=== PATIENT | female | born 1955 | race African-American/Black ===

== ENCOUNTER 2016-08-13 14:16 | Inpatient (IN) | payer BC ==
[2016-08-13] MEDS ORDERED: NORMAL SALINE 1000 ML 1,000 ML IV ONE ×2 (14:29→15:50)
--- NOTE | 2016-08-13 14:32 | ER Document Report ---
ED Medical Screen (RME) - General Chief Complaint: Abdominal Pain Stated Complaint: ABDOMINAL PAIN TRAVEL OUTSIDE OF THE [place] IN LAST 30 DAYS: No - HPI Notes: 08/13/16 14:31 Abdominal pain history of SBO states feels like a SBO the past. No nausea no vomiting no flatus last bowel movement day prior to arrival I have greeted and performed a rapid initial assessment of this patient. A comprehensive ED assessment and evaluation of the patient, analysis of test results and completion of the medical decision making process will be conducted by additional ED providers. - Related Data Allergies/Adverse Reactions: No Known Allergies Allergy (Unverified 08/13/16 14:24) Past Medical History - Past Medical History Cardiac Medical History: Reports: Hx Hypertension Renal/ Medical History: Denies: Hx Peritoneal Dialysis Past Surgical History: Reports: Hx Abdominal Surgery - Immunizations Hx Diphtheria, Pertussis, Tetanus Vaccination: Yes Review of Systems - Review of Systems Gastrointestinal: Abdominal pain Physical Exam - Vital signs Vitals: Temp Pulse Resp BP Pulse Ox 97.6 F 89 18 170/104 H 99 08/13/16 14:22 08/13/16 14:22 08/13/16 14:22 08/13/16 14:22 08/13/16 14:22 - Respiratory Respiratory status: No respiratory distress Chest status: Nontender Breath sounds: Normal Chest palpation: Normal Course - Vital Signs Vital signs: Temp Pulse Resp BP Pulse Ox 97.6 F 89 18 170/104 H 99 08/13/16 14:22 08/13/16 14:22 08/13/16 14:22 08/13/16 14:22 08/13/16 14:22
[2016-08-13 15:04] LABS: ABSOLUTE EOSINOPHILS # (AUTO) 0.1 10^3/uL (0.0-0.6); ABSOLUTE LYMPHOCYTES (AUTO) 1.1 10^3/uL (0.5-4.7); ABSOLUTE MONOCYTES (AUTO) 0.3 10^3/uL (0.1-1.4); ABSOLUTE NEUT (AUTO) 5.9 10^3/uL (1.7-8.2); BASOPHILS % (AUTO) 0.2 % (0-2); EOSINOPHILS % (AUTO) 1.2 % (0-6); HEMATOCRIT 44.2 % (36.0-47.0); HEMOGLOBIN 14.6 g/dL (12.0-15.5); HGB HCT DIFFERENCE -0.4; LYMPHOCYTES % (AUTO) 14.9 % (13-45); MEAN CORPUSCULAR HEMOGLOBIN 28.7 pg (27.0-33.4); MEAN CORPUSCULAR HGB CONC 33.1 g/dL (32.0-36.0); MEAN CORPUSCULAR VOLUME 87 fl (80-97); MONOCYTES % (AUTO) 4.5 % (3-13); RED CELL DISTRIBUTION WIDTH 14.5 % (11.5-14.0); SEGMENTED NEUTROPHILS % (AUTO) 79.2 % (42-78); WHITE BLOOD COUNT 7.4 10^3/uL (4.0-10.5)
[2016-08-13] MEDS ORDERED: MORPHINE SULFATE 10 MG/ML INJ IV ONE (15:21)
[2016-08-13] MEDS ORDERED: ONDANSETRON HCL INJ/PF 4 MG/2 ML SDV IV ONE (15:21)
[2016-08-13 15:25] LABS: ALANINE AMINOTRANSFERASE 30 U/L (9-52); ALBUMIN 4.6 g/dL (3.5-5.0); ALKALINE PHOSPHATASE 123 U/L (38-126); ANION GAP 15 (5-19); ASPARTATE AMINO TRANSFERASE 25 U/L (14-36); BILIRUBIN,DIRECT 0.3 mg/dL (0.0-0.4); BILIRUBIN,TOTAL 0.5 mg/dL (0.2-1.3); BLOOD UREA NITROGEN 17 mg/dL (7-20); CALCIUM 10.4 mg/dL (8.4-10.2); CARBON DIOXIDE 22 mmol/L (22-30); CHLORIDE 108 mmol/L (98-107); CREATININE RESULT 0.72 mg/dL (0.52-1.25); GLUCOSE 126 mg/dL (75-110); LIPASE 71.6 U/L (23-300); POTASSIUM 4.1 mmol/L (3.6-5.0); SODIUM 145.3 mmol/L (137-145); TOTAL PROTEIN 9.2 g/dL (6.3-8.2)
--- NOTE | 2016-08-13 15:49 | ER Document Report ---
ED GI/ - General Chief Complaint: Abdominal Pain Stated Complaint: ABDOMINAL PAIN Mode of Arrival: Ambulatory Information source: Patient Notes: 61 y/o F presents to ED abd pain and n/v. Pt reports onset of mid and upper abd pain with associated nausea and one episode of vomiting since this morning. Pt reports hx of previous bowel obstruction and states feels similar. Reports last BM was yesterday. Denies fever, blood in emesis or stool. TRAVEL OUTSIDE OF THE [place] IN LAST 30 DAYS: No - HPI Patient complains to provider of: Abdominal pain Onset: This morning Timing/Duration: Gradual Quality of pain: Fullness, Sharp Severity at maximum: Severe Severity in ED: Severe Pain Level: 4 Associated symptoms: Nausea, Vomiting Similar symptoms previously: Yes Recently seen / treated by doctor: No - Related Data Allergies/Adverse Reactions: No Known Allergies Allergy (Unverified 08/13/16 14:24) Home Medications: Current Home Medications Dicyclomine HCl [Bentyl 10 mg Capsule] 10 mg PO DAILY 08/13/16 [History] Famotidine [Pepcid 20 mg Tablet] 20 mg PO DAILY 08/13/16 [History] Hydrochlorothiazide [Hydrodiuril 25 mg Tablet] 25 mg PO DAILY 08/13/16 [History] Verapamil HCl [Calan 120 mg Tablet] 120 mg PO DAILY 08/13/16 [History] Past Medical History - General Information source: Patient - Social History Smoking Status: Former Smoker Frequency of alcohol use: None Drug Abuse: None Lives with: Family Family History: DM, Malignancy Patient has suicidal ideation: No Patient has homicidal ideation: No - Past Medical History Cardiac Medical History: Reports: Hx Hypertension Renal/ Medical History: Denies: Hx Peritoneal Dialysis Past Surgical History: Reports: Hx Abdominal Surgery - Immunizations Hx Diphtheria, Pertussis, Tetanus Vaccination: Yes Review of Systems - Review of Systems Constitutional: No symptoms reported EENT: No symptoms reported Cardiovascular: No symptoms reported Respiratory: No symptoms reported Gastrointestinal: See HPI Genitourinary: No symptoms reported Female Genitourinary: No symptoms reported Musculoskeletal: No symptoms reported Skin: No symptoms reported Hematologic/Lymphatic: No symptoms reported Neurological/Psychological: No symptoms reported -: Yes All other systems reviewed and negative Physical Exam - Vital signs Vitals: Temp Pulse Resp BP Pulse Ox 97.6 F 89 18 170/104 H 99 08/13/16 14:22 08/13/16 14:22 08/13/16 14:22 08/13/16 14:22 08/13/16 14:22 - General General appearance: Alert In distress: Mild - HEENT Head: Normocephalic, Atraumatic Eyes: Normal Pupils: PERRL - Respiratory Respiratory status: No respiratory distress Chest status: Nontender Breath sounds: Normal - CTAB Chest palpation: Normal - Cardiovascular Rhythm: Regular Heart sounds: Normal auscultation Murmur: No Pulses: Normal: Radial Normal capillary refill: Yes - Abdominal Inspection: Normal, Healed incision Distension: Distended - up Bowel sounds: Hypoactive Tenderness: Tender - tenderness with palpation to periumbillical and mid upper abd Organomegaly: No organomegaly - Back Back: Normal, Nontender - Extremities General upper extremity: Normal inspection, Nontender, Normal color, Normal ROM , Normal temperature General lower extremity: Normal inspection, Nontender, Normal color, Normal ROM , Normal temperature - Neurological Neuro grossly intact: Yes Cognition: Normal Orientation: AAOx4 Serena Coma Scale Eye Opening: Spontaneous Belding Coma Scale Verbal: Oriented Belding Coma Scale Motor: Obeys Commands Serena Coma Scale Total: 15 Speech: Normal Motor strength normal: LUE, RUE, LLE, RLE Sensory: Normal - Skin Skin Temperature: Warm Skin Moisture: Dry Skin Color: Normal Course - Re-evaluation Re-evalutation: 08/13/16 15:45 Pt hemodynamically stable, afebrile. Ileus vs partial small bowel obstruction on Xray. Pain and nausea significantly improved after IV Morphine and Zofran. Discussed patient presentation and findings with surgicalist Dr. Hernandez who agrees to assume care and admit to surgical unit. Recommends NGT to suction. Findings and plan discussed with patient who is agreeable. 08/13/16 16:33 - Vital Signs Vital signs: Temp Pulse Resp BP Pulse Ox 97.6 F 89 18 170/104 H 99 08/13/16 14:22 08/13/16 14:22 08/13/16 14:22 08/13/16 14:22 08/13/16 14:22 - Laboratory Result Diagrams: 08/13/16 14:30 08/13/16 14:30 Laboratory results interpreted by me: 08/13/16 08/13/16 14:30 14:30 RDW 14.5 H Seg Neutrophils % 79.2 H Sodium 145.3 H Chloride 108 H Glucose 126 H Calcium 10.4 H Total Protein 9.2 H - Diagnostic Test Radiology reviewed: Image reviewed, Reports reviewed Discharge - Discharge Clinical Impression: Partial small bowel obstruction Condition: Stable Disposition: ADMITTED INPATIENT Admitting Provider: Surgicalist - David Unit Admitted: Surgical Floor
[2016-08-13 17:02] LABS: APPEARANCE,URINE CLOUDY; BILIRUBIN,URINE NEGATIVE (NEGATIVE); GLUCOSE, URINE NEGATIVE (NEGATIVE); KETONES,URINE NEGATIVE (NEGATIVE); LEUKOCYTE ESTERASE,URINE MODERATE (NEGATIVE); NITRITE,URINE NEGATIVE (NEGATIVE); PROTEIN,URINE NEGATIVE (NEGATIVE); URINE SPECIFIC GRAVITY 1.006; UROBILINOGEN,URINE NEGATIVE mg/dL (<2.0)
[2016-08-13] MEDS: HYDROMORPHONE HCL INJ/PF 2 MG/ML AMPULE IV PRN ×2 (18:26→21:12)
[2016-08-13] MEDS: POTASSI CL 20 MEQ/D5-1/2NS 1L 1000 ML IV PRN (19:13)
[2016-08-13] MEDS: HYDRALAZINE HCL INJ/PF 20 MG/1 ML SDV IV PRN (20:29)
[2016-08-13] MEDS: ONDANSETRON HCL INJ/PF 4 MG/2 ML SDV IV PRN (21:12)
[2016-08-13] MEDS ORDERED: ENOXAPARIN SODIUM INJ 40 MG/0.4 ML DISP.SYRIN SUBCUT SCH (22:00)
[2016-08-14] MEDS: HYDROMORPHONE HCL INJ/PF 2 MG/ML AMPULE IV PRN ×5 (00:16→23:28)
[2016-08-14] MEDS: POTASSI CL 20 MEQ/D5-1/2NS 1L 1000 ML IV PRN ×3 (03:26→18:10)
[2016-08-14] MEDS: HYDRALAZINE HCL INJ/PF 20 MG/1 ML SDV IV PRN ×2 (07:34→18:35)
[2016-08-14 08:09] LABS: ABSOLUTE LYMPHOCYTES (AUTO) 1.5 10^3/uL (0.5-4.7); ABSOLUTE MONOCYTES (AUTO) 0.7 10^3/uL (0.1-1.4); ABSOLUTE NEUT (AUTO) 5.2 10^3/uL (1.7-8.2); BASOPHILS % (AUTO) 0.1 % (0-2); EOSINOPHILS % (AUTO) 0.4 % (0-6); HEMATOCRIT 39.2 % (36.0-47.0); HEMOGLOBIN 13.1 g/dL (12.0-15.5); HGB HCT DIFFERENCE 0.1; LYMPHOCYTES % (AUTO) 20.5 % (13-45); MEAN CORPUSCULAR HEMOGLOBIN 29.1 pg (27.0-33.4); MEAN CORPUSCULAR HGB CONC 33.4 g/dL (32.0-36.0); MEAN CORPUSCULAR VOLUME 87 fl (80-97); MONOCYTES % (AUTO) 9.8 % (3-13); RED BLOOD COUNT 4.49 10^6/uL (3.72-5.28); RED CELL DISTRIBUTION WIDTH 14.7 % (11.5-14.0); SEGMENTED NEUTROPHILS % (AUTO) 69.2 % (42-78); WHITE BLOOD COUNT 7.5 10^3/uL (4.0-10.5)
[2016-08-14] MEDS: ONDANSETRON HCL INJ/PF 4 MG/2 ML SDV IV PRN ×2 (08:13→18:10)
[2016-08-14 08:40] LABS: ANION GAP 11 (5-19); BLOOD UREA NITROGEN 10 mg/dL (7-20); CARBON DIOXIDE 24 mmol/L (22-30); CHLORIDE 109 mmol/L (98-107); CREATININE RESULT 0.64 mg/dL (0.52-1.25); GLUCOSE 121 mg/dL (75-110); POTASSIUM 3.7 mmol/L (3.6-5.0); SODIUM 143.9 mmol/L (137-145)
[2016-08-14] MEDS ORDERED: DEXAMETHASONE SOD PHOSPHATE INJ 4 MG/1 ML VIAL ONE (12:37)
[2016-08-14] MEDS ORDERED: LIDOCAINE 2% INJ-PF (20 MG/ML) 10 ML AMPUL ONE (12:37)
[2016-08-14] MEDS ORDERED: ONDANSETRON HCL INJ/PF 4 MG/2 ML SDV ONE (12:37)
[2016-08-14] MEDS ORDERED: GLYCOPYRROLATE INJ 0.4 MG/2 ML VIAL ONE (12:37)
[2016-08-14] MEDS ORDERED: NEOSTIGMINE METHYLSULFATE 10 MG/10 ML VIAL ONE (12:37)
[2016-08-14] MEDS ORDERED: VECURONIUM BROMIDE INJ 10 MG VIAL IV ONE (12:37)
[2016-08-14] MEDS ORDERED: SUCCINYLCHOLINE CHLORIDE INJ 200 MG/10 ML VIAL ONE (12:37)
[2016-08-14] MEDS ORDERED: LIDOCAINE 1% INJ-PF (10 MG/ML) 30 ML SDV ONE (14:13)
--- NOTE | 2016-08-14 14:16 | PDOC PROGRESS REPORT ---
Subjective Progress Note for:: 08/14/16 Subjective:: still c/o abd pain, no bm Physical Exam Vital Signs: Temp Pulse Resp BP Pulse Ox 99.2 F 90 16 163/86 H 100 08/14/16 11:36 08/14/16 11:36 08/14/16 11:36 08/14/16 11:36 08/14/16 11:36 Intake & Output 08/13/16 08/14/16 08/15/16 06:59 06:59 06:59 Intake Total 1500 Output Total 900 Balance 600 Weight 71.6 kg GI/Abdominal exam: PRESENT: other - Distended abdomen , diffuse tenderness Results Laboratory Results: 08/14/16 07:20 08/14/16 07:20 08/13/16 08/14/16 08/14/16 21:00 07:20 07:20 WBC 7.5 RBC 4.49 Hgb 13.1 Hct 39.2 MCV 87 MCH 29.1 MCHC 33.4 RDW 14.7 H Plt Count 284 Seg Neutrophils % 69.2 Lymphocytes % 20.5 Monocytes % 9.8 Eosinophils % 0.4 Basophils % 0.1 Absolute Neutrophils 5.2 Absolute Lymphocytes 1.5 Absolute Monocytes 0.7 Absolute Eosinophils 0.0 Absolute Basophils 0.0 Sodium 143.9 Potassium 3.7 Chloride 109 H Carbon Dioxide 24 Anion Gap 11 BUN 10 Creatinine 0.64 Est GFR ( Amer) > 60 Est GFR (Non-Af Amer) > 60 Glucose 121 H Lactic Acid 1.2 Calcium 9.0 Impressions: Acute Abdomen Series 08/13/16 14:27 IMPRESSION: Ileus or partial small bowel obstruction. Abdomen X-Ray 08/14/16 09:00 IMPRESSION: 1. Similar distension to prior imaging from yesterday. Nasogastric tube down. Assessment & Plan - Plan Summary Plan Summary: Intestiinal obstruction not resolving Plan laparoscopy / lysis of adhesions and required procedures.
[2016-08-14] MEDS ORDERED: FENTANYL CITRATE INJ/PF 250 MCG/5 ML AMPULE ONE (14:27)
[2016-08-14] MEDS ORDERED: MIDAZOLAM 2 MG/2 ML INJ ONE (14:27)
[2016-08-14] MEDS ORDERED: PROPOFOL INJ 200 MG/20 ML VIAL IV ONE (14:27)
[2016-08-14] MEDS ORDERED: CEFAZOLIN INJ 1 GM VIAL ONE (14:45)
[2016-08-14] MEDS ORDERED: PROMETHAZINE HCL INJ 25 MG/1 ML VIAL IV PRN ×2 (14:55)
[2016-08-14] MEDS ORDERED: MORPHINE SULFATE 10 MG/ML INJ IV PRN (14:55)
[2016-08-14] MEDS ORDERED: DIPHENHYDRAMINE HCL 50 MG/ML VIAL IV PRN (14:55)
[2016-08-14] MEDS ORDERED: FENTANYL CITRATE INJ/PF 100 MCG/2 ML AMPUL IV PRN ×3 (14:55)
[2016-08-14] MEDS ORDERED: MEPERIDINE HCL/PF INJ 25 MG/1 ML DISP.SYRIN IV PRN (14:55)
[2016-08-14] MEDS ORDERED: BUPIVACAINE HCL 0.5%-EPI 1:200000 INJ/PF 30 ML VIAL ONE (14:57)
[2016-08-14] MEDS ORDERED: CEFOXITIN 1 GM/D5W RTU 2 GM/100 ML RTUPB IV ONE (15:30)
--- NOTE | 2016-08-14 15:38 | HISTORY AND PHYSICAL E ---
History and Physical NAME: BELINDA MCCULLOUGH : 1955 AGE: 61Y ADMITTED: 08/13/2016 ROOM: 210 Consultation from emergency room for evaluation and management of possible intestinal obstruction. Patient presenting with a 1-day history of abdominal pain which started this morning, started with acute abdominal pain in most of the lower abdomen at the start and became generalized afterwards. Started feeling nausea and after coming to the emergency room she vomited once. She had a bowel movement yesterday. PAST MEDICAL HISTORY: History of hypertension. PAST SURGICAL HISTORY: History of in the past, and several years ago she had surgery for exploratory laparotomy and surgery for intestinal obstruction several years ago. episode of abdominal pain and vomiting. She has never had a colonoscopy so far. FAMILY HISTORY: Nothing relevant. PERSONAL HISTORY: Nonsmoker, no alcohol abuse. Lives with family. REVIEW OF SYSTEMS: CARDIAC: No history of chest pains. RESPIRATORY: No history of asthma or shortness of breath, cough. GASTROINTESTINAL SYSTEM: History of intestinal obstruction in the past. NEUROLOGICAL: No history of seizure disorder, no history of neurological deficits. ENDOCRINOLOGY: No history of diabetes. EXAMINATION: GENERAL: A very pleasant 61-year-old female patient not in any distress. VITAL SIGNS: Afebrile. HEAD AND NECK: Normocephalic. no lymphadenopathy, no masses. RESPIRATORY: Both lungs are clear to auscultation. CARDIOVASCULAR: Heart sounds are regular, no murmurs or gallops. ABDOMINAL: She had mild to moderate distention. Soft, nontender. . No rebound. Bowel sounds are present. Mildly hyperactive. No palpable hernia. EXTREMITIES: Normally perfused. NEUROLOGIC: No signs of any focal neurologic deficit. LABORATORY DATA: I reviewed her imaging studies. Evidence of distended small bowel loops. No clear-cut of transitional point, but distal small bowel loops. OVERALL IMPRESSION: Small bowel obstruction most likely due to adhesions. PLAN: Admit for intravenous hydration, NG tube for decompression, bowel rest, initial trial of conservative management. If she does not respond to conservative management, or if she gets any sicker, then we will plan for surgical intervention. DICTATING PHYSICIAN: JULIETA GERONIMO M.D. [id number] PHY#: [id number] ID: [id number] JOB#: [id number] ACCT: [id number] cc:JULIETA GERONIMO M.D. > NAM
[2016-08-14] MEDS ORDERED: HYDROMORPHONE HCL INJ/PF 2 MG/ML AMPULE ONE (16:44)
--- NOTE | 2016-08-14 18:18 | OPERATIVE REPORT E ---
Operative Report NAME: BELINDA MCCULLOUGH : 1955 AGE: 61Y DATE OF SURGERY: 08/14/2016 ROOM: [facility] PREOPERATIVE DIAGNOSIS: A 61-year-old female patient in need of central venous access both for hydration and possible TPN in the future. POSTOPERATIVE DIAGNOSIS: A 61-year-old female patient in need of central venous access both for hydration and possible TPN in the future, status post exploratory laparotomy, small bowel obstruction, needing central venous access. OPERATION: Insertion of central venous catheter through the subclavian vein under ultrasound guidance. SURGEON: JULIETA GERONIMO M.D. DESCRIPTION OF PROCEDURE: The patient was placed in the Trendelenburg position, the anterior chest wall and neck cleaned as a sterile field, and then the right internal jugular vein was accessed by using the Seldinger technique under ultrasound guidance. Over the guidewire, a dilator was passed. After that, a triple-lumen catheter was inserted in the superior vena cava over the guidewire, and then it was then placed in the superior vena cava, secured in place, and then all 3 lumens of the triple-lumen catheter were flushed with heparinized saline with excellent venous flow. After that, catheter was secured in place and dressing were applied. The patient was stable. DICTATING PHYSICIAN: JULIETA GERONIMO M.D. [id number] Y#: [id number] ID: [id number] JOB#: [id number] ACCT: [id number] cc:JULIETA GERONIMO M.D. >
--- NOTE | 2016-08-14 18:48 | OPERATIVE REPORT E ---
Operative Report NAME: BELINDA MCCULLOUGH : 1955 AGE: 61Y DATE OF SURGERY: 08/13/2016 ROOM: [facility] PREOPERATIVE DIAGNOSIS: The patient is a 61-year-old female patient with preoperative diagnosis of intestinal obstruction due to most likely adhesions. POSTOPERATIVE DIAGNOSIS: 1. Intestinal obstruction multilevel. 2. Severe, dense multiple adhesions with possible necrotic small bowel. OPERATION: 1. Laparoscopic converted to open exploratory laparotomy. 2. Resection of segment of small bowel with re-anastomosis. 3. Extensive lysis of adhesions. SURGEON: JULIETA GERONIMO M.D. ANESTHESIA: General. BLOOD LOSS: Less than 100 mL. SPECIMENS: Segment of small bowel. HISTORY AND INDICATIONS: As described. PROCEDURE: The patient was placed in supine position. Initially , I performed laparoscopically but noted that she had multiple dense adhesions. With this, open exploratory laparotomy because the patient had dense adhesions. She has findings of multiple loops of small bowel that were adherent to the abdominal wall, and there were a tremendous amount of adhesions within the pelvis deeply inside the abdominal wall. These adhesions were extensive and dense, and it took about almost an hour and a half of lysis of dense adhesions almost from the proximal jejunum to the terminal ileum. Intestinal wall was cleared up, lysing all the adhesions layer by layer very carefully with sharp, careful dissection. Then there were 2 segments of small bowel which were basically partially necrotic with a very thin wall in multiple areas. Will need to be resected. Both segments were resected, and then anastomosis performed of the proximal and distal healthy loops of small bowel by using the 60 stapler, a 3.60 stapler followed by stapler. Staple lines all around were reinforced by using 2-0 and 3-0 silk sutures by seromuscular inverting sutures. After that, there were 3 other small serosal defects present in the proximal jejunum and also in ileum. Those serosal defects were carefully repaired by using 3-0 silk interrupted seromuscular sutures. After examining the entire small bowel, making sure every part of the small bowel was intact and the abdominal cavity, I copiously irrigated with warm normal saline until the effluent was clear. A J-P drain was placed in the pelvic cavity. After that, several layers of Seprafilm were placed in the abdominal cavity and in the deep pelvis to prevent further adhesions. After instrument and lap count was checked which was correct, after obtaining complete hemostasis, now closed with 0 Vicryl, #1 PDS for the fascia. Skin was glued and reapproximated by using the meghann. The patient was taken to ICU in stable condition. DICTATING PHYSICIAN: JULIETA GERONIMO M.D. [id number] PHY#: [id number] ID: [id number] JOB#: [id number] ACCT: [id number] cc:JULIETA GERONIMO M.D. > MTDD
[2016-08-14] MEDS ORDERED: PIPERACILLIN/TAZOBACTAM 3.375 GM VIAL IV PRN (19:07)
[2016-08-14] MEDS: KETOROLAC TROMETHAMINE INJ/PF 30 MG/1 ML SDV IV PRN (20:24)
[2016-08-15] MEDS: HYDRALAZINE HCL INJ/PF 20 MG/1 ML SDV IV PRN (00:11)
[2016-08-15] MEDS: PIPERACILLIN SODIUM/TAZOBACTAM 3.375 GM in NORMAL SALINE 100 ML IV SCH ×3 (02:57→18:33)
[2016-08-15] MEDS: HYDROMORPHONE HCL INJ/PF 2 MG/ML AMPULE IV PRN ×6 (05:05→22:41)
[2016-08-15 05:26] LABS: HEMATOCRIT 43.1 % (36.0-47.0); HEMOGLOBIN 13.9 g/dL (12.0-15.5); HGB HCT DIFFERENCE -1.4; MEAN CORPUSCULAR HEMOGLOBIN 28.4 pg (27.0-33.4); MEAN CORPUSCULAR HGB CONC 32.2 g/dL (32.0-36.0); MEAN CORPUSCULAR VOLUME 88 fl (80-97); RED BLOOD COUNT 4.89 10^6/uL (3.72-5.28); RED CELL DISTRIBUTION WIDTH 14.5 % (11.5-14.0); WHITE BLOOD COUNT 3.7 10^3/uL (4.0-10.5)
[2016-08-15 05:55] LABS: ANION GAP 10 (5-19); BLOOD UREA NITROGEN 9 mg/dL (7-20); CARBON DIOXIDE 20 mmol/L (22-30); CHLORIDE 112 mmol/L (98-107); CREATININE RESULT 0.63 mg/dL (0.52-1.25); GLUCOSE 122 mg/dL (75-110); POTASSIUM 3.4 mmol/L (3.6-5.0); SODIUM 142.3 mmol/L (137-145)
[2016-08-15] MEDS: POTASSI CL 20 MEQ/D5-1/2NS 1L 1000 ML IV PRN ×3 (06:42→23:47)
--- NOTE | 2016-08-15 06:58 | PDOC PROGRESS REPORT ---
Subjective Progress Note for:: 08/15/16 Subjective:: pain under control Physical Exam Vital Signs: Temp Pulse Resp BP Pulse Ox 98.6 F 125 H 12 120/92 H 100 08/15/16 03:48 08/14/16 22:03 08/15/16 06:22 08/15/16 06:22 08/15/16 06:22 Intake & Output 08/13/16 08/14/16 08/15/16 06:59 06:59 06:59 Intake Total 1500 47531 Output Total 900 940 Balance 600 57216 Weight 71.6 kg GI/Abdominal exam: PRESENT: other - Soft abdomen stacy drain serous Results Laboratory Results: 08/15/16 05:18 08/15/16 05:18 08/14/16 08/14/16 08/15/16 07:20 07:20 05:18 WBC 7.5 3.7 L RBC 4.49 4.89 Hgb 13.1 13.9 Hct 39.2 43.1 MCV 87 88 MCH 29.1 28.4 MCHC 33.4 32.2 RDW 14.7 H 14.5 H Plt Count 284 278 Seg Neutrophils % 69.2 Lymphocytes % 20.5 Monocytes % 9.8 Eosinophils % 0.4 Basophils % 0.1 Absolute Neutrophils 5.2 Absolute Lymphocytes 1.5 Absolute Monocytes 0.7 Absolute Eosinophils 0.0 Absolute Basophils 0.0 Sodium 143.9 Potassium 3.7 Chloride 109 H Carbon Dioxide 24 Anion Gap 11 BUN 10 Creatinine 0.64 Est GFR ( Amer) > 60 Est GFR (Non-Af Amer) > 60 Glucose 121 H Calcium 9.0 08/15/16 05:18 WBC RBC Hgb Hct MCV MCH MCHC RDW Plt Count Seg Neutrophils % Lymphocytes % Monocytes % Eosinophils % Basophils % Absolute Neutrophils Absolute Lymphocytes Absolute Monocytes Absolute Eosinophils Absolute Basophils Sodium 142.3 Potassium 3.4 L Chloride 112 H Carbon Dioxide 20 L Anion Gap 10 BUN 9 Creatinine 0.63 Est GFR ( Amer) > 60 Est GFR (Non-Af Amer) > 60 Glucose 122 H Calcium 8.0 L Impressions: Acute Abdomen Series 08/13/16 14:27 IMPRESSION: Ileus or partial small bowel obstruction. Chest X-Ray 08/14/16 00:00 IMPRESSION: Appropriate position of support apparatus. No pneumothorax. Abdomen X-Ray 08/14/16 09:00 IMPRESSION: 1. Similar distension to prior imaging from yesterday. Nasogastric tube down. Assessment & Plan - Plan Summary Plan Summary: Explor lap for SB obstruction small bowel resection, extensive adhesions, expected to have prolonged Ileus and long recovery Pain management Incentive spirometry
[2016-08-15 07:55] LABS: ABSOLUTE LYMPHOCYTES (AUTO) 0.2 10^3/uL (0.5-4.7); ABSOLUTE MONOCYTES (AUTO) 0.3 10^3/uL (0.1-1.4); ABSOLUTE NEUT (AUTO) 3.8 10^3/uL (1.7-8.2); BASOPHILS % (AUTO) 0.3 % (0-2); EOSINOPHILS % (AUTO) 0.4 % (0-6); HEMATOCRIT 42.8 % (36.0-47.0); HEMOGLOBIN 14.1 g/dL (12.0-15.5); HGB HCT DIFFERENCE -0.5; LYMPHOCYTES % (AUTO) 5.3 % (13-45); MEAN CORPUSCULAR HGB CONC 32.9 g/dL (32.0-36.0); MEAN CORPUSCULAR VOLUME 88 fl (80-97); RED BLOOD COUNT 4.85 10^6/uL (3.72-5.28); RED CELL DISTRIBUTION WIDTH 14.8 % (11.5-14.0); WHITE BLOOD COUNT 4.4 10^3/uL (4.0-10.5)
[2016-08-15] MEDS: ENOXAPARIN SODIUM INJ 40 MG/0.4 ML DISP.SYRIN SUBCUT SCH (08:15)
--- NOTE | 2016-08-15 09:35 | PDOC CONSULTATION ---
Consultation Consult Date: 08/15/16 Attending physician:: VARSHA BROOKS Consult reason:: Hypertension History of Present Illness Admission Date/PCP: 08/13/16 17:00 Dr. Erick Nichole Patient complains of: Elevated blood pressure History of Present Illness: BELINDA MCCULLOUGH is a 61 year old female that is status post exploratory laparotomy for small bowel obstruction by Dr. Hernandez of surgery. Patient has chronic hypertension and is unable to take chronic medications secondary to nothing by mouth status following surgery. Surgery has requested Hospital medicine consult to manage hypertension. Past Medical History Cardiac Medical History: Reports: Hypertension Psychiatric Medical History: Denies: Depression Past Surgical History Past Surgical History: Reports: Other - Exploratory laparotomy secondary to small bowel obstruction Social History Information Source: Patient, [facility] Records Lives with: Family Smoking Status: Unknown if Ever Smoked Frequency of Alcohol Use: None Hx Recreational Drug Use: No Drugs: None Hx Prescription Drug Abuse: No - Advance Directive Resuscitation Status: Full Code Family History Family History: DM, Malignancy Parental Family History Reviewed: Yes Children Family History Reviewed: Yes Sibling(s) Family History Reviewed.: Yes Medication/Allergy Home Medications: Dicyclomine HCl [Bentyl 10 mg Capsule] 10 mg PO DAILY 08/13/16 Famotidine [Pepcid 20 mg Tablet] 20 mg PO DAILY 08/13/16 Hydrochlorothiazide [Hydrodiuril 25 mg Tablet] 25 mg PO DAILY 08/13/16 Verapamil HCl [Calan 120 mg Tablet] 120 mg PO DAILY 08/13/16 Allergies/Adverse Reactions: No Known Allergies Allergy (Unverified 08/13/16 14:24) Review of Systems Constitutional: ABSENT: chills, fever(s), headache(s), weight gain, weight loss Eyes: ABSENT: visual disturbances Ears: ABSENT: hearing changes Cardiovascular: ABSENT: chest pain, dyspnea on exertion, edema, orthropnea, palpitations Respiratory: ABSENT: cough, hemoptysis Gastrointestinal: PRESENT: abdominal pain. ABSENT: constipation, diarrhea, hematemesis, hematochezia, nausea, vomiting Genitourinary: ABSENT: dysuria, hematuria Musculoskeletal: ABSENT: joint swelling Integumentary: ABSENT: rash, wounds Neurological: ABSENT: abnormal gait, abnormal speech, confusion, dizziness, focal weakness, syncope Psychiatric: ABSENT: anxiety, depression, homidical ideation, suicidal ideation Endocrine: ABSENT: cold intolerance, heat intolerance, polydipsia, polyuria Hematologic/Lymphatic: ABSENT: easy bleeding, easy bruising Physical Exam Vital Signs: Temp Pulse Resp BP Pulse Ox 98.6 F 125 H 12 120/92 H 100 08/15/16 03:48 08/14/16 22:03 08/15/16 06:22 08/15/16 06:22 08/15/16 06:22 Intake & Output 08/14/16 08/15/16 08/16/16 06:59 06:59 06:59 Intake Total 1500 04798 Output Total 900 940 Balance 600 24342 Weight 71.6 kg PHYSICAL EXAM: GENERAL: Appears well, no acute distress, sedate and mildly confused asking the same questions repeatedly HEENT: Normocephalic, no scleral icterus, conjunctiva clear, EOEM intact, PERRLA , moist mucous membranes NECK: trachea midline, no thyromegally RESPIRATORY: Clear to auscultation, no wheezes/rhonchi CARDIAC: Regular rate and rhythm, no murmur/emi/rub ABDOMEN: Soft, mildly distended and tender, midline incision intact, abdominal binder in place, no guarding, absent bowel sounds, negative Caruso sign RECTAL: deferred : deferred EXTREMITIES: No edema, cyanosis, clubbing MUSCULOSKELETAL: No joint swelling or deformity VASCULAR: normal peripheral pulses NEUROLOGIC: Alert, oriented to person/place/time, normal speech, cranial nerves grossly intact, 5/5 strength in all extremities, tactile sensation intact in all extremities SKIN: No rash, no wounds, no worrisome skin lesions PSYCHIATRIC: Normal mood, normal affect Results Laboratory Results: 08/15/16 07:47 08/15/16 05:18 08/15/16 08/15/16 08/15/16 05:18 05:18 07:47 WBC 3.7 L 4.4 RBC 4.89 4.85 Hgb 13.9 14.1 Hct 43.1 42.8 MCV 88 88 MCH 28.4 29.0 MCHC 32.2 32.9 RDW 14.5 H 14.8 H Plt Count 278 273 Seg Neutrophils % 86.0 H Lymphocytes % 5.3 L Monocytes % 8.0 Eosinophils % 0.4 Basophils % 0.3 Absolute Neutrophils 3.8 Absolute Lymphocytes 0.2 L Absolute Monocytes 0.3 Absolute Eosinophils 0.0 Absolute Basophils 0.0 Sodium 142.3 Potassium 3.4 L Chloride 112 H Carbon Dioxide 20 L Anion Gap 10 BUN 9 Creatinine 0.63 Est GFR ( Amer) > 60 Est GFR (Non-Af Amer) > 60 Glucose 122 H Calcium 8.0 L Impressions: Acute Abdomen Series 08/13/16 14:27 IMPRESSION: Ileus or partial small bowel obstruction. Chest X-Ray 08/14/16 00:00 IMPRESSION: Appropriate position of support apparatus. No pneumothorax. Abdomen X-Ray 08/14/16 09:00 IMPRESSION: 1. Similar distension to prior imaging from yesterday. Nasogastric tube down. Assessment & Plan - Diagnosis (1) Partial small bowel obstruction Is this a current diagnosis for this admission?: YesPlan: Surgery to manage. NPO for now on IVF's. OOB with assist, PT eval. (2) HTN (hypertension) Is this a current diagnosis for this admission?: Yes - Time Time Spent: 50 to 70 Minutes
[2016-08-15] MEDS ORDERED: DICYCLOMINE HCL 10 MG CAPSULE PO SCH (10:00)
[2016-08-15] MEDS ORDERED: VERAPAMIL HCL 120 MG TABLET.SA PO SCH (10:00)
[2016-08-15] MEDS ORDERED: HYDROCHLOROTHIAZIDE 25 MG TABLET PO SCH (10:00)
[2016-08-15] MEDS ORDERED: FAMOTIDINE 20 MG TABLET PO SCH (10:00)
[2016-08-15] MEDS ORDERED: NORMAL SALINE 500 ML IV ONE (16:30)
[2016-08-15] MEDS: KETOROLAC TROMETHAMINE INJ/PF 30 MG/1 ML SDV IV PRN (21:00)
[2016-08-16] MEDS: PIPERACILLIN SODIUM/TAZOBACTAM 3.375 GM in NORMAL SALINE 100 ML IV SCH ×3 (01:39→17:41)
[2016-08-16] MEDS: HYDROMORPHONE HCL INJ/PF 2 MG/ML AMPULE IV PRN ×3 (01:44→12:58)
[2016-08-16 04:46] LABS: HGB HCT DIFFERENCE -0.3; MEAN CORPUSCULAR HEMOGLOBIN 28.5 pg (27.0-33.4); MEAN CORPUSCULAR VOLUME 87 fl (80-97); RED BLOOD COUNT 3.81 10^6/uL (3.72-5.28); RED CELL DISTRIBUTION WIDTH 15.1 % (11.5-14.0); WHITE BLOOD COUNT 7.6 10^3/uL (4.0-10.5)
[2016-08-16 04:47] LABS: HEMOGLOBIN 10.9 g/dL (12.0-15.5)
[2016-08-16 04:51] LABS: ANION GAP 6 (5-19); BLOOD UREA NITROGEN 15 mg/dL (7-20); CALCIUM 8.2 mg/dL (8.4-10.2); CARBON DIOXIDE 25 mmol/L (22-30); CHLORIDE 110 mmol/L (98-107); CREATININE RESULT 0.81 mg/dL (0.52-1.25); GLUCOSE 122 mg/dL (75-110); POTASSIUM 4.3 mmol/L (3.6-5.0); SODIUM 141.3 mmol/L (137-145)
[2016-08-16] MEDS: ENOXAPARIN SODIUM INJ 40 MG/0.4 ML DISP.SYRIN SUBCUT SCH (08:14)
[2016-08-16] MEDS: KETOROLAC TROMETHAMINE INJ/PF 30 MG/1 ML SDV IV PRN ×3 (08:15→21:42)
[2016-08-16] MEDS: POTASSI CL 20 MEQ/D5-1/2NS 1L 1000 ML IV PRN ×2 (08:32→17:58)
--- NOTE | 2016-08-16 13:44 | PROGRESS NOTE E ---
Progress Note NAME: BELINDA MCCULLOUGH : 1955 AGE: 61Y DATE: 08/16/2016 ROOM: 334 SUBJECTIVE: She is post exploratory laparotomy, lysis of adhesions, small bowel resection 2 days postop. She was just transferred from the ICU. Her NG tube since 1:00 a.m. was about 400 mL. She is complaining of upper abdominal pains. OBJECTIVE: Dressing is dry. VANNESA drainage is blood-tinged, about 40 mL. Her white count is down to 7.6. PLAN: Will continue to leave the NG tube, continue IV hydration, try to get her out of bed and ambulate. Repeat all the blood work in a.m. DICTATING PHYSICIAN: ANISH HINKLE M.D. [id number] PHY#: [id number] ID: [id number] JOB#: [id number] ACCT: [id number] cc: >
--- NOTE | 2016-08-16 16:45 | PDOC PROGRESS REPORT ---
Subjective Progress Note for:: 08/16/16 Subjective:: Pain controlled. No flatus, no bowel movement. No nausea or vomiting. Physical Exam Vital Signs: Temp Pulse Resp BP Pulse Ox 99.1 F 115 H 18 151/87 H 100 08/16/16 12:12 08/16/16 14:00 08/16/16 12:12 08/16/16 12:12 08/16/16 12:12 Intake & Output 08/15/16 08/16/16 08/17/16 06:59 06:59 06:59 Intake Total 71226 3139 Output Total 940 555 480 Balance 1497438 0294 -676 Weight 78 kg GENERAL: No acute distress HEENT: Conjunctiva clear, nonicteric, moist mucous membranes, no JVD, midline trachea RESPIRATORY: Clear to auscultation bilaterally, no wheezes, no rhonchi CARDIAC: Regular rate and rhythm, no murmurs/gallops/rubs ABDOMEN: Soft, slightly distended, mild nonspecific tenderness, positive bowel sounds EXTREMETIES: No edema, cyanosis, clubbing NEUROLOGIC: Alert, oriented to person/place/time, CN's grossly intact, no focal deficits SKIN: No rash, wounds PSYCH: Normal mood, normal affect Results Laboratory Results: 08/16/16 04:12 08/16/16 04:12 08/16/16 08/16/16 04:12 04:12 WBC 7.6 RBC 3.81 Hgb 10.9 L D Hct 33.0 L MCV 87 MCH 28.5 MCHC 33.0 RDW 15.1 H Plt Count 194 Sodium 141.3 Potassium 4.3 Chloride 110 H Carbon Dioxide 25 Anion Gap 6 BUN 15 Creatinine 0.81 Est GFR ( Amer) > 60 Est GFR (Non-Af Amer) > 60 Glucose 122 H Calcium 8.2 L Impressions: Acute Abdomen Series 08/13/16 14:27 IMPRESSION: Ileus or partial small bowel obstruction. Chest X-Ray 08/14/16 00:00 IMPRESSION: Appropriate position of support apparatus. No pneumothorax. Abdomen X-Ray 08/14/16 09:00 IMPRESSION: 1. Similar distension to prior imaging from yesterday. Nasogastric tube down. Assessment & Plan - Diagnosis (1) Partial small bowel obstruction Is this a current diagnosis for this admission?: YesPlan: Surgery to manage. NPO for now on IVF's. OOB with assist, PT eval. (2) HTN (hypertension) Is this a current diagnosis for this admission?: YesPlan: Continue when necessary IV hydralazine. Hold home medications while nothing by mouth. - Time Time Spent with patient: 15-24 minutes
[2016-08-16] MEDS: HYDRALAZINE HCL INJ/PF 20 MG/1 ML SDV IV PRN (20:21)
[2016-08-16] MEDS: MORPHINE SULFATE 10 MG/ML INJ IV PRN (20:59)
[2016-08-16] MEDS ORDERED: ACETAMINOPHEN 650 MG SUPP.RECT PR ONE (21:45)
[2016-08-17] MEDS: PIPERACILLIN SODIUM/TAZOBACTAM 3.375 GM in NORMAL SALINE 100 ML IV SCH ×3 (02:06→17:34)
[2016-08-17] MEDS: MORPHINE SULFATE 10 MG/ML INJ IV PRN ×3 (03:03→17:51)
[2016-08-17] MEDS: KETOROLAC TROMETHAMINE INJ/PF 30 MG/1 ML SDV IV PRN ×3 (04:44→21:50)
[2016-08-17 05:11] LABS: HEMATOCRIT 27.3 % (36.0-47.0); HEMOGLOBIN 9.3 g/dL (12.0-15.5); HGB HCT DIFFERENCE 0.6; MEAN CORPUSCULAR HEMOGLOBIN 29.2 pg (27.0-33.4); MEAN CORPUSCULAR HGB CONC 34.1 g/dL (32.0-36.0); MEAN CORPUSCULAR VOLUME 86 fl (80-97); RED BLOOD COUNT 3.18 10^6/uL (3.72-5.28); RED CELL DISTRIBUTION WIDTH 14.7 % (11.5-14.0); WHITE BLOOD COUNT 6.7 10^3/uL (4.0-10.5)
[2016-08-17 05:25] LABS: ANION GAP 7 (5-19); BLOOD UREA NITROGEN 12 mg/dL (7-20); CALCIUM 8.2 mg/dL (8.4-10.2); CARBON DIOXIDE 28 mmol/L (22-30); CHLORIDE 109 mmol/L (98-107); CREATININE RESULT 0.84 mg/dL (0.52-1.25); GLUCOSE 100 mg/dL (75-110); POTASSIUM 3.2 mmol/L (3.6-5.0); SODIUM 144.2 mmol/L (137-145)
[2016-08-17] MEDS: POTASSI CL 20 MEQ/D5-1/2NS 1L 1000 ML IV PRN ×2 (06:07→17:35)
[2016-08-17] MEDS: ENOXAPARIN SODIUM INJ 40 MG/0.4 ML DISP.SYRIN SUBCUT SCH (09:20)
[2016-08-17] MEDS ORDERED: PANTOPRAZOLE SODIUM 40 MG VIAL IV ONE (11:00)
--- NOTE | 2016-08-17 11:14 | PROGRESS NOTE E ---
Progress Note NAME: BELINDA MCCULLOUGH : 1955 AGE: 61Y DATE: 08/17/2016 ROOM: 334 SUBJECTIVE: She is now postop day #3. She had a fever of 99.7 last night. Her white count, however, remained normal at 6.7 but her hemoglobin dropped to 9.3 from 10.9 last night. This morning she looks better. She claims less pains in her abdomen. Her abdomen is also soft and there is less distention. The incisions look good and the VANNESA drain is about 75 mL of primarily serous light sanguinous. Her NG drainage, however, was about 1700 mL overnight. She denies any flatus yet. I spoke to Dr. De La Paz, the hospitalist, who claims that she might be developing pneumonia per the blood cultures and chest x-ray. PLAN: The plan is to continue with the NG tube and IV antibiotics. She can be out of bed, which was discussed with the nurse yesterday where they can just discontinue the NG tube temporarily and hook it back as soon as she gets back in bed. DICTATING PHYSICIAN: ANISH HINKLE M.D. [id number] PHY#: [id number] ID: [id number] JOB#: [id number] ACCT: [id number] cc: >
[2016-08-17] MEDS: METOPROLOL TARTRATE PF/INJ 5 MG/5 ML SDV IV SCH ×2 (11:20→17:30)
[2016-08-17 11:50] LABS: APPEARANCE,URINE CLEAR; BILIRUBIN,URINE NEGATIVE (NEGATIVE); GLUCOSE, URINE NEGATIVE (NEGATIVE); KETONES,URINE NEGATIVE (NEGATIVE); LEUKOCYTE ESTERASE,URINE NEGATIVE (NEGATIVE); NITRITE,URINE NEGATIVE (NEGATIVE); PROTEIN,URINE 100 mg/dL (NEGATIVE); URINE SPECIFIC GRAVITY 1.017; UROBILINOGEN,URINE NEGATIVE mg/dL (<2.0)
--- NOTE | 2016-08-17 16:26 | PDOC PROGRESS REPORT ---
Subjective Progress Note for:: 08/17/16 Subjective:: Nursing reports the patient has had 1400 mL NG tube output up with past 24 hours. 75 mL VANNESA drain output. Patient has had some low-grade fevers. Abdominal pain is controlled. She is having mild cough. She denies flatus or bowel movement still. Physical Exam Vital Signs: Temp Pulse Resp BP Pulse Ox 97.3 F 88 18 178/86 H 100 08/17/16 12:16 08/17/16 12:16 08/17/16 12:16 08/17/16 12:16 08/17/16 12:16 Intake & Output 08/16/16 08/17/16 08/18/16 06:59 06:59 06:59 Intake Total 3139 2488 Output Total 555 8845 400 Balance 2584 -217 -400 Weight 78 kg 79.3 kg GENERAL: No acute distress HEENT: Conjunctiva clear, nonicteric, moist mucous membranes, no JVD, midline trachea RESPIRATORY: Clear to auscultation bilaterally, no wheezes, no rhonchi CARDIAC: Regular rate and rhythm, no murmurs/gallops/rubs ABDOMEN: Soft, slightly distended, mild nonspecific tenderness, absent bowel sounds EXTREMETIES: No edema, cyanosis, clubbing NEUROLOGIC: Alert, oriented to person/place/time, CN's grossly intact, no focal deficits SKIN: Mid abdominal incision healing well with no signs of infection. Drain and left lower quadrant with 75 mL output over past 24 hours PSYCH: Normal mood, normal affect Results Laboratory Results: 08/17/16 04:42 08/17/16 04:42 08/17/16 08/17/16 08/17/16 04:42 04:42 11:10 WBC 6.7 RBC 3.18 L Hgb 9.3 L Hct 27.3 L MCV 86 MCH 29.2 MCHC 34.1 RDW 14.7 H Plt Count 158 Sodium 144.2 Potassium 3.2 L Chloride 109 H Carbon Dioxide 28 Anion Gap 7 BUN 12 Creatinine 0.84 Est GFR ( Amer) > 60 Est GFR (Non-Af Amer) > 60 Glucose 100 Calcium 8.2 L Urine Color YELLOW Urine Appearance CLEAR Urine pH 8.0 Ur Specific [place] 1.017 Urine Protein 100 H Urine Glucose (UA) NEGATIVE Urine Ketones NEGATIVE Urine Blood NEGATIVE Urine Nitrite NEGATIVE Ur Leukocyte Esterase NEGATIVE Urine WBC (Auto) 0 Urine RBC (Auto) 1 Impressions: Acute Abdomen Series 08/13/16 14:27 IMPRESSION: Ileus or partial small bowel obstruction. Abdomen X-Ray 08/14/16 09:00 IMPRESSION: 1. Similar distension to prior imaging from yesterday. Nasogastric tube down. Chest X-Ray 08/17/16 10:24 IMPRESSION: 1. Appropriate lines and tubes. 2. Basilar volume loss, slightly worse compared to prior. (Per my interpretation appears to have right basilar atelectasis) Assessment & Plan - Diagnosis (1) Partial small bowel obstruction Is this a current diagnosis for this admission?: YesPlan: Postoperative day #3. Surgery to manage. NPO for now on IVF's. OOB with assist , PT eval. (2) HTN (hypertension) Is this a current diagnosis for this admission?: YesPlan: Continue when necessary IV hydralazine. Blood pressures have been elevated so I would like to start scheduled IV Lopressor 2.5 mg every 6 hours. Hold home medications while nothing by mouth. (3) Fever Is this a current diagnosis for this admission?: YesPlan: Possibly associated with right basilar atelectasis and postoperative patient. Have encouraged patient to use incentive spirometer that is currently sitting in an emesis basin on the opposite side of the room. Have also advised the nurse to encourage ration to to the same. Patient is on empiric antibiotic coverage with Zosyn for intra-abdominal surgery. Urinalysis is negative. - Time Time Spent with patient: 35 or more minutes
[2016-08-17] MEDS ORDERED: DEXTROSE 50%-WATER 25 GM/50 ML DISP.SYRIN IV PRN (17:14)
[2016-08-17] MEDS ORDERED: GLUCAGON,HUMAN RECOMB 1 MG INJ IM PRN (17:14)
[2016-08-17] MEDS ORDERED: DEXTROSE 40% GEL 15 GM TUBE PO PRN ×2 (17:14)
[2016-08-17] MEDS ORDERED: DEXTROSE 50%-WATER 25 GM/50 ML DISP.SYRIN IV ONE (17:18)
[2016-08-17] MEDS: DEXTROSE 50%-WATER 25 GM/50 ML DISP.SYRIN IV PRN (17:21)
[2016-08-17] MEDS: HYDRALAZINE HCL INJ/PF 20 MG/1 ML SDV IV PRN (20:03)
[2016-08-17] MEDS: PANTOPRAZOLE SODIUM 40 MG VIAL IV SCH (21:49)
[2016-08-18] MEDS: MORPHINE SULFATE 10 MG/ML INJ IV PRN ×4 (00:13→22:03)
[2016-08-18] MEDS: METOPROLOL TARTRATE PF/INJ 5 MG/5 ML SDV IV SCH ×2 (00:58→05:11)
[2016-08-18] MEDS: PIPERACILLIN SODIUM/TAZOBACTAM 3.375 GM in NORMAL SALINE 100 ML IV SCH ×3 (01:30→19:04)
[2016-08-18] MEDS: HYDRALAZINE HCL INJ/PF 20 MG/1 ML SDV IV PRN (04:09)
[2016-08-18] MEDS: POTASSI CL 20 MEQ/D5-1/2NS 1L 1000 ML IV PRN (04:10)
[2016-08-18 05:47] LABS: HEMATOCRIT 26.4 % (36.0-47.0); HEMOGLOBIN 9.1 g/dL (12.0-15.5); HGB HCT DIFFERENCE 0.9; MEAN CORPUSCULAR HEMOGLOBIN 29.7 pg (27.0-33.4); MEAN CORPUSCULAR HGB CONC 34.5 g/dL (32.0-36.0); MEAN CORPUSCULAR VOLUME 86 fl (80-97); RED BLOOD COUNT 3.06 10^6/uL (3.72-5.28); RED CELL DISTRIBUTION WIDTH 14.6 % (11.5-14.0); WHITE BLOOD COUNT 6.7 10^3/uL (4.0-10.5)
[2016-08-18 06:12] LABS: ALANINE AMINOTRANSFERASE 26 U/L (9-52); ALBUMIN 2.3 g/dL (3.5-5.0); ALKALINE PHOSPHATASE 68 U/L (38-126); ANION GAP 8 (5-19); ASPARTATE AMINO TRANSFERASE 22 U/L (14-36); BILIRUBIN,DIRECT 0.3 mg/dL (0.0-0.4); BILIRUBIN,TOTAL 0.9 mg/dL (0.2-1.3); BLOOD UREA NITROGEN 10 mg/dL (7-20); CALCIUM 8.2 mg/dL (8.4-10.2); CARBON DIOXIDE 27 mmol/L (22-30); CHLORIDE 108 mmol/L (98-107); CREATININE RESULT 0.73 mg/dL (0.52-1.25); GLUCOSE 88 mg/dL (75-110); MAGNESIUM 1.7 mg/dL (1.6-2.3); POTASSIUM 3.1 mmol/L (3.6-5.0); SODIUM 142.6 mmol/L (137-145)
[2016-08-18] MEDS: POTASSI CL 20 MEQ/50 ML RIDER 20 MEQ/50 ML RTUPB IV SCH ×2 (08:24→09:49)
[2016-08-18] MEDS: ENOXAPARIN SODIUM INJ 40 MG/0.4 ML DISP.SYRIN SUBCUT SCH (08:26)
[2016-08-18] MEDS: PANTOPRAZOLE SODIUM 40 MG VIAL IV SCH (09:46)
[2016-08-18] MEDS: KETOROLAC TROMETHAMINE INJ/PF 30 MG/1 ML SDV IV PRN (09:46)
--- NOTE | 2016-08-18 11:53 | PROGRESS NOTE E ---
Progress Note NAME: BELINDA MCCULLOUGH : 1955 AGE: 61Y DATE: 08/18/2016 ROOM: 334 SUBJECTIVE: She feels a lot better this morning. No fever. NG drainage decreased to 350 mL this morning, and a white count remained normal. PHYSICAL EXAMINATION: ABDOMEN: Is soft, nontender. She claims she just passed flatus, and she is very hungry. PLAN: 1. Discontinue NG tube. 2. To start clear liquids. 3. Start ambulating. 4. We will decrease the IV fluids when taking enough liquids. DICTATING PHYSICIAN: ANISH HINKLE M.D. [id number] PHY#: [id number] ID: [id number] JOB#: [id number] ACCT: [id number] cc: >
[2016-08-18] MEDS ORDERED: METOPROLOL TARTRATE PF/INJ 5 MG/5 ML SDV IV SCH (12:00)
[2016-08-18] MEDS ORDERED: ACETAMINOPHEN 325 MG TABLET PO PRN (13:24)
--- NOTE | 2016-08-18 13:30 | PDOC PROGRESS REPORT ---
Subjective Progress Note for:: 08/18/16 Subjective:: Patient's abdominal pain is improved. Fevers have resolved. She is having positive flatus. No bowel movement. No nausea or vomiting. Physical Exam Vital Signs: Temp Pulse Resp BP Pulse Ox 98.4 F 86 19 166/82 H 100 08/18/16 11:43 08/18/16 11:43 08/18/16 11:43 08/18/16 11:43 08/18/16 11:43 Intake & Output 08/17/16 08/18/16 08/19/16 06:59 06:59 06:59 Intake Total 2488 2897 Output Total 2705 2075 Balance -217 822 Weight 79.3 kg 80.9 kg 80.9 kg GENERAL: No acute distress HEENT: Conjunctiva clear, nonicteric, moist mucous membranes, no JVD, midline trachea RESPIRATORY: Clear to auscultation bilaterally, no wheezes, no rhonchi CARDIAC: Regular rate and rhythm, no murmurs/gallops/rubs ABDOMEN: Soft, slightly distended, mild nonspecific tenderness, positive bowel sounds EXTREMETIES: No edema, cyanosis, clubbing NEUROLOGIC: Alert, oriented to person/place/time, CN's grossly intact, no focal deficits SKIN: Mid abdominal incision healing well with no signs of infection. PSYCH: Normal mood, normal affect Results Laboratory Results: 08/18/16 04:32 08/18/16 04:32 08/18/16 08/18/16 04:32 04:32 WBC 6.7 RBC 3.06 L Hgb 9.1 L Hct 26.4 L MCV 86 MCH 29.7 MCHC 34.5 RDW 14.6 H Plt Count 174 Sodium 142.6 Potassium 3.1 L Chloride 108 H Carbon Dioxide 27 Anion Gap 8 BUN 10 Creatinine 0.73 Est GFR ( Amer) > 60 Est GFR (Non-Af Amer) > 60 Glucose 88 Calcium 8.2 L Magnesium 1.7 Total Bilirubin 0.9 AST 22 ALT 26 Alkaline Phosphatase 68 Total Protein 5.0 L Albumin 2.3 L Impressions: Acute Abdomen Series 08/13/16 14:27 IMPRESSION: Ileus or partial small bowel obstruction. Abdomen X-Ray 08/14/16 09:00 IMPRESSION: 1. Similar distension to prior imaging from yesterday. Nasogastric tube down. Chest X-Ray 08/17/16 10:24 IMPRESSION: 1. Appropriate lines and tubes. 2. Basilar volume loss, slightly worse compared to prior. Assessment & Plan - Diagnosis (1) Partial small bowel obstruction Is this a current diagnosis for this admission?: YesPlan: Postoperative day #4. Surgery to manage. Started on oral intake today. Discontinue IV fluids. (2) HTN (hypertension) Is this a current diagnosis for this admission?: YesPlan: Continue when necessary IV hydralazine. Resume home medications now the patient able take by mouth. Verapamil SR 120 mg daily, HCTZ 25 mg daily. (3) Fever Is this a current diagnosis for this admission?: YesPlan: Possibly associated with right basilar atelectasis and postoperative patient. Have encouraged patient to use incentive spirometer that is currently sitting in an emesis basin on the opposite side of the room. Have also advised the nurse to encourage ration to to the same. Patient is on empiric antibiotic coverage with Zosyn for intra-abdominal surgery. Urinalysis is negative. - Time Time Spent with patient: 25-34 minutes
[2016-08-18] MEDS ORDERED: VERAPAMIL HCL 120 MG TABLET.SA PO ONE (14:00)
[2016-08-18] MEDS: FAMOTIDINE 20 MG TABLET PO SCH (22:02)
[2016-08-18] MEDS: ONDANSETRON HCL INJ/PF 4 MG/2 ML SDV IV PRN (22:07)
[2016-08-19] MEDS: PIPERACILLIN SODIUM/TAZOBACTAM 3.375 GM in NORMAL SALINE 100 ML IV SCH (02:44)
[2016-08-19] MEDS: MORPHINE SULFATE 10 MG/ML INJ IV PRN ×3 (03:48→18:25)
[2016-08-19 04:24] LABS: HEMATOCRIT 26.3 % (36.0-47.0); HGB HCT DIFFERENCE 0.7; MEAN CORPUSCULAR HGB CONC 34.2 g/dL (32.0-36.0); MEAN CORPUSCULAR VOLUME 85 fl (80-97); RED CELL DISTRIBUTION WIDTH 14.8 % (11.5-14.0); WHITE BLOOD COUNT 7.7 10^3/uL (4.0-10.5)
[2016-08-19 04:40] LABS: ANION GAP 12 (5-19); BLOOD UREA NITROGEN 11 mg/dL (7-20); CALCIUM 8.6 mg/dL (8.4-10.2); CARBON DIOXIDE 23 mmol/L (22-30); CHLORIDE 106 mmol/L (98-107); CREATININE RESULT 0.72 mg/dL (0.52-1.25); GLUCOSE 65 mg/dL (75-110); POTASSIUM 3.4 mmol/L (3.6-5.0); SODIUM 140.8 mmol/L (137-145)
[2016-08-19] MEDS: KETOROLAC TROMETHAMINE INJ/PF 30 MG/1 ML SDV IV PRN (08:11)
[2016-08-19] MEDS ORDERED: OXYCODONE-ACETAMINOPHEN 5-325 MG TABLET PO PRN ×2 (09:48→10:54)
--- NOTE | 2016-08-19 09:51 | PDOC PROGRESS REPORT ---
Subjective Progress Note for:: 08/19/16 Subjective:: Patient is having some pain; no nausea or vomiting; tolerated clear liquids; has had some flatus. Physical Exam Vital Signs: Temp Pulse Resp BP Pulse Ox 98.7 F 88 18 179/88 H 100 08/19/16 07:58 08/19/16 07:58 08/19/16 07:58 08/19/16 07:58 08/19/16 07:58 Intake & Output 08/18/16 08/19/16 08/20/16 06:59 06:59 06:59 Intake Total 2897 2887 Output Total 2075 1360 Balance 822 1527 Weight 80.9 kg 80.9 kg General appearance: PRESENT: no acute distress GI/Abdominal exam: PRESENT: other - All dressings removed; left lower quadrant drain removed. Abdomen appropriately tender. Results Laboratory Results: 08/19/16 03:50 08/19/16 03:50 08/19/16 08/19/16 03:50 03:50 WBC 7.7 RBC 3.10 L Hgb 9.0 L Hct 26.3 L MCV 85 MCH 29.0 MCHC 34.2 RDW 14.8 H Plt Count 184 Sodium 140.8 Potassium 3.4 L Chloride 106 Carbon Dioxide 23 Anion Gap 12 BUN 11 Creatinine 0.72 Est GFR ( Amer) > 60 Est GFR (Non-Af Amer) > 60 Glucose 65 L Calcium 8.6 Impressions: Acute Abdomen Series 08/13/16 14:27 IMPRESSION: Ileus or partial small bowel obstruction. Abdomen X-Ray 08/14/16 09:00 IMPRESSION: 1. Similar distension to prior imaging from yesterday. Nasogastric tube down. Chest X-Ray 08/17/16 10:24 IMPRESSION: 1. Appropriate lines and tubes. 2. Basilar volume loss, slightly worse compared to prior. Assessment & Plan - Diagnosis (1) Partial small bowel obstruction Is this a current diagnosis for this admission?: YesPlan: 1. Patient is postoperative day 5 status post open exploratory laparotomy, lysis of adhesions doing well now with return of bowel function 2. Will increased ambulation, likely discontinue Saravia catheter later today, discontinue intravenous antibiotics, and start by mouth pain medication. 3. Hopefully advance diet, and have patient home in the next 48 hours.
[2016-08-19] MEDS ORDERED: VERAPAMIL HCL 120 MG TABLET.SA PO SCH (10:00)
[2016-08-19] MEDS: ENOXAPARIN SODIUM INJ 40 MG/0.4 ML DISP.SYRIN SUBCUT SCH (10:39)
[2016-08-19] MEDS: FAMOTIDINE 20 MG TABLET PO SCH ×2 (10:40→22:48)
[2016-08-19] MEDS: HYDROCHLOROTHIAZIDE 25 MG TABLET PO SCH (10:40)
[2016-08-19] MEDS: HYDRALAZINE HCL INJ/PF 20 MG/1 ML SDV IV PRN (12:10)
[2016-08-19] MEDS: OXYCODONE-ACETAMINOPHEN 5-325 MG TABLET PO PRN ×2 (12:10→17:50)
--- NOTE | 2016-08-19 13:25 | PDOC PROGRESS REPORT ---
Subjective Progress Note for:: 08/19/16 Subjective:: Patient reports she is having flatus Physical Exam Vital Signs: Temp Pulse Resp BP Pulse Ox 98.3 F 77 20 182/89 H 100 08/19/16 11:55 08/19/16 11:55 08/19/16 11:55 08/19/16 11:55 08/19/16 11:55 Intake & Output 08/18/16 08/19/16 08/20/16 06:59 06:59 06:59 Intake Total 2897 2887 118 Output Total 2075 1360 300 Balance 822 1527 -182 Weight 80.9 kg 80.9 kg General appearance: PRESENT: no acute distress Eye exam: PRESENT: conjunctiva pink. ABSENT: scleral icterus Mouth exam: PRESENT: moist, tongue midline Neck exam: ABSENT: carotid bruit, JVD, lymphadenopathy, thyromegaly Respiratory exam: PRESENT: clear to auscultation pauline. ABSENT: rales, rhonchi, wheezes Cardiovascular exam: PRESENT: RRR. ABSENT: diastolic murmur, rubs, systolic murmur GI/Abdominal exam: PRESENT: normal bowel sounds, soft, other - Binder in place.. ABSENT: distended, guarding, mass, organolmegaly, rebound, tenderness Extremities exam: ABSENT: calf tenderness, clubbing, pedal edema Neurological exam: PRESENT: alert, awake, oriented to person, oriented to place , oriented to time, oriented to situation, CN II-XII grossly intact. ABSENT: motor sensory deficit Psychiatric exam: PRESENT: appropriate affect Results Laboratory Results: 08/19/16 03:50 08/19/16 03:50 08/19/16 08/19/16 03:50 03:50 WBC 7.7 RBC 3.10 L Hgb 9.0 L Hct 26.3 L MCV 85 MCH 29.0 MCHC 34.2 RDW 14.8 H Plt Count 184 Sodium 140.8 Potassium 3.4 L Chloride 106 Carbon Dioxide 23 Anion Gap 12 BUN 11 Creatinine 0.72 Est GFR ( Amer) > 60 Est GFR (Non-Af Amer) > 60 Glucose 65 L Calcium 8.6 08/17/16 11:10 Catheterized Urine Urine Culture - Final NO GROWTH 2 DAYS Impressions: Acute Abdomen Series 08/13/16 14:27 IMPRESSION: Ileus or partial small bowel obstruction. Abdomen X-Ray 08/14/16 09:00 IMPRESSION: 1. Similar distension to prior imaging from yesterday. Nasogastric tube down. Chest X-Ray 08/17/16 10:24 IMPRESSION: 1. Appropriate lines and tubes. 2. Basilar volume loss, slightly worse compared to prior. Assessment & Plan - Diagnosis (1) Partial small bowel obstruction Is this a current diagnosis for this admission?: YesPlan: Postoperative day #5. Managed by surgery. (2) Fever Is this a current diagnosis for this admission?: YesPlan: Resolved. (3) HTN (hypertension) Is this a current diagnosis for this admission?: YesPlan: A she was restarted on her oral medications yesterday. We'll increase the verapamil for blood pressure remains elevated. - Time Time Spent with patient: 25-34 minutes - Inpatient Certification Medical Necessity: Need Close Monitoring Due to Risk of Patient Decompensation
[2016-08-19] MEDS: ONDANSETRON HCL INJ/PF 4 MG/2 ML SDV IV PRN (22:48)
[2016-08-20 05:36] LABS: HEMATOCRIT 27.9 % (36.0-47.0); HEMOGLOBIN 9.6 g/dL (12.0-15.5); HGB HCT DIFFERENCE 0.9; MEAN CORPUSCULAR HEMOGLOBIN 28.9 pg (27.0-33.4); MEAN CORPUSCULAR HGB CONC 34.4 g/dL (32.0-36.0); MEAN CORPUSCULAR VOLUME 84 fl (80-97); RED BLOOD COUNT 3.32 10^6/uL (3.72-5.28); WHITE BLOOD COUNT 10.4 10^3/uL (4.0-10.5)
[2016-08-20 05:37] LABS: ANION GAP 18 (5-19); BLOOD UREA NITROGEN 11 mg/dL (7-20); CALCIUM 8.6 mg/dL (8.4-10.2); CARBON DIOXIDE 22 mmol/L (22-30); CHLORIDE 101 mmol/L (98-107); CREATININE RESULT 0.62 mg/dL (0.52-1.25); GLUCOSE 48 mg/dL (75-110); POTASSIUM 3.1 mmol/L (3.6-5.0); SODIUM 140.7 mmol/L (137-145)
[2016-08-20] MEDS: MORPHINE SULFATE 10 MG/ML INJ IV PRN (06:50)
[2016-08-20] MEDS: ONDANSETRON HCL INJ/PF 4 MG/2 ML SDV IV PRN ×2 (06:55→12:33)
[2016-08-20] MEDS: ENOXAPARIN SODIUM INJ 40 MG/0.4 ML DISP.SYRIN SUBCUT SCH (08:16)
[2016-08-20] MEDS: OXYCODONE-ACETAMINOPHEN 5-325 MG TABLET PO PRN ×3 (08:16→23:57)
--- NOTE | 2016-08-20 10:59 | PDOC PROGRESS REPORT ---
Subjective Progress Note for:: 08/20/16 Subjective:: Complains of mild pain in the abdomen. Physical Exam Vital Signs: Temp Pulse Resp BP Pulse Ox 99.1 F 87 18 154/82 H 100 08/20/16 07:44 08/20/16 07:44 08/20/16 07:44 08/20/16 07:44 08/20/16 07:44 Intake & Output 08/19/16 08/20/16 08/21/16 06:59 06:59 06:59 Intake Total 2887 533 Output Total 1360 1800 Balance 1527 -1267 Weight 80.9 kg 80.5 kg General appearance: PRESENT: no acute distress Eye exam: PRESENT: conjunctiva pink. ABSENT: scleral icterus Mouth exam: PRESENT: moist, tongue midline Neck exam: ABSENT: JVD Respiratory exam: PRESENT: clear to auscultation pauline. ABSENT: rales, rhonchi, wheezes Cardiovascular exam: PRESENT: RRR. ABSENT: diastolic murmur, rubs, systolic murmur GI/Abdominal exam: PRESENT: other - [place] in place on the surgical abdominal wound Extremities exam: ABSENT: calf tenderness, clubbing, pedal edema Neurological exam: PRESENT: alert, awake, oriented to person, oriented to place , oriented to time, oriented to situation, CN II-XII grossly intact. ABSENT: motor sensory deficit Psychiatric exam: PRESENT: appropriate affect Results Laboratory Results: 08/20/16 05:05 08/20/16 05:05 08/20/16 08/20/16 05:05 05:05 WBC 10.4 RBC 3.32 L Hgb 9.6 L Hct 27.9 L MCV 84 MCH 28.9 MCHC 34.4 RDW 15.0 H Plt Count 265 Sodium 140.7 Potassium 3.1 L Chloride 101 Carbon Dioxide 22 Anion Gap 18 BUN 11 Creatinine 0.62 Est GFR ( Amer) > 60 Est GFR (Non-Af Amer) > 60 Glucose 48 L Calcium 8.6 08/17/16 11:10 Catheterized Urine Urine Culture - Final NO GROWTH 2 DAYS Impressions: Acute Abdomen Series 08/13/16 14:27 IMPRESSION: Ileus or partial small bowel obstruction. Abdomen X-Ray 08/14/16 09:00 IMPRESSION: 1. Similar distension to prior imaging from yesterday. Nasogastric tube down. Chest X-Ray 08/17/16 10:24 IMPRESSION: 1. Appropriate lines and tubes. 2. Basilar volume loss, slightly worse compared to prior. Assessment & Plan - Diagnosis (1) Partial small bowel obstruction Is this a current diagnosis for this admission?: YesPlan: Postoperative day #6. Managed by surgery. (2) Fever Is this a current diagnosis for this admission?: YesPlan: Resolved. (3) HTN (hypertension) Is this a current diagnosis for this admission?: YesPlan: she was restarted on her oral medications. We'll increase the verapamil for blood pressure. - Time Time Spent with patient: 25-34 minutes - Inpatient Certification Medical Necessity: Need Close Monitoring Due to Risk of Patient Decompensation
[2016-08-20] MEDS: HYDROCHLOROTHIAZIDE 25 MG TABLET PO SCH (11:29)
[2016-08-20] MEDS: FAMOTIDINE 20 MG TABLET PO SCH ×2 (11:30→21:59)
[2016-08-20] MEDS: POTASSIUM CHLORIDE 10 MEQ TABLET.SA PO SCH ×2 (11:30→21:58)
--- NOTE | 2016-08-20 11:33 | PDOC PROGRESS REPORT ---
Subjective Progress Note for:: 08/20/16 Subjective:: Patient feeling puny; did walk yesterday a limited amount. Tolerated clear liquids. Having some pain. Passing gas. Physical Exam Vital Signs: Temp Pulse Resp BP Pulse Ox 99.1 F 87 18 154/82 H 100 08/20/16 07:44 08/20/16 07:44 08/20/16 07:44 08/20/16 07:44 08/20/16 07:44 Intake & Output 08/19/16 08/20/16 08/21/16 06:59 06:59 06:59 Intake Total 2887 533 Output Total 1360 1800 Balance 1527 -1267 Weight 80.9 kg 80.5 kg General appearance: PRESENT: no acute distress GI/Abdominal exam: PRESENT: other - Incisions healing satisfactorily; abdomen a little bit distended. Results Laboratory Results: 08/20/16 05:05 08/20/16 05:05 08/20/16 08/20/16 05:05 05:05 WBC 10.4 RBC 3.32 L Hgb 9.6 L Hct 27.9 L MCV 84 MCH 28.9 MCHC 34.4 RDW 15.0 H Plt Count 265 Sodium 140.7 Potassium 3.1 L Chloride 101 Carbon Dioxide 22 Anion Gap 18 BUN 11 Creatinine 0.62 Est GFR ( Amer) > 60 Est GFR (Non-Af Amer) > 60 Glucose 48 L Calcium 8.6 08/17/16 11:10 Catheterized Urine Urine Culture - Final NO GROWTH 2 DAYS Impressions: Acute Abdomen Series 08/13/16 14:27 IMPRESSION: Ileus or partial small bowel obstruction. Abdomen X-Ray 08/14/16 09:00 IMPRESSION: 1. Similar distension to prior imaging from yesterday. Nasogastric tube down. Chest X-Ray 08/17/16 10:24 IMPRESSION: 1. Appropriate lines and tubes. 2. Basilar volume loss, slightly worse compared to prior. Assessment & Plan - Diagnosis (1) Partial small bowel obstruction Is this a current diagnosis for this admission?: YesPlan: 1. Patient making slow progress. Still has incomplete resolution of postoperative ileus; will keep on clear liquids 2. Will treat hypokalemia with potassium replacement infusions. 3. Will discontinue Saravia catheter, ambulate patient and get her showering. 4. Would like to get central line out of her neck at the 7-8 postoperative day
[2016-08-20] MEDS ORDERED: VERAPAMIL HCL 120 MG TABLET.SA PO ONE (12:00)
[2016-08-20] MEDS: POTASSI CL 20 MEQ/50 ML RIDER 50 ML IV SCH ×3 (13:27→17:14)
[2016-08-20] MEDS: VERAPAMIL HCL 120 MG TABLET.SA PO SCH (21:58)
[2016-08-21 05:41] LABS: HEMATOCRIT 25.4 % (36.0-47.0); HEMOGLOBIN 8.7 g/dL (12.0-15.5); HGB HCT DIFFERENCE 0.7; MEAN CORPUSCULAR HGB CONC 34.2 g/dL (32.0-36.0); MEAN CORPUSCULAR VOLUME 85 fl (80-97); RED BLOOD COUNT 2.99 10^6/uL (3.72-5.28); WHITE BLOOD COUNT 9.9 10^3/uL (4.0-10.5)
[2016-08-21 05:54] LABS: ANION GAP 12 (5-19); BLOOD UREA NITROGEN 12 mg/dL (7-20); CALCIUM 8.8 mg/dL (8.4-10.2); CARBON DIOXIDE 25 mmol/L (22-30); CHLORIDE 105 mmol/L (98-107); CREATININE RESULT 0.65 mg/dL (0.52-1.25); GLUCOSE 52 mg/dL (75-110); SODIUM 142.3 mmol/L (137-145)
[2016-08-21 06:08] LABS: BASOPHILS % (MANUAL) 0 % (0-2); EOSINOPHILS % (MANUAL) 0 % (0-6); LYMPHOCYTES % (MANUAL) 9 % (13-45); TOTAL CELLS COUNTED 100
[2016-08-21 06:13] LABS: ANISOCYTOSIS SLIGHT; POLYCHROMASIA SLIGHT; TOXIC GRANULATION 1+
[2016-08-21 06:28] LABS: POTASSIUM 4.1 mmol/L (3.6-5.0)
[2016-08-21] MEDS: ENOXAPARIN SODIUM INJ 40 MG/0.4 ML DISP.SYRIN SUBCUT SCH (08:26)
[2016-08-21] MEDS: OXYCODONE-ACETAMINOPHEN 5-325 MG TABLET PO PRN ×2 (08:26→14:37)
--- NOTE | 2016-08-21 10:22 | PDOC PROGRESS REPORT ---
Subjective Progress Note for:: 08/21/16 Subjective:: Patient's slow to go; tolerating full liquids on voiding after Saravia catheter removed. Ambulating with minimal assistance. Physical Exam Vital Signs: Temp Pulse Resp BP Pulse Ox 98.7 F 79 18 160/91 H 100 08/21/16 08:01 08/21/16 08:01 08/21/16 08:01 08/21/16 08:01 08/21/16 08:01 Intake & Output 08/20/16 08/21/16 08/22/16 06:59 06:59 06:59 Intake Total 533 763 Output Total 1800 350 Balance -1267 413 Weight 80.5 kg General appearance: PRESENT: no acute distress GI/Abdominal exam: PRESENT: other - Abdomen slightly distended incisions look fine; no erythema. Results Laboratory Results: 08/21/16 04:50 08/21/16 04:50 08/21/16 08/21/16 04:50 04:50 WBC 9.9 RBC 2.99 L Hgb 8.7 L Hct 25.4 L MCV 85 MCH 29.0 MCHC 34.2 RDW 15.0 H Plt Count 318 Seg Neutrophils % Not Reportable Lymphocytes % Not Reportable Monocytes % Not Reportable Eosinophils % Not Reportable Basophils % Not Reportable Absolute Neutrophils Not Reportable Absolute Lymphocytes Not Reportable Absolute Monocytes Not Reportable Absolute Eosinophils Not Reportable Absolute Basophils Not Reportable Sodium 142.3 Potassium 4.1 D Chloride 105 Carbon Dioxide 25 Anion Gap 12 BUN 12 Creatinine 0.65 Est GFR ( Amer) > 60 Est GFR (Non-Af Amer) > 60 Glucose 52 L Calcium 8.8 Impressions: Acute Abdomen Series 08/13/16 14:27 IMPRESSION: Ileus or partial small bowel obstruction. Abdomen X-Ray 08/14/16 09:00 IMPRESSION: 1. Similar distension to prior imaging from yesterday. Nasogastric tube down. Chest X-Ray 08/17/16 10:24 IMPRESSION: 1. Appropriate lines and tubes. 2. Basilar volume loss, slightly worse compared to prior. Assessment & Plan - Diagnosis (1) Partial small bowel obstruction Is this a current diagnosis for this admission?: YesPlan: Postoperative day 7 status post exploratory laparotomy extensive lysis of adhesions, slow return of bowel function, tolerating by mouth, voiding without catheter and ambulating. We have discontinued fluids intravenous antibiotics. Potassium has been replaced. Of note patient hemoglobin dropped to 8.7. This bears watching. We'll meet with family later today, firm up disposition plans.
[2016-08-21] MEDS: POTASSIUM CHLORIDE 10 MEQ TABLET.SA PO SCH ×2 (10:43→21:00)
[2016-08-21] MEDS: VERAPAMIL HCL 120 MG TABLET.SA PO SCH (10:43)
[2016-08-21] MEDS: HYDROCHLOROTHIAZIDE 25 MG TABLET PO SCH (10:43)
[2016-08-21] MEDS: FAMOTIDINE 20 MG TABLET PO SCH ×2 (10:43→21:00)
--- NOTE | 2016-08-21 10:47 | PDOC PROGRESS REPORT ---
Subjective Progress Note for:: 08/21/16 Subjective:: Denies any complaints Physical Exam Vital Signs: Temp Pulse Resp BP Pulse Ox 98.7 F 79 18 160/91 H 100 08/21/16 08:01 08/21/16 08:01 08/21/16 08:01 08/21/16 08:01 08/21/16 08:01 Intake & Output 08/20/16 08/21/16 08/22/16 06:59 06:59 06:59 Intake Total 533 763 Output Total 1800 350 Balance -1267 413 Weight 80.5 kg General appearance: PRESENT: no acute distress Eye exam: PRESENT: conjunctiva pink. ABSENT: scleral icterus Mouth exam: PRESENT: moist, tongue midline Neck exam: ABSENT: JVD Respiratory exam: PRESENT: clear to auscultation pauline. ABSENT: rales, rhonchi, wheezes Cardiovascular exam: PRESENT: RRR. ABSENT: diastolic murmur, rubs, systolic murmur GI/Abdominal exam: PRESENT: normal bowel sounds, soft, tenderness. ABSENT: distended, guarding, mass, organolmegaly, rebound Extremities exam: ABSENT: calf tenderness, clubbing, pedal edema Neurological exam: PRESENT: alert, awake, oriented to person, oriented to place , oriented to time, oriented to situation, CN II-XII grossly intact. ABSENT: motor sensory deficit Psychiatric exam: PRESENT: appropriate affect Results Laboratory Results: 08/21/16 04:50 08/21/16 04:50 08/21/16 08/21/16 04:50 04:50 WBC 9.9 RBC 2.99 L Hgb 8.7 L Hct 25.4 L MCV 85 MCH 29.0 MCHC 34.2 RDW 15.0 H Plt Count 318 Seg Neutrophils % Not Reportable Lymphocytes % Not Reportable Monocytes % Not Reportable Eosinophils % Not Reportable Basophils % Not Reportable Absolute Neutrophils Not Reportable Absolute Lymphocytes Not Reportable Absolute Monocytes Not Reportable Absolute Eosinophils Not Reportable Absolute Basophils Not Reportable Sodium 142.3 Potassium 4.1 D Chloride 105 Carbon Dioxide 25 Anion Gap 12 BUN 12 Creatinine 0.65 Est GFR ( Amer) > 60 Est GFR (Non-Af Amer) > 60 Glucose 52 L Calcium 8.8 Impressions: Acute Abdomen Series 08/13/16 14:27 IMPRESSION: Ileus or partial small bowel obstruction. Abdomen X-Ray 08/14/16 09:00 IMPRESSION: 1. Similar distension to prior imaging from yesterday. Nasogastric tube down. Chest X-Ray 08/17/16 10:24 IMPRESSION: 1. Appropriate lines and tubes. 2. Basilar volume loss, slightly worse compared to prior. Assessment & Plan - Diagnosis (1) Partial small bowel obstruction Is this a current diagnosis for this admission?: YesPlan: Postoperative day #7. Managed by surgery. (2) Fever Is this a current diagnosis for this admission?: YesPlan: Resolved. (3) HTN (hypertension) Is this a current diagnosis for this admission?: YesPlan: Will increase the verapamil for blood pressure. - Time Time Spent with patient: 25-34 minutes
[2016-08-21] MEDS ORDERED: VERAPAMIL HCL 120 MG TABLET.SA PO ONE (11:30)
[2016-08-21] MEDS: ONDANSETRON HCL INJ/PF 4 MG/2 ML SDV IV PRN (14:39)
[2016-08-22] MEDS: OXYCODONE-ACETAMINOPHEN 5-325 MG TABLET PO PRN ×3 (05:39→22:54)
[2016-08-22 06:01] LABS: HEMATOCRIT 25.2 % (36.0-47.0); HEMOGLOBIN 8.5 g/dL (12.0-15.5); HGB HCT DIFFERENCE 0.3; MEAN CORPUSCULAR HEMOGLOBIN 28.4 pg (27.0-33.4); MEAN CORPUSCULAR HGB CONC 33.6 g/dL (32.0-36.0); MEAN CORPUSCULAR VOLUME 85 fl (80-97); RED BLOOD COUNT 2.98 10^6/uL (3.72-5.28); RED CELL DISTRIBUTION WIDTH 15.5 % (11.5-14.0); WHITE BLOOD COUNT 13.7 10^3/uL (4.0-10.5)
[2016-08-22 06:19] LABS: ANION GAP 12 (5-19); BLOOD UREA NITROGEN 9 mg/dL (7-20); CARBON DIOXIDE 27 mmol/L (22-30); CHLORIDE 100 mmol/L (98-107); CREATININE RESULT 0.61 mg/dL (0.52-1.25); GLUCOSE 74 mg/dL (75-110); POTASSIUM 4.1 mmol/L (3.6-5.0)
--- NOTE | 2016-08-22 08:43 | EKG REPORT ---
SEVERITY:- ABNORMAL ECG - SINUS RHYTHM LEFT VENTRICULAR HYPERTROPHY : Confirmed by: Jerod Cardenas 22-Aug-2016 08:41:30
[2016-08-22] MEDS: ENOXAPARIN SODIUM INJ 40 MG/0.4 ML DISP.SYRIN SUBCUT SCH (09:04)
[2016-08-22] MEDS: POTASSIUM CHLORIDE 10 MEQ TABLET.SA PO SCH ×2 (09:11→21:18)
--- NOTE | 2016-08-22 09:14 | PROGRESS NOTE E ---
Progress Note NAME: BELINDA MCCULLOUGH : 1955 AGE: 61Y DATE: 08/22/2016 ROOM: 334 SUBJECTIVE: She is tolerating her diet quite well. She has just had some mild discomfort at the incision site. She is passing flatus. PLAN: I will come back and discontinue the central line, and if she continues to do well, we could send her home after 24 hours. DICTATING PHYSICIAN: ANISH HINKLE M.D. [id number] PHY#: [id number] ID: [id number] JOB#: [id number] ACCT: [id number] cc: >
[2016-08-22] MEDS ORDERED: VERAPAMIL HCL 120 MG TABLET.SA PO SCH (10:00)
[2016-08-22] MEDS: FAMOTIDINE 20 MG TABLET PO SCH ×2 (10:41→21:18)
[2016-08-22] MEDS: HYDROCHLOROTHIAZIDE 25 MG TABLET PO SCH (10:41)
--- NOTE | 2016-08-22 15:01 | PDOC PROGRESS REPORT ---
Subjective Progress Note for:: 08/22/16 Subjective:: Complains of some mild nausea Physical Exam Vital Signs: Temp Pulse Resp BP Pulse Ox 99.0 F 84 17 141/83 H 100 08/22/16 12:21 08/22/16 12:21 08/22/16 12:21 08/22/16 12:21 08/22/16 12:21 Intake & Output 08/21/16 08/22/16 08/23/16 06:59 06:59 06:59 Intake Total 763 880 Output Total 350 400 Balance 413 480 General appearance: PRESENT: no acute distress Eye exam: PRESENT: conjunctiva pink. ABSENT: scleral icterus Mouth exam: PRESENT: moist, tongue midline Neck exam: ABSENT: JVD Respiratory exam: PRESENT: clear to auscultation pauline. ABSENT: rales, rhonchi, wheezes Cardiovascular exam: PRESENT: RRR. ABSENT: diastolic murmur, rubs, systolic murmur GI/Abdominal exam: PRESENT: normal bowel sounds, soft, tenderness - Minimal tenderness.. ABSENT: distended, guarding, mass, organolmegaly, rebound Extremities exam: PRESENT: full ROM. ABSENT: calf tenderness, clubbing, pedal edema Neurological exam: PRESENT: alert, awake, oriented to person, oriented to place , oriented to time, oriented to situation, CN II-XII grossly intact. ABSENT: motor sensory deficit Psychiatric exam: PRESENT: appropriate affect Skin exam: PRESENT: dry, intact, warm. ABSENT: cyanosis, rash Results Laboratory Results: 08/22/16 05:34 08/22/16 05:34 08/22/16 08/22/16 05:34 05:34 WBC 13.7 H RBC 2.98 L Hgb 8.5 L Hct 25.2 L MCV 85 MCH 28.4 MCHC 33.6 RDW 15.5 H Plt Count 405 Sodium 139.0 Potassium 4.1 Chloride 100 Carbon Dioxide 27 Anion Gap 12 BUN 9 Creatinine 0.61 Est GFR ( Amer) > 60 Est GFR (Non-Af Amer) > 60 Glucose 74 L Calcium 9.0 08/17/16 11:44 Blood Blood Culture - Final NO GROWTH IN 5 DAYS 08/17/16 11:20 Blood Blood Culture - Final NO GROWTH IN 5 DAYS Impressions: Acute Abdomen Series 08/13/16 14:27 IMPRESSION: Ileus or partial small bowel obstruction. Abdomen X-Ray 08/14/16 09:00 IMPRESSION: 1. Similar distension to prior imaging from yesterday. Nasogastric tube down. Chest X-Ray 08/17/16 10:24 IMPRESSION: 1. Appropriate lines and tubes. 2. Basilar volume loss, slightly worse compared to prior. Assessment & Plan - Diagnosis (1) Partial small bowel obstruction Is this a current diagnosis for this admission?: YesPlan: Postoperative day #8. Managed by surgery. (2) Fever Is this a current diagnosis for this admission?: YesPlan: Resolved. (3) HTN (hypertension) Is this a current diagnosis for this admission?: YesPlan: Controlled with the higher dose of verapamil. - Time Time Spent with patient: 15-24 minutes - Plan Summary Plan Summary: Recommend the patient go home with the higher dose of verapamil at 360 mg daily.
[2016-08-23 04:31] LABS: HEMATOCRIT 24.7 % (36.0-47.0); HEMOGLOBIN 8.3 g/dL (12.0-15.5); HGB HCT DIFFERENCE 0.2; MEAN CORPUSCULAR HEMOGLOBIN 28.2 pg (27.0-33.4); MEAN CORPUSCULAR HGB CONC 33.5 g/dL (32.0-36.0); MEAN CORPUSCULAR VOLUME 84 fl (80-97); RED BLOOD COUNT 2.94 10^6/uL (3.72-5.28); RED CELL DISTRIBUTION WIDTH 14.9 % (11.5-14.0); WHITE BLOOD COUNT 10.2 10^3/uL (4.0-10.5)
[2016-08-23 04:42] LABS: ANION GAP 10 (5-19); BLOOD UREA NITROGEN 14 mg/dL (7-20); CALCIUM 9.3 mg/dL (8.4-10.2); CARBON DIOXIDE 27 mmol/L (22-30); CHLORIDE 101 mmol/L (98-107); GLUCOSE 74 mg/dL (75-110); SODIUM 138.3 mmol/L (137-145)
[2016-08-23 04:51] LABS: POTASSIUM 5.1 mmol/L (3.6-5.0)
[2016-08-23] MEDS: HYDROCHLOROTHIAZIDE 25 MG TABLET PO SCH (09:12)
[2016-08-23] MEDS: FAMOTIDINE 20 MG TABLET PO SCH ×2 (09:13→22:06)
[2016-08-23] MEDS: ENOXAPARIN SODIUM INJ 40 MG/0.4 ML DISP.SYRIN SUBCUT SCH (09:22)
[2016-08-23] MEDS: POTASSIUM CHLORIDE 10 MEQ TABLET.SA PO SCH ×2 (09:30→22:06)
[2016-08-23] MEDS: VERAPAMIL HCL 180 MG TABLET.SA PO SCH (09:30)
[2016-08-23] MEDS ORDERED: VERAPAMIL HCL 120 MG TABLET.SA PO SCH (10:00)
[2016-08-23] MEDS: OXYCODONE-ACETAMINOPHEN 5-325 MG TABLET PO PRN ×2 (12:52→19:45)
--- NOTE | 2016-08-23 20:08 | PROGRESS NOTE E ---
Progress Note NAME: BELINDA MCCULLOUGH : 1955 AGE: 61Y DATE: 08/23/2016 ROOM: 334 She feels bloated today though has been passing flatus. She seems to tolerate a small amount of a soft diet. We will keep her another day, and hopefully her bloating will subside overnight. Also, we will check her electrolytes in a.m. Possible discharge tomorrow. DICTATING PHYSICIAN: ANISH HINKLE M.D. [id number] PHY#: [id number] ID: [id number] JOB#: [id number] ACCT: [id number] cc: >
[2016-08-23] MEDS: ONDANSETRON 4 MG TAB.RAPDIS PO PRN (20:29)
[2016-08-24 05:38] LABS: HEMATOCRIT 26.7 % (36.0-47.0); HEMOGLOBIN 8.9 g/dL (12.0-15.5); MEAN CORPUSCULAR HEMOGLOBIN 28.3 pg (27.0-33.4); MEAN CORPUSCULAR HGB CONC 33.3 g/dL (32.0-36.0); MEAN CORPUSCULAR VOLUME 85 fl (80-97); RED BLOOD COUNT 3.14 10^6/uL (3.72-5.28); RED CELL DISTRIBUTION WIDTH 15.3 % (11.5-14.0); WHITE BLOOD COUNT 12.8 10^3/uL (4.0-10.5)
[2016-08-24 05:45] LABS: ANION GAP 15 (5-19); BLOOD UREA NITROGEN 15 mg/dL (7-20); CALCIUM 9.4 mg/dL (8.4-10.2); CARBON DIOXIDE 28 mmol/L (22-30); CHLORIDE 96 mmol/L (98-107); CREATININE RESULT 0.69 mg/dL (0.52-1.25); GLUCOSE 75 mg/dL (75-110); POTASSIUM 4.5 mmol/L (3.6-5.0); SODIUM 139.4 mmol/L (137-145)
[2016-08-24] MEDS: ENOXAPARIN SODIUM INJ 40 MG/0.4 ML DISP.SYRIN SUBCUT SCH (08:56)
[2016-08-24] MEDS: VERAPAMIL HCL 180 MG TABLET.SA PO SCH (09:35)
[2016-08-24] MEDS: POTASSIUM CHLORIDE 10 MEQ TABLET.SA PO SCH ×2 (09:35→22:58)
[2016-08-24] MEDS: FAMOTIDINE 20 MG TABLET PO SCH ×2 (09:36→22:42)
[2016-08-24] MEDS: HYDROCHLOROTHIAZIDE 25 MG TABLET PO SCH (09:36)
[2016-08-24] MEDS: OXYCODONE-ACETAMINOPHEN 5-325 MG TABLET PO PRN ×2 (10:20→22:18)
--- NOTE | 2016-08-24 21:33 | PROGRESS NOTE E ---
Progress Note NAME: BELINDA MCCULLOUGH : 1955 AGE: 61Y DATE: 08/24/2016 ROOM: 334 The patient complained of abdominal pains today. However, she continues to have flatus. She is unable to tolerate her diet. All the meghann from the incision sites were then removed, since it is about day 11 from surgery. In the evening she felt a lot better and triple lumen catheter was subsequently removed. This is in preparation for possible discharge tomorrow, 08/25/16. DICTATING PHYSICIAN: ANISH HINKLE M.D. [id number] PHY#: [id number] ID: [id number] JOB#: [id number] ACCT: [id number] cc: >
[2016-08-24] MEDS: ONDANSETRON 4 MG TAB.RAPDIS PO PRN (23:03)
[2016-08-25] MEDS: OXYCODONE-ACETAMINOPHEN 5-325 MG TABLET PO PRN ×3 (04:37→13:36)
[2016-08-25 06:27] LABS: ALANINE AMINOTRANSFERASE 47 U/L (9-52); ALBUMIN 3.1 g/dL (3.5-5.0); ALKALINE PHOSPHATASE 121 U/L (38-126); ANION GAP 17 (5-19); ASPARTATE AMINO TRANSFERASE 45 U/L (14-36); BILIRUBIN,DIRECT 0.3 mg/dL (0.0-0.4); BILIRUBIN,TOTAL 0.7 mg/dL (0.2-1.3); BLOOD UREA NITROGEN 16 mg/dL (7-20); CALCIUM 9.5 mg/dL (8.4-10.2); CARBON DIOXIDE 22 mmol/L (22-30); CHLORIDE 101 mmol/L (98-107); CREATININE RESULT 0.65 mg/dL (0.52-1.25); GLUCOSE 73 mg/dL (75-110); SODIUM 139.5 mmol/L (137-145); TOTAL PROTEIN 6.8 g/dL (6.3-8.2)
[2016-08-25 06:29] LABS: HEMATOCRIT 26.5 % (36.0-47.0); HEMOGLOBIN 8.9 g/dL (12.0-15.5); HGB HCT DIFFERENCE 0.2; MEAN CORPUSCULAR HEMOGLOBIN 28.5 pg (27.0-33.4); MEAN CORPUSCULAR HGB CONC 33.7 g/dL (32.0-36.0); MEAN CORPUSCULAR VOLUME 85 fl (80-97); RED BLOOD COUNT 3.13 10^6/uL (3.72-5.28); RED CELL DISTRIBUTION WIDTH 15.3 % (11.5-14.0); WHITE BLOOD COUNT 12.6 10^3/uL (4.0-10.5)
[2016-08-25] MEDS: NORMAL SALINE 1000 ML 1,000 ML IV PRN ×2 (06:44→20:43)
[2016-08-25 06:59] LABS: BASOPHILS % (MANUAL) 0 % (0-2); EOSINOPHILS % (MANUAL) 0 % (0-6); LYMPHOCYTES % (MANUAL) 7 % (13-45); TOTAL CELLS COUNTED 100
[2016-08-25 07:01] LABS: ANISOCYTOSIS 1+; BAND NEUTROPHILS % (MANUAL) 22 % (3-5); POLYCHROMASIA SLIGHT; ROULEAUX SLIGHT; TOXIC GRANULATION SLIGHT
[2016-08-25] MEDS: ENOXAPARIN SODIUM INJ 40 MG/0.4 ML DISP.SYRIN SUBCUT SCH (08:59)
--- NOTE | 2016-08-25 09:44 | PDOC PROGRESS REPORT ---
Subjective Progress Note for:: 08/25/16 Subjective:: Some abdominal discomfort. No nausea or vomiting. Physical Exam Vital Signs: Temp Pulse Resp BP Pulse Ox 99.6 F 93 19 130/73 H 98 08/25/16 07:35 08/25/16 07:35 08/25/16 07:35 08/25/16 07:35 08/25/16 07:35 Intake & Output 08/24/16 08/25/16 08/26/16 06:59 06:59 06:59 Intake Total 300 1400 Output Total 200 Balance 100 1400 Weight 74.2 kg General appearance: PRESENT: no acute distress, cooperative Respiratory exam: PRESENT: clear to auscultation pauline Cardiovascular exam: PRESENT: RRR GI/Abdominal exam: PRESENT: other - Soft, nondistended, very mild diffuse abdominal tenderness with no peritoneal signs. Lower mid abdomen with the small open wound draining out sulcus. Ostomy bag has been applied to this region. Results Laboratory Results: 08/25/16 05:56 08/25/16 05:56 08/25/16 08/25/16 05:56 05:56 WBC 12.6 H RBC 3.13 L Hgb 8.9 L Hct 26.5 L MCV 85 MCH 28.5 MCHC 33.7 RDW 15.3 H Plt Count 579 H Seg Neutrophils % Not Reportable Lymphocytes % Not Reportable Monocytes % Not Reportable Eosinophils % Not Reportable Basophils % Not Reportable Absolute Neutrophils Not Reportable Absolute Lymphocytes Not Reportable Absolute Monocytes Not Reportable Absolute Eosinophils Not Reportable Absolute Basophils Not Reportable Sodium 139.5 Potassium 5.0 Chloride 101 Carbon Dioxide 22 Anion Gap 17 BUN 16 Creatinine 0.65 Est GFR ( Amer) > 60 Est GFR (Non-Af Amer) > 60 Glucose 73 L Calcium 9.5 Total Bilirubin 0.7 AST 45 H ALT 47 Alkaline Phosphatase 121 Total Protein 6.8 Albumin 3.1 L Impressions: Acute Abdomen Series 08/13/16 14:27 IMPRESSION: Ileus or partial small bowel obstruction. Abdomen X-Ray 08/14/16 09:00 IMPRESSION: 1. Similar distension to prior imaging from yesterday. Nasogastric tube down. Chest X-Ray 08/17/16 10:24 IMPRESSION: 1. Appropriate lines and tubes. 2. Basilar volume loss, slightly worse compared to prior. Abdomen/Pelvis CT 08/25/16 00:00 IMPRESSION: Post small bowel enterotomy. There are some dilated mid epigastric small bowel loops without evidence small bowel obstruction. Postoperative trace free intraperitoneal air and left subphrenic fluid. Bibasilar atelectasis. Assessment & Plan - Diagnosis (1) Enterocutaneous fistula Is this a current diagnosis for this admission?: YesPlan: Status post lysis of adhesions and small bowel resection. It does appear to be a controlled fistula. CT scan does not demonstrate the evidence of the the has since. I do not see the evidence of abdominal sepsis. Will place on antibiotics for now keep her nothing by mouth and observe. Reoperating at this time risk abdominal sepsis. Will place a PICC line for TPN. I have at a long discussion with the patient and the patient's family concerning this the current problem and our management plan. CT scan does not demonstrate evidence of a obstruction and hopefully the fistula will close over time.
[2016-08-25] MEDS ORDERED: NORMAL SALINE 10 ML SDV (AFTER EACH USE) IV PRN (12:14)
--- NOTE | 2016-08-25 13:24 | Progress Note ---
Provider Note Provider Note: Hospital medicine service signed off consult on 08/23/2016.
[2016-08-25] MEDS: METRONIDAZOLE 500 MG TABLET PO SCH ×2 (13:35→17:07)
[2016-08-25] MEDS: VERAPAMIL HCL 180 MG TABLET.SA PO SCH (13:36)
[2016-08-25] MEDS: LEVOFLOXACIN 500 MG/D5W RTU 100 ML IV SCH (13:38)
[2016-08-25] MEDS: HYDROCHLOROTHIAZIDE 25 MG TABLET PO SCH (13:38)
[2016-08-25] MEDS ORDERED: DEXTROSE 50%-WATER SYRINGE 25 GM/50 ML DOSE IV PRN (21:30)
[2016-08-25] MEDS ORDERED: GLUCAGON,HUMAN RECOMB 1 MG INJ IM PRN (21:30)
[2016-08-25] MEDS ORDERED: DEXTROSE 40% GEL 15 GM TUBE PO PRN (21:30)
[2016-08-25] MEDS ORDERED: DEXTROSE 40% GEL 15 GM TUBE X 2 PO PRN (21:30)
[2016-08-25] MEDS ORDERED: DEXTROSE 50%-WATER SYRINGE 12.5 GM/25 ML DOSE IV PRN (21:30)
[2016-08-25 21:39] LABS: PATH REVIEW PATHOLOGIST REVIEWED
[2016-08-25] MEDS ORDERED: DEXTROSE 10%-WATER 1,000 ML IV PRN (21:43)
[2016-08-25] MEDS ORDERED: FAMOTIDINE 20 MG TABLET PO SCH (22:00)
[2016-08-25] MEDS: MORPHINE SULFATE 10 MG/ML INJ IV PRN (22:20)
[2016-08-25] MEDS: NORMAL SALINE 10 ML SDV (SCHEDULED) IV SCH (22:21)
[2016-08-25] MEDS: ONDANSETRON HCL INJ/PF 4 MG/2 ML SDV IV PRN (22:28)
[2016-08-25] MEDS: POTASSIUM CHLORIDE 20 MEQ/15 ML UDCUP PO SCH (23:06)
[2016-08-25] MEDS: METRONIDAZOLE 500 MG/NS RTU 100 ML IV SCH (23:52)
[2016-08-26] MEDS ORDERED: INSULIN REG, HUMAN 100 UNIT/ML 3 ML VIAL (PYX) SUBCUT SCH
[2016-08-26] MEDS: DEXTROSE 50%-WATER 25 GM/50 ML DISP.SYRIN IV PRN (01:07)
[2016-08-26] MEDS: ONDANSETRON HCL INJ/PF 4 MG/2 ML SDV IV PRN ×5 (03:58→23:59)
[2016-08-26] MEDS: MORPHINE SULFATE 10 MG/ML INJ IV PRN ×3 (05:24→20:20)
[2016-08-26] MEDS: METRONIDAZOLE 500 MG/NS RTU 100 ML IV SCH ×3 (06:22→17:42)
[2016-08-26] MEDS: DEXTROSE 5%-1/2 NORMAL SALINE 1,000 ML IV PRN ×2 (06:56→21:58)
[2016-08-26 06:57] LABS: HEMATOCRIT 23.3 % (36.0-47.0); HGB HCT DIFFERENCE 0.7; MEAN CORPUSCULAR HGB CONC 34.1 g/dL (32.0-36.0); MEAN CORPUSCULAR VOLUME 85 fl (80-97); RED BLOOD COUNT 2.74 10^6/uL (3.72-5.28); RED CELL DISTRIBUTION WIDTH 15.5 % (11.5-14.0); WHITE BLOOD COUNT 10.5 10^3/uL (4.0-10.5)
[2016-08-26 07:15] LABS: PROTHROMBIN TIME 14.9 SEC (11.4-15.4)
[2016-08-26 07:16] LABS: ALANINE AMINOTRANSFERASE 39 U/L (9-52); ALBUMIN 2.6 g/dL (3.5-5.0); ALKALINE PHOSPHATASE 100 U/L (38-126); ANION GAP 14 (5-19); ASPARTATE AMINO TRANSFERASE 27 U/L (14-36); BILIRUBIN,DIRECT 0.2 mg/dL (0.0-0.4); BILIRUBIN,TOTAL 0.5 mg/dL (0.2-1.3); BLOOD UREA NITROGEN 10 mg/dL (7-20); CALCIUM 8.9 mg/dL (8.4-10.2); CARBON DIOXIDE 25 mmol/L (22-30); CHLORIDE 99 mmol/L (98-107); CREATININE RESULT 0.63 mg/dL (0.52-1.25); GLUCOSE 83 mg/dL (75-110); MAGNESIUM 1.7 mg/dL (1.6-2.3); PHOSPHORUS 2.9 mg/dL (2.5-4.5); POTASSIUM 3.5 mmol/L (3.6-5.0); SODIUM 137.7 mmol/L (137-145); TOTAL PROTEIN 6.1 g/dL (6.3-8.2); TRIGLYCERIDES 123 mg/dL (<150)
[2016-08-26 07:23] LABS: PREALBUMIN 6.6 mg/dL (17.6-36.0)
[2016-08-26] MEDS: LEVOFLOXACIN 500 MG/D5W RTU 100 ML IV SCH (09:59)
[2016-08-26] MEDS: NORMAL SALINE 10 ML SDV (SCHEDULED) IV SCH ×2 (10:00→23:10)
[2016-08-26] MEDS: ENOXAPARIN SODIUM INJ 40 MG/0.4 ML DISP.SYRIN SUBCUT SCH (10:22)
[2016-08-26] MEDS: HYDROCHLOROTHIAZIDE 25 MG TABLET PO SCH (10:23)
[2016-08-26] MEDS: POTASSIUM CHLORIDE 20 MEQ/15 ML UDCUP PO SCH ×2 (10:23→22:00)
--- NOTE | 2016-08-26 11:16 | PDOC PROGRESS REPORT ---
Subjective Progress Note for:: 08/26/16 Subjective:: Patient is postoperative day 11 status post exploratory laparotomy, small bowel resection. She now has clinical evidence of an enterocutaneous fistula. CT scan yesterday showed no significant intra-abdominal fluid collections, abscess , or any other pathology wiring intervention. The patient has been made nothing by mouth, had a PICC line inserted, and is to be started on TPN. She states she is passing some flatus. Physical Exam Vital Signs: Temp Pulse Resp BP Pulse Ox 99.0 F 88 16 122/72 98 08/26/16 07:30 08/26/16 07:30 08/26/16 07:30 08/26/16 07:30 08/26/16 07:30 Intake & Output 08/25/16 08/26/16 08/27/16 06:59 06:59 06:59 Intake Total 1400 2505 Output Total 1575 Balance 1400 930 Weight 74.2 kg 78 kg General appearance: PRESENT: mild distress GI/Abdominal exam: PRESENT: other - The abdomen is slightly distended; there are no peritoneal signs; there is an ostomy appliance over the enterocutaneous fistula which is approximately two thirds down her midline incision. The remainder of the incision appears to be intact. Results Laboratory Results: 08/26/16 06:15 08/26/16 06:15 08/25/16 08/26/16 08/26/16 05:56 06:15 06:15 WBC 12.6 H 10.5 RBC 3.13 L 2.74 L Hgb 8.9 L 8.0 L Hct 26.5 L 23.3 L MCV 85 85 MCH 28.5 29.0 MCHC 33.7 34.1 RDW 15.3 H 15.5 H Plt Count 579 H 583 H Sodium Cancelled Potassium Cancelled Chloride Cancelled Carbon Dioxide Cancelled Anion Gap Cancelled BUN Cancelled Creatinine Cancelled Est GFR ( Amer) Cancelled Est GFR (Non-Af Amer) Cancelled Glucose Cancelled Calcium Cancelled Phosphorus Magnesium Total Bilirubin AST ALT Alkaline Phosphatase Total Protein Albumin Prealbumin Triglycerides 08/26/16 06:15 WBC RBC Hgb Hct MCV MCH MCHC RDW Plt Count Sodium 137.7 Potassium 3.5 L Chloride 99 Carbon Dioxide 25 Anion Gap 14 BUN 10 Creatinine 0.63 Est GFR ( Amer) > 60 Est GFR (Non-Af Amer) > 60 Glucose 83 Calcium 8.9 Phosphorus 2.9 Magnesium 1.7 Total Bilirubin 0.5 AST 27 ALT 39 Alkaline Phosphatase 100 Total Protein 6.1 L Albumin 2.6 L Prealbumin 6.6 L Triglycerides 123 Impressions: Acute Abdomen Series 08/13/16 14:27 IMPRESSION: Ileus or partial small bowel obstruction. Abdomen X-Ray 08/14/16 09:00 IMPRESSION: 1. Similar distension to prior imaging from yesterday. Nasogastric tube down. Chest X-Ray 08/17/16 10:24 IMPRESSION: 1. Appropriate lines and tubes. 2. Basilar volume loss, slightly worse compared to prior. Abdomen/Pelvis CT 08/25/16 00:00 IMPRESSION: Post small bowel enterotomy. There are some dilated mid epigastric small bowel loops without evidence small bowel obstruction. Postoperative trace free intraperitoneal air and left subphrenic fluid. Bibasilar atelectasis. Guidance Fluoroscopy 08/25/16 00:00 IMPRESSION: SUCCESSFUL PLACEMENT OF A 5 FR DUAL LUMEN 38 CM PICC IN THE left basilic VEIN. Interventional Vascular Procedure 08/25/16 00:00 IMPRESSION: SUCCESSFUL PLACEMENT OF A 5 FR DUAL LUMEN 38 CM PICC IN THE left basilic VEIN. PICC Line Insertion 08/25/16 00:00 IMPRESSION: SUCCESSFUL PLACEMENT OF A 5 FR DUAL LUMEN 38 CM PICC IN THE left basilic VEIN. Assessment & Plan - Diagnosis (1) Partial small bowel obstruction Is this a current diagnosis for this admission?: YesPlan: Patient is today status post her laparotomy, small bowel resection now with a cutaneous fistula. The fistula appears to be controlled, with no evidence of intra-abdominal sepsis at this time. We will initiate total nutrition, and replace potassium. Keep her strictly nothing by mouth. I explained the above to the patient and patient's sister. This may be a prolonged course possibly requiring a sternal intervention, but now the patient appears to be managing satisfactorily. He may require long-term outpatient management which will need to be set up with home health.
[2016-08-26] MEDS: POTASSI CL 20 MEQ/50 ML RIDER 50 ML IV SCH ×3 (12:42→17:41)
[2016-08-26] MEDS ORDERED: AMINO ACIDS 5%/D25W 1,000 ML IV PRN (18:00)
[2016-08-26] MEDS: AMINO ACIDS 5%/D25W 1,000 ML IV PRN (19:50)
[2016-08-27] MEDS: INSULIN REG, HUMAN 100 UNIT/ML 3 ML VIAL (PYX) SUBCUT PRN ×3 (00:52→15:42)
[2016-08-27] MEDS ORDERED: INSULIN REG, HUMAN 100 UNIT/ML 3 ML VIAL (PYX) SUBCUT SCH (01:00)
[2016-08-27] MEDS: MORPHINE SULFATE 10 MG/ML INJ IV PRN ×5 (04:33→19:39)
[2016-08-27] MEDS: ONDANSETRON HCL INJ/PF 4 MG/2 ML SDV IV PRN ×4 (04:33→19:39)
[2016-08-27 05:38] LABS: PROTHROMBIN TIME 14.8 SEC (11.4-15.4)
[2016-08-27 05:50] LABS: HEMATOCRIT 22.7 % (36.0-47.0); HGB HCT DIFFERENCE 0.7; MEAN CORPUSCULAR HEMOGLOBIN 29.1 pg (27.0-33.4); MEAN CORPUSCULAR HGB CONC 34.3 g/dL (32.0-36.0); MEAN CORPUSCULAR VOLUME 85 fl (80-97); RED BLOOD COUNT 2.67 10^6/uL (3.72-5.28); RED CELL DISTRIBUTION WIDTH 15.6 % (11.5-14.0); WHITE BLOOD COUNT 7.4 10^3/uL (4.0-10.5)
[2016-08-27 05:56] LABS: ALANINE AMINOTRANSFERASE 28 U/L (9-52); ALBUMIN 2.4 g/dL (3.5-5.0); ALKALINE PHOSPHATASE 84 U/L (38-126); ANION GAP 11 (5-19); ASPARTATE AMINO TRANSFERASE 17 U/L (14-36); BILIRUBIN,DIRECT 0.2 mg/dL (0.0-0.4); BILIRUBIN,TOTAL 0.3 mg/dL (0.2-1.3); BLOOD UREA NITROGEN 9 mg/dL (7-20); CALCIUM 8.9 mg/dL (8.4-10.2); CARBON DIOXIDE 25 mmol/L (22-30); CHLORIDE 101 mmol/L (98-107); CREATININE RESULT 0.59 mg/dL (0.52-1.25); GLUCOSE 141 mg/dL (75-110); MAGNESIUM 1.8 mg/dL (1.6-2.3); PHOSPHORUS 1.3 mg/dL (2.5-4.5); POTASSIUM 3.9 mmol/L (3.6-5.0); SODIUM 137.4 mmol/L (137-145); TOTAL PROTEIN 5.8 g/dL (6.3-8.2); TRIGLYCERIDES 107 mg/dL (<150)
[2016-08-27 06:03] LABS: HEMOGLOBIN 7.8 g/dL (12.0-15.5)
[2016-08-27 06:04] LABS: PREALBUMIN 6.9 mg/dL (17.6-36.0)
[2016-08-27] MEDS ORDERED: NORMAL SALINE 1000 ML 1,000 ML IV ONE (06:45)
[2016-08-27] MEDS: METRONIDAZOLE 500 MG/NS RTU 100 ML IV SCH ×4 (06:46→18:07)
[2016-08-27] MEDS: DEXTROSE 5%-1/2 NORMAL SALINE 1,000 ML IV PRN ×2 (06:46→20:18)
[2016-08-27] MEDS: ENOXAPARIN SODIUM INJ 40 MG/0.4 ML DISP.SYRIN SUBCUT SCH (08:36)
--- NOTE | 2016-08-27 09:13 | PDOC PROGRESS REPORT ---
Subjective Progress Note for:: 08/27/16 Subjective:: had multiple bowel movements pain better Physical Exam Vital Signs: Temp Pulse Resp BP Pulse Ox 98.4 F 71 20 133/73 H 100 08/27/16 07:25 08/27/16 07:25 08/27/16 07:25 08/27/16 07:25 08/27/16 07:25 Intake & Output 08/26/16 08/27/16 08/28/16 06:59 06:59 06:59 Intake Total 2505 3596 Output Total 1950 1350 Balance 555 2246 Weight 78 kg GI/Abdominal exam: PRESENT: other - soft abdomen nontender enterocutaneous fistula - controlled with colostomy bag - out put 100ml 6 hours Results Laboratory Results: 08/27/16 04:50 08/27/16 04:50 08/27/16 08/27/16 04:50 04:50 WBC 7.4 RBC 2.67 L Hgb 7.8 L Hct 22.7 L MCV 85 MCH 29.1 MCHC 34.3 RDW 15.6 H Plt Count 566 H Sodium 137.4 Potassium 3.9 Chloride 101 Carbon Dioxide 25 Anion Gap 11 BUN 9 Creatinine 0.59 Est GFR ( Amer) > 60 Est GFR (Non-Af Amer) > 60 Glucose 141 H Calcium 8.9 Phosphorus 1.3 L Magnesium 1.8 Total Bilirubin 0.3 AST 17 ALT 28 Alkaline Phosphatase 84 Total Protein 5.8 L Albumin 2.4 L Prealbumin 6.9 L Triglycerides 107 08/25/16 05:00 Abdomen - Incision Site Gram Stain - Final Impressions: Acute Abdomen Series 08/13/16 14:27 IMPRESSION: Ileus or partial small bowel obstruction. Abdomen X-Ray 08/14/16 09:00 IMPRESSION: 1. Similar distension to prior imaging from yesterday. Nasogastric tube down. Chest X-Ray 08/17/16 10:24 IMPRESSION: 1. Appropriate lines and tubes. 2. Basilar volume loss, slightly worse compared to prior. Abdomen/Pelvis CT 08/25/16 00:00 IMPRESSION: Post small bowel enterotomy. There are some dilated mid epigastric small bowel loops without evidence small bowel obstruction. Postoperative trace free intraperitoneal air and left subphrenic fluid. Bibasilar atelectasis. Guidance Fluoroscopy 08/25/16 00:00 IMPRESSION: SUCCESSFUL PLACEMENT OF A 5 FR DUAL LUMEN 38 CM PICC IN THE left basilic VEIN. Interventional Vascular Procedure 08/25/16 00:00 IMPRESSION: SUCCESSFUL PLACEMENT OF A 5 FR DUAL LUMEN 38 CM PICC IN THE left basilic VEIN. PICC Line Insertion 08/25/16 00:00 IMPRESSION: SUCCESSFUL PLACEMENT OF A 5 FR DUAL LUMEN 38 CM PICC IN THE left basilic VEIN. Assessment & Plan - Plan Summary Plan Summary: Enterocutaneous fistula - controlled, no intraabdominal abscess, no obstruction , may heal with Bowel rest, TPN Add Octreotide
[2016-08-27] MEDS: POTASSIUM CHLORIDE 20 MEQ/15 ML UDCUP PO SCH (10:30)
[2016-08-27] MEDS: HYDROCHLOROTHIAZIDE 25 MG TABLET PO SCH (10:30)
[2016-08-27] MEDS: NORMAL SALINE 10 ML SDV (SCHEDULED) IV SCH ×2 (10:30→22:36)
[2016-08-27] MEDS: LEVOFLOXACIN 500 MG/D5W RTU 100 ML IV SCH (10:31)
[2016-08-27] MEDS: OCTREOTIDE ACETATE INJ/PF 100 MCG/1 ML SDV SUBCUT SCH ×2 (13:44→22:40)
[2016-08-27] MEDS: AMINO ACIDS 5%/D25W 1,000 ML IV PRN (18:36)
[2016-08-28] MEDS: MORPHINE SULFATE 10 MG/ML INJ IV PRN ×6 (00:13→21:52)
[2016-08-28] MEDS: ONDANSETRON HCL INJ/PF 4 MG/2 ML SDV IV PRN ×6 (00:13→21:52)
[2016-08-28] MEDS: METRONIDAZOLE 500 MG/NS RTU 100 ML IV SCH ×5 (00:24→23:37)
[2016-08-28] MEDS: INSULIN REG, HUMAN 100 UNIT/ML 3 ML VIAL (PYX) SUBCUT PRN ×3 (00:49→17:23)
[2016-08-28] MEDS: OCTREOTIDE ACETATE INJ/PF 100 MCG/1 ML SDV SUBCUT SCH ×3 (05:45→23:33)
[2016-08-28 06:06] LABS: HEMATOCRIT 24.4 % (36.0-47.0); HEMOGLOBIN 8.3 g/dL (12.0-15.5); HGB HCT DIFFERENCE 0.5; MEAN CORPUSCULAR HEMOGLOBIN 28.8 pg (27.0-33.4); MEAN CORPUSCULAR HGB CONC 33.9 g/dL (32.0-36.0); MEAN CORPUSCULAR VOLUME 85 fl (80-97); RED BLOOD COUNT 2.87 10^6/uL (3.72-5.28); RED CELL DISTRIBUTION WIDTH 15.1 % (11.5-14.0); WHITE BLOOD COUNT 6.7 10^3/uL (4.0-10.5)
[2016-08-28 06:23] LABS: ALANINE AMINOTRANSFERASE 22 U/L (9-52); ALBUMIN 2.4 g/dL (3.5-5.0); ALKALINE PHOSPHATASE 75 U/L (38-126); ANION GAP 10 (5-19); ASPARTATE AMINO TRANSFERASE 14 U/L (14-36); BILIRUBIN,DIRECT 0.2 mg/dL (0.0-0.4); BILIRUBIN,TOTAL 0.3 mg/dL (0.2-1.3); BLOOD UREA NITROGEN 6 mg/dL (7-20); CALCIUM 8.7 mg/dL (8.4-10.2); CARBON DIOXIDE 24 mmol/L (22-30); CHLORIDE 103 mmol/L (98-107); GLUCOSE 151 mg/dL (75-110); PHOSPHORUS 2.2 mg/dL (2.5-4.5); POTASSIUM 3.7 mmol/L (3.6-5.0); SODIUM 137.3 mmol/L (137-145); TOTAL PROTEIN 5.8 g/dL (6.3-8.2)
[2016-08-28 06:30] LABS: PREALBUMIN 9.4 mg/dL (17.6-36.0)
[2016-08-28] MEDS: POTASSIUM CHLORIDE 20 MEQ/15 ML UDCUP PO SCH (06:48)
[2016-08-28] MEDS: LEVOFLOXACIN 500 MG/D5W RTU 100 ML IV SCH (09:04)
[2016-08-28] MEDS: ENOXAPARIN SODIUM INJ 40 MG/0.4 ML DISP.SYRIN SUBCUT SCH (09:04)
[2016-08-28] MEDS: DEXTROSE 5%-1/2 NORMAL SALINE 1,000 ML IV PRN ×2 (09:16→22:01)
[2016-08-28] MEDS: NORMAL SALINE 10 ML SDV (SCHEDULED) IV SCH ×2 (09:17→23:39)
--- NOTE | 2016-08-28 13:46 | PDOC PROGRESS REPORT ---
Subjective Progress Note for:: 08/28/16 Subjective:: Had BM Feeling better Physical Exam Vital Signs: Temp Pulse Resp BP Pulse Ox 98.9 F 75 18 147/86 H 98 08/28/16 11:59 08/28/16 11:59 08/28/16 11:59 08/28/16 11:59 08/28/16 11:59 Intake & Output 08/27/16 08/28/16 08/29/16 06:59 06:59 06:59 Intake Total 3596 4409 Output Total 1350 2000 Balance 2246 2409 GI/Abdominal exam: PRESENT: other - Mild distention EC Fistula out put less Results Laboratory Results: 08/28/16 05:35 08/28/16 05:35 08/28/16 08/28/16 05:35 05:35 WBC 6.7 RBC 2.87 L Hgb 8.3 L Hct 24.4 L MCV 85 MCH 28.8 MCHC 33.9 RDW 15.1 H Plt Count 577 H Sodium 137.3 Potassium 3.7 Chloride 103 Carbon Dioxide 24 Anion Gap 10 BUN 6 L Creatinine 0.60 Est GFR ( Amer) > 60 Est GFR (Non-Af Amer) > 60 Glucose 151 H Calcium 8.7 Phosphorus 2.2 L Total Bilirubin 0.3 AST 14 ALT 22 Alkaline Phosphatase 75 Total Protein 5.8 L Albumin 2.4 L Prealbumin 9.4 L 08/25/16 05:00 Abdomen - Incision Site Gram Stain - Final Impressions: Acute Abdomen Series 08/13/16 14:27 IMPRESSION: Ileus or partial small bowel obstruction. Abdomen X-Ray 08/14/16 09:00 IMPRESSION: 1. Similar distension to prior imaging from yesterday. Nasogastric tube down. Chest X-Ray 08/17/16 10:24 IMPRESSION: 1. Appropriate lines and tubes. 2. Basilar volume loss, slightly worse compared to prior. Abdomen/Pelvis CT 08/25/16 00:00 IMPRESSION: Post small bowel enterotomy. There are some dilated mid epigastric small bowel loops without evidence small bowel obstruction. Postoperative trace free intraperitoneal air and left subphrenic fluid. Bibasilar atelectasis. Guidance Fluoroscopy 08/25/16 00:00 IMPRESSION: SUCCESSFUL PLACEMENT OF A 5 FR DUAL LUMEN 38 CM PICC IN THE left basilic VEIN. Interventional Vascular Procedure 08/25/16 00:00 IMPRESSION: SUCCESSFUL PLACEMENT OF A 5 FR DUAL LUMEN 38 CM PICC IN THE left basilic VEIN. PICC Line Insertion 08/25/16 00:00 IMPRESSION: SUCCESSFUL PLACEMENT OF A 5 FR DUAL LUMEN 38 CM PICC IN THE left basilic VEIN. Assessment & Plan - Plan Summary Plan Summary: Enterocutaneous fistula, out put much less- less than 200ml for 24 hours, contnue to have BM, No obstruction, No intraabdominal abscess, Fistula wiill most likely heal with conservative management with TPN, bowel rest , Octreotide started yesterday.
[2016-08-28] MEDS: AMINO ACIDS 5%/D25W 1,000 ML IV PRN (19:16)
[2016-08-28] MEDS ORDERED: NORMAL SALINE 1000 ML 1,000 ML IV ONE (22:00)
[2016-08-28 22:35] LABS: ALANINE AMINOTRANSFERASE 25 U/L (9-52); ALBUMIN 2.5 g/dL (3.5-5.0); ALKALINE PHOSPHATASE 75 U/L (38-126); ASPARTATE AMINO TRANSFERASE 20 U/L (14-36); BILIRUBIN,DIRECT 0.1 mg/dL (0.0-0.4); BILIRUBIN,TOTAL 0.2 mg/dL (0.2-1.3); LIPASE 628.5 U/L (23-300); TOTAL PROTEIN 5.3 g/dL (6.3-8.2)
[2016-08-28 23:49] LABS: ANION GAP 10 (5-19); BLOOD UREA NITROGEN 7 mg/dL (7-20); CALCIUM 8.8 mg/dL (8.4-10.2); CARBON DIOXIDE 25 mmol/L (22-30); CHLORIDE 102 mmol/L (98-107); CREATININE RESULT 0.54 mg/dL (0.52-1.25); GLUCOSE 114 mg/dL (75-110); POTASSIUM 3.6 mmol/L (3.6-5.0); SODIUM 137.4 mmol/L (137-145)
[2016-08-29 00:22] LABS: HEMOGLOBIN 8.1 g/dL (12.0-15.5); HGB HCT DIFFERENCE 0.3; MEAN CORPUSCULAR HEMOGLOBIN 28.4 pg (27.0-33.4); MEAN CORPUSCULAR HGB CONC 33.6 g/dL (32.0-36.0); MEAN CORPUSCULAR VOLUME 85 fl (80-97); RED BLOOD COUNT 2.84 10^6/uL (3.72-5.28); RED CELL DISTRIBUTION WIDTH 15.2 % (11.5-14.0); WHITE BLOOD COUNT 8.2 10^3/uL (4.0-10.5)
[2016-08-29] MEDS: MORPHINE SULFATE 10 MG/ML INJ IV PRN ×5 (01:20→20:27)
[2016-08-29] MEDS: ONDANSETRON HCL INJ/PF 4 MG/2 ML SDV IV PRN ×5 (01:21→20:27)
[2016-08-29] MEDS: INSULIN REG, HUMAN 100 UNIT/ML 3 ML VIAL (PYX) SUBCUT PRN ×5 (01:42→23:56)
[2016-08-29] MEDS: METRONIDAZOLE 500 MG/NS RTU 100 ML IV SCH ×4 (05:37→23:56)
[2016-08-29] MEDS: OCTREOTIDE ACETATE INJ/PF 100 MCG/1 ML SDV SUBCUT SCH ×3 (05:38→22:23)
[2016-08-29] MEDS ORDERED: ACETAMINOPHEN 325 MG TABLET NG PRN (06:38)
--- NOTE | 2016-08-29 06:40 | PDOC PROGRESS REPORT ---
Subjective Progress Note for:: 08/29/16 Subjective:: C/O BACK PAIN NO NAUSEA Physical Exam Vital Signs: Temp Pulse Resp BP Pulse Ox 98.4 F 83 18 152/88 H 99 08/29/16 04:07 08/29/16 04:07 08/29/16 04:07 08/29/16 04:07 08/29/16 04:07 Intake & Output 08/27/16 08/28/16 08/29/16 06:59 06:59 06:59 Intake Total 3596 4409 1300 Output Total 1350 2000 3125 Balance 2246 2409 -1825 GI/Abdominal exam: PRESENT: other - SOFT ABDOMEN MILD DISTENTION Fistula output less Results Laboratory Results: 08/29/16 00:10 08/28/16 08/28/16 08/28/16 21:46 22:44 22:44 WBC Cancelled RBC Cancelled Hgb Cancelled Hct Cancelled MCV Cancelled MCH Cancelled MCHC Cancelled RDW Cancelled Plt Count Cancelled Sodium 137.4 Potassium 3.6 Chloride 102 Carbon Dioxide 25 Anion Gap 10 BUN 7 Creatinine 0.54 Est GFR ( Amer) > 60 Est GFR (Non-Af Amer) > 60 Glucose 114 H Calcium 8.8 Total Bilirubin 0.2 AST 20 ALT 25 Alkaline Phosphatase 75 Total Protein 5.3 L Albumin 2.5 L Lipase 628.5 H 08/29/16 00:10 WBC 8.2 RBC 2.84 L Hgb 8.1 L Hct 24.0 L MCV 85 MCH 28.4 MCHC 33.6 RDW 15.2 H Plt Count 511 H Sodium Potassium Chloride Carbon Dioxide Anion Gap BUN Creatinine Est GFR ( Amer) Est GFR (Non-Af Amer) Glucose Calcium Total Bilirubin AST ALT Alkaline Phosphatase Total Protein Albumin Lipase 08/25/16 05:00 Abdomen - Incision Site Gram Stain - Final Impressions: Acute Abdomen Series 08/13/16 14:27 IMPRESSION: Ileus or partial small bowel obstruction. Chest X-Ray 08/17/16 10:24 IMPRESSION: 1. Appropriate lines and tubes. 2. Basilar volume loss, slightly worse compared to prior. Abdomen/Pelvis CT 08/25/16 00:00 IMPRESSION: Post small bowel enterotomy. There are some dilated mid epigastric small bowel loops without evidence small bowel obstruction. Postoperative trace free intraperitoneal air and left subphrenic fluid. Bibasilar atelectasis. Guidance Fluoroscopy 08/25/16 00:00 IMPRESSION: SUCCESSFUL PLACEMENT OF A 5 FR DUAL LUMEN 38 CM PICC IN THE left basilic VEIN. Interventional Vascular Procedure 08/25/16 00:00 IMPRESSION: SUCCESSFUL PLACEMENT OF A 5 FR DUAL LUMEN 38 CM PICC IN THE left basilic VEIN. PICC Line Insertion 08/25/16 00:00 IMPRESSION: SUCCESSFUL PLACEMENT OF A 5 FR DUAL LUMEN 38 CM PICC IN THE left basilic VEIN. Abdomen X-Ray 08/28/16 22:36 IMPRESSION: DILATED SMALL BOWEL WITH AIR-FLUID LEVELS, CONCERNING FOR OBSTRUCTION. Assessment & Plan - Plan Summary Plan Summary: Pain back AXR Distended SB POSSIBLE RECURRENT PARTIAL OBSTRUCTION NG Tube NPO TPN
[2016-08-29] MEDS ORDERED: PHARMACY COMMUNICATION ORDER MC NR (06:45)
[2016-08-29 06:53] LABS: PROTHROMBIN TIME 14.7 SEC (11.4-15.4)
[2016-08-29 07:00] LABS: ALANINE AMINOTRANSFERASE 23 U/L (9-52); ALBUMIN 2.3 g/dL (3.5-5.0); ALKALINE PHOSPHATASE 69 U/L (38-126); ANION GAP 8 (5-19); ASPARTATE AMINO TRANSFERASE 18 U/L (14-36); BILIRUBIN,DIRECT 0.2 mg/dL (0.0-0.4); BILIRUBIN,TOTAL 0.3 mg/dL (0.2-1.3); BLOOD UREA NITROGEN 6 mg/dL (7-20); CALCIUM 8.4 mg/dL (8.4-10.2); CARBON DIOXIDE 25 mmol/L (22-30); CHLORIDE 105 mmol/L (98-107); CREATININE RESULT 0.59 mg/dL (0.52-1.25); GLUCOSE 191 mg/dL (75-110); MAGNESIUM 1.7 mg/dL (1.6-2.3); PHOSPHORUS 2.1 mg/dL (2.5-4.5); POTASSIUM 3.4 mmol/L (3.6-5.0); SODIUM 137.5 mmol/L (137-145); TOTAL PROTEIN 5.5 g/dL (6.3-8.2)
[2016-08-29 07:09] LABS: PREALBUMIN 11.9 mg/dL (17.6-36.0)
--- NOTE | 2016-08-29 09:04 | PDOC PROGRESS REPORT ---
Subjective Progress Note for:: 08/29/16 Subjective:: Patient complaining of back pain; no nausea or vomiting. Had nasogastric tube inserted early this morning by Dr. Kitchen. there was minimal return. Enterocutaneous fistula site putting out less. Physical Exam Vital Signs: Temp Pulse Resp BP Pulse Ox 98.7 F 86 18 163/98 H 97 08/29/16 07:18 08/29/16 07:18 08/29/16 07:18 08/29/16 07:18 08/29/16 07:18 Intake & Output 08/28/16 08/29/16 08/30/16 06:59 06:59 06:59 Intake Total 4409 4398 Output Total 1999 3125 Balance 2409 1273 General appearance: PRESENT: no acute distress GI/Abdominal exam: PRESENT: other - Abdomen is soft, enterocutaneous fistula ostomy appliance in position. Remainder of the incision healed satisfactorily. There is no abdominal tenderness. Results Laboratory Results: 08/29/16 00:10 08/29/16 05:30 08/28/16 08/28/16 08/28/16 21:46 22:44 22:44 WBC Cancelled RBC Cancelled Hgb Cancelled Hct Cancelled MCV Cancelled MCH Cancelled MCHC Cancelled RDW Cancelled Plt Count Cancelled Sodium 137.4 Potassium 3.6 Chloride 102 Carbon Dioxide 25 Anion Gap 10 BUN 7 Creatinine 0.54 Est GFR ( Amer) > 60 Est GFR (Non-Af Amer) > 60 Glucose 114 H Calcium 8.8 Phosphorus Magnesium Total Bilirubin 0.2 AST 20 ALT 25 Alkaline Phosphatase 75 Total Protein 5.3 L Albumin 2.5 L Prealbumin Lipase 628.5 H 08/29/16 08/29/16 00:10 05:30 WBC 8.2 RBC 2.84 L Hgb 8.1 L Hct 24.0 L MCV 85 MCH 28.4 MCHC 33.6 RDW 15.2 H Plt Count 511 H Sodium 137.5 Potassium 3.4 L Chloride 105 Carbon Dioxide 25 Anion Gap 8 BUN 6 L Creatinine 0.59 Est GFR ( Amer) > 60 Est GFR (Non-Af Amer) > 60 Glucose 191 H Calcium 8.4 Phosphorus 2.1 L Magnesium 1.7 Total Bilirubin 0.3 AST 18 ALT 23 Alkaline Phosphatase 69 Total Protein 5.5 L Albumin 2.3 L Prealbumin 11.9 L Lipase 08/25/16 05:00 Abdomen - Incision Site Gram Stain - Final Impressions: Acute Abdomen Series 08/13/16 14:27 IMPRESSION: Ileus or partial small bowel obstruction. Chest X-Ray 08/17/16 10:24 IMPRESSION: 1. Appropriate lines and tubes. 2. Basilar volume loss, slightly worse compared to prior. Abdomen/Pelvis CT 08/25/16 00:00 IMPRESSION: Post small bowel enterotomy. There are some dilated mid epigastric small bowel loops without evidence small bowel obstruction. Postoperative trace free intraperitoneal air and left subphrenic fluid. Bibasilar atelectasis. Guidance Fluoroscopy 08/25/16 00:00 IMPRESSION: SUCCESSFUL PLACEMENT OF A 5 FR DUAL LUMEN 38 CM PICC IN THE left basilic VEIN. Interventional Vascular Procedure 08/25/16 00:00 IMPRESSION: SUCCESSFUL PLACEMENT OF A 5 FR DUAL LUMEN 38 CM PICC IN THE left basilic VEIN. PICC Line Insertion 08/25/16 00:00 IMPRESSION: SUCCESSFUL PLACEMENT OF A 5 FR DUAL LUMEN 38 CM PICC IN THE left basilic VEIN. Abdomen X-Ray 08/28/16 22:36 IMPRESSION: DILATED SMALL BOWEL WITH AIR-FLUID LEVELS, CONCERNING FOR OBSTRUCTION. KUB X-Ray 08/29/16 06:34 IMPRESSION: Nasogastric tube tip and side port in the stomach. Persistent air-fluid levels in mildly distended small bowel loops in the mid epigastrium Dense consolidation left retrocardiac region atelectasis versus pneumonia Assessment & Plan - Diagnosis (1) Partial small bowel obstruction Is this a current diagnosis for this admission?: Yes (2) Enterocutaneous fistula Is this a current diagnosis for this admission?: YesPlan: 1. Patient is now 2-1/2 weeks status post exploratory laparotomy, extensive lysis of adhesions, resection now with enterocutaneous fistula which appears to be controlled with no evidence of sepsis. Plan: 1. Replace potassium 2. Discontinue Levaquin 3. Clamp NG tube, if tolerated, DC NG tube. 4. Get patient up and ambulating.
[2016-08-29 09:20] LABS: HEMATOCRIT 23.6 % (36.0-47.0); HGB HCT DIFFERENCE -0.5; MEAN CORPUSCULAR HEMOGLOBIN 28.1 pg (27.0-33.4); MEAN CORPUSCULAR HGB CONC 32.8 g/dL (32.0-36.0); MEAN CORPUSCULAR VOLUME 86 fl (80-97); RED BLOOD COUNT 2.76 10^6/uL (3.72-5.28); RED CELL DISTRIBUTION WIDTH 15.3 % (11.5-14.0); WHITE BLOOD COUNT 7.1 10^3/uL (4.0-10.5)
[2016-08-29 09:23] LABS: HEMOGLOBIN 7.7 g/dL (12.0-15.5)
[2016-08-29] MEDS: HYDROCHLOROTHIAZIDE 25 MG TABLET NG SCH (09:56)
[2016-08-29] MEDS: FAT EMULSIONS 250 ML IV SCH (09:57)
[2016-08-29] MEDS: ENOXAPARIN SODIUM INJ 40 MG/0.4 ML DISP.SYRIN SUBCUT SCH (09:58)
[2016-08-29] MEDS ORDERED: FAT EMULSIONS 250 ML IV SCH (10:00)
[2016-08-29] MEDS: POTASSI CL 20 MEQ/50 ML RIDER 50 ML IV SCH ×3 (10:07→14:09)
[2016-08-29] MEDS: NORMAL SALINE 10 ML SDV (SCHEDULED) IV SCH ×2 (10:08→22:34)
[2016-08-29] MEDS ORDERED: ACETAMINOPHEN SOLN 325 MG/10.15 ML UDCUP NG PRN (11:07)
[2016-08-29] MEDS ORDERED: DEXTROSE 40% GEL 15 GM TUBE NG PRN ×2 (11:09)
[2016-08-29] MEDS: DEXTROSE 5%-1/2 NORMAL SALINE 1,000 ML IV PRN (15:59)
[2016-08-29] MEDS: AMINO ACIDS 5%/D25W 1,000 ML IV PRN (20:06)
[2016-08-30] MEDS: ONDANSETRON HCL INJ/PF 4 MG/2 ML SDV IV PRN ×4 (03:54→20:55)
[2016-08-30] MEDS: DEXTROSE 5%-1/2 NORMAL SALINE 1,000 ML IV PRN ×2 (03:54→18:16)
[2016-08-30] MEDS: MORPHINE SULFATE 10 MG/ML INJ IV PRN ×4 (03:55→20:55)
[2016-08-30 06:16] LABS: ANION GAP 11 (5-19); BLOOD UREA NITROGEN 6 mg/dL (7-20); CALCIUM 8.9 mg/dL (8.4-10.2); CARBON DIOXIDE 26 mmol/L (22-30); CHLORIDE 101 mmol/L (98-107); CREATININE RESULT 0.59 mg/dL (0.52-1.25); GLUCOSE 179 mg/dL (75-110); POTASSIUM 3.9 mmol/L (3.6-5.0)
[2016-08-30] MEDS: INSULIN REG, HUMAN 100 UNIT/ML 3 ML VIAL (PYX) SUBCUT PRN ×4 (06:28→23:44)
[2016-08-30] MEDS: METRONIDAZOLE 500 MG/NS RTU 100 ML IV SCH ×4 (06:28→23:44)
[2016-08-30] MEDS: OCTREOTIDE ACETATE INJ/PF 100 MCG/1 ML SDV SUBCUT SCH ×3 (06:28→22:21)
--- NOTE | 2016-08-30 08:33 | PROGRESS NOTE E ---
Progress Note NAME: BELINDA MCCULLOUGH : 1955 AGE: 61Y DATE: 08/30/2016 ROOM: 334 SUBJECTIVE: Today she denies any abdominal pains but at the same time no flatus either. The abdomen is soft and nontender. The ostomy bag is not draining at all indicating possible closure of fistula Her white count remained normal at 7.1 and the hemoglobin 7.7 from 8.1 yesterday. OBJECTIVE: VITAL SIGNS: Stable and not tachycardic. PLAN: 1. Continue with TPN and keep n.p.o. 2. Recheck hemoglobin in the a.m. as well as electrolytes. 3. Will wait to start liquids when definitely continues to pass flatus. DICTATING PHYSICIAN: ANISH HINKLE M.D. [id number] PHY#: [id number] ID: [id number] JOB#: [id number] ACCT: [id number] cc: > [facility]
[2016-08-30] MEDS: ENOXAPARIN SODIUM INJ 40 MG/0.4 ML DISP.SYRIN SUBCUT SCH (09:16)
[2016-08-30] MEDS: NORMAL SALINE 10 ML SDV (SCHEDULED) IV SCH ×2 (09:27→22:22)
[2016-08-30] MEDS: HYDROCHLOROTHIAZIDE 25 MG TABLET NG SCH (09:27)
[2016-08-30] MEDS: AMINO ACIDS 5%/D25W 1,000 ML IV PRN (18:19)
[2016-08-31] MEDS: MORPHINE SULFATE 10 MG/ML INJ IV PRN ×6 (01:02→22:16)
[2016-08-31] MEDS: ONDANSETRON HCL INJ/PF 4 MG/2 ML SDV IV PRN ×6 (01:02→22:17)
[2016-08-31] MEDS: OCTREOTIDE ACETATE INJ/PF 100 MCG/1 ML SDV SUBCUT SCH ×3 (05:36→21:56)
[2016-08-31] MEDS: INSULIN REG, HUMAN 100 UNIT/ML 3 ML VIAL (PYX) SUBCUT PRN ×2 (05:37→15:50)
[2016-08-31] MEDS: METRONIDAZOLE 500 MG/NS RTU 100 ML IV SCH ×4 (05:38→23:05)
[2016-08-31 06:19] LABS: ANION GAP 9 (5-19); BLOOD UREA NITROGEN 8 mg/dL (7-20); CALCIUM 8.9 mg/dL (8.4-10.2); CARBON DIOXIDE 28 mmol/L (22-30); CHLORIDE 103 mmol/L (98-107); CREATININE RESULT 0.61 mg/dL (0.52-1.25); GLUCOSE 156 mg/dL (75-110); POTASSIUM 3.8 mmol/L (3.6-5.0); SODIUM 139.7 mmol/L (137-145)
[2016-08-31] MEDS: ENOXAPARIN SODIUM INJ 40 MG/0.4 ML DISP.SYRIN SUBCUT SCH (07:55)
[2016-08-31] MEDS: HYDROCHLOROTHIAZIDE 25 MG TABLET NG SCH (09:30)
[2016-08-31] MEDS: NORMAL SALINE 10 ML SDV (SCHEDULED) IV SCH ×2 (09:31→21:57)
--- NOTE | 2016-08-31 09:54 | PROGRESS NOTE E ---
Progress Note NAME: BELINDA MCCULLOUGH : 1955 AGE: 61Y DATE: 08/31/2016 ROOM: 334 SUBJECTIVE: She is still on TPN. She had a bowel movement yesterday but this morning has not passed flatus yet. She has some discomfort in the abdomen on trying to pass flatus. OBJECTIVE: The incision site as well as the area of the fistula is dry and nontender. Her white count remains normal at 3.8 with hemoglobin 13.7. She remains afebrile with a temperature of 98.1 and a heart rate of 73 with a blood pressure of 120/72. PLAN: Continue TPN and n.p.o. until definitely has been passing flatus. DICTATING PHYSICIAN: ANISH HINKLE M.D. [id number] SABRINA#: [id number] ID: [id number] JOB#: [id number] ACCT: [id number] cc: >
[2016-08-31 10:32] LABS: HEMATOCRIT 23.7 % (36.0-47.0); HGB HCT DIFFERENCE 0.3; MEAN CORPUSCULAR HEMOGLOBIN 28.7 pg (27.0-33.4); MEAN CORPUSCULAR HGB CONC 33.6 g/dL (32.0-36.0); MEAN CORPUSCULAR VOLUME 85 fl (80-97); RED BLOOD COUNT 2.78 10^6/uL (3.72-5.28); RED CELL DISTRIBUTION WIDTH 16.2 % (11.5-14.0); WHITE BLOOD COUNT 6.5 10^3/uL (4.0-10.5)
[2016-08-31] MEDS: DEXTROSE 5%-1/2 NORMAL SALINE 1,000 ML IV PRN (11:33)
[2016-08-31] MEDS: AMINO ACIDS 5%/D25W 1,000 ML IV PRN (15:41)
[2016-08-31] MEDS: HYDRALAZINE HCL INJ/PF 20 MG/1 ML SDV IV PRN (20:58)
[2016-09-01] MEDS: INSULIN REG, HUMAN 100 UNIT/ML 3 ML VIAL (PYX) SUBCUT PRN ×4 (00:01→23:06)
[2016-09-01] MEDS: MORPHINE SULFATE 10 MG/ML INJ IV PRN ×2 (03:26→10:15)
[2016-09-01] MEDS: ONDANSETRON HCL INJ/PF 4 MG/2 ML SDV IV PRN ×2 (03:26→10:15)
[2016-09-01] MEDS: OCTREOTIDE ACETATE INJ/PF 100 MCG/1 ML SDV SUBCUT SCH ×3 (05:01→21:59)
[2016-09-01] MEDS: METRONIDAZOLE 500 MG/NS RTU 100 ML IV SCH ×4 (05:02→23:08)
[2016-09-01 06:47] LABS: ALANINE AMINOTRANSFERASE 23 U/L (9-52); ALBUMIN 2.5 g/dL (3.5-5.0); ALKALINE PHOSPHATASE 76 U/L (38-126); ANION GAP 8 (5-19); ASPARTATE AMINO TRANSFERASE 12 U/L (14-36); BILIRUBIN,DIRECT 0.3 mg/dL (0.0-0.4); BILIRUBIN,TOTAL 0.3 mg/dL (0.2-1.3); BLOOD UREA NITROGEN 8 mg/dL (7-20); CALCIUM 8.4 mg/dL (8.4-10.2); CARBON DIOXIDE 27 mmol/L (22-30); CHLORIDE 101 mmol/L (98-107); CREATININE RESULT 0.58 mg/dL (0.52-1.25); GLUCOSE 210 mg/dL (75-110); PHOSPHORUS 3.2 mg/dL (2.5-4.5); SODIUM 136.3 mmol/L (137-145)
[2016-09-01 06:55] LABS: PREALBUMIN 18.5 mg/dL (17.6-36.0)
[2016-09-01 07:05] LABS: POTASSIUM 4.3 mmol/L (3.6-5.0)
[2016-09-01] MEDS: ENOXAPARIN SODIUM INJ 40 MG/0.4 ML DISP.SYRIN SUBCUT SCH (07:41)
--- NOTE | 2016-09-01 08:09 | PROGRESS NOTE E ---
Progress Note NAME: BELINDA MCCULLOUGH : 1955 AGE: 61Y DATE: 09/01/2016 ROOM: 334 SUBJECTIVE: Patient denies abdominal pains. At the same time, she has not had flatus this morning yet. She is still on TPN for fistula. Her abdomen is soft and fistula site is dry. PLAN: The plan is to continue on TPN and will start clear liquids as definitely has passage of flatus continuously. Her white count yesterday was 6.5 and her hemoglobin was 8.0. Her electrolytes were normal except the sodium is slightly low at 136. Glucose at 210, likely from the TPN. DICTATING PHYSICIAN: ANISH HINKLE M.D. [id number] [id number] PHY#: [id number] ID: [id number] JOB#: [id number] ACCT: [id number] cc: >
[2016-09-01] MEDS: FAT EMULSIONS 250 ML IV SCH (09:49)
[2016-09-01] MEDS: HYDROCHLOROTHIAZIDE 25 MG TABLET NG SCH (09:50)
[2016-09-01] MEDS: NORMAL SALINE 10 ML SDV (SCHEDULED) IV SCH ×2 (09:50→21:17)
[2016-09-01] MEDS: DEXTROSE 5%-1/2 NORMAL SALINE 1,000 ML IV PRN (10:13)
--- NOTE | 2016-09-01 17:06 | PDOC PROGRESS REPORT ---
Subjective Progress Note for:: 09/01/16 Subjective:: Feels okay. Minimal abdominal discomfort. Passing gas and having bowel movement. Physical Exam Vital Signs: Temp Pulse Resp BP Pulse Ox 98.4 F 81 16 147/91 H 100 09/01/16 11:19 09/01/16 14:00 09/01/16 11:19 09/01/16 11:19 09/01/16 11:19 Intake & Output 08/31/16 09/01/16 09/02/16 06:59 06:59 06:59 Intake Total 2907 2880 Output Total 2055 Balance 2907 825 Weight 75.5 kg 77 kg General appearance: PRESENT: no acute distress, cooperative Respiratory exam: PRESENT: clear to auscultation pauline Cardiovascular exam: PRESENT: RRR GI/Abdominal exam: PRESENT: other - Soft, nondistended, minimal tenderness diffusely. No peritoneal signs. Enterocutaneous fistula output appears minimal. Results Laboratory Results: 08/31/16 10:15 09/01/16 05:54 09/01/16 05:54 Sodium 136.3 L Potassium 4.3 Chloride 101 Carbon Dioxide 27 Anion Gap 8 BUN 8 Creatinine 0.58 Est GFR ( Amer) > 60 Est GFR (Non-Af Amer) > 60 Glucose 210 H Calcium 8.4 Phosphorus 3.2 Total Bilirubin 0.3 AST 12 L ALT 23 Alkaline Phosphatase 76 Total Protein 6.0 L Albumin 2.5 L Prealbumin 18.5 Impressions: Acute Abdomen Series 08/13/16 14:27 IMPRESSION: Ileus or partial small bowel obstruction. Chest X-Ray 08/17/16 10:24 IMPRESSION: 1. Appropriate lines and tubes. 2. Basilar volume loss, slightly worse compared to prior. Abdomen/Pelvis CT 08/25/16 00:00 IMPRESSION: Post small bowel enterotomy. There are some dilated mid epigastric small bowel loops without evidence small bowel obstruction. Postoperative trace free intraperitoneal air and left subphrenic fluid. Bibasilar atelectasis. Guidance Fluoroscopy 08/25/16 00:00 IMPRESSION: SUCCESSFUL PLACEMENT OF A 5 FR DUAL LUMEN 38 CM PICC IN THE left basilic VEIN. Interventional Vascular Procedure 08/25/16 00:00 IMPRESSION: SUCCESSFUL PLACEMENT OF A 5 FR DUAL LUMEN 38 CM PICC IN THE left basilic VEIN. PICC Line Insertion 08/25/16 00:00 IMPRESSION: SUCCESSFUL PLACEMENT OF A 5 FR DUAL LUMEN 38 CM PICC IN THE left basilic VEIN. Abdomen X-Ray 08/28/16 22:36 IMPRESSION: DILATED SMALL BOWEL WITH AIR-FLUID LEVELS, CONCERNING FOR OBSTRUCTION. KUB X-Ray 08/29/16 06:34 IMPRESSION: Nasogastric tube tip and side port in the stomach. Persistent air-fluid levels in mildly distended small bowel loops in the mid epigastrium Dense consolidation left retrocardiac region atelectasis versus pneumonia Assessment & Plan - Diagnosis (1) Enterocutaneous fistula Is this a current diagnosis for this admission?: YesPlan: Status post lysis of adhesions and small bowel resection. Patient has minimal output from her enterocutaneous fistula. She appears to have good bowel function. Will obtain a small bowel follow series and determine whether to place her on a diet at this point. Continue TPN for now.
[2016-09-01] MEDS: AMINO ACIDS 5%/D25W 1,000 ML IV PRN (17:32)
[2016-09-02] MEDS: HYDRALAZINE HCL INJ/PF 20 MG/1 ML SDV IV PRN (00:26)
[2016-09-02 04:55] LABS: ANION GAP 12 (5-19); BLOOD UREA NITROGEN 8 mg/dL (7-20); CALCIUM 8.8 mg/dL (8.4-10.2); CARBON DIOXIDE 24 mmol/L (22-30); CHLORIDE 103 mmol/L (98-107); CREATININE RESULT 0.61 mg/dL (0.52-1.25); GLUCOSE 198 mg/dL (75-110); POTASSIUM 3.6 mmol/L (3.6-5.0); SODIUM 139.4 mmol/L (137-145)
[2016-09-02] MEDS: OCTREOTIDE ACETATE INJ/PF 100 MCG/1 ML SDV SUBCUT SCH ×3 (05:37→23:00)
[2016-09-02] MEDS: DEXTROSE 5%-1/2 NORMAL SALINE 1,000 ML IV PRN (05:42)
[2016-09-02] MEDS: INSULIN REG, HUMAN 100 UNIT/ML 3 ML VIAL (PYX) SUBCUT PRN ×3 (06:31→18:48)
[2016-09-02] MEDS: ENOXAPARIN SODIUM INJ 40 MG/0.4 ML DISP.SYRIN SUBCUT SCH (08:17)
--- NOTE | 2016-09-02 08:46 | PROGRESS NOTE E ---
Progress Note NAME: BELINDA MCCULLOUGH : 1955 AGE: 61Y DATE: 09/02/2016 ROOM: 334 SUBJECTIVE: She had a bowel movement this morning with some flatus. The abdomen is soft and no drainage from the fistula site. PLAN: Is to have a small bowel series to make sure there is no further leak and possibly start her on clear liquids after the x-ray procedure. OBJECTIVE: @ ASSESSMENT: @ PLAN: @ DICTATING PHYSICIAN: ANISH HINKLE M.D. [id number] [id number] PHY#: [id number] ID: [id number] JOB#: [id number] ACCT: [id number] cc: >
[2016-09-02] MEDS: HYDROCHLOROTHIAZIDE 25 MG TABLET NG SCH (10:20)
[2016-09-02] MEDS: NORMAL SALINE 10 ML SDV (SCHEDULED) IV SCH ×2 (10:20→22:39)
[2016-09-02] MEDS: AMINO ACIDS 5%/D25W 1,000 ML IV PRN (18:50)
[2016-09-02] MEDS ORDERED: OCTREOTIDE ACETATE INJ/PF 100 MCG/1 ML SDV ONE (22:57)
[2016-09-03] MEDS: INSULIN REG, HUMAN 100 UNIT/ML 3 ML VIAL (PYX) SUBCUT PRN ×3 (00:35→17:56)
[2016-09-03] MEDS: DEXTROSE 5%-1/2 NORMAL SALINE 1,000 ML IV PRN ×2 (00:36→16:17)
[2016-09-03] MEDS ORDERED: OCTREOTIDE ACETATE INJ/PF 100 MCG/1 ML SDV ONE (06:49)
[2016-09-03] MEDS: OCTREOTIDE ACETATE INJ/PF 100 MCG/1 ML SDV SUBCUT SCH ×3 (06:52→22:03)
[2016-09-03 07:28] LABS: ANION GAP 8 (5-19); BLOOD UREA NITROGEN 9 mg/dL (7-20); CALCIUM 8.6 mg/dL (8.4-10.2); CARBON DIOXIDE 26 mmol/L (22-30); CHLORIDE 106 mmol/L (98-107); CREATININE RESULT 0.61 mg/dL (0.52-1.25); GLUCOSE 160 mg/dL (75-110); POTASSIUM 3.6 mmol/L (3.6-5.0); SODIUM 140.2 mmol/L (137-145)
[2016-09-03] MEDS: ENOXAPARIN SODIUM INJ 40 MG/0.4 ML DISP.SYRIN SUBCUT SCH (07:57)
[2016-09-03] MEDS: NORMAL SALINE 10 ML SDV (SCHEDULED) IV SCH ×2 (09:34→21:24)
[2016-09-03] MEDS: HYDROCHLOROTHIAZIDE 25 MG TABLET NG SCH (09:34)
--- NOTE | 2016-09-03 13:19 | PROGRESS NOTE E ---
Progress Note NAME: BELINDA MCCULLOUGH : 1955 AGE: 61Y DATE: 09/03/2016 ROOM: 334 SUBJECTIVE: She had a small bowel series yesterday which showed persistence of enterocutaneous fistula. However, they were not able to pinpoint exactly the site of the leakage of the contrast. There is a small amount of liquid barium with leaks into the low anterior abdominal wall incision and subcutaneous fat toward the ostomy appliance. PLAN: Therefore, we will continue her on TPN for now. However, patient feels hungry and she had a bowel movement and passage of flatus. DICTATING PHYSICIAN: ANISH HINKLE M.D. [id number] [id number] PHY#: [id number] ID: [id number] JOB#: [id number] ACCT: [id number] cc: >
[2016-09-03] MEDS: AMINO ACIDS 5%/D25W 1,000 ML IV PRN (16:23)
[2016-09-03] MEDS: HYDRALAZINE HCL INJ/PF 20 MG/1 ML SDV IV PRN (16:49)
[2016-09-03] MEDS: ACETAMINOPHEN 325 MG SUPP.RECT PR PRN (22:03)
[2016-09-04] MEDS: INSULIN REG, HUMAN 100 UNIT/ML 3 ML VIAL (PYX) SUBCUT PRN ×4 (00:04→17:58)
[2016-09-04] MEDS: OCTREOTIDE ACETATE INJ/PF 100 MCG/1 ML SDV SUBCUT SCH ×3 (05:18→21:56)
[2016-09-04] MEDS: DEXTROSE 5%-1/2 NORMAL SALINE 1,000 ML IV PRN ×2 (05:31→20:32)
[2016-09-04 06:29] LABS: HEMATOCRIT 24.3 % (36.0-47.0); HGB HCT DIFFERENCE -0.3; MEAN CORPUSCULAR HEMOGLOBIN 28.7 pg (27.0-33.4); MEAN CORPUSCULAR VOLUME 87 fl (80-97); RED BLOOD COUNT 2.79 10^6/uL (3.72-5.28); RED CELL DISTRIBUTION WIDTH 16.5 % (11.5-14.0)
[2016-09-04 06:57] LABS: ANION GAP 11 (5-19); BLOOD UREA NITROGEN 9 mg/dL (7-20); CALCIUM 8.6 mg/dL (8.4-10.2); CARBON DIOXIDE 25 mmol/L (22-30); CHLORIDE 105 mmol/L (98-107); CREATININE RESULT 0.61 mg/dL (0.52-1.25); GLUCOSE 148 mg/dL (75-110); SODIUM 140.9 mmol/L (137-145)
[2016-09-04 07:00] LABS: POTASSIUM 3.5 mmol/L (3.6-5.0)
[2016-09-04] MEDS: ENOXAPARIN SODIUM INJ 40 MG/0.4 ML DISP.SYRIN SUBCUT SCH (07:51)
[2016-09-04] MEDS: HYDROCHLOROTHIAZIDE 25 MG TABLET NG SCH (09:15)
[2016-09-04] MEDS: NORMAL SALINE 10 ML SDV (SCHEDULED) IV SCH ×2 (09:15→21:52)
[2016-09-04] MEDS: AMINO ACIDS 5%/D25W 1,000 ML IV PRN (12:11)
[2016-09-04] MEDS: DIPHENHYDRAMINE HCL 50 MG/ML VIAL IV SCH (21:56)
[2016-09-05] MEDS: INSULIN REG, HUMAN 100 UNIT/ML 3 ML VIAL (PYX) SUBCUT PRN ×5 (00:03→23:55)
[2016-09-05] MEDS: HYDRALAZINE HCL INJ/PF 20 MG/1 ML SDV IV PRN (04:21)
[2016-09-05] MEDS: OCTREOTIDE ACETATE INJ/PF 100 MCG/1 ML SDV SUBCUT SCH ×3 (05:13→22:47)
[2016-09-05] MEDS: ACETAMINOPHEN 325 MG SUPP.RECT PR PRN (06:08)
[2016-09-05 06:11] LABS: HEMATOCRIT 26.1 % (36.0-47.0); HEMOGLOBIN 8.6 g/dL (12.0-15.5); HGB HCT DIFFERENCE -0.3; MEAN CORPUSCULAR HEMOGLOBIN 28.7 pg (27.0-33.4); MEAN CORPUSCULAR HGB CONC 32.8 g/dL (32.0-36.0); MEAN CORPUSCULAR VOLUME 88 fl (80-97); RED BLOOD COUNT 2.99 10^6/uL (3.72-5.28); RED CELL DISTRIBUTION WIDTH 17.4 % (11.5-14.0); WHITE BLOOD COUNT 7.9 10^3/uL (4.0-10.5)
[2016-09-05 06:22] LABS: PROTHROMBIN TIME 14.8 SEC (11.4-15.4)
[2016-09-05 06:32] LABS: ALANINE AMINOTRANSFERASE 15 U/L (9-52); ALBUMIN 2.8 g/dL (3.5-5.0); ALKALINE PHOSPHATASE 85 U/L (38-126); ANION GAP 11 (5-19); ASPARTATE AMINO TRANSFERASE 14 U/L (14-36); BILIRUBIN,DIRECT 0.1 mg/dL (0.0-0.4); BILIRUBIN,TOTAL 0.3 mg/dL (0.2-1.3); BLOOD UREA NITROGEN 9 mg/dL (7-20); CALCIUM 8.6 mg/dL (8.4-10.2); CARBON DIOXIDE 23 mmol/L (22-30); CHLORIDE 106 mmol/L (98-107); CREATININE RESULT 0.66 mg/dL (0.52-1.25); GLUCOSE 165 mg/dL (75-110); MAGNESIUM 1.7 mg/dL (1.6-2.3); PHOSPHORUS 3.4 mg/dL (2.5-4.5); POTASSIUM 3.6 mmol/L (3.6-5.0); TOTAL PROTEIN 6.4 g/dL (6.3-8.2)
[2016-09-05 06:39] LABS: PREALBUMIN 27.1 mg/dL (17.6-36.0)
[2016-09-05] MEDS: AMINO ACIDS 5%/D25W 1,000 ML IV PRN (09:00)
[2016-09-05] MEDS: ENOXAPARIN SODIUM INJ 40 MG/0.4 ML DISP.SYRIN SUBCUT SCH (09:07)
[2016-09-05] MEDS ORDERED: DEXTROSE 10%-WATER 1,000 ML IV PRN (09:34)
[2016-09-05] MEDS: HYDROCHLOROTHIAZIDE 25 MG TABLET NG SCH (09:58)
[2016-09-05] MEDS: FAT EMULSIONS 250 ML IV SCH (09:58)
[2016-09-05] MEDS: NORMAL SALINE 10 ML SDV (SCHEDULED) IV SCH ×2 (09:58→22:48)
[2016-09-05] MEDS: DEXTROSE 5%-1/2 NORMAL SALINE 1,000 ML IV PRN (11:59)
[2016-09-05] MEDS: ACETAMINOPHEN 325 MG TABLET PO PRN ×2 (13:31→20:19)
[2016-09-05] MEDS ORDERED: VERAPAMIL HCL 180 MG TABLET.SA PO ONE (14:00)
--- NOTE | 2016-09-05 15:38 | PROGRESS NOTE E ---
Progress Note NAME: BELINDA MCCULLOUGH : 1955 AGE: 61Y DATE: 09/05/2016 ROOM: 334 SUBJECTIVE: The patient had undergone lysis of adhesions and small bowel resections x2 three weeks ago. She has had drainage from her wound having been diagnosed with enterocutaneous fistula. The patient had a small bowel series in the last 3 days which showed continued leakage. She does have a bag on her skin with some drainage each day. The patient is complaining of back and migraines and no complaints of abdominal pain at this time. OBJECTIVE: The patient has a small amount of yellowish drainage into an ostomy bag in the lower portion of her incision. DIAGNOSTIC DATA: White blood cell count 7.9, hemoglobin 8.6. ASSESSMENT: Status post exploratory laparotomy lysis of adhesions and small bowel resection with the patient developing postoperative enterocutaneous fistula. She currently is on octreotide in TPN along with n.p.o. She has had minimal drainage of approximately 42 mL from enterocutaneous ostomy in the last 24 hours. I would recommend continued medical therapy for this including n.p.o., TPN, along with octreotide. She will need to be set up for home therapy as this will probably take several weeks to months to see if it will completely seal up and heal or not. PLAN: 1. Social work to work on home TPN. 2. Continue n.p.o., TPN and octreotide. DICTATING PHYSICIAN: PURNIMA MAGANA M.D. [id number] [id number] PHY#: [id number] ID: [id number] JOB#: [id number] ACCT: [id number] cc: > MTDD
[2016-09-05] MEDS: DIPHENHYDRAMINE HCL 50 MG/ML VIAL IV SCH (22:47)
[2016-09-06] MEDS: AMINO ACIDS 5%/D25W 1,000 ML IV PRN ×2 (03:23→23:32)
[2016-09-06] MEDS: DEXTROSE 5%-1/2 NORMAL SALINE 1,000 ML IV PRN ×2 (03:23→19:16)
[2016-09-06] MEDS: OCTREOTIDE ACETATE INJ/PF 100 MCG/1 ML SDV SUBCUT SCH ×3 (05:08→22:06)
[2016-09-06] MEDS: ACETAMINOPHEN 325 MG TABLET PO PRN (05:08)
[2016-09-06 06:24] LABS: ANION GAP 9 (5-19); BLOOD UREA NITROGEN 10 mg/dL (7-20); CALCIUM 8.7 mg/dL (8.4-10.2); CARBON DIOXIDE 24 mmol/L (22-30); CHLORIDE 106 mmol/L (98-107); CREATININE RESULT 0.62 mg/dL (0.52-1.25); GLUCOSE 180 mg/dL (75-110); POTASSIUM 3.9 mmol/L (3.6-5.0); SODIUM 138.8 mmol/L (137-145)
[2016-09-06] MEDS: INSULIN REG, HUMAN 100 UNIT/ML 3 ML VIAL (PYX) SUBCUT PRN ×3 (07:17→18:18)
[2016-09-06] MEDS: ENOXAPARIN SODIUM INJ 40 MG/0.4 ML DISP.SYRIN SUBCUT SCH (09:12)
[2016-09-06] MEDS: VERAPAMIL HCL 180 MG TABLET.SA PO SCH (09:12)
[2016-09-06] MEDS: HYDROCHLOROTHIAZIDE 25 MG TABLET NG SCH (09:17)
[2016-09-06] MEDS: NORMAL SALINE 10 ML SDV (SCHEDULED) IV SCH ×2 (09:17→22:06)
--- NOTE | 2016-09-06 11:03 | PROGRESS NOTE E ---
Progress Note NAME: BELINDA MCCULLOUGH : 1955 AGE: 61Y DATE: 09/06/2016 ROOM: 334 SUBJECTIVE: Patient had underwent exploratory laparotomy and lysis of adhesions along with resection of the small bowel x2. She had developed an enterocutaneous leak. She had a small bowel follow through, which showed continued fistula. She has no complaints at the current time. OBJECTIVE: VITAL SIGNS: Blood pressure 132/80, temperature is 99.3, pulse is 80. ABDOMEN: Patient's abdominal incision is healed except for the lower portion where the ostomy bag has been placed over top. She has her small bowel series fluid draining into the bag. ASSESSMENT: 1. STATUS POST LAPAROTOMY WITH LYSIS OF ADHESIONS. 2. SMALL BOWEL RESECTION NOW WITH ENTEROCUTANEOUS FISTULA, LOW OUTPUT. She is continued on Octreotide and TPN. At this time, it does not appear to be filling up completely as far as the fistula and this may take weeks to months. Therefore, I would recommend the patient continue n.p.o. and be set up for home TPN. PLAN: 1. The patient will be set up for home TPN. She does have a PICC line that is functional at this time. 2. Continue n.p.o. 3. Octreotide. DICTATING PHYSICIAN: PURNIMA MAGANA M.D. [id number] [id number] PHY#: [id number] ID: [id number] JOB#: [id number] ACCT: [id number] cc: >
[2016-09-06] MEDS: DIPHENHYDRAMINE HCL 50 MG/ML VIAL IV SCH (22:06)
[2016-09-07] MEDS: INSULIN REG, HUMAN 100 UNIT/ML 3 ML VIAL (PYX) SUBCUT PRN ×4 (00:19→18:53)
[2016-09-07] MEDS: ACETAMINOPHEN 325 MG TABLET PO PRN ×3 (03:01→16:45)
[2016-09-07 05:51] LABS: ANION GAP 12 (5-19); BLOOD UREA NITROGEN 10 mg/dL (7-20); CALCIUM 8.8 mg/dL (8.4-10.2); CARBON DIOXIDE 23 mmol/L (22-30); CHLORIDE 104 mmol/L (98-107); CREATININE RESULT 0.63 mg/dL (0.52-1.25); GLUCOSE 191 mg/dL (75-110); POTASSIUM 3.8 mmol/L (3.6-5.0); SODIUM 138.5 mmol/L (137-145)
[2016-09-07] MEDS: OCTREOTIDE ACETATE INJ/PF 100 MCG/1 ML SDV SUBCUT SCH ×3 (05:57→22:14)
[2016-09-07] MEDS: VERAPAMIL HCL 180 MG TABLET.SA PO SCH (09:08)
[2016-09-07] MEDS: ENOXAPARIN SODIUM INJ 40 MG/0.4 ML DISP.SYRIN SUBCUT SCH (09:08)
[2016-09-07] MEDS: HYDROCHLOROTHIAZIDE 25 MG TABLET NG SCH (09:09)
[2016-09-07] MEDS: NORMAL SALINE 10 ML SDV (SCHEDULED) IV SCH ×2 (09:09→22:07)
--- NOTE | 2016-09-07 10:53 | PROGRESS NOTE E ---
Progress Note NAME: BELINDA MCCULLOUGH : 1955 AGE: 61Y DATE: 09/07/2016 ROOM: 334 SUBJECTIVE: Patient is status post laparotomy with small bowel resection. She developed a postoperative enterocutaneous fistula and is being managed conservatively with n.p.o. and octreotide. Patient denies any current abdominal pain. OBJECTIVE: VITAL SIGNS: Drainage through enterocutaneous fistula is 42 mL. Temperature is 98.4, pulse 76, blood pressure 137/85. The patient's abdominal incision has healed except for in the lower part where an ostomy bag has been placed. She is draining out the barium that she had swallowed for upper GI series. No significant tenderness. ASSESSMENT: STATUS POST LAPAROTOMY, LYSIS OF ADHESIONS, AND SMALL BOWEL RESECTION X2, NOW WITH AN ENTEROCUTANEOUS FISTULA BEING MANAGED CONSERVATIVELY. Arrangements have been made for the patient to be discharged on home TPN. Waiting for the enterocutaneous fistula to close. PLAN: 1. Patient is n.p.o. 2. Continue octreotide. 3. Continue TPN. 4. Arrangements will be made for home TPN. DICTATING PHYSICIAN: PURNIMA MAGANA M.D. [id number] [id number] PHY#: [id number] ID: [id number] JOB#: [id number] ACCT: [id number] cc: >
[2016-09-07] MEDS: DIPHENHYDRAMINE HCL 50 MG/ML VIAL IV SCH (22:14)
[2016-09-07] MEDS: AMINO ACIDS 5%/D25W 1,000 ML IV PRN (22:15)
[2016-09-08] MEDS: INSULIN REG, HUMAN 100 UNIT/ML 3 ML VIAL (PYX) SUBCUT PRN (00:26)
[2016-09-08] MEDS: DEXTROSE 5%-1/2 NORMAL SALINE 1,000 ML IV PRN (02:25)
[2016-09-08] MEDS: ACETAMINOPHEN 325 MG TABLET PO PRN (03:48)
[2016-09-08] MEDS: OCTREOTIDE ACETATE INJ/PF 100 MCG/1 ML SDV SUBCUT SCH (06:54)
[2016-09-08 07:45] LABS: ANION GAP 11 (5-19); BLOOD UREA NITROGEN 11 mg/dL (7-20); CALCIUM 9.1 mg/dL (8.4-10.2); CARBON DIOXIDE 26 mmol/L (22-30); CHLORIDE 102 mmol/L (98-107); GLUCOSE 295 mg/dL (75-110); POTASSIUM 4.5 mmol/L (3.6-5.0); SODIUM 138.8 mmol/L (137-145)
[2016-09-08] MEDS: HYDROCHLOROTHIAZIDE 25 MG TABLET NG SCH (09:25)
[2016-09-08] MEDS: VERAPAMIL HCL 180 MG TABLET.SA PO SCH (09:25)
[2016-09-08] MEDS: NORMAL SALINE 10 ML SDV (SCHEDULED) IV SCH (09:25)
[2016-09-08] MEDS: ENOXAPARIN SODIUM INJ 40 MG/0.4 ML DISP.SYRIN SUBCUT SCH (09:26)
[2016-09-08] MEDS: FAT EMULSIONS 250 ML IV SCH (10:53)
[2016-09-08 12:52] VITALS: BP 132/75
--- NOTE | 2016-09-08 12:59 | DISCHARGE SUMMARY E ---
Discharge Summary NAME: BELINDA MCCULLOUGH : 1955 AGE: 61Y ADMITTED: 08/13/2016 DISCHARGED: 09/08/2016 HOSPITAL COURSE: The patient is a 61-year-old female who presented to [facility] on 08/13/2016. She was admitted to the hospital with a history of abdominal pain x1 day consistent with an intestinal obstruction. PAST MEDICAL HISTORY: Remarkable for hypertension. PAST SURGICAL HISTORY: in the past and she has also had surgery for exploratory laparotomy and intestinal obstruction several years ago. FAMILY HISTORY: Not relevant. PERSONAL HISTORY: She is a nonsmoker. No alcohol abuse. PATIENT'S COURSE IN THE HOSPITAL: She was followed by the attending physician surgeon and it was felt that the bowel obstruction would not clear. We attempted a laparoscopic lysis of adhesions and converted to open and she underwent a small bowel resection. Postoperatively she had a rather complicated course with persistent ileus and eventually developed a low-output enterocutaneous fistula. This is being treated with n.p.o. and TPN and the fistula is well controlled. The patient will be discharged on her prior home medications as well as TPN and insulin. She will be followed in the clinic in approximately 1 week. DISCHARGE DIAGNOSES: 1. Small bowel obstruction. 2. Subsequent enterocutaneous fistula. DISCHARGE INSTRUCTIONS: Avoid eating. She may hand bathe but no tub baths. No lifting. No driving. She will follow up in the [facility] in 1 week. DISCHARGE CONDITION: Good. DICTATING PHYSICIAN: KARMEN CHEN M.D. 1209M [id number] PHY#: [id number] ID: [id number] JOB#: [id number] ACCT: [id number] cc:Pernell DESHPANDE M.D. >
== END 2016-09-08 12:51 | disposition home health service (06) | DRG 329 ==
LOC: ER 14:16 → UNDOADMIN 16:05 → EH 16:05 → 2N 17:00 → EH 18:00 → ICU 08-14 17:55 → 3S 08-16 00:50
PROVIDERS: ADMIT Colon & Rectal Surgery; ATTEND Colon & Rectal Surgery
PROC: 0DNA0ZZ Release Jejunum, Open Approach (ICD-10-PCS; 2016-08-14)
PROC: 0DNB0ZZ Release Ileum, Open Approach (ICD-10-PCS; 2016-08-14)
PROC: 02HV33Z Insertion of Infusion Device into Superior Vena Cava, Percutaneous Approach (ICD-10-PCS; 2016-08-14)
PROC: B548ZZA Ultrasonography of Superior Vena Cava, Guidance (ICD-10-PCS; 2016-08-14)
PROC: 0DB80ZZ Excision of Small Intestine, Open Approach (ICD-10-PCS; principal; 2016-08-14 14:30)
PROC: 02HV33Z Insertion of Infusion Device into Superior Vena Cava, Percutaneous Approach (ICD-10-PCS; 2016-08-25)
PROC: B548ZZA Ultrasonography of Superior Vena Cava, Guidance (ICD-10-PCS; 2016-08-25)
PROC: B518YZA Fluoroscopy of Superior Vena Cava using Other Contrast, Guidance (ICD-10-PCS; 2016-08-25)
DX: K56.5 Intestinal adhesions [bands] with obstruction (postinfection) (principal); K55.021 Focal (segmental) acute infarction of small intestine; K91.3 Postprocedural intestinal obstruction; K63.2 Fistula of intestine; I10 Essential (primary) hypertension; E87.6 Hypokalemia; B96.20 Unspecified Escherichia coli [E. coli] as the cause of diseases classified elsewhere; B96.89 Other specified bacterial agents as the cause of diseases classified elsewhere; Y83.2 Surgical operation with anastomosis, bypass or graft as the cause of abnormal reaction of the patient, or of later complication, without mention of misadventure at the time of the procedure; Y92.230 Patient room in hospital as the place of occurrence of the external cause; Z53.31 Laparoscopic surgical procedure converted to open procedure; Z87.891 Personal history of nicotine dependence
CPT/HCPCS: 00790; 36415; 36569; 71010; 74000; 74020; 74022; 74176; 74250; 76937; 77001; 80048; 80053; 80076; 81001; 82962; 83605; 83690; 83735; 84100; 84134; 84478; 85025; 85027; 85610; 87040; 87070; 87075; 87077; 87086; 87186; 87205; 87493; 88307; 93005; 93010; 94799; 96374; 96375; 99285; C1751; J0330; J0360; J0690; J0694; J1100; J1170; J1200; J1642; J1650; J1815; J1885; J1956; J2250; J2270; J2354; J2405; J2543; J2704; J3010; J3480; J3490; J7030; J7040; S0119; S0164

== ENCOUNTER 2017-02-15 10:02 | Day surgery (SDC) | payer BC ==
[2017-02-08 09:16] LABS: HEMATOCRIT 37.6 % (36.0-47.0); HEMOGLOBIN 12.6 g/dL (12.0-15.5); HGB HCT DIFFERENCE 0.2; MEAN CORPUSCULAR HEMOGLOBIN 27.6 pg (27.0-33.4); MEAN CORPUSCULAR HGB CONC 33.4 g/dL (32.0-36.0); MEAN CORPUSCULAR VOLUME 83 fl (80-97); RED BLOOD COUNT 4.56 10^6/uL (3.72-5.28); RED CELL DISTRIBUTION WIDTH 17.5 % (11.5-14.0)
[~2017-02-15 10:02] MED LIST: ACETAMINOPHEN 325 MG TABLET PO PRN; LACTATED RINGERS 1000 ML IV PRN; LIDOCAINE 0.5% INJ-PF (5 MG/ML) 50 ML SDV SUBCUT PRN
[2017-02-15] MEDS ORDERED: PROPOFOL INJ 200 MG/20 ML VIAL IV ONE ×2 (10:14→12:23)
--- NOTE | 2017-02-15 13:53 | OPERATIVE REPORT E ---
Operative Report NAME: BELINDA MCCULLOUGH : 1955 AGE: 61Y DATE OF SURGERY: 02/15/2017 ROOM: PREOPERATIVE DIAGNOSIS: History of exploratory laparotomy, small bowel resection enterocutaneous fistula, closed. POSTOPERATIVE DIAGNOSES: 1. History of exploratory laparotomy, small bowel resection enterocutaneous fistula, closed. 2. Multiple colonic polyps. 3. Sigmoid colon mass. PROCEDURE: 1. Total colonoscopy to the cecum. 2. Colonic polypectomy x1. 3. Rectosigmoid and rectal polypectomies x3. 4. Cold forceps biopsy of sigmoid colon mass. SURGEON: VARSHA BROOKS M.D. ANESTHESIA: LMAC. COMPLICATIONS: None. ESTIMATED BLOOD LOSS: Minimal. DRAINS: None. TISSUE REMOVED OR ALTERED: Multiple polyps and biopsies of sigmoid colon mass. OPERATIVE PROCEDURE: The patient was brought from the preop holding area to the main operating room where LMAC anesthesia was induced. She was placed in the left lateral decubitus position, knees to chest, appropriate monitoring devices attached and appropriate level of anesthesia induced. Surgical plan and surgical timeout were conducted. A rectal exam was performed. There were collapsed external hemorrhoids. Sphincter tone was felt to be adequate. There were no palpable masses on index examination of the anal canal. The flexible pediatric colonoscope was advanced to the anorectal canal all the way to the cecum. This was an excellent study on a well-prepped bowel. The cecum was intubated carefully. The orifice to the appendix was identified and photographed. Transillumination of the anterior abdominal wall, illuminated the right lower quadrant. The scope was withdrawn through the length of the colon, checking mucosa carefully. The cecum, ascending colon, transverse colon were felt to be normal. There was a mild to moderate amount of bile-stained mucus, which required suctioning. We withdrew the scope through the ascending and transverse colon and there was no pathology identified. In the sigmoid colon, there was a non-obstructing, sessile, broad-based mass, irregular, convoluted surface with bloody sloughing mucosa consistent with a malignancy. Multiple photos were taken. This was not pedunculated. It had a stuck-on appearance. It was not suitable for endoscopic removal. Multiple biopsies were obtained and submitted as sigmoid colon mass. We irrigated the area of biopsy and there was no evidence of ongoing bleeding. Proximal to this area in the left colon was a small sessile polyp, which was removed and labeled as "left colon polyp." Bleeding from the base was negligible. At the rectosigmoid area, at approximately 20 cm from the anal verge, were 2 pedunculated polyps, which were both photographed, and removed using a hot snare on medium strength. Both specimens were retrieved and labeled as "colonic polyps at 20 cm." The scope was withdrawn through the anorectal canal. In the rectum, at approximately 10 cm from the anal verge was a small sessile polyp, which was removed and labeled as rectal polyp. This was performed with the cold forceps device. The patient tolerated the procedure well. She will require definitive management of her sigmoid colon mass, likely resection. DICTATING PHYSICIAN: VARSHA BROOKS M.D. [id number] [id number] PHY#: [id number] ID: [id number] JOB#: [id number] ACCT: [id number] cc:VARSHA BROOKS M.D. >
[2017-02-15 14:45] VITALS: BP 155/95
== END 2017-02-15 14:35 | disposition home or self-care (01) ==
LOC: OROUT 10:02
PROVIDERS: ATTEND Surgery
PROC: 0DBE8ZX Excision of Large Intestine, Via Natural or Artificial Opening Endoscopic, Diagnostic (ICD-10-PCS; 2017-02-15)
PROC: 0DBP8ZX Excision of Rectum, Via Natural or Artificial Opening Endoscopic, Diagnostic (ICD-10-PCS; 2017-02-15)
PROC: 0DBG8ZX Excision of Left Large Intestine, Via Natural or Artificial Opening Endoscopic, Diagnostic (ICD-10-PCS; principal; 2017-02-15 12:00)
PROC: 0DBN8ZX Excision of Sigmoid Colon, Via Natural or Artificial Opening Endoscopic, Diagnostic (ICD-10-PCS; 2017-02-15 12:00)
DX: Z12.11 Encounter for screening for malignant neoplasm of colon (principal); C18.7 Malignant neoplasm of sigmoid colon; K63.5 Polyp of colon; I10 Essential (primary) hypertension; Z79.899 Other long term (current) drug therapy; Z88.5 Allergy status to narcotic agent; Z90.49 Acquired absence of other specified parts of digestive tract
CPT/HCPCS: 45380; 45385; 36415 ×2; 84132; 85027; 88305 ×2; J2704; 810

== ENCOUNTER → 2017-02-27 | Outpatient (CLI) | payer BC ==
--- NOTE | 2017-02-27 16:58 | RADIOLOGY REPORT (SQ) ---
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 Images reviewed with lung, soft t issue, and bone windows. Reconstructed coronal and sagittal MPR images reviewed. Delayed images for e valuation of the urinary system also acquired. All images stored on PACS. All CT scanners at this facility use dose modulation, iterative reconstruction, and/or weight based d osing when appropriate to reduce radiation dose to as low as reasonably achievable (ALARA). [facility]: Dose Right [facility]: CareDose [facility]: Dose Right [facility]: Teradose 4D [facility]: [employer] CONTRAST TYPE AND DOSE: contrast/concentration: Isovue 370.00 mg/ml; Total Contrast Delivered: 70.0 ml; Total Saline Delivered: 56.0 ml RENAL FUNCTION: Creatinine 0.9 RADIATION DOSE: Up-to-date CT equipment and radiation dose reduction techniques were employed. CTDIv ol: 4.0 - 4.7 mGy. DLP: 434 mGy-cm. . LIMITATIONS: None. FINDINGS: LOWER CHEST: No significant findings. No nodules or infiltrates. LIVER: Subcentimeter low-density lesions which are too small to characterize. SPLEEN: Normal size. No focal lesions. PANCREAS: No masses. No significant calcifications. No adjacent inflammation or peripancreatic fluid collections. Pancreatic duct not dilated. GALLBLADDER: No identified stones by CT criteria. No inflammatory changes to suggest cholecystitis. ADRENAL GLANDS: No significant masses or asymmetry. RIGHT KIDNEY AND URETER: No solid masses. No significant calcifications. No hydronephrosis or hyd roureter. LEFT KIDNEY AND URETER: No solid masses. No significant calcifications. No hydronephrosis or hydr oureter. AORTA AND VESSELS: No aneurysm. 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 Proximal celiac is paten t. RETROPERITONEUM: No retroperitoneal adenopathy, hemorrhage or masses. BOWEL AND PERITONEAL CAVITY: No obstruction. No visualized masses. No free fluid. No inflammatory ch anges or thickening of bowel wall. APPENDIX: Normal. PELVIS: No significant masses. Normal bladder. No free fluid. ABDOMINAL WALL: Postop changes anterior abdominal wall. BONES: No acute findings. OTHER: No other significant finding. IMPRESSION: Postsurgical changes. No acute findings. TECHNICAL DOCUMENTATION: JOB ID: [id number] Quality ID # [id number]: Final reports with documentation of one or more dose reduction techniques (e.g., Au tomated exposure control, adjustment of the mA and/or kV according to patient size, use of iterative reconstruction technique) 2010 [email or web address]- All Rights Reserved
== END ==
LOC: RAD 14:08
PROVIDERS: ATTEND Surgery
DX: C18.7 Malignant neoplasm of sigmoid colon (principal)
CPT/HCPCS: 74177; 82565

== ENCOUNTER 2017-04-12 05:26 | Inpatient (IN) | payer BC ==
[2017-04-05 10:55] LABS: HEMATOCRIT 37.8 % (36.0-47.0); HEMOGLOBIN 12.9 g/dL (12.0-15.5); HGB HCT DIFFERENCE 0.9; MEAN CORPUSCULAR HEMOGLOBIN 29.1 pg (27.0-33.4); MEAN CORPUSCULAR HGB CONC 34.1 g/dL (32.0-36.0); MEAN CORPUSCULAR VOLUME 85 fl (80-97); RED BLOOD COUNT 4.43 10^6/uL (3.72-5.28); RED CELL DISTRIBUTION WIDTH 16.2 % (11.5-14.0); WHITE BLOOD COUNT 4.4 10^3/uL (4.0-10.5)
--- NOTE | 2017-04-05 11:16 | RADIOLOGY REPORT (SQ) ---
EXAM DESCRIPTION: CHEST PA/LATERAL COMPLETED DATE/TIME: 04/05/2017 10:58 am REASON FOR STUDY: PRE OP COMPARISON: 08/17/2016. EXAM PARAMETERS: NUMBER OF VIEWS: two views TECHNIQUE: Digital Frontal and Lateral radiographic views of the chest acquired. RADIATION DOSE: NA LIMITATIONS: none FINDINGS: LUNGS AND PLEURA: No opacities, masses or pneumothorax. No pleural effusion. MEDIASTINUM AND HILAR STRUCTURES: No masses or contour abnormalities. HEART AND VASCULAR STRUCTURES: Heart normal size. No evidence for failure. BONES: No acute findings. HARDWARE: None in the chest. OTHER: No other significant finding. IMPRESSION: NO SIGNIFICANT RADIOGRAPHIC FINDING IN THE CHEST. TECHNICAL DOCUMENTATION: JOB ID: [id number] [employer]- All Rights Reserved
[2017-04-05 11:26] LABS: ANION GAP 12 (5-19); BLOOD UREA NITROGEN 15 mg/dL (7-20); CALCIUM 9.8 mg/dL (8.4-10.2); CARBON DIOXIDE 26 mmol/L (22-30); CHLORIDE 106 mmol/L (98-107); CREATININE RESULT 0.84 mg/dL (0.52-1.25); GLUCOSE 72 mg/dL (75-110); POTASSIUM 4.4 mmol/L (3.6-5.0); SODIUM 143.8 mmol/L (137-145)
--- NOTE | 2017-04-05 13:21 | EKG REPORT ---
SEVERITY:- OTHERWISE NORMAL ECG - SINUS BRADYCARDIA : Confirmed by: Chu Tim MD 05-Apr-2017 13:20:40
[~2017-04-12 05:26] MED LIST changes: -ACETAMINOPHEN 325 MG TABLET PO PRN; +AMPICILLIN SODIUM/SULBACTAM NA 3 GM in NORMAL SALINE 100 ML IV PRN; -LIDOCAINE 0.5% INJ-PF (5 MG/ML) 50 ML SDV SUBCUT PRN; +PIPERACILLIN SODIUM/TAZOBACTAM 3.375 GM in NORMAL SALINE 100 ML IV PRN
[2017-04-12] MEDS ORDERED: FENTANYL CITRATE INJ/PF 100 MCG/2 ML AMPUL ONE ×3 (06:57→09:47)
[2017-04-12] MEDS ORDERED: LIDOCAINE 2% INJ-PF (20 MG/ML) 10 ML AMPUL ONE (06:57)
[2017-04-12] MEDS ORDERED: EPHEDRINE SULFATE INJ 50 MG/1 ML AMPULE ONE (06:58)
[2017-04-12] MEDS ORDERED: MIDAZOLAM 2 MG/2 ML INJ ONE (06:58)
[2017-04-12] MEDS ORDERED: ACETAMINOPHEN 100 ML IV ONE (06:58)
[2017-04-12] MEDS ORDERED: PROPOFOL INJ 200 MG/20 ML VIAL IV ONE (06:58)
[2017-04-12] MEDS ORDERED: HYDROMORPHONE HCL INJ/PF 2 MG/ML AMPULE ONE (06:59)
[2017-04-12] MEDS ORDERED: BUPIVACAINE HCL 0.25 % INJ/PF (2.5 MG/1 ML) 30 ML VIAL ONE (08:01)
[2017-04-12] MEDS ORDERED: BUPIVACAINE INJ/PF LIPOSOME/PF 266 MG/20 ML SDV ONE (08:01)
[2017-04-12] MEDS ORDERED: HYDRALAZINE HCL INJ/PF 20 MG/1 ML SDV ONE (10:20)
[2017-04-12] MEDS ORDERED: DIPHENHYDRAMINE HCL 50 MG/ML VIAL ONE (10:20)
[2017-04-12] MEDS ORDERED: MEPERIDINE HCL/PF INJ 25 MG/1 ML DISP.SYRIN IV PRN (11:32)
[2017-04-12] MEDS ORDERED: ONDANSETRON HCL INJ/PF 4 MG/2 ML SDV IV PRN (11:32)
[2017-04-12] MEDS ORDERED: PROMETHAZINE HCL INJ 25 MG/1 ML VIAL IV PRN ×2 (11:32)
[2017-04-12] MEDS ORDERED: OXYCODONE-ACETAMINOPHEN 5-325 MG TABLET PO PRN ×2 (11:32)
[2017-04-12] MEDS ORDERED: FENTANYL CITRATE INJ/PF 100 MCG/2 ML AMPUL IV PRN ×3 (11:32)
[2017-04-12] MEDS ORDERED: DIPHENHYDRAMINE HCL 50 MG/ML VIAL IV PRN (11:32)
[2017-04-12] MEDS ORDERED: PHARMACY COMMUNICATION ORDER MC NR (12:30)
[2017-04-12] MEDS ORDERED: DEXTROSE 40% GEL 15 GM TUBE PO PRN ×2 (12:30)
[2017-04-12] MEDS ORDERED: GLUCAGON,HUMAN RECOMB 1 MG INJ SUBCUT PRN (12:30)
[2017-04-12] MEDS ORDERED: DEXTROSE 50%-WATER 25 GM/50 ML DISP.SYRIN IV PRN ×2 (12:30)
[2017-04-12] MEDS ORDERED: DEXTROSE 5%-LACTATED RINGERS 1,000 ML IV PRN (12:30)
--- NOTE | 2017-04-12 12:47 | Operative Report ---
Operative Report DATE OF SURGERY: 04/12/17 PREOPERATIVE DIAGNOSIS: 1. Adenocarcinoma of the proximal sigmoid colon. 2. History of small bowel resections 3. 3. History of enterocutaneous fistula POSTOPERATIVE DIAGNOSIS: Same extensive intra-abdominal adhesions OPERATION: 1. Exploratory laparotomy. 2. Mobilization of left colon and splenic flexure. 3. Segmental resection of sigmoid colon with handsewn colo- proximal rectal anastomosis. 4. Excision of peritoneal implant. 5. Placement of intraperitoneal drains. 6. Extremely difficult modifier SURGEON: VARSHA MCGRATH 1ST DENTAL INSTRUCTOR: ÁLVARO TORRES ANESTHESIA: GA TISSUE REMOVED OR ALTERED: 1. Peritoneal implant. 2. Sigmoid colon COMPLICATIONS: None ESTIMATED BLOOD LOSS: 500 cc INTRAOPERATIVE FINDINGS: See below PROCEDURE: Patient was taken to the preop holding area to the main operating room where general anesthesia was induced. Arms were tucked at the side, Saravia catheter inserted, and legs placed in the lithotomy position. A rectal exam was performed and muco-purulent discharge was evacuated. There was no alexandra stool. The abdomen was exposed, prepped and draped sterile fashion. Surgical plan surgical timeout conducted. We proceeded to open the abdomen to a standard midline incision above and below the umbilicus at the sites of previous midline laparotomy. We proceeded using a #10 blade taking the dissection from the skin through subcutaneous tissue down through the midline scar tissue. Scar tissue is extremely dense. We proceeded in a methodical fashion and eventually got down through the peritoneal lining into the free abdominal space. Adhesions were very dense and mostly filmy but in some places very thick and tenacious. All adhesio lysis was performed using sharp dissection under excellent visualization. We mobilized the entire small bowel off the anterior abdominal wall as a unit without breaking up the individual loops of intestine. This is because the small bowel was matted to itself from the previous abdominal surgery 3. Fortunately after over 2 hours of the adhesiolysis, we were able to get into the peritoneal cavity elevating the lateral abdominal wall to the patient's left and right. Were also able to elevate the abdominal wall all the way up to the subxiphoid region. Furthermore we are able to visualize the anterior surface of the left colon. We now installed Bookwalter retractor system facilitating our dissection. We mobilized the left colon off of the lateral pelvic sidewall again taking down all of the filmy adhesions. The left ureter was visualized in the pelvis at the level of the sacral promontory, and was preserved throughout the dissection. Also of note the patient made excellent urine which was clear throughout the operation. The dissection involving the mobilization of the left colon away from the block of small bowel was very tenacious. The left mesocolon was very difficult to dissected out and was done in a somewhat piecemeal fragmented fashion. We took the level dissection all the way up the white line of Toldt towards the splenic flexure. Again because of dense adhesions even involving the splenic flexure, the dissection was very challenging. Nonetheless we proceeded in a methodical fashion under direct visualization using primarily sharp dissection but in addition using some cautery and LigaSure handheld device. We took down the entire splenic flexure and mobilized the portion of the distal transverse colon off of the gastrocolic omentum. The nasogastric tube was in good position, and the vasculature to the greater curvature of the stomach was preserved. We now turned our attention back to the pelvis. This point we mobilized a little bit of the distal sigmoid colon and upper rectum but again the planes of dissection were very obscure. At this point I felt it was suitable divide the sigmoid colon from the upper rectum and this was affected using a BECKIE 55 stapler with blue load. We now took down what was left of the fragmented left mesial colon. Was performed using the LigaSure device as well as ramps and 2-0 Vicryl ties. During the dissection we did encounter multiple small granulomatous peritoneal implants. Did not appear to be malignant. One was excised and sent to pathology and interpreted by Dr. Davenport as chronic inflammatory granulomatous process, no evidence of malignancy. We returned to the peritoneal cavity and went back to the colon, splenic flexure and distal transverse colon again getting as much pulled down and purchase as we could to utilize this of the colon to bring it down towards the upper rectum. Site for transection of the sigmoid colon was chosen approximately 7-8 cm proximal to the palpable tumor. And the colon was transected with a stapler blue load BECKIE 55. The specimen was passed off the pathology and subsequently examined by Dr. Mcgrath by opening up the colon longitudinally, and visualizing the previously diagnosed near circumferential sigmoid colon tumor. At this point we worked on both mobilizing in a very careful, piecemeal fashion , both the distal transverse colon and the upper rectum so that we can have the 2 free ends abutting each other to affected anastomosis. Pericolonic fat was dissected away carefully, and the proximal colon was brought adjacent to the upper rectum without tension. We created an anastomosis using 2 handsewn layers of suture. The posterior, outer layer was now sewn in a running continuous fashion with 3-0 Vicryl suture. We then excised the majority of the staple line from both proximal colon and upper rectum, and now completed the inner layer of the anastomosis with 4-0 Vicryl suture in a running continuous fashion. We now brought the anterior external outer layer into proximity and closed it with a 3-0 Vicryl suture thereby completing the double layer and sewn into and anastomosis. Of note this anastomosis was completed under excellent visualization without spillage of stool. There was no significant tension. Mucosal edges as well as subserosa bled when trimmed. Were very satisfied with the vascular supply to both the proximal colon in the upper rectum. Dr. Mcgrath now went down below performed a rectal exam and then inserted the rigid sigmoidoscope. Teammates on the field occluded the proximal colon proximal to the anastomosis, filled of the pelvis with saline and insufflation of the colorectal anastomosis was affected by Dr. Mcgrath with the sigmoidoscope. The colon distended up nicely and there was no evidence of bubbling consistent with no leakage at the anastomosis. Air was evacuated from the colon through the sigmoidoscope, pelvis irrigated out, 2 large drains placed in the left lower and right lower quadrants. Nasogastric tube was confirmed to be in good position. We inspected the small intestines and we are very satisfied with the condition following the extensive lysis of adhesions. A standard piece of Seprafilm was placed over the block of small intestine. The abdomen was closed with 2 double stranded #1 PDS sutures, and meghann applied. 20 cc of full-strength Exparel was diluted to 40 cc with saline and injected into the subcutaneous tissues. Abdominal binder applied. Patient taught procedure well, extubated and taken recovery in stable condition. The physician assistant director, Ms. Villalta, provided assistance during this case by: Assisting, retracting tissue, instillation of local anesthesia and closure of skin incisions.
[2017-04-12] MEDS: FENTANYL CITRATE INJ/PF 100 MCG/2 ML AMPUL ONE ×2 (12:50→12:59)
[2017-04-12] MEDS ORDERED: ONDANSETRON HCL INJ/PF 4 MG/2 ML SDV ONE (13:34)
[2017-04-12] MEDS ORDERED: SUCCINYLCHOLINE CHLORIDE INJ 200 MG/10 ML VIAL ONE (13:34)
[2017-04-12] MEDS ORDERED: DEXAMETHASONE SOD PHOSPHATE INJ 4 MG/1 ML VIAL ONE (13:34)
[2017-04-12] MEDS ORDERED: KETOROLAC TROMETHAMINE 60 MG/2 ML SDV ONE (13:34)
[2017-04-12] MEDS ORDERED: VECURONIUM BROMIDE INJ 10 MG VIAL IV ONE (13:34)
[2017-04-12] MEDS ORDERED: METOCLOPRAMIDE HCL INJ/PF 10 MG/2 ML SDV ONE (13:34)
[2017-04-12] MEDS ORDERED: GLYCOPYRROLATE INJ 0.4 MG/2 ML VIAL ONE (13:34)
[2017-04-12] MEDS ORDERED: MORPHINE SULFATE 10 MG/ML INJ IV PRN ×2 (14:15→14:17)
[2017-04-12] MEDS: KETOROLAC TROMETHAMINE INJ/PF 30 MG/1 ML SDV IV SCH ×2 (14:21→20:40)
[2017-04-12] MEDS ORDERED: ACETAMINOPHEN INJ/PF 1000 MG/100 ML SDV IV SCH (18:00)
[2017-04-12] MEDS: ACETAMINOPHEN 100 ML IV SCH ×2 (19:00→23:54)
[2017-04-12] MEDS: MORPHINE SULFATE 10 MG/ML INJ IV PRN (19:00)
[2017-04-13] MEDS: MORPHINE SULFATE 10 MG/ML INJ IV PRN ×5 (01:19→18:11)
[2017-04-13] MEDS: KETOROLAC TROMETHAMINE INJ/PF 30 MG/1 ML SDV IV SCH ×4 (03:00→22:08)
[2017-04-13] MEDS: ACETAMINOPHEN 100 ML IV SCH ×3 (05:27→19:08)
[2017-04-13] MEDS: ENOXAPARIN SODIUM INJ 40 MG/0.4 ML DISP.SYRIN SUBCUT SCH (09:44)
--- NOTE | 2017-04-13 12:02 | PDOC PROGRESS REPORT ---
Subjective Progress Note for:: 04/13/17 Reason For Visit: ADENOCARCINOMA OF PROXIMAL SIGMOID COLON Patient is one day status post exploratory laparotomy, extensive lysis of adhesions, sigmoid colectomy for adenocarcinoma of the sigmoid colon. She had an uneventful night, no complications. Pain is adequately managed. Physical Exam Vital Signs: Temp Pulse Resp BP Pulse Ox 98.6 F 58 L 18 157/75 H 97 04/13/17 08:20 04/13/17 08:20 04/13/17 08:20 04/13/17 08:20 04/13/17 08:20 Intake & Output 04/12/17 04/13/17 04/14/17 06:59 06:59 06:59 Intake Total 0 6612 Output Total 2745 15 Balance 0 3867 -15 Weight 64.5 kg General appearance: PRESENT: no acute distress GI/Abdominal exam: PRESENT: other - Dressing dry and intact; serous sanguinous drainage out of both juan drains Results Laboratory Results: 04/05/17 10:06 04/12/17 05:50 Impressions: Chest X-Ray 04/05/17 10:26 IMPRESSION: NO SIGNIFICANT RADIOGRAPHIC FINDING IN THE CHEST. Assessment & Plan - Diagnosis (1) Adenocarcinoma of sigmoid colon Is this a current diagnosis for this admission?: Yes Plan: She is postoperative day 1 status post open sigmoid colectomy, extensive lysis of adhesions, and pelvic drain placement, doing well, no complications. Plan: 1. Discontinue Saravia catheter 2. Decrease IV fluids 3. Increased ambulation, pulmonary toilet.
[2017-04-13] MEDS ORDERED: DEXTROSE 5%-LACTATED RINGERS 1,000 ML IV PRN (12:03)
[2017-04-13] MEDS: FAMOTIDINE INJ/PF 20 MG/2 ML SDV IV SCH (22:07)
[2017-04-14] MEDS: ACETAMINOPHEN 100 ML IV SCH ×4 (00:43→18:02)
[2017-04-14] MEDS: MORPHINE SULFATE 10 MG/ML INJ IV PRN ×4 (01:05→17:32)
[2017-04-14] MEDS: KETOROLAC TROMETHAMINE INJ/PF 30 MG/1 ML SDV IV SCH ×4 (03:45→23:02)
[2017-04-14 06:26] LABS: ANION GAP 5 (5-19); BLOOD UREA NITROGEN 8 mg/dL (7-20); CALCIUM 9.3 mg/dL (8.4-10.2); CARBON DIOXIDE 37 mmol/L (22-30); CHLORIDE 100 mmol/L (98-107); CREATININE RESULT 0.82 mg/dL (0.52-1.25); GLUCOSE 114 mg/dL (75-110); POTASSIUM 3.4 mmol/L (3.6-5.0)
[2017-04-14] MEDS: FAMOTIDINE INJ/PF 20 MG/2 ML SDV IV SCH ×2 (09:52→21:00)
[2017-04-14] MEDS: ENOXAPARIN SODIUM INJ 40 MG/0.4 ML DISP.SYRIN SUBCUT SCH (09:52)
[2017-04-14] MEDS: POTASSIUM CHLORIDE 20 MEQ/50 ML RTU IV SCH ×2 (14:46→20:08)
--- NOTE | 2017-04-14 17:28 | PDOC PROGRESS REPORT ---
Subjective Progress Note for:: 04/14/17 Subjective:: Post op day #2 Post sigmoid resection for Ca and lysis of adhesions. Reason For Visit: ADENOCARCINOMA OF PROXIMAL SIGMOID COLON Physical Exam Vital Signs: Temp Pulse Resp BP Pulse Ox 98.3 F 92 16 163/83 H 98 04/14/17 11:33 04/14/17 11:33 04/14/17 08:00 04/14/17 11:33 04/14/17 11:33 Intake & Output 04/13/17 04/14/17 04/15/17 06:59 06:59 06:59 Intake Total 6612 3365 Output Total 2745 2745 Balance 3867 620 Weight 64.5 kg 69.7 kg Exam: Abdomen is soft with mild tenderness. VANNESA drains decreased serosanguinous drainage. NGT drained 800 ccs but most of it from ice chips. Results Laboratory Results: 04/05/17 10:06 04/14/17 05:54 04/14/17 05:54 Sodium 142.0 Potassium 3.4 L Chloride 100 Carbon Dioxide 37 H Anion Gap 5 BUN 8 Creatinine 0.82 Est GFR ( Amer) > 60 Est GFR (Non-Af Amer) > 60 Glucose 114 H Calcium 9.3 Impressions: Chest X-Ray 04/05/17 10:26 IMPRESSION: NO SIGNIFICANT RADIOGRAPHIC FINDING IN THE CHEST. Assessment & Plan - Time Time Spent with patient: 15-24 minutes - Plan Summary Plan Summary: Clamp NGT today and resume suction at 7 pm. and measure drainage. Possible D/C NGT tomorrow
[2017-04-15] MEDS: ACETAMINOPHEN 100 ML IV SCH ×4 (00:48→21:20)
[2017-04-15 01:14] LABS: ABSOLUTE EOSINOPHILS # (AUTO) 0.1 10^3/uL (0.0-0.6); ABSOLUTE LYMPHOCYTES (AUTO) 1.5 10^3/uL (0.5-4.7); ABSOLUTE MONOCYTES (AUTO) 0.6 10^3/uL (0.1-1.4); ABSOLUTE NEUT (AUTO) 6.7 10^3/uL (1.7-8.2); BASOPHILS % (AUTO) 0.2 % (0-2); EOSINOPHILS % (AUTO) 1.2 % (0-6); HEMATOCRIT 34.1 % (36.0-47.0); HEMOGLOBIN 11.4 g/dL (12.0-15.5); HGB HCT DIFFERENCE 0.1; LYMPHOCYTES % (AUTO) 16.7 % (13-45); MEAN CORPUSCULAR HEMOGLOBIN 28.7 pg (27.0-33.4); MEAN CORPUSCULAR HGB CONC 33.5 g/dL (32.0-36.0); MEAN CORPUSCULAR VOLUME 86 fl (80-97); MONOCYTES % (AUTO) 7.1 % (3-13); RED BLOOD COUNT 3.98 10^6/uL (3.72-5.28); RED CELL DISTRIBUTION WIDTH 15.4 % (11.5-14.0); SEGMENTED NEUTROPHILS % (AUTO) 74.8 % (42-78)
[2017-04-15 01:34] LABS: ANION GAP 10 (5-19); BLOOD UREA NITROGEN 5 mg/dL (7-20); CALCIUM 10.1 mg/dL (8.4-10.2); CARBON DIOXIDE 31 mmol/L (22-30); CHLORIDE 99 mmol/L (98-107); CREATININE RESULT 0.75 mg/dL (0.52-1.25); GLUCOSE 108 mg/dL (75-110); SODIUM 139.7 mmol/L (137-145)
[2017-04-15] MEDS: POTASSIUM CHLORIDE 20 MEQ/50 ML RTU IV SCH ×2 (01:45→05:40)
[2017-04-15] MEDS: HYDRALAZINE HCL INJ/PF 20 MG/1 ML SDV IV PRN ×3 (01:47→16:52)
[2017-04-15] MEDS: KETOROLAC TROMETHAMINE INJ/PF 30 MG/1 ML SDV IV SCH ×4 (04:33→21:28)
--- NOTE | 2017-04-15 04:57 | PDOC CONSULTATION ---
Consultation Attending physician:: ANISH HINKLE Consult reason:: Hypertension History of Present Illness Admission Date/PCP: 04/12/17 05:26 TERESE ROSSI MD Patient complains of: Hypertension History of Present Illness: BELINDA MCCULLOUGH is a 62 year old female postop day 3 for proximal sigmoid colon resection secondary to adenocarcinoma. Who is n.p.o. for home medication regiment of blood pressure. Past Medical History Cardiac Medical History: Reports: Hypertension Denies: Atrial Fibrillation, Congestive Heart Failure, Coronary Artery Disease, Myocardial Infarction, Hyperlipidema, Peripheral Vascular Disease, Heart Murmur Pulmonary Medical History: Denies: Asthma, Bronchitis, Chronic Obstructive Pulmonary Disease (COPD), Pneumonia Neurological Medical History: Denies: Seizures Malignancy Medical History: Denies: Breast Cancer, Cervical Cancer, Ovarian Cancer GI Medical History: Reports: Gastroesophageal Reflux Disease Denies: Crohn's Disease, Hiatal Hernia Musculoskeltal Medical History: Denies: Arthritis Psychiatric Medical History: Denies: Dementia, Depression Hematology: Denies: Anemia Past Surgical History Past Surgical History: Reports: Section - x1, Hysterectomy, Other - Exploratory laparotomy secondary to small bowel obstruction Denies: Appendectomy, Cholecystectomy, Colostomy, Coronary Artery Bypass Graft, Gastric Bypass Surgery, Herniorrhaphy, Mastectomy, Pacemaker, Tonsillectomy, Tubal Ligation Social History Information Source: [facility] Records Smoking Status: Never Smoker Frequency of Alcohol Use: None Hx Recreational Drug Use: Yes - occasional Drugs: None Hx Prescription Drug Abuse: No - Advance Directive Resuscitation Status: Full Code Family History Family History: DM, Malignancy Parental Family History Reviewed: No Children Family History Reviewed: No Sibling(s) Family History Reviewed.: No Medication/Allergy Home Medications: Hydrochlorothiazide [Hydrodiuril 25 mg Tablet] 25 mg PO DAILY 08/13/16 Verapamil HCl [Calan 120 mg Tablet] 120 mg PO DAILY 08/13/16 Lisinopril 10 mg PO DAILY 02/08/17 Allergies/Adverse Reactions: hydromorphone [From Dilaudid] Allergy (Verified 04/12/17 06:11) ITCHING Review of Systems Constitutional: ABSENT: chills, fever(s), headache(s), weight gain, weight loss Eyes: ABSENT: visual disturbances Ears: ABSENT: hearing changes Cardiovascular: ABSENT: chest pain, dyspnea on exertion, edema, orthropnea, palpitations Respiratory: ABSENT: cough, hemoptysis Gastrointestinal: ABSENT: abdominal pain, constipation, diarrhea, hematemesis, hematochezia, nausea, vomiting Genitourinary: ABSENT: dysuria, hematuria Musculoskeletal: ABSENT: joint swelling Integumentary: ABSENT: rash, wounds Neurological: ABSENT: abnormal gait, abnormal speech, confusion, dizziness, focal weakness, syncope Psychiatric: ABSENT: anxiety, depression, homidical ideation, suicidal ideation Endocrine: ABSENT: cold intolerance, heat intolerance, polydipsia, polyuria Hematologic/Lymphatic: ABSENT: easy bleeding, easy bruising Physical Exam Vital Signs: Temp Pulse Resp BP Pulse Ox 98.7 F 57 L 17 182/96 H 100 04/15/17 00:00 04/15/17 00:00 04/15/17 00:00 04/15/17 00:00 04/15/17 00:00 Intake & Output 04/13/17 04/14/17 04/15/17 11:59 11:59 11:59 Intake Total 5112 3365 2653 Output Total 1360 2730 2000 Balance 3752 635 653 Weight 64.5 kg 69.7 kg General appearance: PRESENT: mild distress Results Laboratory Results: 04/15/17 00:54 04/15/17 00:54 04/14/17 04/15/17 04/15/17 05:54 00:54 00:54 WBC 9.0 RBC 3.98 Hgb 11.4 L Hct 34.1 L MCV 86 MCH 28.7 MCHC 33.5 RDW 15.4 H Plt Count 269 Seg Neutrophils % 74.8 Lymphocytes % 16.7 Monocytes % 7.1 Eosinophils % 1.2 Basophils % 0.2 Absolute Neutrophils 6.7 Absolute Lymphocytes 1.5 Absolute Monocytes 0.6 Absolute Eosinophils 0.1 Absolute Basophils 0.0 Sodium 142.0 139.7 Potassium 3.4 L 4.0 Chloride 100 99 Carbon Dioxide 37 H 31 H Anion Gap 5 10 BUN 8 5 L Creatinine 0.82 0.75 Est GFR ( Amer) > 60 > 60 Est GFR (Non-Af Amer) > 60 > 60 Glucose 114 H 108 Calcium 9.3 10.1 Impressions: Chest X-Ray 04/05/17 10:26 IMPRESSION: NO SIGNIFICANT RADIOGRAPHIC FINDING IN THE CHEST. Assessment & Plan - Diagnosis (1) HTN (hypertension) Is this a current diagnosis for this admission?: Yes Plan: Optimization of pain regiment. As needed IV hydralazine and Vasotec ordered - Time Time Spent: 30 to 50 Minutes
[2017-04-15] MEDS: ENALAPRILAT DIHYDRATE INJ/PF 1.25 MG/1 ML SDV IV PRN ×2 (05:40→21:28)
[2017-04-15] MEDS: ENOXAPARIN SODIUM INJ 40 MG/0.4 ML DISP.SYRIN SUBCUT SCH (09:23)
[2017-04-15] MEDS: FAMOTIDINE INJ/PF 20 MG/2 ML SDV IV SCH ×2 (09:23→21:27)
[2017-04-15] MEDS ORDERED: CLONIDINE 0.1 MG/24 HR PATCH.TDWK TD SCH (10:00)
--- NOTE | 2017-04-15 12:46 | PDOC PROGRESS REPORT ---
Subjective Progress Note for:: 04/15/17 Subjective:: Complains of mild abdominal discomfort. Reason For Visit: ADENOCARCINOMA OF PROXIMAL SIGMOID COLON Physical Exam Vital Signs: Temp Pulse Resp BP Pulse Ox 98.5 F 78 14 172/87 H 98 04/15/17 07:45 04/15/17 07:45 04/15/17 07:45 04/15/17 07:45 04/15/17 07:45 Intake & Output 04/14/17 04/15/17 04/16/17 06:59 06:59 06:59 Intake Total 3365 4570 Output Total 2745 2650 Balance 620 1877 Weight 69.7 kg 66.2 kg General appearance: PRESENT: no acute distress Eye exam: PRESENT: conjunctiva pink. ABSENT: scleral icterus Mouth exam: PRESENT: moist, tongue midline Neck exam: ABSENT: JVD Respiratory exam: PRESENT: clear to auscultation pauline. ABSENT: rales, rhonchi, wheezes Cardiovascular exam: PRESENT: RRR. ABSENT: diastolic murmur, rubs, systolic murmur GI/Abdominal exam: PRESENT: normal bowel sounds, soft, tenderness, other - Surgical dressing in place.. ABSENT: distended, guarding, mass, organolmegaly, rebound Extremities exam: ABSENT: calf tenderness, clubbing, pedal edema Neurological exam: PRESENT: alert, awake, oriented to person, oriented to place , oriented to time, oriented to situation, CN II-XII grossly intact. ABSENT: motor sensory deficit Psychiatric exam: PRESENT: appropriate affect Skin exam: PRESENT: dry, intact, warm. ABSENT: cyanosis, rash Results Laboratory Results: 04/15/17 00:54 04/15/17 00:54 04/15/17 04/15/17 00:54 00:54 WBC 9.0 RBC 3.98 Hgb 11.4 L Hct 34.1 L MCV 86 MCH 28.7 MCHC 33.5 RDW 15.4 H Plt Count 269 Seg Neutrophils % 74.8 Lymphocytes % 16.7 Monocytes % 7.1 Eosinophils % 1.2 Basophils % 0.2 Absolute Neutrophils 6.7 Absolute Lymphocytes 1.5 Absolute Monocytes 0.6 Absolute Eosinophils 0.1 Absolute Basophils 0.0 Sodium 139.7 Potassium 4.0 Chloride 99 Carbon Dioxide 31 H Anion Gap 10 BUN 5 L Creatinine 0.75 Est GFR ( Amer) > 60 Est GFR (Non-Af Amer) > 60 Glucose 108 Calcium 10.1 Impressions: Chest X-Ray 04/05/17 10:26 IMPRESSION: NO SIGNIFICANT RADIOGRAPHIC FINDING IN THE CHEST. Assessment & Plan - Diagnosis (1) HTN (hypertension) Is this a current diagnosis for this admission?: Yes Plan: She is n.p.o. Will start on a clonidine patch and continue the IV hydralazine as needed. (2) Adenocarcinoma of sigmoid colon Is this a current diagnosis for this admission?: Yes Plan: Patient is status post resection of this. - Time Time Spent with patient: 25-34 minutes - Inpatient Certification Medical Necessity: Need Close Monitoring Due to Risk of Patient Decompensation, Need for Pain Control
[2017-04-15] MEDS: POTASSI CL 20 MEQ/D5LR 1L 20 MEQ/1,000 ML RTUINJ IV PRN (16:52)
--- NOTE | 2017-04-15 19:41 | PDOC PROGRESS REPORT ---
Subjective Progress Note for:: 04/15/17 Subjective:: incisional pains. Very small amount of flatus Reason For Visit: ADENOCARCINOMA OF PROXIMAL SIGMOID COLON Physical Exam Vital Signs: Temp Pulse Resp BP Pulse Ox 99.3 F 111 H 16 171/97 H 96 04/15/17 16:28 04/15/17 16:28 04/15/17 16:28 04/15/17 16:28 04/15/17 16:28 Intake & Output 04/14/17 04/15/17 04/16/17 06:59 06:59 06:59 Intake Total 3365 4527 1403 Output Total 2745 2650 1500 Balance 620 1877 -97 Weight 69.7 kg 66.2 kg Exam: NGT drained 800 ccs last night though some of this is due to ice chips. Abdominal incision looks clean and dry. Abdomen is soft. She feels like she is going to have BM/Flatus but unable to "push".Explained to her likely because of midline incision. Muscles are not able to contract well. Results Laboratory Results: 04/15/17 00:54 04/15/17 00:54 04/15/17 04/15/17 00:54 00:54 WBC 9.0 RBC 3.98 Hgb 11.4 L Hct 34.1 L MCV 86 MCH 28.7 MCHC 33.5 RDW 15.4 H Plt Count 269 Seg Neutrophils % 74.8 Lymphocytes % 16.7 Monocytes % 7.1 Eosinophils % 1.2 Basophils % 0.2 Absolute Neutrophils 6.7 Absolute Lymphocytes 1.5 Absolute Monocytes 0.6 Absolute Eosinophils 0.1 Absolute Basophils 0.0 Sodium 139.7 Potassium 4.0 Chloride 99 Carbon Dioxide 31 H Anion Gap 10 BUN 5 L Creatinine 0.75 Est GFR ( Amer) > 60 Est GFR (Non-Af Amer) > 60 Glucose 108 Calcium 10.1 Impressions: Chest X-Ray 04/05/17 10:26 IMPRESSION: NO SIGNIFICANT RADIOGRAPHIC FINDING IN THE CHEST. Assessment & Plan - Time Time Spent with patient: 15-24 minutes - Inpatient Certification Medical Necessity: Need Close Monitoring Due to Risk of Patient Decompensation, Need For IV Fluids, Need for Pain Control - Plan Summary Plan Summary: Leave NGT tonite. Hopefully can D/C in am and start clears. She is hungry.
[2017-04-15] MEDS ORDERED: ONDANSETRON HCL INJ/PF 4 MG/2 ML SDV IV PRN (23:47)
[2017-04-16] MEDS: MORPHINE SULFATE 10 MG/ML INJ IV PRN (00:09)
[2017-04-16] MEDS: ACETAMINOPHEN 100 ML IV SCH ×3 (00:10→11:32)
[2017-04-16] MEDS: HYDRALAZINE HCL INJ/PF 20 MG/1 ML SDV IV PRN (00:24)
[2017-04-16] MEDS: KETOROLAC TROMETHAMINE INJ/PF 30 MG/1 ML SDV IV SCH ×4 (03:48→21:41)
[2017-04-16 06:30] LABS: ABSOLUTE LYMPHOCYTES (AUTO) 1.2 10^3/uL (0.5-4.7); ABSOLUTE MONOCYTES (AUTO) 0.6 10^3/uL (0.1-1.4); ABSOLUTE NEUT (AUTO) 5.6 10^3/uL (1.7-8.2); BASOPHILS % (AUTO) 0.3 % (0-2); EOSINOPHILS % (AUTO) 0.3 % (0-6); HEMATOCRIT 31.8 % (36.0-47.0); HEMOGLOBIN 10.5 g/dL (12.0-15.5); HGB HCT DIFFERENCE -0.3; LYMPHOCYTES % (AUTO) 16.6 % (13-45); MEAN CORPUSCULAR HEMOGLOBIN 28.4 pg (27.0-33.4); MEAN CORPUSCULAR HGB CONC 33.1 g/dL (32.0-36.0); MEAN CORPUSCULAR VOLUME 86 fl (80-97); MONOCYTES % (AUTO) 7.6 % (3-13); RED CELL DISTRIBUTION WIDTH 15.9 % (11.5-14.0); SEGMENTED NEUTROPHILS % (AUTO) 75.2 % (42-78); WHITE BLOOD COUNT 7.5 10^3/uL (4.0-10.5)
[2017-04-16 06:57] LABS: ANION GAP 14 (5-19); BLOOD UREA NITROGEN 18 mg/dL (7-20); CALCIUM 9.7 mg/dL (8.4-10.2); CARBON DIOXIDE 23 mmol/L (22-30); CHLORIDE 111 mmol/L (98-107); CREATININE RESULT 1.02 mg/dL (0.52-1.25); GLUCOSE 115 mg/dL (75-110); POTASSIUM 3.6 mmol/L (3.6-5.0); SODIUM 147.8 mmol/L (137-145)
[2017-04-16] MEDS: FAMOTIDINE INJ/PF 20 MG/2 ML SDV IV SCH ×2 (09:40→21:41)
[2017-04-16] MEDS: ENOXAPARIN SODIUM INJ 40 MG/0.4 ML DISP.SYRIN SUBCUT SCH (09:40)
[2017-04-16] MEDS: POTASSI CL 20 MEQ/D5LR 1L 20 MEQ/1,000 ML RTUINJ IV PRN (09:54)
--- NOTE | 2017-04-16 11:41 | PDOC PROGRESS REPORT ---
Subjective Progress Note for:: 04/16/17 Subjective:: She reports that she has been passing flatus. Reason For Visit: ADENOCARCINOMA OF PROXIMAL SIGMOID COLON Physical Exam Vital Signs: Temp Pulse Resp BP Pulse Ox 98.1 F 84 18 139/86 H 100 04/16/17 07:42 04/16/17 07:42 04/16/17 07:42 04/16/17 07:42 04/16/17 07:42 Intake & Output 04/15/17 04/16/17 04/17/17 06:59 06:59 06:59 Intake Total 4527 2133 Output Total 2650 3506 500 Balance 9100 -1116 -500 Weight 66.2 kg 65.9 kg General appearance: PRESENT: no acute distress Eye exam: PRESENT: conjunctiva pink. ABSENT: scleral icterus Mouth exam: PRESENT: moist, tongue midline Neck exam: ABSENT: JVD Respiratory exam: PRESENT: clear to auscultation pauline. ABSENT: rales, rhonchi, wheezes Cardiovascular exam: PRESENT: RRR. ABSENT: diastolic murmur, rubs, systolic murmur GI/Abdominal exam: PRESENT: normal bowel sounds, soft, other - Surgical drains in place. Midline surgical wound with meghann in place with no drainage.. ABSENT: distended, guarding, mass, organolmegaly, rebound, tenderness Extremities exam: ABSENT: calf tenderness, clubbing, pedal edema Neurological exam: PRESENT: alert, awake, oriented to person, oriented to place , oriented to time, oriented to situation, CN II-XII grossly intact. ABSENT: motor sensory deficit Psychiatric exam: PRESENT: appropriate affect Results Laboratory Results: 04/16/17 05:53 04/16/17 05:53 04/16/17 04/16/17 05:53 05:53 WBC 7.5 RBC 3.70 L Hgb 10.5 L Hct 31.8 L MCV 86 MCH 28.4 MCHC 33.1 RDW 15.9 H Plt Count 315 Seg Neutrophils % 75.2 Lymphocytes % 16.6 Monocytes % 7.6 Eosinophils % 0.3 Basophils % 0.3 Absolute Neutrophils 5.6 Absolute Lymphocytes 1.2 Absolute Monocytes 0.6 Absolute Eosinophils 0.0 Absolute Basophils 0.0 Sodium 147.8 H Potassium 3.6 Chloride 111 H Carbon Dioxide 23 Anion Gap 14 BUN 18 Creatinine 1.02 Est GFR ( Amer) > 60 Est GFR (Non-Af Amer) 55 L Glucose 115 H Calcium 9.7 Impressions: Chest X-Ray 04/05/17 10:26 IMPRESSION: NO SIGNIFICANT RADIOGRAPHIC FINDING IN THE CHEST. Assessment & Plan - Diagnosis (1) HTN (hypertension) Is this a current diagnosis for this admission?: Yes Plan: She is n.p.o. Will continue with clonidine patch and continue the IV hydralazine as needed. (2) Adenocarcinoma of sigmoid colon Is this a current diagnosis for this admission?: Yes Plan: Patient is status post resection of this. - Time Time Spent with patient: 25-34 minutes - Inpatient Certification Medical Necessity: Need Close Monitoring Due to Risk of Patient Decompensation
--- NOTE | 2017-04-16 21:30 | PDOC PROGRESS REPORT ---
Subjective Progress Note for:: 04/16/17 Subjective:: FLATUS AND bm TONITE Reason For Visit: ADENOCARCINOMA OF PROXIMAL SIGMOID COLON Physical Exam Vital Signs: Temp Pulse Resp BP Pulse Ox 98.8 F 77 20 147/81 H 100 04/16/17 19:39 04/16/17 19:39 04/16/17 19:39 04/16/17 19:39 04/16/17 19:39 Intake & Output 04/15/17 04/16/17 04/17/17 06:59 06:59 06:59 Intake Total 4527 2133 776 Output Total 2650 3506 1000 Balance 8079 -4251 -640 Weight 66.2 kg 65.9 kg Exam: abd soft mild tenderness along incision site NGT decreasing,pulled out Results Laboratory Results: 04/16/17 05:53 04/16/17 05:53 04/16/17 04/16/17 05:53 05:53 WBC 7.5 RBC 3.70 L Hgb 10.5 L Hct 31.8 L MCV 86 MCH 28.4 MCHC 33.1 RDW 15.9 H Plt Count 315 Seg Neutrophils % 75.2 Lymphocytes % 16.6 Monocytes % 7.6 Eosinophils % 0.3 Basophils % 0.3 Absolute Neutrophils 5.6 Absolute Lymphocytes 1.2 Absolute Monocytes 0.6 Absolute Eosinophils 0.0 Absolute Basophils 0.0 Sodium 147.8 H Potassium 3.6 Chloride 111 H Carbon Dioxide 23 Anion Gap 14 BUN 18 Creatinine 1.02 Est GFR ( Amer) > 60 Est GFR (Non-Af Amer) 55 L Glucose 115 H Calcium 9.7 Impressions: Chest X-Ray 04/05/17 10:26 IMPRESSION: NO SIGNIFICANT RADIOGRAPHIC FINDING IN THE CHEST. Assessment & Plan - Time Time Spent with patient: 15-24 minutes - Inpatient Certification Medical Necessity: Need for Pain Control, Risk of Complication if Not Cared For in Hospital - Plan Summary Plan Summary: Tolerated clears. Increase diet as tolerated.
[2017-04-17 06:08] LABS: ABSOLUTE EOSINOPHILS # (AUTO) 0.3 10^3/uL (0.0-0.6); ABSOLUTE LYMPHOCYTES (AUTO) 1.4 10^3/uL (0.5-4.7); ABSOLUTE MONOCYTES (AUTO) 0.6 10^3/uL (0.1-1.4); BASOPHILS % (AUTO) 0.3 % (0-2); EOSINOPHILS % (AUTO) 4.7 % (0-6); HEMATOCRIT 28.5 % (36.0-47.0); HEMOGLOBIN 9.7 g/dL (12.0-15.5); HGB HCT DIFFERENCE 0.6; LYMPHOCYTES % (AUTO) 21.8 % (13-45); MEAN CORPUSCULAR HEMOGLOBIN 29.1 pg (27.0-33.4); MEAN CORPUSCULAR HGB CONC 33.9 g/dL (32.0-36.0); MEAN CORPUSCULAR VOLUME 86 fl (80-97); MONOCYTES % (AUTO) 9.2 % (3-13); RED BLOOD COUNT 3.33 10^6/uL (3.72-5.28); RED CELL DISTRIBUTION WIDTH 15.8 % (11.5-14.0); WHITE BLOOD COUNT 6.3 10^3/uL (4.0-10.5)
[2017-04-17 06:29] LABS: ANION GAP 10 (5-19); BLOOD UREA NITROGEN 19 mg/dL (7-20); CALCIUM 8.9 mg/dL (8.4-10.2); CARBON DIOXIDE 26 mmol/L (22-30); CHLORIDE 108 mmol/L (98-107); CREATININE RESULT 0.86 mg/dL (0.52-1.25); GLUCOSE 78 mg/dL (75-110); POTASSIUM 3.5 mmol/L (3.6-5.0); SODIUM 143.8 mmol/L (137-145)
[2017-04-17] MEDS ORDERED: POTASSI CL 20 MEQ/50 ML RIDER 20 MEQ/50 ML RTUPB IV SCH (06:45)
[2017-04-17] MEDS ORDERED: POTASSIUM CHLORIDE 10 MEQ TABLET.SA PO ONE (08:15)
[2017-04-17] MEDS: ENOXAPARIN SODIUM INJ 40 MG/0.4 ML DISP.SYRIN SUBCUT SCH (09:56)
--- NOTE | 2017-04-17 14:45 | PDOC PROGRESS REPORT ---
Subjective Progress Note for:: 04/17/17 Subjective:: Denies any complaints. She is ambulating in the hallway. Reason For Visit: ADENOCARCINOMA OF PROXIMAL SIGMOID COLON Physical Exam Vital Signs: Temp Pulse Resp BP Pulse Ox 98.9 F 59 L 16 169/90 H 100 04/17/17 12:00 04/17/17 12:00 04/17/17 12:00 04/17/17 12:00 04/17/17 12:00 Intake & Output 04/16/17 04/17/17 04/18/17 06:59 06:59 06:59 Intake Total 2133 1366 Output Total 3506 1002 Balance -1373 364 Weight 65.9 kg 64.7 kg General appearance: PRESENT: no acute distress Eye exam: PRESENT: conjunctiva pink. ABSENT: scleral icterus Respiratory exam: PRESENT: clear to auscultation pauline. ABSENT: rales, rhonchi, wheezes Cardiovascular exam: PRESENT: RRR. ABSENT: diastolic murmur, rubs, systolic murmur GI/Abdominal exam: PRESENT: normal bowel sounds, soft, other - Surgical meghann in place with no drainage. ABSENT: distended, guarding, mass, organolmegaly, rebound, tenderness Extremities exam: ABSENT: calf tenderness, clubbing, pedal edema Neurological exam: PRESENT: alert, awake, oriented to person, oriented to place , oriented to time, oriented to situation, CN II-XII grossly intact. ABSENT: motor sensory deficit Psychiatric exam: PRESENT: appropriate affect Results Laboratory Results: 04/17/17 05:55 04/17/17 13:54 04/17/17 04/17/17 04/17/17 05:55 05:55 13:54 WBC 6.3 RBC 3.33 L Hgb 9.7 L Hct 28.5 L MCV 86 MCH 29.1 MCHC 33.9 RDW 15.8 H Plt Count 274 Seg Neutrophils % 64.0 Lymphocytes % 21.8 Monocytes % 9.2 Eosinophils % 4.7 Basophils % 0.3 Absolute Neutrophils 4.0 Absolute Lymphocytes 1.4 Absolute Monocytes 0.6 Absolute Eosinophils 0.3 Absolute Basophils 0.0 Sodium 143.8 Potassium 3.5 L 3.5 L Chloride 108 H Carbon Dioxide 26 Anion Gap 10 BUN 19 Creatinine 0.86 Est GFR ( Amer) > 60 Est GFR (Non-Af Amer) > 60 Glucose 78 Calcium 8.9 Impressions: Chest X-Ray 04/05/17 10:26 IMPRESSION: NO SIGNIFICANT RADIOGRAPHIC FINDING IN THE CHEST. Assessment & Plan - Diagnosis (1) HTN (hypertension) Is this a current diagnosis for this admission?: Yes Plan: Patient's blood pressure is under good control. Her clonidine patch could be DC 'd and switched over to her usual oral medications if she is being discharged home. (2) Adenocarcinoma of sigmoid colon Is this a current diagnosis for this admission?: Yes Plan: Patient is status post resection of this. - Time Time Spent with patient: 25-34 minutes
--- NOTE | 2017-04-17 16:28 | PDOC PROGRESS REPORT ---
Subjective Progress Note for:: 04/17/17 Reason For Visit: ADENOCARCINOMA OF PROXIMAL SIGMOID COLON Postoperative day 5 status post with quarter laparotomy, extensive lysis of adhesions, colon resection for sigmoid colon cancer. Patient has had bowel function and wants to go home. However after examining her later during the day she was having some crampy gas pains. She denies nausea and vomiting. Her ambulation is been limited to the room today Physical Exam Vital Signs: Temp Pulse Resp BP Pulse Ox 98.9 F 59 L 16 169/90 H 100 04/17/17 12:00 04/17/17 12:00 04/17/17 12:00 04/17/17 12:00 04/17/17 12:00 Intake & Output 04/16/17 04/17/17 04/18/17 06:59 06:59 06:59 Intake Total 2133 1366 Output Total 3506 1002 Balance -1373 364 Weight 65.9 kg 64.7 kg General appearance: PRESENT: mild distress GI/Abdominal exam: PRESENT: other - Both drains removed this morning uneventfully; the abdomen is minimally distended; no rigidity Results Laboratory Results: 04/17/17 05:55 04/17/17 13:54 04/17/17 04/17/17 04/17/17 05:55 05:55 13:54 WBC 6.3 RBC 3.33 L Hgb 9.7 L Hct 28.5 L MCV 86 MCH 29.1 MCHC 33.9 RDW 15.8 H Plt Count 274 Seg Neutrophils % 64.0 Lymphocytes % 21.8 Monocytes % 9.2 Eosinophils % 4.7 Basophils % 0.3 Absolute Neutrophils 4.0 Absolute Lymphocytes 1.4 Absolute Monocytes 0.6 Absolute Eosinophils 0.3 Absolute Basophils 0.0 Sodium 143.8 Potassium 3.5 L 3.5 L Chloride 108 H Carbon Dioxide 26 Anion Gap 10 BUN 19 Creatinine 0.86 Est GFR ( Amer) > 60 Est GFR (Non-Af Amer) > 60 Glucose 78 Calcium 8.9 Impressions: Chest X-Ray 04/05/17 10:26 IMPRESSION: NO SIGNIFICANT RADIOGRAPHIC FINDING IN THE CHEST. Assessment & Plan - Diagnosis (1) Adenocarcinoma of sigmoid colon Is this a current diagnosis for this admission?: Yes Plan: Postoperative day 5 status post exploratory laparotomy, extensive lysis of adhesions, sigmoid colectomy, handsewn anastomosis with return of bowel function. Final pathology report pending. Recommendations: 1. Await final path report 2. Potassium 3.5; will repeat later today after replacing p.o. potassium 3. Encourage further ambulation; anticipate discharge home tomorrow.
[2017-04-17] MEDS: MORPHINE SULFATE 10 MG/ML INJ IV PRN (20:48)
[2017-04-17] MEDS: METOCLOPRAMIDE HCL 10 MG TABLET PO PRN (20:52)
[2017-04-17] MEDS: KETOROLAC TROMETHAMINE 10 MG TABLET PO PRN (20:52)
[2017-04-17] MEDS: POTASSIUM CHLORIDE 10 MEQ TABLET.SA PO SCH (22:28)
[2017-04-18] MEDS: KETOROLAC TROMETHAMINE 10 MG TABLET PO PRN (03:30)
[2017-04-18] MEDS: METOCLOPRAMIDE HCL 10 MG TABLET PO PRN (03:30)
[2017-04-18] MEDS: POTASSIUM CHLORIDE 10 MEQ TABLET.SA PO SCH (06:14)
[2017-04-18] MEDS: ENOXAPARIN SODIUM INJ 40 MG/0.4 ML DISP.SYRIN SUBCUT SCH (10:41)
[2017-04-18 10:48] VITALS: BP 167/88
--- NOTE | 2017-04-18 12:39 | DISCHARGE SUMMARY E ---
Discharge Summary NAME: BELINDA MCCULLOUGH : 1955 AGE: 61Y ADMITTED: 04/12/2017 DISCHARGED: 04/18/2017 REASON FOR ADMISSION: Sigmoid colon cancer. SUMMARY OF HOSPITALIZATION: The patient is a 61-year-old -[place] African female with a diagnosis of sigmoid colon carcinoma. She was brought through ambulatory surgery for definitive surgical management. The patient was taken to the operating room by Dr. Brooks on the morning of 04/12/2017 where she underwent exploratory laparotomy, extensive lysis of adhesions, and sigmoid colectomy with hand-sewn anastomosis. She tolerated the procedure well and had no postoperative complications. She did have an ileus requiring nasogastric tube decompression. Eventually this resolved. Her drains were removed on the fifth postoperative day. She was started on a diet on the third postoperative day and this was advanced and tolerated well. She had reliable return of bowel function. Her pain was well managed. By the sixth postoperative day, she was felt ready for discharge home. FINAL DIAGNOSIS: Sigmoid colon cancer, final path pending, status post exploratory laparotomy, sigmoid colectomy, hand-sewn anastomosis. DISPOSITION: The patient will be discharged home in the care of her family. Follow up with Dr. Broosk in 1 week. Take Percocet p.r.n. pain and resume her preoperative medications and activity. DICTATING PHYSICIAN: VARSHA BROOKS M.D. [id number] PHY#: [id number] ID: [id number] JOB#: [id number] ACCT: [id number] cc:VARSHA BROOKS M.D. >
== END 2017-04-18 12:30 | disposition home or self-care (01) | DRG 330 ==
LOC: INOR 05:26 → 4S 14:08
PROVIDERS: ADMIT Surgery; ATTEND Surgery
PROC: 0DBW0ZZ Excision of Peritoneum, Open Approach (ICD-10-PCS; 2017-04-12)
PROC: 0DTN0ZZ Resection of Sigmoid Colon, Open Approach (ICD-10-PCS; principal; 2017-04-12 07:30)
PROC: 0D9670Z Drainage of Stomach with Drainage Device, Via Natural or Artificial Opening (ICD-10-PCS; 2017-04-13)
DX: C18.7 Malignant neoplasm of sigmoid colon (principal); K56.7 Ileus, unspecified; K66.0 Peritoneal adhesions (postprocedural) (postinfection); I10 Essential (primary) hypertension; K21.9 Gastro-esophageal reflux disease without esophagitis; Z90.710 Acquired absence of both cervix and uterus; Z79.899 Other long term (current) drug therapy; Z88.8 Allergy status to other drugs, medicaments and biological substances
CPT/HCPCS: 36415; 71020; 80048; 840; 84132; 85025; 85027; 88305; 88309; 88312; 88331; 88341; 88342; 93005; 93010; 94799; C9290; J0131; J0295; J0330; J0360; J1100; J1170; J1200; J1650; J1885; J2250; J2270; J2405; J2704; J2765; J3010; J3480; J3490; S0028

== ENCOUNTER 2017-06-07 13:30 | Day surgery (SDC) | payer BC ==
[~2017-06-07 13:30] MED LIST changes: +ACETAMINOPHEN 325 MG TABLET PO PRN; -AMPICILLIN SODIUM/SULBACTAM NA 3 GM in NORMAL SALINE 100 ML IV PRN; +CEFAZOLIN 1 GM/D5W RTU 1 GM/50 ML RTUPB IV PRN; -LACTATED RINGERS 1000 ML IV PRN; +LIDOCAINE 1%/EPINEPHRINE INJ 20 ML VIAL ONE; -PIPERACILLIN SODIUM/TAZOBACTAM 3.375 GM in NORMAL SALINE 100 ML IV PRN
[2017-06-07 13:58] LABS: HEMOGLOBIN 12.8 g/dL (12.0-15.5); MEAN CORPUSCULAR HEMOGLOBIN 28.4 pg (27.0-33.4); MEAN CORPUSCULAR VOLUME 86 fl (80-97); PLATELET COUNT 273 10^3/uL (150-450); RED BLOOD COUNT 4.53 10^6/uL (3.72-5.28); RED CELL DISTRIBUTION WIDTH 15.3 % (11.5-14.0); WHITE BLOOD COUNT 4.7 10^3/uL (4.0-10.5)
[2017-06-07] MEDS ORDERED: MIDAZOLAM 2 MG/2 ML INJ ONE ×2 (14:31→15:40)
[2017-06-07] MEDS: METOPROLOL TARTRATE PF/INJ 5 MG/5 ML SDV IV ONE ×2 (15:00→15:07)
[2017-06-07] MEDS ORDERED: METOPROLOL TARTRATE 50 MG TABLET PO ONE (15:00)
[2017-06-07] MEDS ORDERED: FENTANYL CITRATE INJ/PF 100 MCG/2 ML AMPUL ONE (15:39)
[2017-06-07] MEDS ORDERED: PROPOFOL INJ 200 MG/20 ML VIAL IV ONE (15:40)
--- NOTE | 2017-06-07 16:42 | PDOC DISCHARGE SUMMARY ---
Discharge Summary (SDC) - Discharge Final Diagnosis: Colon Cancer Date of Surgery: 06/07/17 Discharge Date: 06/07/17 Condition: Stable Treatment or Instructions: Wound Care: You may get the area wet in 48 hours. Do not remove paper band aids (steri strips) to shower. Steri strips will fall off on their own. Do not scrub area. Let warm water and soap wash over the area, pat dry then cover if needed. You may use the port as needed. Pain Management: You may take on Toradol every six hours as needed for pain. Follow Up: Follow up at [facility] in 10-14 days. Call clinic sooner with any questions/concerns. Prescriptions: Ketorolac Tromethamine [Toradol 10 mg Tablet] 10 mg PO Q6HP PRN #25 tablet PRN Reason: Referrals: TERESE ROSSI MD [Primary Care Provider] - Discharge Diet: As Tolerated Discharge Activity: Activity As Tolerated Report the Following to Your Physician Immediately: Shortness of Breath, Nausea , Vomiting, Increase in Pain, Fever over 101 Degrees, Drainage-Foul Smelling
[2017-06-07] MEDS ORDERED: PROMETHAZINE HCL INJ 25 MG/1 ML VIAL IV PRN ×2 (16:50)
[2017-06-07] MEDS ORDERED: MEPERIDINE HCL/PF INJ 25 MG/1 ML DISP.SYRIN IV PRN (16:50)
[2017-06-07] MEDS ORDERED: FENTANYL CITRATE INJ/PF 100 MCG/2 ML AMPUL IV PRN ×3 (16:50)
[2017-06-07] MEDS ORDERED: DIPHENHYDRAMINE HCL 50 MG/ML VIAL IV PRN (16:50)
[2017-06-07] MEDS ORDERED: KETOROLAC TROMETHAMINE 10 MG TABLET PO PRN (17:23)
--- NOTE | 2017-06-07 17:23 | Operative Report ---
Operative Report DATE OF SURGERY: 06/07/17 PREOPERATIVE DIAGNOSIS: Stage III colon carcinoma POSTOPERATIVE DIAGNOSIS: Same OPERATION: 1. Focused ultrasound of the right neck. 2. Ultrasound directed insertion of right internal jugular vein, single chamber [id number] catheter. 3. Interpretation of intraoperative fluoroscopy SURGEON: VARSHA BROOKS 1ST SOFTWARE DEVELOPMENT PROJECT MANAGER: ÁLVARO TORRES ANESTHESIA: LMAC TISSUE REMOVED OR ALTERED: None COMPLICATIONS: None ESTIMATED BLOOD LOSS: Scant INTRAOPERATIVE FINDINGS: See below PROCEDURE: Patient was seen in the preop holding area right neck marked, then patient taken to the operating room where LMAC anesthesia was induced. Arms were tucked , right neck and right chest wall prepped and draped sterile fashion Surgical plan surgical Extent of the right neck revealed a patent, compressible right internal jugular vein. Adjacent skin was anesthetized with 1% lidocaine plain using ultrasound as a guide, real-time, micro needle and wire were threaded the right internal jugular vein Suitable site for placement of the port was chosen in the right subclavian position. Skin was anesthetized with 1% plain lidocaine, 3 cm incision was made with a knife, and using electrocautery, and gentle traction, a right subclavian Cosztm-p-Xcus pocket was created. The catheter, single lumen 9 Sinhala, was tunneled between the 2 incisions. It was trimmed the appropriate length, attached to the port with the plastic ring. The port was tucked into the right subclavian pocket Under fluoroscopic guidance, the micro needle was switched over to a conventional 0.030 inch guidewire using the micro introducer sheath. Then under direct visualization fluoroscopically, a dilator and introducer sheath were threaded over the guidewire. Dilator and guidewire removed, and catheter threaded into the strip away sheath. The sheath was removed leaving the cath in good position. There was no evidence of ectopy. The tip of the catheter was in the deep right atrium. There was a nice curvature to the catheter of the neck. Catheter was aspirated and flushed with heparinized saline, dilute. Wounds closed with 3-0 Vicryl benzoin Steri-Strips. Portable upright chest x-ray pending at time dictation. The physician commercial escrow assistant, Ms. Villalta, provided assistance during this case by: Assisting with retracting tissue, instillation of local anesthesia and closure of skin incisions.
--- NOTE | 2017-06-07 17:47 | RADIOLOGY REPORT (SQ) ---
EXAM DESCRIPTION: CHEST SINGLE VIEW COMPLETED DATE/TIME: 06/07/2017 5:40 pm; 06/07/2017 5:39 pm REASON FOR STUDY: PORT A CATH; PORT PLACEMENT COMPARISON: 04/05/2017 EXAM PARAMETERS: NUMBER OF VIEWS: One view. TECHNIQUE: Single frontal radiographic view of the chest acquired. RADIATION DOSE: NA LIMITATIONS: None. FINDINGS: LUNGS AND PLEURA: No opacities, masses or pneumothorax. No pleural effusion. MEDIASTINUM AND HILAR STRUCTURES: No masses. Contour normal. HEART AND VASCULAR STRUCTURES: Heart normal in size. Normal vasculature. BONES: No acute findings. HARDWARE: Interval placement of venous access catheter via right subclavian approach. Tip is at the cavoatrial junction. OTHER: 0 minutes of fluoro time. 2 images saved to PACs. IMPRESSION: Interval placement of a venous access catheter without pneumothorax. Tip at the cavoatr ial junction. TECHNICAL DOCUMENTATION: JOB ID: [id number] [employer]- All Rights Reserved
--- NOTE | 2017-06-07 17:48 | RADIOLOGY REPORT (SQ) ---
EXAM DESCRIPTION: FLUORO/CV PLACEMENT COMPLETED DATE/TIME: 06/07/2017 5:41 pm REASON FOR STUDY: PORT A CATH C18.7 MALIGNANT NEOPLASM OF SIGMOID COLON COMPARISON: Chest radiograph FLUOROSCOPY TIME: 0 minutes 2 images saved to PACS. TECHNIQUE: Intra-operative images acquired during surgical procedure to evaluate progress. NUMBER OF IMAGES: 2 LIMITATIONS: None. FINDINGS: Placement of venous access catheter. IMPRESSION: IMAGE(S) OBTAINED DURING PROCEDURE. COMMENT: Quality ID [id number]: Final reports for procedures using fluoroscopy that document radiation exp osure indices, or exposure time and number of fluorographic images (if radiation exposure indices are not available) Please consult full operative report of the attending physician for description of the procedure. TECHNICAL DOCUMENTATION: JOB ID: [id number] [employer]- All Rights Reserved
[2017-06-07 19:24] VITALS: BP 161/90
== END 2017-06-07 19:30 | disposition home or self-care (01) ==
LOC: OROUT 13:30
PROVIDERS: ATTEND Surgery
PROC: 05HH33Z Insertion of Infusion Device into Left Hand Vein, Percutaneous Approach (ICD-10-PCS; principal; 2017-06-07 14:45)
DX: C18.7 Malignant neoplasm of sigmoid colon (principal); I10 Essential (primary) hypertension; Z88.5 Allergy status to narcotic agent; Z79.899 Other long term (current) drug therapy; Z87.891 Personal history of nicotine dependence
CPT/HCPCS: 36561; 36415; 85027; 71045; 77001; C1752; C1788; J2250; J0690; J3010; J3490 ×2; J2704; J1642; 532

== ENCOUNTER → 2017-09-13 | Outpatient (CLI) | payer BC, MEDICAID ==
--- NOTE | 2017-09-13 15:50 | RADIOLOGY REPORT (SQ) ---
EXAM DESCRIPTION: CT ABD/PELVIS WITH IV ORAL COMPLETED DATE/TIME: 09/13/2017 3:14 pm REASON FOR STUDY: C18.7 MALIGNANT NEOPLASM OF SIGMOID COLON C18.7 MALIGNANT NEOPLASM OF SIGMOID COL ON COMPARISON: 02/27/2017 TECHNIQUE: CT scan of the abdomen and pelvis performed with intravenous and oral contrast using galdino samuel scanning technique with dynamic intravenous contrast injection. Images reviewed with lung, soft t issue, and bone windows. Reconstructed coronal and sagittal MPR images reviewed. Delayed images for e valuation of the urinary system also acquired. All images stored on PACS. All CT scanners at this facility use dose modulation, iterative reconstruction, and/or weight based d osing when appropriate to reduce radiation dose to as low as reasonably achievable (ALARA). [facility]: Dose Right [facility]: CareDose [facility]: Dose Right [facility]: Teradose 4D [facility]: [employer] CONTRAST TYPE AND DOSE: contrast/concentration: Isovue 370.00 mg/ml; Total Contrast Delivered: 68.0 ml; Total Saline Delivered: 60.0 ml RENAL FUNCTION: GFR > 60. RADIATION DOSE: CT Rad equipment meets quality standard of care and radiation dose reduction techniq ues were employed. CTDIvol: 3.9 - 4.6 mGy. DLP: 427 mGy-cm. . LIMITATIONS: None. FINDINGS: LOWER CHEST: No acute findings. LIVER: Subcentimeter low-density lesions too small to characterize. SPLEEN: Normal size. No focal lesions. PANCREAS: No masses. No significant calcifications. No adjacent inflammation or peripancreatic fluid collections. Pancreatic duct not dilated. GALLBLADDER: No identified stones by CT criteria. No inflammatory changes to suggest cholecystitis. ADRENAL GLANDS: Subcentimeter left adrenal nodule, most likely a benign adenoma. RIGHT KIDNEY AND URETER: No solid masses. No significant calcifications. No hydronephrosis or hyd roureter. LEFT KIDNEY AND URETER: No solid masses. No significant calcifications. No hydronephrosis or hydr oureter. AORTA AND VESSELS: No aneurysm. RETROPERITONEUM: No retroperitoneal adenopathy, hemorrhage or masses. BOWEL AND PERITONEAL CAVITY: There is focal narrowing of a segment of sigmoid colon on series 2, imag e 70. The more proximal large bowel caliber is upper limits of normal. Cecum is not dilated. No as cites. APPENDIX: Normal. PELVIS: No significant masses. Normal bladder. No free fluid. ABDOMINAL WALL: Postsurgical changes anterior abdominal wall. No definite fluid collection. BONES: No acute findings. OTHER: No other significant finding. IMPRESSION: 1. No evidence of metastatic disease. 2. Spasm versus stricture in the sigmoid colon. Consider surgical consultation and follow-up contras t enema. TECHNICAL DOCUMENTATION: JOB ID: [id number] Quality ID # [id number]: Final reports with documentation of one or more dose reduction techniques (e.g., Au tomated exposure control, adjustment of the mA and/or kV according to patient size, use of iterative reconstruction technique) 2010 [employer]- All Rights Reserved Reading location - IP/workstation name: [email or web address]
== END ==
LOC: RAD 14:36
PROVIDERS: ATTEND Internal Medicine Hematology & Oncology
DX: C18.7 Malignant neoplasm of sigmoid colon (principal)
CPT/HCPCS: 74177

== ENCOUNTER 2017-10-22 03:42 | Inpatient (IN) | payer BC, MEDICAID ==
[2017-10-22] MEDS ORDERED: METHYLPREDNISOLONE INJ 125 MG/2 ML SDV IV ONE (04:00)
[2017-10-22] MEDS ORDERED: DIPHENHYDRAMINE HCL 50 MG/ML VIAL IV ONE (04:00)
[2017-10-22] MEDS ORDERED: EPINEPHRINE INJ/PF 1 MG/1 ML AMPULE IM ONE (04:00)
--- NOTE | 2017-10-22 04:03 | ER Document Report ---
ED Allergic Reaction - General Chief Complaint: Swelling of Tongue Stated Complaint: TONGUE SWELLING Time Seen by Provider: 10/22/17 04:00 Notes: The patient is a 62-year-old female, past medical history colon cancer ( currently on i2cfubwq chemo, last dose 16 days ago), hypertension (on Lisinopril ), presents with swelling of the left side of her tongue she noticed when she woke up. She said that there has been no progression of her symptoms since she woke up. She is able to tolerate her secretions and denies stridor, shortness of breath, wheezing, fevers, rash, nausea or vomiting. TRAVEL OUTSIDE OF THE [place] IN LAST 30 DAYS: No - Related Data Allergies/Adverse Reactions: hydromorphone [From Dilaudid] Allergy (Verified 06/07/17 14:41) ITCHING Past Medical History - General Information source: Patient - Social History Smoking Status: Unknown if Ever Smoked Family History: DM, Malignancy - Past Medical History Cardiac Medical History: Reports: Hx Hypertension Denies: Hx Atrial Fibrillation, Hx Congestive Heart Failure, Hx Coronary Artery Disease, Hx Heart Attack, Hx Hypercholesterolemia, Hx Peripheral Vascular Disease, Hx Heart Murmur Pulmonary Medical History: Denies: Hx Asthma, Hx Bronchitis, Hx COPD, Hx Pneumonia Neurological Medical History: Reports: Hx Cerebrovascular Accident. Denies: Hx Seizures Renal/ Medical History: Denies: Hx Ovarian Cysts, Hx Peritoneal Dialysis, Hx Pelvic Inflammatory Disease Malignancy Medical History: Denies: Hx Breast Cancer, Hx Cervical Cancer, Hx Ovarian Cancer GI Medical History: Reports: Hx Gastroesophageal Reflux Disease, Hx Irritable Bowel. Denies: Hx Crohn's Disease, Hx Hiatal Hernia, Hx Liver Failure, Hx Pancreatitis, Hx Ulcer Musculoskeltal Medical History: Denies Hx Arthritis, Denies Hx Multiple Sclerosis Psychiatric Medical History: Denies: Hx Dementia, Hx Depression Past Surgical History: Reports: Hx Abdominal Surgery, Hx Bowel Surgery - x2, Hx Section - x1, Hx Hysterectomy, Other - Exploratory laparotomy secondary to small bowel obstruction. Denies: Hx Appendectomy, Hx Cholecystectomy, Hx Colostomy, Hx Coronary Artery Bypass Graft, Hx Gastric Bypass Surgery, Hx Herniorrhaphy, Hx Mastectomy, Hx Pacemaker, Hx Tonsillectomy , Hx Tubal Ligation - Immunizations Hx Diphtheria, Pertussis, Tetanus Vaccination: Yes Review of Systems - Review of Systems Notes: REVIEW OF SYSTEMS: CONSTITUTIONAL: -fevers, -chills EENT: -eye pain, +tongue swelling, +difficulty swallowing, -nasal congestion CARDIOVASCULAR: -chest pain, -syncope. RESPIRATORY: -cough, -SOB GASTROINTESTINAL: -abdominal pain, -nausea, -vomiting, -diarrhea GENITOURINARY: -dysuria, -hematuria MUSCULOSKELETAL: -back pain, -neck pain SKIN: -rash or skin lesions. HEMATOLOGIC: -easy bruising or bleeding. LYMPHATIC: -swollen, enlarged glands. NEUROLOGICAL: -altered mental status or loss of consciousness, -headache, - neurologic symptoms PSYCHIATRIC: -anxiety, -depression. ALL OTHER SYSTEMS REVIEWED AND NEGATIVE. Physical Exam - Vital signs Vitals: Temp Pulse Resp BP Pulse Ox 98.3 F 60 18 125/74 100 10/22/17 03:50 10/22/17 03:50 10/22/17 03:50 10/22/17 03:50 10/22/17 03:50 Course - Re-evaluation Re-evalutation: Patient initially with left-sided tongue swelling started when she woke up. She is on lisinopril and suspect that this may be related to SERAFIN inhibitor angioedema. While being monitored in the ER after she received epinephrine, Solu-Medrol and Benadryl, the right side of her tongue became very swollen and she was having difficulty swallowing. Decision was made to emergently intubate patient for airway protection. Patient's primary care physician is Dr. Evans. 10/22/17 05:[address] Dickens and he has accepted patient to the ICU. Blood work shows hypokalemia and this was repleted in the ER. - Vital Signs Vital signs: Temp Pulse Resp BP Pulse Ox 98.3 F 60 18 125/74 100 10/22/17 03:50 10/22/17 03:50 10/22/17 03:50 10/22/17 03:50 10/22/17 03:50 - Laboratory Result Diagrams: 10/22/17 04:39 10/22/17 04:39 Laboratory results interpreted by me: 10/22/17 10/22/17 04:39 04:39 WBC 3.7 L RBC 3.47 L Hgb 11.4 L Hct 33.5 L RDW 23.4 H Seg Neutrophils % 40.3 L Monocytes % 14.1 H Absolute Neutrophils 1.5 L Potassium 3.1 L Chloride 110 H Glucose 112 H AST 45 H Alkaline Phosphatase 141 H - Diagnostic Test Radiology reviewed: Image reviewed, Reports reviewed Radiology results interpreted by me: CXR: ETT 4 cm above gagan, OGT in place Procedures - Intubation Orotracheal Time of Intubation: 04:59 Airway evaluation: Large tongue Mallampati Classification: Class 3 Medications: Etomidate, Diprivan, Other - Rocuronium Intubation method: Orotracheal Blade type: Christina Blade size: 3 Equipment used: Glidescope ETT size: 7.0 ETT secured at: Teeth ETT secured at (cm): 22 Breath Sounds after Intubation: Equal End tidal CO2 confirmed: Yes Post Intubation Xray: Yes Intubation Complications: No complications Critical Care Note - Critical Care Note Total time excluding time spent on procedures (mins): 35 Discharge - Discharge Clinical Impression: Hypokalemia SERAFIN inhibitor-aggravated angioedema Qualifiers: Encounter type: initial encounter Qualified Code(s): T78.3XXA - Angioneurotic edema, initial encounter Condition: Serious Disposition: ADMITTED INPATIENT Admitting Provider: [facility] Admitted: ICU
[2017-10-22] MEDS ORDERED: ETOMIDATE INJ/PF 20 MG/10 ML SDV IV ONE ×2 (04:47→04:48)
[2017-10-22] MEDS ORDERED: ROCURONIUM BROMIDE INJ 50 MG/5 ML VIAL IV ONE ×2 (04:48→12:11)
[2017-10-22] MEDS ORDERED: PROPOFOL 1,000 MG/100 ML INFUS..BTL IV ONE (04:48)
[2017-10-22] MEDS ORDERED: FENTANYL CITRATE INJ/PF 100 MCG/2 ML AMPUL IV ONE (05:05)
[2017-10-22 05:32] LABS: ABSOLUTE EOSINOPHILS # (AUTO) 0.1 10^3/uL (0.0-0.6); ABSOLUTE LYMPHOCYTES (AUTO) 1.6 10^3/uL (0.5-4.7); ABSOLUTE MONOCYTES (AUTO) 0.5 10^3/uL (0.1-1.4); ABSOLUTE NEUT (AUTO) 1.5 10^3/uL (1.7-8.2); BASOPHILS % (AUTO) 0.1 % (0-2); EOSINOPHILS % (AUTO) 2.9 % (0-6); HEMATOCRIT 33.5 % (36.0-47.0); HEMOGLOBIN 11.4 g/dL (12.0-15.5); LYMPHOCYTES % (AUTO) 42.6 % (13-45); MEAN CORPUSCULAR HEMOGLOBIN 32.8 pg (27.0-33.4); MEAN CORPUSCULAR VOLUME 97 fl (80-97); MONOCYTES % (AUTO) 14.1 % (3-13); PLATELET COUNT 169 10^3/uL (150-450); RED BLOOD COUNT 3.47 10^6/uL (3.72-5.28); RED CELL DISTRIBUTION WIDTH 23.4 % (11.5-14.0); SEGMENTED NEUTROPHILS % (AUTO) 40.3 % (42-78); TOTAL CELLS COUNTED % (AUTO) 100 %; WHITE BLOOD COUNT 3.7 10^3/uL (4.0-10.5)
[2017-10-22 05:53] LABS: ALANINE AMINOTRANSFERASE 33 U/L (9-52); ALBUMIN 3.6 g/dL (3.5-5.0); ALKALINE PHOSPHATASE 141 U/L (38-126); ANION GAP 9 (5-19); ASPARTATE AMINO TRANSFERASE 45 U/L (14-36); BILIRUBIN,DIRECT 0.4 mg/dL (0.0-0.4); BILIRUBIN,TOTAL 1.1 mg/dL (0.2-1.3); BLOOD UREA NITROGEN 16 mg/dL (7-20); CARBON DIOXIDE 25 mmol/L (22-30); CHLORIDE 110 mmol/L (98-107); GLUCOSE 112 mg/dL (75-110); POTASSIUM 3.1 mmol/L (3.6-5.0); SODIUM 144.1 mmol/L (137-145); TOTAL PROTEIN 7.1 g/dL (6.3-8.2)
[2017-10-22 05:57] LABS: APPEARANCE,URINE CLEAR; BILIRUBIN,URINE NEGATIVE (NEGATIVE); COLOR,URINE YELLOW; GLUCOSE, URINE 50 mg/dL (NEGATIVE); KETONES,URINE NEGATIVE (NEGATIVE); LEUKOCYTE ESTERASE,URINE NEGATIVE (NEGATIVE); NITRITE,URINE NEGATIVE (NEGATIVE); PROTEIN,URINE 30 mg/dL (NEGATIVE); URINE SPECIFIC GRAVITY 1.013; UROBILINOGEN,URINE NEGATIVE mg/dL (<2.0)
[2017-10-22] MEDS: NORMAL SALINE 1000 ML 1,000 ML IV PRN ×2 (07:51→15:38)
[2017-10-22] MEDS: DEXAMETHASONE SOD PHOSPHATE INJ 4 MG/1 ML VIAL IV SCH ×3 (07:51→21:53)
[2017-10-22] MEDS: POTASSI CL 20 MEQ/50 ML RIDER 20 MEQ/50 ML RTUPB IV SCH ×4 (07:51→13:38)
--- NOTE | 2017-10-22 08:14 | RADIOLOGY REPORT (SQ) ---
EXAM DESCRIPTION: CHEST SINGLE VIEW COMPLETED DATE/TIME: 10/22/2017 5:32 am REASON FOR STUDY: intubation COMPARISON: Chest films 04/05/2017, 06/07/2017 EXAM PARAMETERS: NUMBER OF VIEWS: One view. TECHNIQUE: Single frontal radiographic view of the chest acquired. RADIATION DOSE: NA LIMITATIONS: None. FINDINGS: LUNGS AND PLEURA: Minimal left retrocardiac airspace disease atelectasis versus pneumonia. Minimal right basilar bandlike atelectasis. No pleural effusion or pneumothorax. MEDIASTINUM AND HILAR STRUCTURES: No masses. Contour normal. HEART AND VASCULAR STRUCTURES: No cardiomegaly BONES: No acute findings. HARDWARE: Endotracheal tube tip 4 cm above the gagan. Nasogastric tube tip and side port in the sto mach. OTHER: Unchanged right-sided permanent central line with the tip in the superior vena cava IMPRESSION: Unchanged left retrocardiac airspace disease. Endotracheal tube, nasogastric tube in good positioning. TECHNICAL DOCUMENTATION: JOB ID: [id number] [employer]- All Rights Reserved Reading location - IP/workstation name: [email or web address]
[2017-10-22 08:41] LABS: ARTERIAL BLOOD BASE EXCESS -3.5 mmol/L; ARTERIAL BLOOD HCO3 20.4 mmol/L (20-26); ARTERIAL BLOOD O2 SATURATION 98.1 % (94-98); ARTERIAL BLOOD PCO2 33.1 mmHg (35-45); ARTERIAL BLOOD PH 7.41 (7.35-7.45); ARTERIAL BLOOD PO2 110.6 mmHg (80-100); ARTERIAL BLOOD TOTAL CO2 21.4 mmol/L (21-25)
[2017-10-22 08:42] LABS: ARTERIAL BLOOD FIO2 30%
[2017-10-22] MEDS: ENOXAPARIN SODIUM INJ 40 MG/0.4 ML DISP.SYRIN SUBCUT SCH (09:29)
[2017-10-22] MEDS: PROPOFOL 1,000 MG/100 ML INFUS..BTL IV PRN ×2 (10:33→15:38)
--- NOTE | 2017-10-22 10:40 | PDOC H&P ---
History of Present Illness Admission Date/PCP: 10/22/17 05:27 GRACE SWARTZ History of Present Illness: BELINDA MCCULLOUGH is a 62 year old female, she came to the emergency room for evaluation of swelling of the tongue, she has a history of colon cancer on active chemotherapy. It was felt that patient has angioedema due to SERAFIN inhibitors, while she was in emergency room after treatment with epinephrine, Solu-Medrol, it was observed that patient had difficulty with secretion and difficulty swallowing, the ED physician decided to intubate patient for airway protection and have mechanical ventilation. I could not obtain any history from this patient she is already intubated, it should be a quick mechanical ventilation, she does not have any acute lung disease, Past Medical History Cardiac Medical History: Reports: Hypertension Malignancy Medical History: Reports: Colorectal Cancer GI Medical History: Reports: Gastroesophageal Reflux Disease Past Surgical History Past Surgical History: Reports: Section - x1, Hysterectomy, Other - Exploratory laparotomy secondary to small bowel obstruction Social History Smoking Status: Unknown if Ever Smoked Frequency of Alcohol Use: None Hx Recreational Drug Use: Yes Drugs: None Hx Prescription Drug Abuse: No Family History Family History: DM, Malignancy Parental Family History Reviewed: Yes Children Family History Reviewed: Yes Sibling(s) Family History Reviewed.: Yes Medication/Allergy Home Medications: Hydrochlorothiazide [Hydrodiuril 25 mg Tablet] 25 mg PO DAILY 08/13/16 Verapamil HCl [Calan 120 mg Tablet] 120 mg PO DAILY 08/13/16 Lisinopril 10 mg PO DAILY 02/08/17 Ketorolac Tromethamine [Toradol 10 mg Tablet] 10 mg PO Q6HP PRN #25 tablet 06/07 Allergies/Adverse Reactions: hydromorphone [From Dilaudid] Allergy (Verified 06/07/17 14:41) ITCHING Review of Systems ROS unobtainable: Due to endotracheal tube Physical Exam Vital Signs: Temp Pulse Resp BP Pulse Ox 97.7 F 117 H 20 138/80 H 100 10/22/17 08:40 10/22/17 08:40 10/22/17 08:40 10/22/17 08:40 10/22/17 09:18 Intake & Output 10/21/17 10/22/17 10/23/17 06:59 06:59 06:59 Output Total 125 Balance -125 Weight 61.8 kg General appearance: PRESENT: other - Patient on mechanical ventilation Eye exam: PRESENT: PERRLA Respiratory exam: PRESENT: clear to auscultation paulien Cardiovascular exam: PRESENT: +S1, +S2 GI/Abdominal exam: PRESENT: soft Neurological exam: PRESENT: altered Results Laboratory Results: 10/22/17 10/22/17 05:40 08:27 Carbonic Acid 1.00 L HCO3/H2CO3 Ratio 20:1 ABG pH 7.41 ABG pCO2 33.1 L ABG pO2 110.6 H ABG HCO3 20.4 ABG O2 Saturation 98.1 H ABG Base Excess -3.5 FiO2 30% Urine Color YELLOW Urine Appearance CLEAR Urine pH 7.0 Ur Specific [place] 1.013 Urine Protein 30 H Urine Glucose (UA) 50 H Urine Ketones NEGATIVE Urine Blood NEGATIVE Urine Nitrite NEGATIVE Ur Leukocyte Esterase NEGATIVE Urine WBC (Auto) 2 Urine RBC (Auto) 0 Impressions: Chest X-Ray 10/22/17 04:48 IMPRESSION: Unchanged left retrocardiac airspace disease. Endotracheal tube, nasogastric tube in good positioning. Assessment & Plan - Diagnosis (1) Disorder of upper airway Is this a current diagnosis for this admission?: Yes Plan: This is secondary to angioedema, patient intubated for airway protection (2) SERAFIN inhibitor-aggravated angioedema Qualifiers: Encounter type: initial encounter Qualified Code(s): T78.3XXA - Angioneurotic edema, initial encounter; T46.4X5A - Adverse effect of angiotensin -converting-enzyme inhibitors, initial encounter; T46.4X5A - Adverse effect of zzbtwvmlmya-fluydptywg-mexgyv inhibitors, initial encounter Is this a current diagnosis for this admission?: Yes Plan: Start Decadron (3) Hypokalemia Is this a current diagnosis for this admission?: Yes Plan: Replace potassium (4) Adenocarcinoma of sigmoid colon Is this a current diagnosis for this admission?: Yes
[2017-10-22 13:56] LABS: ALANINE AMINOTRANSFERASE 38 U/L (9-52); ALBUMIN 3.8 g/dL (3.5-5.0); ALKALINE PHOSPHATASE 145 U/L (38-126); ANION GAP 11 (5-19); ASPARTATE AMINO TRANSFERASE 51 U/L (14-36); BILIRUBIN,DIRECT 0.4 mg/dL (0.0-0.4); BILIRUBIN,TOTAL 1.3 mg/dL (0.2-1.3); BLOOD UREA NITROGEN 13 mg/dL (7-20); CALCIUM 9.8 mg/dL (8.4-10.2); CARBON DIOXIDE 19 mmol/L (22-30); CHLORIDE 113 mmol/L (98-107); GLUCOSE 135 mg/dL (75-110); SODIUM 143.3 mmol/L (137-145); TOTAL PROTEIN 7.5 g/dL (6.3-8.2)
[2017-10-22 14:05] LABS: POTASSIUM 4.1 mmol/L (3.6-5.0)
[2017-10-22] MEDS ORDERED: MIDAZOLAM HCL 50 MG/100 ML RTUINJ ONE (18:32)
[2017-10-22] MEDS: MIDAZOLAM HCL 50 MG/100 ML RTUINJ IV-INFUSE PRN ×2 (18:41→23:48)
[2017-10-22] MEDS ORDERED: VERAPAMIL HCL 120 MG TABLET GT ONE (21:45)
[2017-10-23] MEDS: MIDAZOLAM HCL 50 MG/100 ML RTUINJ IV-INFUSE PRN ×4 (04:52→23:55)
[2017-10-23 04:55] LABS: ABSOLUTE LYMPHOCYTES (AUTO) 0.6 10^3/uL (0.5-4.7); ABSOLUTE MONOCYTES (AUTO) 0.8 10^3/uL (0.1-1.4); ABSOLUTE NEUT (AUTO) 10.1 10^3/uL (1.7-8.2); BASOPHILS % (AUTO) 0.1 % (0-2); HEMATOCRIT 38.8 % (36.0-47.0); HEMOGLOBIN 12.8 g/dL (12.0-15.5); LYMPHOCYTES % (AUTO) 5.1 % (13-45); MEAN CORPUSCULAR HEMOGLOBIN 31.9 pg (27.0-33.4); MEAN CORPUSCULAR VOLUME 97 fl (80-97); MONOCYTES % (AUTO) 6.9 % (3-13); PLATELET COUNT 186 10^3/uL (150-450); RED BLOOD COUNT 4.01 10^6/uL (3.72-5.28); SEGMENTED NEUTROPHILS % (AUTO) 87.9 % (42-78); TOTAL CELLS COUNTED % (AUTO) 100 %
[2017-10-23 05:13] LABS: WHITE BLOOD COUNT 11.5 10^3/uL (4.0-10.5)
[2017-10-23 05:31] LABS: ALANINE AMINOTRANSFERASE 33 U/L (9-52); ALBUMIN 3.9 g/dL (3.5-5.0); ALKALINE PHOSPHATASE 128 U/L (38-126); ANION GAP 12 (5-19); ASPARTATE AMINO TRANSFERASE 50 U/L (14-36); BILIRUBIN,DIRECT 0.6 mg/dL (0.0-0.4); BILIRUBIN,TOTAL 1.6 mg/dL (0.2-1.3); BLOOD UREA NITROGEN 13 mg/dL (7-20); CALCIUM 9.9 mg/dL (8.4-10.2); CARBON DIOXIDE 18 mmol/L (22-30); CHLORIDE 115 mmol/L (98-107); GLUCOSE 124 mg/dL (75-110); SODIUM 145.3 mmol/L (137-145); TOTAL PROTEIN 7.9 g/dL (6.3-8.2)
[2017-10-23] MEDS: NORMAL SALINE 1000 ML 1,000 ML IV PRN (06:12)
[2017-10-23] MEDS: DEXAMETHASONE SOD PHOSPHATE INJ 4 MG/1 ML VIAL IV SCH ×3 (06:12→21:31)
[2017-10-23 06:42] LABS: ARTERIAL BLOOD BASE EXCESS -4.5 mmol/L; ARTERIAL BLOOD H2CO3 0.89 mmol/L (1.05-1.35); ARTERIAL BLOOD HCO3 18.9 mmol/L (20-26); ARTERIAL BLOOD O2 SATURATION 98.4 % (94-98); ARTERIAL BLOOD PCO2 29.6 mmHg (35-45); ARTERIAL BLOOD PH 7.42 (7.35-7.45); ARTERIAL BLOOD PO2 117.3 mmHg (80-100); ARTERIAL BLOOD TOTAL CO2 19.8 mmol/L (21-25)
[2017-10-23 06:44] LABS: ARTERIAL BLOOD FIO2 30%
--- NOTE | 2017-10-23 08:55 | RADIOLOGY REPORT (SQ) ---
EXAM DESCRIPTION: CHEST SINGLE VIEW COMPLETED DATE/TIME: 10/23/2017 6:41 am REASON FOR STUDY: intubation COMPARISON: 10/22/2017 EXAM PARAMETERS: NUMBER OF VIEWS: One view. TECHNIQUE: Single frontal radiographic view of the chest acquired. RADIATION DOSE: NA LIMITATIONS: None. FINDINGS: LUNGS AND PLEURA: The lungs are stable in appearance. Minimal left retrocardiac airspace disease and minimal right basilar atelectasis. No effusion or pneumothorax. MEDIASTINUM AND HILAR STRUCTURES: No masses. Contour normal. HEART AND VASCULAR STRUCTURES: Heart normal in size. Normal vasculature. BONES: No acute findings. HARDWARE: Support tubes are in place. The tip of the endotracheal tube is approximately 3.8 cm abov e the gagan. Nasogastric tube and right Qriqzc-E-Yfvd catheter are again identified. OTHER: No other significant finding. IMPRESSION: 1 No significant interval changes from the previous examination dated 10/22/2017. 2 Support lines are stable in position. TECHNICAL DOCUMENTATION: JOB ID: [id number] [employer]- All Rights Reserved Reading location - IP/workstation name: [email or web address]
[2017-10-23] MEDS: VERAPAMIL HCL 120 MG TABLET GT SCH (09:46)
[2017-10-23] MEDS: ENOXAPARIN SODIUM INJ 40 MG/0.4 ML DISP.SYRIN SUBCUT SCH (09:47)
--- NOTE | 2017-10-23 11:18 | PDOC CONSULTATION ---
Consultation Consult Date: 10/22/17 Attending physician:: VERONICA DALY Consult reason:: Swelling of throat shortness of breath History of Present Illness Admission Date/PCP: 10/22/17 05:27 GRACE SWARTZ History of Present Illness: BELINDA MCCULLOUGH is a 62 year old female,presented to the ED with increasing shortness of breath and swelling of tongue and lips and throat she was subsequently intubated to protect her airway is had no prior history of angioedema or respiratory distress no cough nausea vomiting fevers chills diarrhea chest pain or edema per chart Past Medical History Cardiac Medical History: Reports: Hypertension Denies: Atrial Fibrillation, Congestive Heart Failure, Coronary Artery Disease, Myocardial Infarction, Hyperlipidema, Peripheral Vascular Disease, Heart Murmur Pulmonary Medical History: Denies: Asthma, Bronchitis, Chronic Obstructive Pulmonary Disease (COPD), Pneumonia Neurological Medical History: Denies: Seizures Malignancy Medical History: Denies: Breast Cancer, Cervical Cancer, Ovarian Cancer GI Medical History: Reports: Gastroesophageal Reflux Disease Denies: Crohn's Disease, Hiatal Hernia Musculoskeltal Medical History: Denies: Arthritis Psychiatric Medical History: Denies: Dementia, Depression Hematology: Denies: Anemia Past Surgical History Past Surgical History: Reports: Section - x1, Hysterectomy, Other - Exploratory laparotomy secondary to small bowel obstruction Denies: Appendectomy, Cholecystectomy, Colostomy, Coronary Artery Bypass Graft, Gastric Bypass Surgery, Herniorrhaphy, Mastectomy, Pacemaker, Tonsillectomy, Tubal Ligation Social History Information Source: Relative Lives with: Family Smoking Status: Unknown if Ever Smoked Frequency of Alcohol Use: None Hx Recreational Drug Use: No Drugs: None Hx Prescription Drug Abuse: No Do you have pets?: No Have you had any respiratory illnesses as a child?: No Have you been exposed to any sick contacts recently?: No Have you had any recent respiratory illnesses?: No Have you travelled outside of [place] in the past 12 months?: No Family History Family History: DM, Malignancy Parental Family History Reviewed: No Children Family History Reviewed: No Sibling(s) Family History Reviewed.: No Medication/Allergy Home Medications: Hydrochlorothiazide [Hydrodiuril 25 mg Tablet] 25 mg PO DAILY 08/13/16 Verapamil HCl [Calan 120 mg Tablet] 120 mg PO DAILY 08/13/16 Capecitabine [Xeloda 500 mg Tablet] 1,500 mg PO Q12 10/22/17 Potassium Chloride 20 meq PO DAILY 10/22/17 Allergies/Adverse Reactions: hydromorphone [From Dilaudid] Allergy (Verified 06/07/17 14:41) ITCHING lisinopril Allergy (Verified 10/23/17 09:38) Swelling of Throat Review of Systems ROS unobtainable: Due to endotracheal tube Physical Exam Vital Signs: Temp Pulse Resp BP Pulse Ox 97.7 F 60 14 108/63 100 10/22/17 06:40 10/22/17 03:50 10/22/17 06:40 10/22/17 06:40 10/22/17 06:40 Intake & Output 10/21/17 10/22/17 10/23/17 06:59 06:59 06:59 Weight 61.8 kg General appearance: PRESENT: no acute distress, disheveled. ABSENT: cooperative Head exam: PRESENT: atraumatic, normocephalic Eye exam: PRESENT: conjunctiva pale. ABSENT: EOMI, nystagmus, periorbital swelling, scleral icterus Mouth exam: PRESENT: dry mucosa, neck supple, tongue midline, other - Tongue and lip swelling ET tube in place Neck exam: ABSENT: carotid bruit, JVD, lymphadenopathy, thyromegaly, tracheal deviation, tracheostomy Respiratory exam: PRESENT: decreased breath sounds, prolonged expiratory phas, rales, rhonchi, unlabored. ABSENT: retraction, stridor Cardiovascular exam: PRESENT: RRR, +S1, +S2, tachycardia Pulses: PRESENT: normal radial pulses GI/Abdominal exam: PRESENT: hypoactive bowel sounds, soft Extremities exam: ABSENT: clubbing, joint swelling Musculoskeletal exam: ABSENT: ambulatory, deformity, dislocation Neurological exam: ABSENT: awake, oriented to person Skin exam: PRESENT: dry, warm Results Laboratory Results: 10/22/17 05:40 Urine Color YELLOW Urine Appearance CLEAR Urine pH 7.0 Ur Specific [place] 1.013 Urine Protein 30 H Urine Glucose (UA) 50 H Urine Ketones NEGATIVE Urine Blood NEGATIVE Urine Nitrite NEGATIVE Ur Leukocyte Esterase NEGATIVE Urine WBC (Auto) 2 Urine RBC (Auto) 0 Assessment & Plan - Diagnosis (1) SERAFIN inhibitor-aggravated angioedema Qualifiers: Encounter type: initial encounter Qualified Code(s): T78.3XXA - Angioneurotic edema, initial encounter; T46.4X5A - Adverse effect of angiotensin -converting-enzyme inhibitors, initial encounter; T46.4X5A - Adverse effect of epvqnmdbrkt-iygrnlbsmk-kskqir inhibitors, initial encounter Is this a current diagnosis for this admission?: Yes Plan: Patient on lisinopril obviously this was discontinued (2) HTN (hypertension) Is this a current diagnosis for this admission?: Yes Plan: Stable at this time (3) Adenocarcinoma of sigmoid colon Is this a current diagnosis for this admission?: Yes Plan: Recently received chemotherapy - Time Total Critical Time (Minutes): 55
--- NOTE | 2017-10-23 11:20 | PDOC PROGRESS REPORT ---
Subjective Progress Note for:: 10/23/17 Subjective:: Intubated and sedated Reason For Visit: UPPER AIRWAY OBSTRUCTION DUE TO ANGIOEDEMA FROM Physical Exam Vital Signs: Temp Pulse Resp BP Pulse Ox 98.1 F 78 18 127/76 H 100 10/23/17 05:38 10/23/17 07:44 10/23/17 06:00 10/23/17 05:28 10/23/17 07:59 Intake & Output 10/22/17 10/23/17 10/24/17 06:59 06:59 06:59 Intake Total 2579 Output Total 1120 Balance 1459 Weight 64.1 kg General appearance: PRESENT: no acute distress, disheveled. ABSENT: cooperative Head exam: PRESENT: atraumatic, normocephalic Eye exam: PRESENT: conjunctiva pale. ABSENT: EOMI, nystagmus, periorbital swelling, scleral icterus Mouth exam: PRESENT: dry mucosa, neck supple, tongue midline, other - Decreased swelling of the tongue and lips ET tube in place Neck exam: ABSENT: carotid bruit, JVD, lymphadenopathy, thyromegaly, tracheal deviation, tracheostomy Respiratory exam: PRESENT: decreased breath sounds, prolonged expiratory phas, rhonchi, unlabored. ABSENT: rales, retraction, stridor Cardiovascular exam: PRESENT: RRR, +S1, +S2. ABSENT: tachycardia Pulses: PRESENT: normal radial pulses GI/Abdominal exam: PRESENT: hypoactive bowel sounds, soft Extremities exam: ABSENT: clubbing, joint swelling Musculoskeletal exam: ABSENT: ambulatory, deformity, dislocation Neurological exam: ABSENT: awake Skin exam: PRESENT: dry, warm Results Laboratory Results: 10/23/17 04:22 10/23/17 04:22 10/22/17 10/22/17 10/23/17 13:20 13:20 04:22 WBC RBC Hgb Hct MCV MCH MCHC RDW Plt Count Seg Neutrophils % Lymphocytes % Monocytes % Eosinophils % Basophils % Absolute Neutrophils Absolute Lymphocytes Absolute Monocytes Absolute Eosinophils Absolute Basophils Carbonic Acid HCO3/H2CO3 Ratio ABG pH ABG pCO2 ABG pO2 ABG HCO3 ABG O2 Saturation ABG Base Excess FiO2 Sodium 143.3 145.3 H Potassium 4.1 D 4.0 Chloride 113 H 115 H Carbon Dioxide 19 L 18 L Anion Gap 11 12 BUN 13 13 Creatinine 0.67 0.65 Est GFR ( Amer) > 60 > 60 Est GFR (Non-Af Amer) > 60 > 60 Glucose 135 H 124 H Calcium 9.8 9.9 Magnesium 1.6 Total Bilirubin 1.3 1.6 H AST 51 H 50 H ALT 38 33 Alkaline Phosphatase 145 H 128 H Total Protein 7.5 7.9 Albumin 3.8 3.9 Triglycerides 126 10/23/17 10/23/17 04:22 06:34 WBC 11.5 H D RBC 4.01 Hgb 12.8 Hct 38.8 MCV 97 MCH 31.9 MCHC 33.0 RDW 24.0 H Plt Count 186 Seg Neutrophils % 87.9 H Lymphocytes % 5.1 L Monocytes % 6.9 Eosinophils % 0.0 Basophils % 0.1 Absolute Neutrophils 10.1 H Absolute Lymphocytes 0.6 Absolute Monocytes 0.8 Absolute Eosinophils 0.0 Absolute Basophils 0.0 Carbonic Acid 0.89 L HCO3/H2CO3 Ratio 21:1 ABG pH 7.42 ABG pCO2 29.6 L ABG pO2 117.3 H ABG HCO3 18.9 L ABG O2 Saturation 98.4 H ABG Base Excess -4.5 FiO2 30% Sodium Potassium Chloride Carbon Dioxide Anion Gap BUN Creatinine Est GFR ( Amer) Est GFR (Non-Af Amer) Glucose Calcium Magnesium Total Bilirubin AST ALT Alkaline Phosphatase Total Protein Albumin Triglycerides Assessment & Plan - Diagnosis (1) SERAFIN inhibitor-aggravated angioedema Qualifiers: Encounter type: initial encounter Qualified Code(s): T78.3XXA - Angioneurotic edema, initial encounter; T46.4X5A - Adverse effect of angiotensin -converting-enzyme inhibitors, initial encounter; T46.4X5A - Adverse effect of uhdlbuwzkkx-yyandtrwzy-udwsmr inhibitors, initial encounter Is this a current diagnosis for this admission?: Yes Plan: Patient on lisinopril obviously this was discontinued (2) Adenocarcinoma of sigmoid colon Is this a current diagnosis for this admission?: Yes Plan: Recently received chemotherapy (3) HTN (hypertension) Is this a current diagnosis for this admission?: Yes Plan: Stable at this time - Time Total Critical Time (Minutes): 40
[2017-10-23] MEDS ORDERED: FAMOTIDINE INJ/PF 20 MG/2 ML SDV IV ONE (11:45)
[2017-10-23] MEDS: HYDRALAZINE HCL 25 MG TABLET NG PRN ×2 (12:53→22:04)
--- NOTE | 2017-10-23 18:27 | PDOC PROGRESS REPORT ---
Subjective Progress Note for:: 10/23/17 Subjective:: Remain intubated and vent supported. Admitted for SERAFIN-I induced angioedema and compromised airway. Reason For Visit: UPPER AIRWAY OBSTRUCTION DUE TO ANGIOEDEMA FROM Physical Exam Vital Signs: Temp Pulse Resp BP Pulse Ox 97.9 F 76 11 L 135/82 H 99 10/23/17 18:00 10/23/17 18:00 10/23/17 18:01 10/23/17 18:01 10/23/17 18:01 Intake & Output 10/22/17 10/23/17 10/24/17 06:59 06:59 06:59 Intake Total 2579 130 Output Total 1120 460 Balance 1459 -330 Weight 64.1 kg Physical Exam: ET and NG tubes in situ. Remain intubated and ventilator supported. Head exam: PRESENT: atraumatic, normocephalic Mouth exam: PRESENT: moist, tongue midline - with ET tube in place difficulty to assess but comparatively less swollen ass per documented report. Respiratory exam: PRESENT: decreased breath sounds - Lower lobe bilaterally, rhonchi - minimal expiratory phase Cardiovascular exam: PRESENT: RRR. ABSENT: diastolic murmur, rubs, systolic murmur GI/Abdominal exam: PRESENT: normal bowel sounds, soft. ABSENT: distended, guarding, mass, organolmegaly, rebound, tenderness Gentrourinary exam: PRESENT: indwelling catheter Extremities exam: ABSENT: pedal edema Musculoskeletal exam: PRESENT: normal inspection Neurological exam: PRESENT: altered - sedated on vent support Skin exam: PRESENT: dry, intact, warm. ABSENT: cyanosis, rash Results Laboratory Results: 10/23/17 04:22 10/23/17 04:22 10/23/17 10/23/17 10/23/17 04:22 04:22 06:34 WBC 11.5 H D RBC 4.01 Hgb 12.8 Hct 38.8 MCV 97 MCH 31.9 MCHC 33.0 RDW 24.0 H Plt Count 186 Seg Neutrophils % 87.9 H Lymphocytes % 5.1 L Monocytes % 6.9 Eosinophils % 0.0 Basophils % 0.1 Absolute Neutrophils 10.1 H Absolute Lymphocytes 0.6 Absolute Monocytes 0.8 Absolute Eosinophils 0.0 Absolute Basophils 0.0 Carbonic Acid 0.89 L HCO3/H2CO3 Ratio 21:1 ABG pH 7.42 ABG pCO2 29.6 L ABG pO2 117.3 H ABG HCO3 18.9 L ABG O2 Saturation 98.4 H ABG Base Excess -4.5 FiO2 30% Sodium 145.3 H Potassium 4.0 Chloride 115 H Carbon Dioxide 18 L Anion Gap 12 BUN 13 Creatinine 0.65 Est GFR ( Amer) > 60 Est GFR (Non-Af Amer) > 60 Glucose 124 H Calcium 9.9 Magnesium 1.6 Total Bilirubin 1.6 H AST 50 H ALT 33 Alkaline Phosphatase 128 H Total Protein 7.9 Albumin 3.9 Impressions: Chest X-Ray 10/23/17 06:00 IMPRESSION: 1 No significant interval changes from the previous examination dated 10/22/2017. 2 Support lines are stable in position. Assessment & Plan - Diagnosis (1) SERAFIN inhibitor-aggravated angioedema Qualifiers: Encounter type: initial encounter Qualified Code(s): T78.3XXA - Angioneurotic edema, initial encounter; T46.4X5A - Adverse effect of angiotensin -converting-enzyme inhibitors, initial encounter; T46.4X5A - Adverse effect of blivqdozyko-iwzakokzfi-xeqiiy inhibitors, initial encounter Is this a current diagnosis for this admission?: Yes Plan: See attending physician orders (2) Disorder of upper airway Is this a current diagnosis for this admission?: Yes Plan: See attending physician orders (3) HTN (hypertension) Is this a current diagnosis for this admission?: Yes Plan: See attending physician orders (4) Adenocarcinoma of sigmoid colon Is this a current diagnosis for this admission?: Yes Plan: See attending physician orders - Time Time Spent with patient: 25-34 minutes Medications reviewed and adjusted accordingly: Yes Anticipated discharge: Home Within: Other - Inpatient Certification Based on my medical assessment, after consideration of the patient's comorbidities, presenting symptoms, or acuity I expect that the services needed warrant INPATIENT care.: Yes I certify that my determination is in accordance with my understanding of Medicare's requirements for reasonable and necessary INPATIENT services [42 CFR 412.3e].: Yes Medical Necessity: Need Close Monitoring Due to Risk of Patient Decompensation, Need For IV Fluids, Need For Continuous Telemetry Monitoring, Need for Nebulizer Therapy and Monitoring of Response, Risk of Complication if Not Cared For in Hospital Post Hospital Care: D/C [employer] Documentation - Plan Summary Plan Summary: See attending physician orders
[2017-10-23] MEDS: FAMOTIDINE INJ/PF 20 MG/2 ML SDV IV SCH (21:30)
[2017-10-24] MEDS: NORMAL SALINE 1000 ML 1,000 ML IV PRN ×2 (01:59→21:10)
[2017-10-24 04:04] LABS: HEMATOCRIT 34.7 % (36.0-47.0); HEMOGLOBIN 11.7 g/dL (12.0-15.5); MEAN CORPUSCULAR HEMOGLOBIN 32.9 pg (27.0-33.4); MEAN CORPUSCULAR HGB CONC 33.9 g/dL (32.0-36.0); MEAN CORPUSCULAR VOLUME 97 fl (80-97); PLATELET COUNT 167 10^3/uL (150-450); RED BLOOD COUNT 3.57 10^6/uL (3.72-5.28); RED CELL DISTRIBUTION WIDTH 25.3 % (11.5-14.0); WHITE BLOOD COUNT 10.3 10^3/uL (4.0-10.5)
[2017-10-24 04:15] LABS: ALANINE AMINOTRANSFERASE 32 U/L (9-52); ALBUMIN 3.4 g/dL (3.5-5.0); ALKALINE PHOSPHATASE 109 U/L (38-126); ANION GAP 9 (5-19); ASPARTATE AMINO TRANSFERASE 39 U/L (14-36); BILIRUBIN,DIRECT 0.4 mg/dL (0.0-0.4); BILIRUBIN,TOTAL 1.4 mg/dL (0.2-1.3); BLOOD UREA NITROGEN 18 mg/dL (7-20); CALCIUM 9.6 mg/dL (8.4-10.2); CARBON DIOXIDE 20 mmol/L (22-30); CHLORIDE 115 mmol/L (98-107); GLUCOSE 135 mg/dL (75-110); POTASSIUM 3.7 mmol/L (3.6-5.0); TOTAL PROTEIN 6.9 g/dL (6.3-8.2)
[2017-10-24 04:41] LABS: ABSOLUTE LYMPHOCYTES# (MANUAL) 0.6 10^3/uL (0.5-4.7); ABSOLUTE MONOCYTES # (MANUAL) 0.3 10^3/uL (0.1-1.4); ABSOLUTE NEUTROPHILS# (MANUAL) 9.4 10^3/uL (1.7-8.2); BASOPHILS % (MANUAL) 0 % (0-2); EOSINOPHILS % (MANUAL) 0 % (0-6); LYMPHOCYTES % (MANUAL) 6 % (13-45); MONOCYTES % (MANUAL) 3 % (3-13); SEGMENTED NEUTROPHILS % (MAN) 91 % (42-78); TOTAL CELLS COUNTED 100
[2017-10-24 04:43] LABS: ANISOCYTOSIS 3+; POIKILOCYTOSIS 2+; TOXIC VACUOLATION PRESENT
[2017-10-24 04:44] LABS: PLATELET COMMENT ADEQUATE; TEAR DROP CELLS SLIGHT
[2017-10-24] MEDS: DEXAMETHASONE SOD PHOSPHATE INJ 4 MG/1 ML VIAL IV SCH ×3 (05:53→21:09)
[2017-10-24] MEDS: MIDAZOLAM HCL 50 MG/100 ML RTUINJ IV-INFUSE PRN (05:53)
[2017-10-24] MEDS: HYDRALAZINE HCL 25 MG TABLET NG PRN ×2 (05:54→11:45)
[2017-10-24 06:17] LABS: ARTERIAL BLOOD BASE EXCESS -6.5 mmol/L; ARTERIAL BLOOD H2CO3 0.79 mmol/L (1.05-1.35); ARTERIAL BLOOD HCO3 16.5 mmol/L (20-26); ARTERIAL BLOOD O2 SATURATION 97.8 % (94-98); ARTERIAL BLOOD PCO2 26.4 mmHg (35-45); ARTERIAL BLOOD PH 7.42 (7.35-7.45); ARTERIAL BLOOD PO2 101.1 mmHg (80-100); ARTERIAL BLOOD TOTAL CO2 17.4 mmol/L (21-25)
[2017-10-24 06:49] LABS: ARTERIAL BLOOD FIO2 25%
--- NOTE | 2017-10-24 07:22 | RADIOLOGY REPORT (SQ) ---
EXAM DESCRIPTION: XR CHEST 1 VIEW COMPLETED DATE/TME: 10/24/2017 06:00 CLINICAL HISTORY: 62 years Female, resp failure COMPARISON: One day prior. NUMBER OF VIEWS/TECHNIQUE: 1/AP FINDINGS: Mild rotation artifact, normal lung volume, normal cardiac silhouette, endotracheal tube tip is 3.5 cm from the gagan, adequate enteric tube tip is obscured distally, right jugular central line tip at the right atrium, No pneumothorax. No acute bone defect. IMPRESSION: No significant change.
[2017-10-24] MEDS: VERAPAMIL HCL 120 MG TABLET GT SCH (09:33)
[2017-10-24] MEDS: FAMOTIDINE INJ/PF 20 MG/2 ML SDV IV SCH ×2 (09:33→21:09)
[2017-10-24] MEDS: ENOXAPARIN SODIUM INJ 40 MG/0.4 ML DISP.SYRIN SUBCUT SCH (09:53)
[2017-10-24] MEDS ORDERED: DEXAMETHASONE SOD PHOSPHATE INJ 4 MG/1 ML VIAL IV ONE (10:00)
[2017-10-24] MEDS ORDERED: DEXAMETHASONE SOD PHOS INJ 10 MG/1 ML VIAL IV ONE (11:00)
--- NOTE | 2017-10-24 19:27 | PDOC PROGRESS REPORT ---
Subjective Progress Note for:: 10/24/17 Subjective:: s/p extubation procedure with removal of ET and NG tubes. She appeared drowsy from Versed sedation but follow simple commands. No reported fever or difficulty with breathing post extubation. Reason For Visit: UPPER AIRWAY OBSTRUCTION DUE TO ANGIOEDEMA FROM Physical Exam Vital Signs: Temp Pulse Resp BP Pulse Ox 98.6 F 67 19 140/83 H 99 10/24/17 18:00 10/24/17 18:00 10/24/17 18:00 10/24/17 18:00 10/24/17 18:00 Intake & Output 10/23/17 10/24/17 10/25/17 06:59 06:59 06:59 Intake Total 2579 2192 702 Output Total 1120 1055 760 Balance 1459 1137 -58 Weight 64.1 kg 64.1 kg Physical Exam: Head exam: PRESENT: atraumatic, normocephalic Mouth exam: PRESENT: moist, tongue midline, no significant edema. Respiratory exam: PRESENT: decreased breath sounds at lung bases Cardiovascular exam: PRESENT: RRR. ABSENT: diastolic murmur, rubs, systolic murmur GI/Abdominal exam: PRESENT: normal bowel sounds, soft. ABSENT: distended, guarding, mass, organomegaly, rebound, tenderness Genitourinary exam: PRESENT: indwelling catheter Extremities exam: ABSENT: pedal edema Musculoskeletal exam: PRESENT: normal inspection Neurological exam: PRESENT: altered - sedated on vent support Skin exam: PRESENT: dry, intact, warm. ABSENT: cyanosis, rash Results Laboratory Results: 10/24/17 03:49 10/24/17 03:49 10/24/17 10/24/17 10/24/17 03:49 03:49 05:45 WBC 10.3 RBC 3.57 L Hgb 11.7 L Hct 34.7 L MCV 97 MCH 32.9 MCHC 33.9 RDW 25.3 H Plt Count 167 Seg Neutrophils % Not Reportable Lymphocytes % Not Reportable Monocytes % Not Reportable Eosinophils % Not Reportable Basophils % Not Reportable Absolute Neutrophils Not Reportable Absolute Lymphocytes Not Reportable Absolute Monocytes Not Reportable Absolute Eosinophils Not Reportable Absolute Basophils Not Reportable Carbonic Acid 0.79 L HCO3/H2CO3 Ratio 20:1 ABG pH 7.42 ABG pCO2 26.4 L ABG pO2 101.1 H ABG HCO3 16.5 L ABG O2 Saturation 97.8 ABG Base Excess -6.5 FiO2 25% Sodium 144.0 Potassium 3.7 Chloride 115 H Carbon Dioxide 20 L Anion Gap 9 BUN 18 Creatinine 0.68 Est GFR ( Amer) > 60 Est GFR (Non-Af Amer) > 60 Glucose 135 H Calcium 9.6 Magnesium 1.9 Total Bilirubin 1.4 H AST 39 H ALT 32 Alkaline Phosphatase 109 Total Protein 6.9 Albumin 3.4 L Impressions: Chest X-Ray 10/24/17 06:00 IMPRESSION: No significant change. Assessment & Plan - Diagnosis (1) SERAFIN inhibitor-aggravated angioedema Qualifiers: Encounter type: initial encounter Qualified Code(s): T78.3XXA - Angioneurotic edema, initial encounter; T46.4X5A - Adverse effect of angiotensin -converting-enzyme inhibitors, initial encounter; T46.4X5A - Adverse effect of lfpzhzntftq-iswimihliq-ksklyn inhibitors, initial encounter Is this a current diagnosis for this admission?: Yes Plan: s/p extubation with improved airway status. (2) Disorder of upper airway Is this a current diagnosis for this admission?: Yes Plan: Improving. (3) HTN (hypertension) Is this a current diagnosis for this admission?: Yes Plan: See attending physician orders (4) Adenocarcinoma of sigmoid colon Is this a current diagnosis for this admission?: Yes Plan: See attending physician orders - Time Time Spent with patient: 25-34 minutes Medications reviewed and adjusted accordingly: Yes Anticipated discharge: Home Within: Other - Inpatient Certification Based on my medical assessment, after consideration of the patient's comorbidities, presenting symptoms, or acuity I expect that the services needed warrant INPATIENT care.: Yes I certify that my determination is in accordance with my understanding of Medicare's requirements for reasonable and necessary INPATIENT services [42 CFR 412.3e].: Yes Medical Necessity: Need Close Monitoring Due to Risk of Patient Decompensation, Need For IV Fluids, Need For Continuous Telemetry Monitoring, Risk of Complication if Not Cared For in Hospital Post Hospital Care: D/C [employer] Documentation - Plan Summary Plan Summary: See attending physician orders.
[2017-10-25 04:39] LABS: HEMATOCRIT 34.1 % (36.0-47.0); HEMOGLOBIN 11.5 g/dL (12.0-15.5); MEAN CORPUSCULAR HEMOGLOBIN 32.7 pg (27.0-33.4); MEAN CORPUSCULAR HGB CONC 33.7 g/dL (32.0-36.0); MEAN CORPUSCULAR VOLUME 97 fl (80-97); PLATELET COUNT 132 10^3/uL (150-450); RED BLOOD COUNT 3.51 10^6/uL (3.72-5.28); RED CELL DISTRIBUTION WIDTH 24.6 % (11.5-14.0); WHITE BLOOD COUNT 8.4 10^3/uL (4.0-10.5)
[2017-10-25 04:45] LABS: ALANINE AMINOTRANSFERASE 29 U/L (9-52); ALBUMIN 3.5 g/dL (3.5-5.0); ALKALINE PHOSPHATASE 107 U/L (38-126); ANION GAP 12 (5-19); ASPARTATE AMINO TRANSFERASE 38 U/L (14-36); BILIRUBIN,DIRECT 0.4 mg/dL (0.0-0.4); BILIRUBIN,TOTAL 1.6 mg/dL (0.2-1.3); BLOOD UREA NITROGEN 19 mg/dL (7-20); CALCIUM 9.6 mg/dL (8.4-10.2); CARBON DIOXIDE 19 mmol/L (22-30); CHLORIDE 115 mmol/L (98-107); GLUCOSE 109 mg/dL (75-110); POTASSIUM 3.5 mmol/L (3.6-5.0); SODIUM 145.5 mmol/L (137-145)
[2017-10-25 05:04] LABS: ABSOLUTE LYMPHOCYTES# (MANUAL) 0.3 10^3/uL (0.5-4.7); ABSOLUTE MONOCYTES # (MANUAL) 0.3 10^3/uL (0.1-1.4); ABSOLUTE NEUTROPHILS# (MANUAL) 7.8 10^3/uL (1.7-8.2); BASOPHILS % (MANUAL) 0 % (0-2); EOSINOPHILS % (MANUAL) 0 % (0-6); LYMPHOCYTES % (MANUAL) 4 % (13-45); MONOCYTES % (MANUAL) 3 % (3-13); SEGMENTED NEUTROPHILS % (MAN) 93 % (42-78); TOTAL CELLS COUNTED 100
[2017-10-25 05:08] LABS: ANISOCYTOSIS 3+; HYPOCHROMASIA 1+; PLATELET COMMENT ADEQUATE
[2017-10-25 05:18] LABS: ARTERIAL BLOOD BASE EXCESS -2.8 mmol/L; ARTERIAL BLOOD H2CO3 0.84 mmol/L (1.05-1.35); ARTERIAL BLOOD HCO3 19.7 mmol/L (20-26); ARTERIAL BLOOD O2 SATURATION 98.1 % (94-98); ARTERIAL BLOOD PH 7.47 (7.35-7.45); ARTERIAL BLOOD PO2 102.4 mmHg (80-100); ARTERIAL BLOOD TOTAL CO2 20.6 mmol/L (21-25)
[2017-10-25 05:19] LABS: ARTERIAL BLOOD FIO2 2L
[2017-10-25] MEDS: DEXAMETHASONE SOD PHOSPHATE INJ 4 MG/1 ML VIAL IV SCH ×3 (05:39→22:37)
--- NOTE | 2017-10-25 06:24 | PDOC PROGRESS REPORT ---
Subjective Progress Note for:: 10/25/17 Subjective:: Patient continue to demonstrate some degree of confusion and disorientation to place. She denied any pain and claimed to be all right! No reported fever or difficulty with breathing. Reason For Visit: UPPER AIRWAY OBSTRUCTION DUE TO ANGIOEDEMA FROM Physical Exam Vital Signs: Temp Pulse Resp BP Pulse Ox 98.2 F 71 16 153/83 H 100 10/24/17 21:48 10/24/17 20:00 10/25/17 06:00 10/25/17 05:33 10/25/17 06:00 Intake & Output 10/23/17 10/24/17 10/25/17 06:59 06:59 06:59 Intake Total 2579 2192 1239 Output Total 1120 1055 1735 Balance 1459 1137 -496 Weight 64.1 kg 64.1 kg 63.8 kg General appearance: PRESENT: no acute distress Head exam: PRESENT: atraumatic, normocephalic Eye exam: PRESENT: conjunctiva pink, EOMI, PERRLA. ABSENT: scleral icterus Mouth exam: PRESENT: moist, tongue midline - with resolution of her angioedema Respiratory exam: PRESENT: clear to auscultation pauline, decreased breath sounds - at lung bases Cardiovascular exam: PRESENT: RRR. ABSENT: diastolic murmur, rubs, systolic murmur GI/Abdominal exam: PRESENT: normal bowel sounds, soft. ABSENT: distended, guarding, mass, organolmegaly, rebound, tenderness Gentrourinary exam: PRESENT: indwelling catheter - satisfactory urine output Extremities exam: ABSENT: pedal edema Musculoskeletal exam: PRESENT: normal inspection Neurological exam: PRESENT: awake. ABSENT: oriented to place Psychiatric exam: PRESENT: other - soft wrist restraints in use due to intermittent agitation. ABSENT: homicidal ideation, suicidal ideation Skin exam: PRESENT: dry, intact, warm. ABSENT: cyanosis, rash Results Laboratory Results: 10/25/17 04:02 10/25/17 04:02 10/24/17 10/25/17 10/25/17 05:45 04:02 04:02 WBC 8.4 RBC 3.51 L Hgb 11.5 L Hct 34.1 L MCV 97 MCH 32.7 MCHC 33.7 RDW 24.6 H Plt Count 132 L Seg Neutrophils % Not Reportable Lymphocytes % Not Reportable Monocytes % Not Reportable Eosinophils % Not Reportable Basophils % Not Reportable Absolute Neutrophils Not Reportable Absolute Lymphocytes Not Reportable Absolute Monocytes Not Reportable Absolute Eosinophils Not Reportable Absolute Basophils Not Reportable Carbonic Acid 0.79 L HCO3/H2CO3 Ratio 20:1 ABG pH 7.42 ABG pCO2 26.4 L ABG pO2 101.1 H ABG HCO3 16.5 L ABG O2 Saturation 97.8 ABG Base Excess -6.5 FiO2 25% Sodium 145.5 H Potassium 3.5 L Chloride 115 H Carbon Dioxide 19 L Anion Gap 12 BUN 19 Creatinine 0.67 Est GFR ( Amer) > 60 Est GFR (Non-Af Amer) > 60 Glucose 109 Calcium 9.6 Magnesium 2.0 Total Bilirubin 1.6 H AST 38 H ALT 29 Alkaline Phosphatase 107 Total Protein 7.0 Albumin 3.5 10/25/17 05:00 WBC RBC Hgb Hct MCV MCH MCHC RDW Plt Count Seg Neutrophils % Lymphocytes % Monocytes % Eosinophils % Basophils % Absolute Neutrophils Absolute Lymphocytes Absolute Monocytes Absolute Eosinophils Absolute Basophils Carbonic Acid 0.84 L HCO3/H2CO3 Ratio 23:1 ABG pH 7.47 H ABG pCO2 28.0 L ABG pO2 102.4 H ABG HCO3 19.7 L ABG O2 Saturation 98.1 H ABG Base Excess -2.8 FiO2 2L Sodium Potassium Chloride Carbon Dioxide Anion Gap BUN Creatinine Est GFR ( Amer) Est GFR (Non-Af Amer) Glucose Calcium Magnesium Total Bilirubin AST ALT Alkaline Phosphatase Total Protein Albumin Impressions: Chest X-Ray 10/24/17 06:00 IMPRESSION: No significant change. Assessment & Plan - Diagnosis (1) SERAFIN inhibitor-aggravated angioedema Qualifiers: Encounter type: initial encounter Qualified Code(s): T78.3XXA - Angioneurotic edema, initial encounter; T46.4X5A - Adverse effect of angiotensin -converting-enzyme inhibitors, initial encounter; T46.4X5A - Adverse effect of uiyuqmausvo-qrybzymghw-iiglgd inhibitors, initial encounter Is this a current diagnosis for this admission?: Yes Plan: Resolved with improved airway status. (2) Disorder of upper airway Is this a current diagnosis for this admission?: Yes Plan: Resolved with improved airway status. (3) HTN (hypertension) Is this a current diagnosis for this admission?: Yes Plan: See attending physician orders. Maintain on IV Hydralazine therapy due to concern about swallowing safety at this time. (4) Adenocarcinoma of sigmoid colon Is this a current diagnosis for this admission?: Yes Plan: See attending physician orders. Consider CT scan of head without contrast if her disorientation persist after 24 hours of Midazolam discontinuation and her history of adenocarcinoma of the sigmoid colon to rule out any metastatic lesion - Time Time Spent with patient: 25-34 minutes Medications reviewed and adjusted accordingly: Yes Anticipated discharge: Home Within: Other - Inpatient Certification Based on my medical assessment, after consideration of the patient's comorbidities, presenting symptoms, or acuity I expect that the services needed warrant INPATIENT care.: Yes I certify that my determination is in accordance with my understanding of Medicare's requirements for reasonable and necessary INPATIENT services [42 CFR 412.3e].: Yes Medical Necessity: Need Close Monitoring Due to Risk of Patient Decompensation, Need For IV Fluids, Need For Continuous Telemetry Monitoring, Risk of Complication if Not Cared For in Hospital Post Hospital Care: D/C Switch Engineer Documentation - Plan Summary Plan Summary: See attending physician orders.
[2017-10-25] MEDS: POTASSI CL 20 MEQ/50 ML RIDER 20 MEQ/50 ML RTUPB IV SCH ×2 (06:32→08:06)
--- NOTE | 2017-10-25 06:38 | RADIOLOGY REPORT (SQ) ---
EXAM DESCRIPTION: XR CHEST 1 VIEW COMPLETED DATE/TME: 10/25/2017 06:00 CLINICAL HISTORY: 62 years Female, resp failure COMPARISON: One day prior. NUMBER OF VIEWS/TECHNIQUE: 1/AP FINDINGS: Prominent interstitium, normal cardiac silhouette, atherosclerosis, right jugular miniport catheter tip at the cavoatrial junction. No pneumothorax. No acute bone defect. IMPRESSION: No significant change.
[2017-10-25] MEDS: HYDRALAZINE HCL INJ/PF 20 MG/1 ML SDV IV PRN ×2 (06:39→15:31)
[2017-10-25] MEDS: ENOXAPARIN SODIUM INJ 40 MG/0.4 ML DISP.SYRIN SUBCUT SCH (09:08)
[2017-10-25] MEDS: FAMOTIDINE INJ/PF 20 MG/2 ML SDV IV SCH ×2 (09:09→22:37)
[2017-10-25] MEDS: VERAPAMIL HCL 120 MG TABLET GT SCH (09:25)
[2017-10-25] MEDS: NORMAL SALINE 1000 ML 1,000 ML IV PRN (13:33)
[2017-10-26 04:05] LABS: ABSOLUTE LYMPHOCYTES (AUTO) 0.4 10^3/uL (0.5-4.7); ABSOLUTE MONOCYTES (AUTO) 0.3 10^3/uL (0.1-1.4); ABSOLUTE NEUT (AUTO) 4.3 10^3/uL (1.7-8.2); BASOPHILS % (AUTO) 0.1 % (0-2); HEMATOCRIT 32.2 % (36.0-47.0); HEMOGLOBIN 10.8 g/dL (12.0-15.5); LYMPHOCYTES % (AUTO) 8.7 % (13-45); MEAN CORPUSCULAR HEMOGLOBIN 32.6 pg (27.0-33.4); MEAN CORPUSCULAR HGB CONC 33.6 g/dL (32.0-36.0); MEAN CORPUSCULAR VOLUME 97 fl (80-97); PLATELET COUNT 110 10^3/uL (150-450); RED BLOOD COUNT 3.31 10^6/uL (3.72-5.28); RED CELL DISTRIBUTION WIDTH 24.4 % (11.5-14.0); SEGMENTED NEUTROPHILS % (AUTO) 85.2 % (42-78); TOTAL CELLS COUNTED % (AUTO) 100 %
[2017-10-26 04:27] LABS: ANION GAP 7 (5-19); BLOOD UREA NITROGEN 23 mg/dL (7-20); CALCIUM 9.2 mg/dL (8.4-10.2); CARBON DIOXIDE 19 mmol/L (22-30); CHLORIDE 118 mmol/L (98-107); GLUCOSE 95 mg/dL (75-110); PHOSPHORUS 3.5 mg/dL (2.5-4.5); POTASSIUM 4.6 mmol/L (3.6-5.0); SODIUM 144.3 mmol/L (137-145)
[2017-10-26 04:49] LABS: ANISOCYTOSIS SLIGHT; POLYCHROMASIA SLIGHT
[2017-10-26 04:50] LABS: BURR CELLS SLIGHT; OVALOCYTES SLIGHT; PLATELET COMMENT DECREASED; POIKILOCYTOSIS 2+; SCHISTOCYTES 1+
[2017-10-26] MEDS: DEXAMETHASONE SOD PHOSPHATE INJ 4 MG/1 ML VIAL IV SCH ×3 (06:04→22:23)
--- NOTE | 2017-10-26 08:45 | PDOC PROGRESS REPORT ---
Subjective Progress Note for:: 10/26/17 Subjective:: Patient more coherent, appropriate in responses and oriented fully. She denied any chest pain or difficulty with breathing. Reported persistent bradycardia. Patient had associated decrease urine output overnight with need for increase in her IV fluid infusion rate.No reported fever or chills. Tolerating oral feeding of full liquid diet. Reason For Visit: UPPER AIRWAY OBSTRUCTION DUE TO ANGIOEDEMA FROM Physical Exam Vital Signs: Temp Pulse Resp BP Pulse Ox 97.7 F 47 L 16 136/77 H 100 10/26/17 07:51 10/26/17 08:00 10/26/17 07:51 10/26/17 07:51 10/26/17 07:51 Intake & Output 10/25/17 10/26/17 10/27/17 06:59 06:59 06:59 Intake Total 1239 1897 Output Total 1735 1525 100 Balance -496 372 -100 Weight 63.8 kg 64.3 kg Physical Exam: General appearance: PRESENT: no acute distress Head exam: PRESENT: atraumatic, normocephalic Eye exam: PRESENT: conjunctiva pink, EOMI, PERRLA. ABSENT: scleral icterus Mouth exam: PRESENT: moist, tongue midline - with resolution of her angioedema Respiratory exam: PRESENT: clear to auscultation pauline, decreased breath sounds - at lung bases Cardiovascular exam: PRESENT: RRR, Bradycardia ABSENT: diastolic murmur, rubs, systolic murmur GI/Abdominal exam: PRESENT: normal bowel sounds, soft. ABSENT: distended, guarding, mass, organomegaly, rebound, tenderness Gentrourinary exam: PRESENT: indwelling catheter - satisfactory urine output Extremities exam: ABSENT: pedal edema Musculoskeletal exam: PRESENT: normal inspection Neurological exam: PRESENT: awake. ABSENT: oriented to place Psychiatric exam: PRESENT: other - soft wrist restraints in use due to intermittent agitation. ABSENT: homicidal ideation, suicidal ideation Skin exam: PRESENT: dry, intact, warm. ABSENT: cyanosis, rash Results Laboratory Results: 10/26/17 03:44 10/26/17 03:44 10/25/17 10/26/17 10/26/17 13:26 03:44 03:44 WBC 5.0 RBC 3.31 L Hgb 10.8 L Hct 32.2 L MCV 97 MCH 32.6 MCHC 33.6 RDW 24.4 H Plt Count 110 L Seg Neutrophils % 85.2 H Lymphocytes % 8.7 L Monocytes % 6.0 Eosinophils % 0.0 Basophils % 0.1 Absolute Neutrophils 4.3 Absolute Lymphocytes 0.4 L Absolute Monocytes 0.3 Absolute Eosinophils 0.0 Absolute Basophils 0.0 Sodium 144.3 Potassium 4.1 4.6 Chloride 118 H Carbon Dioxide 19 L Anion Gap 7 BUN 23 H Creatinine 0.67 Est GFR ( Amer) > 60 Est GFR (Non-Af Amer) > 60 Glucose 95 Calcium 9.2 Phosphorus 3.5 Magnesium 2.1 Impressions: Chest X-Ray 10/25/17 06:00 IMPRESSION: No significant change. Assessment & Plan - Diagnosis (1) SERAFIN inhibitor-aggravated angioedema Qualifiers: Encounter type: initial encounter Qualified Code(s): T78.3XXA - Angioneurotic edema, initial encounter; T46.4X5A - Adverse effect of angiotensin -converting-enzyme inhibitors, initial encounter; T46.4X5A - Adverse effect of udsflphxufm-blyzohhdsj-cazrkf inhibitors, initial encounter Is this a current diagnosis for this admission?: Yes Plan: Resolved with improved airway status. Taper of Dexamethasone therapy. (2) Disorder of upper airway Is this a current diagnosis for this admission?: Yes Plan: Resolved with improved airway status. (3) HTN (hypertension) Is this a current diagnosis for this admission?: Yes Plan: See attending physician orders. D/C IV Hydralazine and Verapamil (Last dose was several days ago). Start on Hydralazine 25 mg po q6 hours prn for blood pressure management. (4) Adenocarcinoma of sigmoid colon Is this a current diagnosis for this admission?: Yes Plan: See attending physician orders. (5) Bradycardia Is this a current diagnosis for this admission?: Yes Plan: See attending physician orders. - Time Time Spent with patient: 25-34 minutes Medications reviewed and adjusted accordingly: Yes Anticipated discharge: Home Within: Other - Inpatient Certification Based on my medical assessment, after consideration of the patient's comorbidities, presenting symptoms, or acuity I expect that the services needed warrant INPATIENT care.: Yes I certify that my determination is in accordance with my understanding of Medicare's requirements for reasonable and necessary INPATIENT services [42 CFR 412.3e].: Yes Medical Necessity: Need Close Monitoring Due to Risk of Patient Decompensation, Need For IV Fluids, Need For Continuous Telemetry Monitoring, Risk of Complication if Not Cared For in Hospital Post Hospital Care: D/C Mechanical Systems Designer Documentation - Plan Summary Plan Summary: See attending physician orders.
[2017-10-26] MEDS: FAMOTIDINE 20 MG TABLET PO SCH ×2 (09:16→22:23)
[2017-10-26] MEDS: ENOXAPARIN SODIUM INJ 40 MG/0.4 ML DISP.SYRIN SUBCUT SCH (09:16)
--- NOTE | 2017-10-26 09:35 | EKG REPORT ---
SEVERITY:- OTHERWISE NORMAL ECG - SINUS BRADYCARDIA : Confirmed by: Jerod Cardenas 26-Oct-2017 09:34:44
[2017-10-26 09:36] LABS: CREATINE KINASE MB 0.49 ng/mL (<4.55); TROPONIN I 0.036 ng/mL
[2017-10-26 09:40] LABS: ARTERIAL BLOOD BASE EXCESS -6.5 mmol/L; ARTERIAL BLOOD H2CO3 0.73 mmol/L (1.05-1.35); ARTERIAL BLOOD HCO3 16.1 mmol/L (20-26); ARTERIAL BLOOD O2 SATURATION 88.8 % (94-98); ARTERIAL BLOOD PCO2 24.4 mmHg (35-45); ARTERIAL BLOOD PH 7.44 (7.35-7.45); ARTERIAL BLOOD TOTAL CO2 16.8 mmol/L (21-25)
[2017-10-26 09:51] LABS: ARTERIAL BLOOD FIO2 21%
[2017-10-26] MEDS: HYDRALAZINE HCL 25 MG TABLET PO SCH ×3 (11:59→23:33)
[2017-10-26] MEDS ORDERED: HYDRALAZINE HCL 25 MG TABLET PO SCH (12:00)
--- NOTE | 2017-10-26 13:28 | PDOC CONSULTATION ---
Consultation Consult Date: 10/26/17 Attending physician:: GRACE SWARTZ Consult reason:: Severe bradycardia History of Present Illness Admission Date/PCP: 10/22/17 05:27 GRACE SWARTZ Patient complains of: Generalized fatigue and tiredness History of Present Illness: BELINDA MCCULLOUGH is a 62 year old female, she came to the emergency room for evaluation of swelling of the tongue, she has a history of colon cancer on active chemotherapy. It was felt that patient has angioedema due to SERAFIN inhibitors, while she was in emergency room after treatment with epinephrine, Solu-Medrol, it was observed that patient had difficulty with secretion and difficulty swallowing, the ED physician decided to intubate patient for airway protection and have mechanical ventilation. I could not obtain any history from this patient she is already intubated, it should be a quick mechanical ventilation, she does not have any acute lung disease. Patient was being monitored in the intensive care unit. Patient was noted to be severely bradycardia with heart rate dropping in the 30s. This morning heart rate in the 40s. Patient however remained relatively asymptomatic except for feeling fatigued and tired. Her blood pressure was noted to be stable. I was asked to evaluate her because of severe bradycardia. Past Medical History Cardiac Medical History: Reports: Hypertension Denies: Atrial Fibrillation, Congestive Heart Failure, Coronary Artery Disease, Myocardial Infarction, Hyperlipidema, Peripheral Vascular Disease, Heart Murmur Pulmonary Medical History: Denies: Asthma, Bronchitis, Chronic Obstructive Pulmonary Disease (COPD), Pneumonia Neurological Medical History: Denies: Seizures Malignancy Medical History: Reports: Colorectal Cancer Denies: Breast Cancer, Cervical Cancer, Ovarian Cancer GI Medical History: Reports: Gastroesophageal Reflux Disease Denies: Crohn's Disease, Hiatal Hernia Musculoskeltal Medical History: Denies: Arthritis Psychiatric Medical History: Denies: Dementia, Depression Hematology: Denies: Anemia Past Surgical History Past Surgical History: Reports: Section - x1, Hysterectomy, Other - Exploratory laparotomy secondary to small bowel obstruction Denies: Appendectomy, Cholecystectomy, Colostomy, Coronary Artery Bypass Graft, Gastric Bypass Surgery, Herniorrhaphy, Mastectomy, Pacemaker, Tonsillectomy, Tubal Ligation Social History Information Source: Patient Lives with: Family Smoking Status: Unknown if Ever Smoked Frequency of Alcohol Use: None Hx Recreational Drug Use: No Drugs: None Hx Prescription Drug Abuse: No - Advance Directive Resuscitation Status: Full Code Surrogate healthcare decision maker:: Patient's daughter is the surrogate decision-maker Family History Family History: DM, Malignancy Parental Family History Reviewed: Yes Children Family History Reviewed: Yes Sibling(s) Family History Reviewed.: Yes Medication/Allergy Home Medications: Hydrochlorothiazide [Hydrodiuril 25 mg Tablet] 25 mg PO DAILY 08/13/16 Verapamil HCl [Calan 120 mg Tablet] 120 mg PO DAILY 08/13/16 Capecitabine [Xeloda 500 mg Tablet] 1,500 mg PO Q12 10/22/17 Potassium Chloride 20 meq PO DAILY 10/22/17 Allergies/Adverse Reactions: hydromorphone [From Dilaudid] Allergy (Verified 06/07/17 14:41) ITCHING lisinopril Allergy (Verified 10/23/17 09:38) Swelling of Throat Review of Systems Review of Systems: Please see history of present illness and past medical history as wall. Constitutional: No fever or chills reported. Head : No recent chronic headaches, recent head injury. Eyes: No recent eye pain, diplopia, redness, discharge, acute visual changes. Ears: No recent chronic ear pain, acute hearing loss, ear discharge. Oral cavity: No recent ulcerations, bleeding, oral cavity discomfort. Neck: No recent acute neck pain reported. Hematologic: No recent easy bruising or bleeding. Lymphatic: No recent lymph node enlargement reported. Cardiovascular system review: See history of present illness. Patient denied any prior history of syncope, near syncope, coronary artery disease, CHF or blockages. Respiratory system review: No hemoptysis or blood clots in the lungs reported. Mild Shortness of breath on exertion Gastrointestinal system review: Negative for any recent acute hematemesis, melena. Genitourinary system review: No recent acute or chronic hematuria, flank pain, UTI etc. reported. Skin system review: Negative for any recent abnormal bruising, no rash, no pruritus reported. Neurologic: No prior history of strokes, mini strokes, seizure disorder. Psychologic: No history of major psychosis or major depression reported. Musculoskeletal: Minor aches and pains reported. No acute joint swelling reported. Endocrine: No recent polyuria, polydipsia, recent heat or cold intolerance. Physical Exam Vital Signs: Temp Pulse Resp BP Pulse Ox 97.9 F 42 L 16 159/78 H 100 10/26/17 12:47 10/26/17 12:47 10/26/17 12:47 10/26/17 12:47 10/26/17 12:47 Intake & Output 10/25/17 10/26/17 10/27/17 06:59 06:59 06:59 Intake Total 1239 1897 240 Output Total 1735 1525 315 Balance -496 372 -75 Weight 63.8 kg 64.3 kg Exam: GENERAL: well-nourished and in no acute distress. Alert and oriented x3 HEAD: Atraumatic, normocephalic. EYES: Pupils equal round and reactive to light, extraocular movements intact, sclera anicteric, conjunctiva are normal. ENT: TMs normal, nares patent, oropharynx clear without exudates. Moist mucous membranes. No oral ulcerations or bleeding gums noted NECK: supple without lymphadenopathy. Trachea is central. No cervical or axillary lymphadenopathy noted. Carotids are 2+, JVD WNL LUNGS: Respiration seems nonlabored, no significant accessory muscle action noted. Breath sounds clear to auscultation bilaterally and equal noted. No wheezes rales or rhonchi noted. No significant dullness noted on percussion. CHEST: Palpation of the chest wall shows no significant chest wall tenderness. HEART: [place] FISHER HAND LINE, No PSH, 1/6 NOMI aortic area, 1/6 puga systolic murmur mitral area, no rubs, no gallops. ABDOMEN: Soft, no significant tenderness appreciated, normoactive bowel sounds. No guarding, no rebound. No rigidity noted . No masses appreciated. EXTREMITIES: Pedal pulses are 1-2+, no calf tenderness noted. No clubbing or cyanosis. negative pedal edema noted NEUROLOGICAL: Focused neurological exam showed no significant neurologic deficit. Normal speech, no focal weakness appreciated. PSYCH: Normal mood, normal affect. Judgment and insight within normal limits. SKIN: No significant ecchymosis, skin is noted to be warm. MUSCULOSKELETAL EXAM: No significant acute joint swelling noted. Results Laboratory Results: 10/26/17 03:44 10/26/17 03:44 10/25/17 10/26/17 10/26/17 13:26 03:44 03:44 WBC 5.0 RBC 3.31 L Hgb 10.8 L Hct 32.2 L MCV 97 MCH 32.6 MCHC 33.6 RDW 24.4 H Plt Count 110 L Seg Neutrophils % 85.2 H Lymphocytes % 8.7 L Monocytes % 6.0 Eosinophils % 0.0 Basophils % 0.1 Absolute Neutrophils 4.3 Absolute Lymphocytes 0.4 L Absolute Monocytes 0.3 Absolute Eosinophils 0.0 Absolute Basophils 0.0 Carbonic Acid HCO3/H2CO3 Ratio ABG pH ABG pCO2 ABG pO2 ABG HCO3 ABG O2 Saturation ABG Base Excess FiO2 Sodium 144.3 Potassium 4.1 4.6 Chloride 118 H Carbon Dioxide 19 L Anion Gap 7 BUN 23 H Creatinine 0.67 Est GFR ( Amer) > 60 Est GFR (Non-Af Amer) > 60 Glucose 95 Calcium 9.2 Phosphorus 3.5 Magnesium 2.1 TSH Free T4 10/26/17 10/26/17 10/26/17 08:54 08:54 09:30 WBC RBC Hgb Hct MCV MCH MCHC RDW Plt Count Seg Neutrophils % Lymphocytes % Monocytes % Eosinophils % Basophils % Absolute Neutrophils Absolute Lymphocytes Absolute Monocytes Absolute Eosinophils Absolute Basophils Carbonic Acid 0.73 L HCO3/H2CO3 Ratio 22:1 ABG pH 7.44 ABG pCO2 24.4 L ABG pO2 52.0 L ABG HCO3 16.1 L ABG O2 Saturation 88.8 L ABG Base Excess -6.5 FiO2 21% Sodium Potassium Chloride Carbon Dioxide Anion Gap BUN Creatinine Est GFR ( Amer) Est GFR (Non-Af Amer) Glucose Calcium Phosphorus Magnesium TSH 0.38 L Free T4 1.28 10/26/17 10/26/17 08:54 08:54 Creatine Kinase 50 CK-MB (CK-2) 0.49 Troponin I 0.036 EKG Comments: Twelve-lead EKG shows sinus bradycardia without any acute ST-T wave changes Impressions: Chest X-Ray 10/25/17 06:00 IMPRESSION: No significant change. Assessment & Plan - Diagnosis (1) Bradycardia Is this a current diagnosis for this admission?: Yes (2) HTN (hypertension) Is this a current diagnosis for this admission?: Yes (3) SERAFIN inhibitor-aggravated angioedema Qualifiers: Encounter type: initial encounter Qualified Code(s): T78.3XXA - Angioneurotic edema, initial encounter; T46.4X5A - Adverse effect of angiotensin -converting-enzyme inhibitors, initial encounter; T46.4X5A - Adverse effect of zsebwbldxvl-phyrjvlejh-ptzyyi inhibitors, initial encounter Is this a current diagnosis for this admission?: Yes - Notes Notes: Bradycardia: This is severe. Patient has some symptoms of fatigue and tiredness but denied any prior history of syncope or near syncope. Patient has been receiving verapamil SR until recently. This has been held. Hopefully heart rate will improve. May use IV atropine, dobutamine drip if needed for symptomatic bradycardia. May also consider external patches for pacing. However I doubt this needs will arise. Have ordered free T3, free T4 and TSH level to be obtained. Agree with using hydralazine for blood pressure control. Hypertension: Currently under reasonable control. Blood pressure goal is 140/ 90 or less. SERAFIN inhibitor induced angioedema: Currently off SERAFIN inhibitor. This has been listed as allergy now. Dr. Benito elkins to cover tomorrow. - Time Time Spent: 30 to 50 Minutes - CODE STATUS was discussed, patient remains full code. Surrogate decision-maker patient's daughter. Multiple medical problems were addressed. More than 50% of the time spent coordinating care, discussing management plans with involved caregivers. Management plans discussed with involved personnels. Medical decision making was of moderate to high complexity , patient's has multiple comorbidities. Medications reviewed and adjusted accordingly: Yes
--- NOTE | 2017-10-26 13:41 | XCELERA REPORT ---
[address] [address] Transthoracic Echocardiogram Report Name: BELINDA MCCULLOUGH Age: 62 yrs Gender: Female : 1955 Patient Status: Inpatient Patient Location: ICU^610^A Study Date: 10/26/2017 09:57 AM Height: 60 in Weight: 141 lb BSA: 1.6 m2 Procedure: A complete two-dimensional transthoracic echocardiogram was performed (2D, M-mode, spectral and color flow Doppler). The study was technically adequate with some images being suboptimal in quality. Reason For Study: Persistent bradycardia; SERAFIN-I induced angioedema Ordering Physician: GRACE SWARTZ Performed By: Kaya Schroeder Interpretation Summary The left ventricular ejection fraction is normal. There is borderline concentric left ventricular hypertrophy. The left ventricle is grossly normal size. Doppler measurements suggest pseudonormalized left ventricular relaxation, which is associated with grade II/IV or mild to moderate diastolic dysfunction Wall motion cannot be accurately commented on, but no definite regional wall motion abnormalities noted. The right ventricle is grossly normal size. The right ventricular systolic function is normal. The right atrium is normal in size The left atrium is mildly dilated. There is no mitral valve stenosis. There is a mild amount of mitral regurgitation There is no aortic valve stenosis No aortic regurgitation is present. There is a mild amount of tricuspid regurgitation Right ventricular systolic pressure is at the upper limits of normal The aortic root is not well visualized but is probably normal size. The inferior vena cava appeared normal and decreased > 50% with respiration (RAP 5-10 mmHg) There is no pericardial effusion. MMode/2D Measurements & Calculations RVDd: 3.0 cm LVIDd: 5.0 cm FS: 33.2 % Ao root diam: 2.8 cm IVSd: 0.80 cm LVIDs: 3.3 cm EDV(Teich): 116.6 ml LVPWd: 0.86 cm ESV(Teich): 44.7 ml Ao root area: 6.1 cm2 EF(Teich): 61.6 % LA dimension: 3.4 cm Doppler Measurements & Calculations MV E max dianne: MV P1/2t max dianne: Ao V2 max: LV V1 max P.9 cm/sec 81.4 cm/sec 130.9 cm/sec 6.3 mmHg MV A max dianne: MV P1/2t: 76.7 msec Ao max PG: LV V1 max: 61.2 cm/sec 6.9 mmHg 125.9 cm/sec MV E/A: 1.4 MVA(P1/2t): 2.9 cm2 MV dec slope: 311.1 cm/sec2 MV dec time: 0.25 sec PA V2 max: PI end-d dianne: TR max dianne: 84.9 cm/sec 132.5 cm/sec 267.4 cm/sec PA max PG: TR max P.9 mmHg 28.6 mmHg Left Ventricle The left ventricle is grossly normal size. There is borderline concentric left ventricular hypertrophy. The left ventricular ejection fraction is normal. Doppler measurements suggest pseudonormalized left ventricular relaxation, which is associated with grade II/IV or mild to moderate diastolic dysfunction. Wall motion cannot be accurately commented on, but no definite regional wall motion abnormalities noted. Right Ventricle The right ventricle is grossly normal size. There is normal right ventricular wall thickness. The right ventricular systolic function is normal. Atria The right atrium is normal in size. The left atrium is mildly dilated. Interarterial septum not well visualized and not well dopplered. Cannot comment on ASD/PFO presence. Mitral Valve The mitral valve is grossly normal. There is no mitral valve stenosis. There is a mild amount of mitral regurgitation. Aortic Valve The aortic valve is grossly normal. There is no aortic valve stenosis. No aortic regurgitation is present. Tricuspid Valve The tricuspid valve is not well visualized, but is grossly normal. There is no tricuspid stenosis. There is a mild amount of tricuspid regurgitation. Right ventricular systolic pressure is at the upper limits of normal. Pulmonic Valve The pulmonic valve is not well visualized. Great Vessels The aortic root is not well visualized but is probably normal size. The inferior vena cava appeared normal and decreased > 50% with respiration (RAP 5-10 mmHg). Effusions There is no pericardial effusion. : GRACE SWARTZ > Jerod Cardenas
[2017-10-26] MEDS: NORMAL SALINE 1000 ML 1,000 ML IV PRN ×2 (13:44→22:23)
--- NOTE | 2017-10-26 15:29 | PDOC CONSULTATION ---
Consultation Consult Date: 10/26/17 Consult reason:: Hematology/Oncology consult was requested for patient on active cheotherapy for colon cancer History of Present Illness Admission Date/PCP: 10/22/17 05:27 GRACE SWARTZ History of Present Illness: BELINDA MCCULLOUGH is a 62 year old female who is well known to me and is currently receiving chemotherapy with Capecitabine/Oxaliplatin for colon cancer. She will be due for her next treatment tomorrow. However, patient called my office and notified us of her admission to the hospital and requested that I see her during her admission. She presented to the ED with severe confusion and difficulty breathing and was admitted early Monday morning for acute angioedema thought to be secondary to SERAFIN inhibitors. She was intubated but today, she is off the ventilator and states that she is feeling much better. She does not remember much over the last few days. Past Medical History Cardiac Medical History: Reports: Hypertension Denies: Atrial Fibrillation, Congestive Heart Failure, Coronary Artery Disease, Myocardial Infarction, Hyperlipidema, Peripheral Vascular Disease, Heart Murmur Pulmonary Medical History: Denies: Asthma, Bronchitis, Chronic Obstructive Pulmonary Disease (COPD), Pneumonia Neurological Medical History: Denies: Seizures Malignancy Medical History: Reports: Colorectal Cancer Denies: Breast Cancer, Cervical Cancer, Ovarian Cancer GI Medical History: Reports: Gastroesophageal Reflux Disease Denies: Crohn's Disease, Hiatal Hernia Musculoskeltal Medical History: Denies: Arthritis Psychiatric Medical History: Denies: Dementia, Depression Hematology: Denies: Anemia Past Surgical History Past Surgical History: Reports: Section - x1, Hysterectomy, Other - Exploratory laparotomy secondary to small bowel obstruction. Port placemen Denies: Appendectomy, Cholecystectomy, Colostomy, Coronary Artery Bypass Graft, Gastric Bypass Surgery, Herniorrhaphy, Mastectomy, Pacemaker, Tonsillectomy, Tubal Ligation Social History Information Source: Patient Lives with: Family Smoking Status: Unknown if Ever Smoked Frequency of Alcohol Use: None Hx Recreational Drug Use: No Drugs: None Hx Prescription Drug Abuse: No - Advance Directive Resuscitation Status: Full Code Family History Family History: DM, Malignancy Parental Family History Reviewed: Yes Children Family History Reviewed: No Sibling(s) Family History Reviewed.: Yes Medication/Allergy Home Medications: Hydrochlorothiazide [Hydrodiuril 25 mg Tablet] 25 mg PO DAILY 08/13/16 Verapamil HCl [Calan 120 mg Tablet] 120 mg PO DAILY 08/13/16 Capecitabine [Xeloda 500 mg Tablet] 1,500 mg PO Q12 10/22/17 Potassium Chloride 20 meq PO DAILY 10/22/17 Allergies/Adverse Reactions: hydromorphone [From Dilaudid] Allergy (Verified 06/07/17 14:41) ITCHING lisinopril Allergy (Verified 10/23/17 09:38) Swelling of Throat Review of Systems Constitutional: ABSENT: fever(s), headache(s) Eyes: ABSENT: visual disturbances Ears: ABSENT: hearing changes Nose, Mouth, and Throat: PRESENT: other - Tongue swelling. Cardiovascular: ABSENT: chest pain Respiratory: PRESENT: dyspnea Gastrointestinal: ABSENT: constipation, diarrhea, nausea Genitourinary: ABSENT: dysuria Neurological: PRESENT: confusion, weakness Psychiatric: PRESENT: anxiety Hematologic/Lymphatic: ABSENT: easy bleeding Physical Exam Vital Signs: Temp Pulse Resp BP Pulse Ox 98.1 F 51 L 17 144/69 H 100 10/26/17 14:00 10/26/17 14:00 10/26/17 14:00 10/26/17 14:00 10/26/17 14:00 Intake & Output 10/25/17 10/26/17 10/27/17 06:59 06:59 06:59 Intake Total 1239 1897 240 Output Total 1735 1525 465 Balance -496 372 -225 Weight 63.8 kg 64.3 kg General appearance: PRESENT: no acute distress, well-developed, well-nourished Exam: 62 year old female. Head exam: PRESENT: atraumatic Eye exam: PRESENT: EOMI, PERRLA Mouth exam: PRESENT: moist, tongue midline Neck exam: ABSENT: lymphadenopathy, tenderness Respiratory exam: PRESENT: clear to auscultation pauline, unlabored Cardiovascular exam: PRESENT: bradycardia, RRR Pulses: PRESENT: normal dorsalis pedis pul GI/Abdominal exam: PRESENT: soft. ABSENT: tenderness Extremities exam: ABSENT: pedal edema Musculoskeletal exam: PRESENT: normal inspection Neurological exam: PRESENT: alert, awake, oriented to person, oriented to place , oriented to situation Psychiatric exam: PRESENT: appropriate affect Focused psych exam: ABSENT: pressured speech, restlessness Skin exam: PRESENT: normal color Results Laboratory Results: 10/26/17 03:44 10/26/17 03:44 10/26/17 10/26/17 10/26/17 03:44 03:44 08:54 WBC 5.0 RBC 3.31 L Hgb 10.8 L Hct 32.2 L MCV 97 MCH 32.6 MCHC 33.6 RDW 24.4 H Plt Count 110 L Seg Neutrophils % 85.2 H Lymphocytes % 8.7 L Monocytes % 6.0 Eosinophils % 0.0 Basophils % 0.1 Absolute Neutrophils 4.3 Absolute Lymphocytes 0.4 L Absolute Monocytes 0.3 Absolute Eosinophils 0.0 Absolute Basophils 0.0 Carbonic Acid HCO3/H2CO3 Ratio ABG pH ABG pCO2 ABG pO2 ABG HCO3 ABG O2 Saturation ABG Base Excess FiO2 Sodium 144.3 Potassium 4.6 Chloride 118 H Carbon Dioxide 19 L Anion Gap 7 BUN 23 H Creatinine 0.67 Est GFR ( Amer) > 60 Est GFR (Non-Af Amer) > 60 Glucose 95 Calcium 9.2 Phosphorus 3.5 Magnesium 2.1 TSH 0.38 L Free T4 10/26/17 10/26/17 08:54 09:30 WBC RBC Hgb Hct MCV MCH MCHC RDW Plt Count Seg Neutrophils % Lymphocytes % Monocytes % Eosinophils % Basophils % Absolute Neutrophils Absolute Lymphocytes Absolute Monocytes Absolute Eosinophils Absolute Basophils Carbonic Acid 0.73 L HCO3/H2CO3 Ratio 22:1 ABG pH 7.44 ABG pCO2 24.4 L ABG pO2 52.0 L ABG HCO3 16.1 L ABG O2 Saturation 88.8 L ABG Base Excess -6.5 FiO2 21% Sodium Potassium Chloride Carbon Dioxide Anion Gap BUN Creatinine Est GFR ( Amer) Est GFR (Non-Af Amer) Glucose Calcium Phosphorus Magnesium TSH Free T4 1.28 10/26/17 10/26/17 08:54 08:54 Creatine Kinase 50 CK-MB (CK-2) 0.49 Troponin I 0.036 Impressions: Chest X-Ray 10/25/17 06:00 IMPRESSION: No significant change. Assessment & Plan - Diagnosis (1) Adenocarcinoma of sigmoid colon Is this a current diagnosis for this admission?: Yes Plan: She is scheduled to restart her chemotherapy tomorrow. However, I have instructed her to wait until after discharge. I will arrange her next cycle after she is out of the hospital. Although I do not believe that the chemo has caused the angioedema, will be very watchful for further symptoms in the future. (2) Anemia Qualifiers: Other causes of anemia: antineoplastic chemotherapy Is this a current diagnosis for this admission?: Yes Plan: Most likely due to chemotherapy. Watch closely. No indication for blood transfusion currently. - Plan Summary Plan Summary: I will continue to follow her during this admission. Please call me for any questions or concerns.
[2017-10-27 04:28] LABS: ABSOLUTE LYMPHOCYTES (AUTO) 0.4 10^3/uL (0.5-4.7); ABSOLUTE MONOCYTES (AUTO) 0.7 10^3/uL (0.1-1.4); ABSOLUTE NEUT (AUTO) 4.5 10^3/uL (1.7-8.2); BASOPHILS % (AUTO) 0.1 % (0-2); HEMATOCRIT 32.5 % (36.0-47.0); HEMOGLOBIN 11.1 g/dL (12.0-15.5); LYMPHOCYTES % (AUTO) 6.6 % (13-45); MEAN CORPUSCULAR HEMOGLOBIN 33.1 pg (27.0-33.4); MEAN CORPUSCULAR VOLUME 97 fl (80-97); MONOCYTES % (AUTO) 11.9 % (3-13); RED BLOOD COUNT 3.34 10^6/uL (3.72-5.28); RED CELL DISTRIBUTION WIDTH 24.2 % (11.5-14.0); SEGMENTED NEUTROPHILS % (AUTO) 81.4 % (42-78); TOTAL CELLS COUNTED % (AUTO) 100 %; WHITE BLOOD COUNT 5.5 10^3/uL (4.0-10.5)
[2017-10-27 04:38] LABS: ANION GAP 7 (5-19); BLOOD UREA NITROGEN 21 mg/dL (7-20); CALCIUM 8.9 mg/dL (8.4-10.2); CARBON DIOXIDE 19 mmol/L (22-30); CHLORIDE 116 mmol/L (98-107); GLUCOSE 114 mg/dL (75-110); POTASSIUM 4.3 mmol/L (3.6-5.0); SODIUM 141.7 mmol/L (137-145)
[2017-10-27 04:46] LABS: PLATELET COUNT 99 10^3/uL (150-450)
[2017-10-27 04:54] LABS: ANISOCYTOSIS 3+; BURR CELLS SLIGHT; OVALOCYTES 1+; PLATELET COMMENT DECREASED; POIKILOCYTOSIS 1+; TEAR DROP CELLS SLIGHT
[2017-10-27] MEDS: HYDRALAZINE HCL 25 MG TABLET PO SCH ×4 (05:32→23:59)
--- NOTE | 2017-10-27 07:47 | PDOC PROGRESS REPORT ---
Subjective Progress Note for:: 10/27/17 Subjective:: She denied any chest pain or difficulty with breathing. No difficulty with swallowing. No fever or chills. Cardiology and oncology service consultants input noted. Reason For Visit: UPPER AIRWAY OBSTRUCTION DUE TO ANGIOEDEMA FROM Physical Exam Vital Signs: Temp Pulse Resp BP Pulse Ox 97.9 F 50 L 14 146/72 H 100 10/27/17 05:38 10/26/17 20:00 10/27/17 06:00 10/27/17 05:35 10/27/17 06:00 Intake & Output 10/26/17 10/27/17 10/28/17 06:59 06:59 06:59 Intake Total 1897 3314 Output Total 1525 1175 Balance 372 2139 Weight 64.3 kg 61.8 kg Physical Exam: General appearance: PRESENT: no acute distress Head exam: PRESENT: atraumatic, normocephalic Eye exam: PRESENT: conjunctiva pink, EOMI, PERRLA. ABSENT: scleral icterus Mouth exam: PRESENT: moist, tongue midline - with resolution of her angioedema Respiratory exam: PRESENT: clear to auscultation pauline, decreased breath sounds - at lung bases Cardiovascular exam: PRESENT: RRR, Bradycardia ABSENT: diastolic murmur, rubs, systolic murmur GI/Abdominal exam: PRESENT: normal bowel sounds, soft. ABSENT: distended, guarding, mass, organomegaly, rebound, tenderness Gentrourinary exam: PRESENT: indwelling catheter - satisfactory urine output Extremities exam: ABSENT: pedal edema Musculoskeletal exam: PRESENT: normal inspection Neurological exam: PRESENT: awake. ABSENT: oriented to place Psychiatric exam: PRESENT: other - soft wrist restraints in use due to intermittent agitation. ABSENT: homicidal ideation, suicidal ideation Skin exam: PRESENT: dry, intact, warm. ABSENT: cyanosis, rash Results Laboratory Results: 10/27/17 04:10 10/27/17 04:10 10/26/17 10/26/17 10/26/17 08:54 08:54 09:30 WBC RBC Hgb Hct MCV MCH MCHC RDW Plt Count Seg Neutrophils % Lymphocytes % Monocytes % Eosinophils % Basophils % Absolute Neutrophils Absolute Lymphocytes Absolute Monocytes Absolute Eosinophils Absolute Basophils Carbonic Acid 0.73 L HCO3/H2CO3 Ratio 22:1 ABG pH 7.44 ABG pCO2 24.4 L ABG pO2 52.0 L ABG HCO3 16.1 L ABG O2 Saturation 88.8 L ABG Base Excess -6.5 FiO2 21% Sodium Potassium Chloride Carbon Dioxide Anion Gap BUN Creatinine Est GFR ( Amer) Est GFR (Non-Af Amer) Glucose Calcium Magnesium TSH 0.38 L Free T4 1.28 10/27/17 10/27/17 04:10 04:10 WBC 5.5 RBC 3.34 L Hgb 11.1 L Hct 32.5 L MCV 97 MCH 33.1 MCHC 34.0 RDW 24.2 H Plt Count 99 L Seg Neutrophils % 81.4 H Lymphocytes % 6.6 L Monocytes % 11.9 Eosinophils % 0.0 Basophils % 0.1 Absolute Neutrophils 4.5 Absolute Lymphocytes 0.4 L Absolute Monocytes 0.7 Absolute Eosinophils 0.0 Absolute Basophils 0.0 Carbonic Acid HCO3/H2CO3 Ratio ABG pH ABG pCO2 ABG pO2 ABG HCO3 ABG O2 Saturation ABG Base Excess FiO2 Sodium 141.7 Potassium 4.3 Chloride 116 H Carbon Dioxide 19 L Anion Gap 7 BUN 21 H Creatinine 0.63 Est GFR ( Amer) > 60 Est GFR (Non-Af Amer) > 60 Glucose 114 H Calcium 8.9 Magnesium 2.2 TSH Free T4 10/26/17 10/26/17 08:54 08:54 Creatine Kinase 50 CK-MB (CK-2) 0.49 Troponin I 0.036 Impressions: Chest X-Ray 10/25/17 06:00 IMPRESSION: No significant change. Assessment & Plan - Diagnosis (1) SERAFIN inhibitor-aggravated angioedema Qualifiers: Encounter type: initial encounter Qualified Code(s): T78.3XXA - Angioneurotic edema, initial encounter; T46.4X5A - Adverse effect of angiotensin -converting-enzyme inhibitors, initial encounter; T46.4X5A - Adverse effect of iirdxlximdg-uzoorhhcbf-ccyhrp inhibitors, initial encounter Is this a current diagnosis for this admission?: Yes Plan: Resolved with improved airway status. D/C Dexamethasone and Pepcid. Advance diet to regular consistency. (2) Disorder of upper airway Is this a current diagnosis for this admission?: Yes Plan: Resolved with improved airway status. (3) HTN (hypertension) Is this a current diagnosis for this admission?: Yes Plan: See attending physician orders. Maintain on Hydralazine 25 mg po q6 hours with parameters. (4) Adenocarcinoma of sigmoid colon Is this a current diagnosis for this admission?: Yes Plan: See attending physician orders. Follow up on oncologist recommendations. Monitor anemia and transfuse as indicated. (5) Bradycardia Is this a current diagnosis for this admission?: Yes Plan: Continue current management. Etiology remain unclear presently. Follow on groundwater consultant recommendations. Down grade to IMCU status. (6) Thrombocytopenia due to drugs Is this a current diagnosis for this admission?: Yes Plan: Probably related to H2 aron usage. I will discontinue Pepcid. Start on Prevacid for PUD prophylaxis. Hold Lovenox as per parameters for DVT prophylaxis. - Time Time Spent with patient: 25-34 minutes Medications reviewed and adjusted accordingly: Yes Anticipated discharge: Home Within: Other - Inpatient Certification Based on my medical assessment, after consideration of the patient's comorbidities, presenting symptoms, or acuity I expect that the services needed warrant INPATIENT care.: Yes I certify that my determination is in accordance with my understanding of Medicare's requirements for reasonable and necessary INPATIENT services [42 CFR 412.3e].: Yes Medical Necessity: Need Close Monitoring Due to Risk of Patient Decompensation, Need For IV Fluids, Need For Continuous Telemetry Monitoring, Risk of Complication if Not Cared For in Hospital Post Hospital Care: D/C Cooperative Education Coordinator Documentation - Plan Summary Plan Summary: See attending physician orders.
[2017-10-27] MEDS ORDERED: LANSOPRAZOLE 30 MG TAB.RAP.DR PO ONE (08:15)
--- NOTE | 2017-10-27 08:20 | EKG REPORT ---
SEVERITY:- OTHERWISE NORMAL ECG - SINUS BRADYCARDIA : Confirmed by: Jerod Cardenas 27-Oct-2017 08:19:52
--- NOTE | 2017-10-27 09:02 | PDOC PROGRESS REPORT ---
Subjective Progress Note for:: 10/27/17 Subjective:: Patient feeling better today. SHe is looking forward to her first full meal this morning. Nurses report no BM since admission. ROS: No nausea. No dyspnea. Still weak all over. Looking forward to trying to get out of bed later today. Reason For Visit: UPPER AIRWAY OBSTRUCTION DUE TO ANGIOEDEMA FROM Physical Exam Vital Signs: Temp Pulse Resp BP Pulse Ox 97.9 F 39 L 14 146/72 H 100 10/27/17 05:38 10/27/17 08:00 10/27/17 06:00 10/27/17 05:35 10/27/17 06:00 Intake & Output 10/26/17 10/27/17 10/28/17 06:59 06:59 06:59 Intake Total 1897 3314 Output Total 1525 1175 Balance 372 2139 Weight 64.3 kg 61.8 kg General appearance: PRESENT: no acute distress, well-developed, well-nourished Head exam: PRESENT: normocephalic Mouth exam: PRESENT: moist, tongue midline Respiratory exam: PRESENT: clear to auscultation pauline, unlabored Cardiovascular exam: PRESENT: bradycardia. ABSENT: systolic murmur GI/Abdominal exam: PRESENT: soft. ABSENT: tenderness Extremities exam: ABSENT: pedal edema Neurological exam: PRESENT: alert, awake Psychiatric exam: PRESENT: appropriate affect Skin exam: PRESENT: normal color Results Laboratory Results: 10/27/17 04:10 10/27/17 04:10 10/26/17 10/26/17 10/26/17 08:54 08:54 09:30 WBC RBC Hgb Hct MCV MCH MCHC RDW Plt Count Seg Neutrophils % Lymphocytes % Monocytes % Eosinophils % Basophils % Absolute Neutrophils Absolute Lymphocytes Absolute Monocytes Absolute Eosinophils Absolute Basophils Carbonic Acid 0.73 L HCO3/H2CO3 Ratio 22:1 ABG pH 7.44 ABG pCO2 24.4 L ABG pO2 52.0 L ABG HCO3 16.1 L ABG O2 Saturation 88.8 L ABG Base Excess -6.5 FiO2 21% Sodium Potassium Chloride Carbon Dioxide Anion Gap BUN Creatinine Est GFR ( Amer) Est GFR (Non-Af Amer) Glucose Calcium Magnesium TSH 0.38 L Free T4 1.28 10/27/17 10/27/17 04:10 04:10 WBC 5.5 RBC 3.34 L Hgb 11.1 L Hct 32.5 L MCV 97 MCH 33.1 MCHC 34.0 RDW 24.2 H Plt Count 99 L Seg Neutrophils % 81.4 H Lymphocytes % 6.6 L Monocytes % 11.9 Eosinophils % 0.0 Basophils % 0.1 Absolute Neutrophils 4.5 Absolute Lymphocytes 0.4 L Absolute Monocytes 0.7 Absolute Eosinophils 0.0 Absolute Basophils 0.0 Carbonic Acid HCO3/H2CO3 Ratio ABG pH ABG pCO2 ABG pO2 ABG HCO3 ABG O2 Saturation ABG Base Excess FiO2 Sodium 141.7 Potassium 4.3 Chloride 116 H Carbon Dioxide 19 L Anion Gap 7 BUN 21 H Creatinine 0.63 Est GFR ( Amer) > 60 Est GFR (Non-Af Amer) > 60 Glucose 114 H Calcium 8.9 Magnesium 2.2 TSH Free T4 10/26/17 10/26/17 08:54 08:54 Creatine Kinase 50 CK-MB (CK-2) 0.49 Troponin I 0.036 Impressions: Chest X-Ray 10/25/17 06:00 IMPRESSION: No significant change. Assessment & Plan - Diagnosis (1) Adenocarcinoma of sigmoid colon Is this a current diagnosis for this admission?: Yes Plan: All chemotherapy on hold. She did have a minor episode of angioedema of the lip in August, but received a full cylce of chemo after this without any evidence of edema. Will discuss further treatment with her after discharge. (2) Anemia Qualifiers: Other causes of anemia: antineoplastic chemotherapy Is this a current diagnosis for this admission?: Yes Plan: Currently stable. No need for transfusion. I will continue to watch. She is not a candidate for erythropoetin. (3) Thrombocytopenia due to drugs Is this a current diagnosis for this admission?: Yes Plan: Currently mild. Will continue to watch closely. - Plan Summary Plan Summary: She takes Colace regularly at home. I will restart this medication and add Miralax PRN. Hopefully her bowels will move once she is eating regular diet again. Dr. Pringle will be available over the weekend. Please call if needed. I will see her again in Monday, or as outpatient if discharged. I discussed her care with Dr. Evans
[2017-10-27] MEDS: ENOXAPARIN SODIUM INJ 40 MG/0.4 ML DISP.SYRIN SUBCUT SCH (09:11)
[2017-10-27] MEDS: DOCUSATE SODIUM 100 MG CAPSULE PO SCH ×2 (10:43→18:30)
[2017-10-27] MEDS ORDERED: ONDANSETRON HCL INJ/PF 4 MG/2 ML SDV ONE (11:35)
[2017-10-27] MEDS ORDERED: ONDANSETRON HCL INJ/PF 4 MG/2 ML SDV IV PRN (11:39)
[2017-10-27 17:09] LABS: APPEARANCE,URINE SLIGHTLY-CLOUDY; BILIRUBIN,URINE NEGATIVE (NEGATIVE); COLOR,URINE YELLOW; GLUCOSE, URINE NEGATIVE (NEGATIVE); KETONES,URINE NEGATIVE (NEGATIVE); LEUKOCYTE ESTERASE,URINE MODERATE (NEGATIVE); NITRITE,URINE NEGATIVE (NEGATIVE); PROTEIN,URINE NEGATIVE (NEGATIVE); URINE SPECIFIC GRAVITY 1.017
[2017-10-27] MEDS ORDERED: CALCIUM CARBONATE 500 MG TAB.CHEW PO PRN (20:13)
[2017-10-28 05:04] LABS: ABSOLUTE LYMPHOCYTES (AUTO) 1.3 10^3/uL (0.5-4.7); ABSOLUTE MONOCYTES (AUTO) 0.7 10^3/uL (0.1-1.4); ABSOLUTE NEUT (AUTO) 2.3 10^3/uL (1.7-8.2); BASOPHILS % (AUTO) 0.1 % (0-2); EOSINOPHILS % (AUTO) 0.4 % (0-6); HEMATOCRIT 32.4 % (36.0-47.0); LYMPHOCYTES % (AUTO) 29.6 % (13-45); MEAN CORPUSCULAR HEMOGLOBIN 33.6 pg (27.0-33.4); MEAN CORPUSCULAR HGB CONC 34.1 g/dL (32.0-36.0); MEAN CORPUSCULAR VOLUME 99 fl (80-97); MONOCYTES % (AUTO) 16.7 % (3-13); RED BLOOD COUNT 3.28 10^6/uL (3.72-5.28); RED CELL DISTRIBUTION WIDTH 24.9 % (11.5-14.0); SEGMENTED NEUTROPHILS % (AUTO) 53.2 % (42-78); TOTAL CELLS COUNTED % (AUTO) 100 %; WHITE BLOOD COUNT 4.4 10^3/uL (4.0-10.5)
[2017-10-28 05:34] LABS: ANION GAP 6 (5-19); BLOOD UREA NITROGEN 19 mg/dL (7-20); CALCIUM 8.4 mg/dL (8.4-10.2); CARBON DIOXIDE 19 mmol/L (22-30); CHLORIDE 116 mmol/L (98-107); GLUCOSE 91 mg/dL (75-110); PHOSPHORUS 2.6 mg/dL (2.5-4.5); POTASSIUM 3.8 mmol/L (3.6-5.0); SODIUM 141.2 mmol/L (137-145)
[2017-10-28 05:57] LABS: ARTERIAL BLOOD BASE EXCESS -4.2 mmol/L; ARTERIAL BLOOD H2CO3 0.59 mmol/L (1.05-1.35); ARTERIAL BLOOD HCO3 16.5 mmol/L (20-26); ARTERIAL BLOOD O2 SATURATION 98.8 % (94-98); ARTERIAL BLOOD PH 7.54 (7.35-7.45); ARTERIAL BLOOD PO2 118.5 mmHg (80-100); ARTERIAL BLOOD TOTAL CO2 17.1 mmol/L (21-25)
[2017-10-28 05:58] LABS: ARTERIAL BLOOD FIO2 ROOM AIR
[2017-10-28] MEDS: LANSOPRAZOLE 30 MG TAB.RAP.DR PO SCH (05:58)
[2017-10-28] MEDS: HYDRALAZINE HCL 25 MG TABLET PO SCH ×3 (05:58→17:18)
[2017-10-28 06:00] LABS: ARTERIAL BLOOD PCO2 19.7 mmHg (35-45)
[2017-10-28 06:50] LABS: PLATELET COUNT 74 10^3/uL (150-450)
[2017-10-28 06:52] LABS: ANISOCYTOSIS 3+
[2017-10-28 06:53] LABS: POIKILOCYTOSIS 1+
[2017-10-28 06:54] LABS: OVALOCYTES SLIGHT; PLATELET COMMENT DECREASED; SCHISTOCYTES SLIGHT
[2017-10-28] MEDS: POLYETHYLENE GLYCOL 3350 POWDER 17 GM/1 PACKET PO PRN (08:06)
[2017-10-28] MEDS: ENOXAPARIN SODIUM INJ 40 MG/0.4 ML DISP.SYRIN SUBCUT SCH (08:33)
--- NOTE | 2017-10-28 08:33 | RADIOLOGY REPORT (SQ) ---
EXAM DESCRIPTION: CHEST SINGLE VIEW COMPLETED DATE/TIME: 10/28/2017 8:18 am REASON FOR STUDY: hypoxemia COMPARISON: 10/25/2017. FINDINGS: Single-view chest, AP portable upright at approximately 0829 hours. Right port, as before. Lungs generally clear allowing for minimal left basilar subsegmental atelectasis/ scar. No new infil trates or developing failure. Stable cardiomediastinal silhouette. IMPRESSION: Stable chest without acute or suspicious findings. TECHNICAL DOCUMENTATION: JOB ID: [id number] Reading location - IP/workstation name: LOSS PREVENTION OPERATIONS [email or web address]
[2017-10-28] MEDS: DOCUSATE SODIUM 100 MG CAPSULE PO SCH ×2 (09:06→17:28)
--- NOTE | 2017-10-28 09:54 | EKG REPORT ---
SEVERITY:- ABNORMAL ECG - SINUS RHYTHM CONSIDER LEFT VENTRICULAR HYPERTROPHY : Confirmed by: Jerod Cardenas 28-Oct-2017 09:53:58
[2017-10-28] MEDS: NORMAL SALINE 1000 ML 1,000 ML IV PRN (13:00)
[2017-10-28] MEDS ORDERED: POTASSIUM CHLORIDE 20 MEQ/15 ML UDCUP PO ONE (15:00)
[2017-10-28] MEDS ORDERED: CEFTRIAXONE 1 GM/D5W RTU 1 GM/50 ML RTUPB IV SCH (15:00)
--- NOTE | 2017-10-28 15:00 | PDOC PROGRESS REPORT ---
Subjective Progress Note for:: 10/28/17 Subjective:: Patient reported some degree of constipation although poor oral food intake persist. There is nausea and reflux symptoms. No abdominal pain or vomiting. Chest pain related to reflux episode. No difficulty with breathing. Reason For Visit: UPPER AIRWAY OBSTRUCTION DUE TO ANGIOEDEMA FROM Physical Exam Vital Signs: Temp Pulse Resp BP Pulse Ox 98.1 F 56 L 13 146/78 H 100 10/28/17 11:13 10/28/17 14:00 10/28/17 11:13 10/28/17 11:13 10/28/17 11:13 Intake & Output 10/27/17 10/28/17 10/29/17 06:59 06:59 06:59 Intake Total 3314 1641 115 Output Total 1175 1500 500 Balance 2139 141 -385 Weight 61.8 kg 64.5 kg Physical Exam: General appearance: PRESENT: no acute distress Head exam: PRESENT: atraumatic, normocephalic Eye exam: PRESENT: conjunctiva pink, EOMI, PERRLA. ABSENT: scleral icterus Mouth exam: PRESENT: moist, tongue midline - with resolution of her angioedema Respiratory exam: PRESENT: clear to auscultation pauline, decreased breath sounds - at lung bases Cardiovascular exam: PRESENT: RRR, Bradycardia ABSENT: diastolic murmur, rubs, systolic murmur GI/Abdominal exam: PRESENT: normal bowel sounds, soft. ABSENT: distended, guarding, mass, organomegaly, rebound, tenderness Gentrourinary exam: PRESENT: indwelling catheter - satisfactory urine output Extremities exam: ABSENT: pedal edema Musculoskeletal exam: PRESENT: normal inspection Neurological exam: PRESENT: awake. ABSENT: oriented to place Psychiatric exam: PRESENT: other - soft wrist restraints in use due to intermittent agitation. ABSENT: homicidal ideation, suicidal ideation Skin exam: PRESENT: dry, intact, warm. ABSENT: cyanosis, rash Results Laboratory Results: 10/28/17 04:45 10/28/17 04:45 10/27/17 10/28/17 10/28/17 16:45 04:45 04:45 WBC 4.4 RBC 3.28 L Hgb 11.0 L Hct 32.4 L MCV 99 H MCH 33.6 H MCHC 34.1 RDW 24.9 H Plt Count 74 L Seg Neutrophils % 53.2 Lymphocytes % 29.6 Monocytes % 16.7 H Eosinophils % 0.4 Basophils % 0.1 Absolute Neutrophils 2.3 Absolute Lymphocytes 1.3 Absolute Monocytes 0.7 Absolute Eosinophils 0.0 Absolute Basophils 0.0 Carbonic Acid HCO3/H2CO3 Ratio ABG pH ABG pCO2 ABG pO2 ABG HCO3 ABG O2 Saturation ABG Base Excess FiO2 Sodium 141.2 Potassium 3.8 Chloride 116 H Carbon Dioxide 19 L Anion Gap 6 BUN 19 Creatinine 0.88 Est GFR ( Amer) > 60 Est GFR (Non-Af Amer) > 60 Glucose 91 Calcium 8.4 Phosphorus 2.6 Magnesium 1.9 Urine Color YELLOW Urine Appearance SLIGHTLY-CLOUDY Urine pH 7.0 Ur Specific Belding 1.017 Urine Protein NEGATIVE Urine Glucose (UA) NEGATIVE Urine Ketones NEGATIVE Urine Blood LARGE H Urine Nitrite NEGATIVE Ur Leukocyte Esterase MODERATE H Urine WBC (Auto) 117 Urine RBC (Auto) 37 10/28/17 05:45 WBC RBC Hgb Hct MCV MCH MCHC RDW Plt Count Seg Neutrophils % Lymphocytes % Monocytes % Eosinophils % Basophils % Absolute Neutrophils Absolute Lymphocytes Absolute Monocytes Absolute Eosinophils Absolute Basophils Carbonic Acid 0.59 L HCO3/H2CO3 Ratio 27:1 ABG pH 7.54 H ABG pCO2 19.7 L* ABG pO2 118.5 H ABG HCO3 16.5 L ABG O2 Saturation 98.8 H ABG Base Excess -4.2 FiO2 ROOM AIR Sodium Potassium Chloride Carbon Dioxide Anion Gap BUN Creatinine Est GFR ( Amer) Est GFR (Non-Af Amer) Glucose Calcium Phosphorus Magnesium Urine Color Urine Appearance Urine pH Ur Specific Belding Urine Protein Urine Glucose (UA) Urine Ketones Urine Blood Urine Nitrite Ur Leukocyte Esterase Urine WBC (Auto) Urine RBC (Auto) 10/26/17 10/26/17 08:54 08:54 Creatine Kinase 50 CK-MB (CK-2) 0.49 Troponin I 0.036 Impressions: Chest X-Ray 10/28/17 06:00 IMPRESSION: Stable chest without acute or suspicious findings. Assessment & Plan - Diagnosis (1) SERAFIN inhibitor-aggravated angioedema Qualifiers: Encounter type: initial encounter Qualified Code(s): T78.3XXA - Angioneurotic edema, initial encounter; T46.4X5A - Adverse effect of angiotensin -converting-enzyme inhibitors, initial encounter; T46.4X5A - Adverse effect of kpurgdshikw-txuiihaenv-ksmemj inhibitors, initial encounter Is this a current diagnosis for this admission?: Yes Plan: Resolved with improved airway status. (2) Disorder of upper airway Is this a current diagnosis for this admission?: Yes Plan: Resolved with improved airway status. (3) HTN (hypertension) Is this a current diagnosis for this admission?: Yes Plan: See attending physician orders. Maintain on Hydralazine 25 mg po q6 hours with parameters. (4) Adenocarcinoma of sigmoid colon Is this a current diagnosis for this admission?: Yes Plan: See attending physician orders. Follow up on oncologist recommendations. Monitor anemia and transfuse as indicated. (5) Bradycardia Is this a current diagnosis for this admission?: Yes Plan: Continue current management. Improving. (6) Thrombocytopenia due to drugs Is this a current diagnosis for this admission?: Yes Plan: Continue current medication management. (7) Gram-negative infection Is this a current diagnosis for this admission?: Yes Plan: D/C Saravia catheter. Start on IV Rocephin coverage. Follow up on urine culture for organism identification and sensitivity findings. - Time Time Spent with patient: 25-34 minutes Medications reviewed and adjusted accordingly: Yes Anticipated discharge: Home with Homehealth Within: Other - Inpatient Certification Based on my medical assessment, after consideration of the patient's comorbidities, presenting symptoms, or acuity I expect that the services needed warrant INPATIENT care.: Yes I certify that my determination is in accordance with my understanding of Medicare's requirements for reasonable and necessary INPATIENT services [42 CFR 412.3e].: Yes Medical Necessity: Need Close Monitoring Due to Risk of Patient Decompensation, Need For IV Fluids, Need For Continuous Telemetry Monitoring, Need for IV Antibiotics, Risk of Complication if Not Cared For in Hospital Post Hospital Care: D/C Search Consultant Documentation - Plan Summary Plan Summary: See attending physician orders.
[2017-10-28] MEDS ORDERED: CEFTRIAXONE SODIUM 1,000 MG in DEXTROSE 5%-WATER 50 ML IV SCH (18:00)
--- NOTE | 2017-10-28 21:13 | Progress Note ---
Provider Note Provider Note: Progress note for 10/28/2017. The patient's heart rate is improved but still the patient is bradycardic heart rate is in the high 50s. She denies any chest pain or discomfort there is no PND orthopnea there is no leg edema there is no dizziness or syncope or near syncope. The patient has no chest pain. There is no TIA or CVA symptoms. There is no leg edema. There is no high-grade AV block seen. She denies abdominal pain. Her nausea is much improved. Still can continues to feel weak and fatigued. She has no stridor. Selected Entries 10/28/17 07:24 Temperature 98.3 F Pulse Rate 55 L Respiratory 16 Rate Blood Pressure 128/68 H O2 Sat by Pulse 100 Oximetry Oxygen Delivery Room Air Method 10/28/17 10/28/17 10/28/17 04:45 04:45 05:45 WBC 4.4 Hgb 11.0 L Hct 32.4 L Plt Count 74 L ABG pH 7.54 H ABG pCO2 19.7 L* ABG pO2 118.5 H ABG O2 Saturation 98.8 H FiO2 ROOM AIR Sodium 141.2 Potassium 3.8 Chloride 116 H Carbon Dioxide 19 L BUN 19 Creatinine 0.88 Est GFR ( Amer) > 60 Glucose 91 Calcium 8.4 Phosphorus 2.6 Magnesium 1.9 On examination the patient is well-built and well-nourished, and well-groomed and in no acute distress. HEAD: Head is atraumatic normocephalic. EYES: Pupils are equal round regular reactive to light accommodation, extraocular movements are normal. There is no conjunctival pallor and no scleral icterus. ENT is negative. NECK: Neck is supple there is no JVD carotids equal there is no bruit there is no goiter there is no lymphadenopathy trachea central. LUNGS: Lungs are clear to auscultation percussion, without any rhonchi rales or wheezing. There is no chest wall tenderness. HEART: S1-S2 is heard there is no S3 gallop there is no S4 gallop the systolic murmur left sternal border and the apex there is no rub. ABDOMEN: Abdomen is soft nontender there is no hepatosplenomegaly megaly bowel sounds well heard, and there is no tender areas of masses. EXTREMITIES: Femorals are well felt. No femoral bruits neck pulses are well felt there is no pedal edema. There is no cyanosis or clubbing. There is no DVT or cellulitis. There is no calf tenderness. 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 PSYCHIATRIC: The patient's judgment and insight are intact her affect is normal. DIAGNOSTICS: EKG: Sinus Bradycardia. Possible left ventricular hypertrophy by voltage. CHEST X-ray: No acute findings. NOTE THE chest x-ray and EKGs were reviewed and interpreted by me. Impression: 1. Bradycardia: Stable blood pressure, and no untoward hemodynamic effects. Most likely this may be due to high vagal tone. Also note that angioedema can cause bradycardia due to ischemia of the right coronary artery due to spasm, also may cause histamine induced ischemia after sinno atrial node. [SA NODE). 2. Angioedema due to SERAFIN inhibitor, now resolved. SERAFIN inhibitors has been listed as an allergy. 3. Hypertension: Well controlled. 4. Colon Cancer: On chemotherapy. Patient was seen by oncologist, and the patient will resume outpatient chemotherapy. At present patient's cardiac status is stable. In addition to avoidance of SERAFIN inhibitors, would also at present avoid any ASA or AV marcus blocking agents such as beta blockers or calcium channel blockers which have SA and AV marcus effects. Would recommend outpatient IV Lexiscan Cardiolite stress test, since the patient does have risk factors for coronary artery disease, a 30 day event monitor to assess for any recurrence of significant/high-grade AV blocks, also would recommend a exercise treadmill stress test with or without Cardiolite to see if the patient has chronotropic incompetence, in which case if the patient does have chronotropic incompetence may require a permanent pacemaker. Note that the patient is a full code her sister is a surrogate healthcare decision maker. The patient medications were reviewed. 35 minutes spent on this patient, with more than 50% of the time spent in direct patient care medical decision making is of moderate complexity. We will follow with you discussed with the patient and with the attending physician and other caregiving providers on this case.
[2017-10-29] MEDS: HYDRALAZINE HCL 25 MG TABLET PO SCH ×4 (00:47→17:02)
[2017-10-29] MEDS: NORMAL SALINE 1000 ML 1,000 ML IV PRN ×2 (01:50→12:25)
[2017-10-29 05:20] LABS: HEMATOCRIT 34.1 % (36.0-47.0); HEMOGLOBIN 11.8 g/dL (12.0-15.5); MEAN CORPUSCULAR HEMOGLOBIN 33.8 pg (27.0-33.4); MEAN CORPUSCULAR HGB CONC 34.5 g/dL (32.0-36.0); MEAN CORPUSCULAR VOLUME 98 fl (80-97); RED BLOOD COUNT 3.48 10^6/uL (3.72-5.28); RED CELL DISTRIBUTION WIDTH 24.8 % (11.5-14.0); WHITE BLOOD COUNT 3.6 10^3/uL (4.0-10.5)
[2017-10-29 06:22] LABS: ANION GAP 7 (5-19); BLOOD UREA NITROGEN 12 mg/dL (7-20); CALCIUM 8.7 mg/dL (8.4-10.2); CARBON DIOXIDE 20 mmol/L (22-30); CHLORIDE 113 mmol/L (98-107); GLUCOSE 72 mg/dL (75-110); POTASSIUM 3.9 mmol/L (3.6-5.0); SODIUM 139.8 mmol/L (137-145)
[2017-10-29] MEDS: LANSOPRAZOLE 30 MG TAB.RAP.DR PO SCH (07:03)
[2017-10-29 07:10] LABS: PLATELET COUNT 56 10^3/uL (150-450)
[2017-10-29 07:15] LABS: ABSOLUTE LYMPHOCYTES# (MANUAL) 1.3 10^3/uL (0.5-4.7); ABSOLUTE MONOCYTES # (MANUAL) 0.7 10^3/uL (0.1-1.4); ABSOLUTE NEUTROPHILS# (MANUAL) 1.6 10^3/uL (1.7-8.2); BASOPHILS % (MANUAL) 0 % (0-2); EOSINOPHILS % (MANUAL) 2 % (0-6); LYMPHOCYTES % (MANUAL) 35 % (13-45); MONOCYTES % (MANUAL) 19 % (3-13); SEGMENTED NEUTROPHILS % (MAN) 44 % (42-78); TOTAL CELLS COUNTED 100
[2017-10-29 07:20] LABS: ANISOCYTOSIS 3+; HYPOCHROMASIA SLIGHT; OVALOCYTES 1+; POIKILOCYTOSIS 1+
[2017-10-29 07:21] LABS: PLATELET COMMENT DECREASED
[2017-10-29] MEDS: ENOXAPARIN SODIUM INJ 40 MG/0.4 ML DISP.SYRIN SUBCUT SCH (09:37)
[2017-10-29] MEDS: DOCUSATE SODIUM 100 MG CAPSULE PO SCH ×2 (09:41→17:02)
[2017-10-29] MEDS: POTASSIUM CHLORIDE 20 MEQ/15 ML UDCUP PO SCH (09:41)
--- NOTE | 2017-10-29 15:27 | PDOC PROGRESS REPORT ---
Subjective Progress Note for:: 10/29/17 Subjective:: Patient is still very concern about constipation. She reported abdominal discomfort due to poor bowel movement. No nausea or vomiting. She still report occasional reflux episode. No chest pain or difficulty with breathing. Reason For Visit: UPPER AIRWAY OBSTRUCTION DUE TO ANGIOEDEMA FROM Physical Exam Vital Signs: Temp Pulse Resp BP Pulse Ox 99.6 F 61 16 131/72 H 100 10/29/17 11:21 10/29/17 14:00 10/29/17 11:21 10/29/17 11:21 10/29/17 11:21 Intake & Output 10/28/17 10/29/17 10/30/17 06:59 06:59 06:59 Intake Total 1641 2559 50 Output Total 1500 900 Balance 141 1659 50 Weight 64.5 kg 64.2 kg Physical Exam: General appearance: PRESENT: no acute distress Head exam: PRESENT: atraumatic, normocephalic Eye exam: PRESENT: conjunctiva pink, EOMI, PERRLA. ABSENT: scleral icterus Mouth exam: PRESENT: moist, tongue midline - with resolution of her angioedema Respiratory exam: PRESENT: clear to auscultation pauline, decreased breath sounds - at lung bases Cardiovascular exam: PRESENT: RRR, Bradycardia ABSENT: diastolic murmur, rubs, systolic murmur GI/Abdominal exam: PRESENT: normal bowel sounds, soft. ABSENT: distended, guarding, mass, organomegaly, rebound, tenderness Gentrourinary exam: PRESENT: indwelling catheter - satisfactory urine output Extremities exam: ABSENT: pedal edema Musculoskeletal exam: PRESENT: normal inspection Neurological exam: PRESENT: awake. ABSENT: oriented to place Psychiatric exam: PRESENT: other - soft wrist restraints in use due to intermittent agitation. ABSENT: homicidal ideation, suicidal ideation Skin exam: PRESENT: dry, intact, warm. ABSENT: cyanosis, rash Results Laboratory Results: 10/29/17 05:00 10/29/17 05:00 10/29/17 10/29/17 05:00 05:00 WBC 3.6 L RBC 3.48 L Hgb 11.8 L Hct 34.1 L MCV 98 H MCH 33.8 H MCHC 34.5 RDW 24.8 H Plt Count 56 L Seg Neutrophils % Not Reportable Lymphocytes % Not Reportable Monocytes % Not Reportable Eosinophils % Not Reportable Basophils % Not Reportable Absolute Neutrophils Not Reportable Absolute Lymphocytes Not Reportable Absolute Monocytes Not Reportable Absolute Eosinophils Not Reportable Absolute Basophils Not Reportable Sodium 139.8 Potassium 3.9 Chloride 113 H Carbon Dioxide 20 L Anion Gap 7 BUN 12 Creatinine 0.66 Est GFR ( Amer) > 60 Est GFR (Non-Af Amer) > 60 Glucose 72 L Calcium 8.7 10/26/17 10/26/17 08:54 08:54 Creatine Kinase 50 CK-MB (CK-2) 0.49 Troponin I 0.036 Impressions: Chest X-Ray 10/28/17 06:00 IMPRESSION: Stable chest without acute or suspicious findings. Assessment & Plan - Diagnosis (1) SERAFIN inhibitor-aggravated angioedema Qualifiers: Encounter type: initial encounter Qualified Code(s): T78.3XXA - Angioneurotic edema, initial encounter; T46.4X5A - Adverse effect of angiotensin -converting-enzyme inhibitors, initial encounter; T46.4X5A - Adverse effect of iyxaibdqymk-dbkgserufl-bavdij inhibitors, initial encounter Is this a current diagnosis for this admission?: Yes Plan: Resolved with improved airway status. (2) Disorder of upper airway Is this a current diagnosis for this admission?: Yes Plan: Resolved with improved airway status. (3) HTN (hypertension) Is this a current diagnosis for this admission?: Yes Plan: See attending physician orders. Maintain on Hydralazine 25 mg po q6 hours with parameters. (4) Adenocarcinoma of sigmoid colon Is this a current diagnosis for this admission?: Yes Plan: See attending physician orders. Follow up on oncologist recommendations. Monitor anemia and transfuse as indicated. (5) Bradycardia Is this a current diagnosis for this admission?: Yes (6) Thrombocytopenia due to drugs Is this a current diagnosis for this admission?: Yes Plan: D/C Ceftriaxone due to worsening thrombocytopenia. (7) Gram-negative infection Is this a current diagnosis for this admission?: Yes Plan: D/C IV Rocephin coverage due to worsening thrombocytopenia. Star on oral Bactrim DS 1 tablet po bid. Follow up on urine culture for organism identification and sensitivity findings. - Time Time Spent with patient: 25-34 minutes Medications reviewed and adjusted accordingly: Yes Anticipated discharge: Home Within: Other - Inpatient Certification Based on my medical assessment, after consideration of the patient's comorbidities, presenting symptoms, or acuity I expect that the services needed warrant INPATIENT care.: Yes I certify that my determination is in accordance with my understanding of Medicare's requirements for reasonable and necessary INPATIENT services [42 CFR 412.3e].: Yes Medical Necessity: Need Close Monitoring Due to Risk of Patient Decompensation, Need For Continuous Telemetry Monitoring, Need for IV Antibiotics, Risk of Complication if Not Cared For in Hospital - Plan Summary Plan Summary: See covering attending physician orders.
[2017-10-29] MEDS ORDERED: BISACODYL 10 MG SUPP.RECT PR ONE (16:00)
[2017-10-29] MEDS: SULFAMETHOXAZOLE/TRIMETHOPRIM 800-160 MG TABLET PO SCH (17:02)
--- NOTE | 2017-10-29 22:35 | PROGRESS NOTE E ---
Progress Note NAME: BELINDA MCCULLOUGH : 1955 AGE: 62Y DATE: 10/29/2017 ROOM: 333 SUBJECTIVE: The patient's heart rate is much improved, although at present it is 60, goes up to 64 beats per minute. She denies any chest pain or discomfort. The patient continues to have some fatigue but no shortness of breath, PND, orthopnea, or angina symptoms. There is no dizziness or syncope or near syncope or syncopal symptoms. There are no TIA or CVA symptoms. There is no leg edema. The patient has some constipation. OBJECTIVE: GENERAL: On examination the patient is well-built and well-nourished, in no acute distress. VITAL SIGNS: She *------* degrees Fahrenheit, pulse of 60 beats per minute, blood pressure 131/72, respirations are 16 per minute, O2 saturations are 100% on room air. HEENT: Head is atraumatic, normocephalic. Eyes: Pupils are equal, round and regular, reactive to light and accommodation. Extraocular movements are normal. There is no conjunctival pallor. There is no scleral icterus. ENT is negative. Mouth and throat there is no evidence of any swelling in the mucous membranes or redness of the oropharynx or swelling of the oropharynx. NECK: Supple. There is no JVD. There is no lymphadenopathy. Carotids are equal. There is no bruit. There is no goiter. Trachea is central. LUNGS: Clear to auscultation bilaterally with no wheezing, rales, or rhonchi. There is no chest wall tenderness. There is no stridor. HEART: S1, S2 is heard. There is no S3 gallop. There is no S4 gallop. There is a systolic murmur in the left sternal border and the apex. There is no rub. ABDOMEN: Is normal with no hepatosplenomegaly. Bowel sounds are well heard. There are no tender areas or masses. EXTREMITIES: Femorals are well felt. There are no femoral bruits. Leg pulses are well felt. There is no pedal edema. There is no cyanosis or clubbing. There is no DVT or cellulitis. There is no calf tenderness. CENTRAL NERVOUS SYSTEM: The patient is conscious, awake, alert and oriented x3 with no focal deficits. PSYCHIATRIC: The patient's judgment and insight are intact. Her affect is normal. LABORATORY DATA: The patient's sodium is 139.8, potassium 3.9, chloride is 113, CO2 is 20. The patient's BUN is 12, creatinine 0.66, GFR is greater than 60, glucose is 72, calcium is 8.7. The patient's white count is 3600, hemoglobin is 11.8, hematocrit is 34.1, and the platelet count is 56,000. IMPRESSION: 1. BRADYCARDIA SEEMS TO HAVE RESOLVED. THE PATIENT'S HEART RATE DOWN TO 60. Mechanisms have been discussed earlier. The patient would be recommended to have a 30 day event monitor and also would recommend that the patient have an echocardiogram and also a stress test in the form of an exercise treadmill stress test with or without Cardiolite. 2. ANGIOEDEMA DUE TO SERAFIN INHIBITORS, RESOLVED. The patient educated that she is allergic to all SERAFIN inhibitors. 3. HYPERTENSION, WELL-CONTROLLED. 4. COLON CANCER, ON CHEMOTHERAPY. RECOMMENDATIONS: At present cardiac status is stable. Would avoid any SA or AV marcus blocking agents. Will get a 30 day event monitor and we will get an outpatient exercise treadmill stress Cardiolite or plain x-rays treadmill to see if the patient has chronotropic incompetence. In which case the patient may end up needing a pacemaker. Also would recommend getting an echo to assess for the bradycardia to see if there is any valvular pathology contributing to the patient's pathology. Note that the patient's medications have been reviewed. Medical decision making is of moderate complexity. The patient will follow up with me in the office as she so desires. My cell number has been given to the patient. We will get the 30 day event monitor, echo, and a stress test as an outpatient. CODE STATUS: The patient's code status is unchanged. Surrogate healthcare decision maker is unchanged. TIME SPENT: Thirty-five minutes spent on the patient with more than 50% of the time spent on direct patient care. The patient's cardiac status is stable. We will sign off. Thank you for consulting me on this patient. Discussed with the attending physician. DICTATING PHYSICIAN: DANIEL GOODE M.D. [id number] PHY#: [id number] ID: [id number] JOB#: [id number] ACCT: [id number] cc: >
--- NOTE | 2017-10-29 23:10 | PROGRESS NOTE E ---
Progress Note NAME: BELINDA MCCULLOUGH : 1955 AGE: 62Y DATE: 10/27/2017 ROOM: 333 The former dictation did not go through, hence, re-dictated. SUBJECTIVE: The patient complains of generalized fatigue and weakness, but no shortness of breath. There is no PND, orthopnea, leg edema, or dizziness or syncope. She has no anginal symptoms. The patient continues to be bradycardic and she has no stridor. OBJECTIVE: GENERAL: On examination the patient is well-built and well-nourished, in no acute distress. VITAL SIGNS: She is afebrile with a temperature of 98.1 degrees Fahrenheit, pulse of 46 beats per minute, blood pressure 143/81, respirations are 15 per minute, O2 saturations are 100% on room air. HEENT: Head is atraumatic, normocephalic. Eyes: Pupils are equal, round and regular, reactive to light and accommodation. Extraocular movements are normal. There is no conjunctival pallor. There is no scleral icterus. ENT is negative. NECK: Supple. There is no JVD. There is no stridor. There is no lymphadenopathy. There is no goiter. Carotids are equal. There is no bruit. Trachea is central. LUNGS: Clear to auscultation and percussion without rhonchi, rales, or wheezing. There is no chest wall tenderness. HEART: S1, S2 is heard. There is no S3 gallop. There is no S4 gallop. There is a systolic murmur in the left sternal border and the apex. There is no rub. ABDOMEN: Soft, nontender. There is no hepatosplenomegaly. Bowel sounds are well heard. EXTREMITIES: Femorals are well felt. There are no femoral bruits. Leg pulses are well felt. There is no pedal edema. There is no cyanosis or clubbing. There is no DVT or cellulitis. There is no calf tenderness. CENTRAL NERVOUS SYSTEM: The patient is awake, alert and oriented x3 with no focal deficits. PSYCHIATRIC: The patient's judgment and insight are intact. Her affect is normal. DIAGNOSTICS: The patient's EKG done on 10/27/17 shows sinus bradycardia within normal limits, heart rate is 46 beats per minute. The patient's white count is 5500, hemoglobin is 11.1, hematocrit is 32.5, platelet count is 99,000. The patient's sodium is 141.7, potassium 4.3, chloride is 116, CO2 is low at 19. The patient's BUN is 21, creatinine 0.63, GFR is greater than 60, glucose is 114, calcium is 8.9, magnesium is 2.2. IMPRESSION: 1. BRADYCARDIA, STABLE. BLOOD PRESSURE IS STABLE WITH NO UNTOWARD HEMODYNAMIC EFFECT. This may be due to *------* and also could be secondary to bradycardia due to the ischemia of the right coronary artery due to spasm and also due to histamine and histamine may also induce ischemia after sinoatrial (SA node). 2. ANGIOEDEMA DUE TO SERAFIN INHIBITORS. 3. HYPERTENSION WELL-CONTROLLED. 4. CANCER ON CHEMOTHERAPY. The patient will be seen by oncologist and regarding continuation of her chemotherapy. 5. THROMBOCYTOPENIA, MOST LIKELY SECONDARY TO THE PATIENT'S CHEMOTHERAPY. RECOMMENDATIONS: At present no indication for permanent pacemaker as the patient later would be asked to exercise to see if there is chronotropic incompetence, in which case she would well may need a permanent pacemaker. I do not see that at present. We will follow with you. TIME SPENT: Note 40 minutes spent on this patient with more than 50% of the time spent on direct patient care. Her medications have been reviewed. Would avoid all SA marcus and AV marcus blocking agents. CODE STATUS: Note that the patient is a full code. Her sister is the surrogate healthcare decision maker. We will follow with you. Discussed with the attending physician on the case. Medical decision making is of moderate complexity. Please note that this is a re-dictation for the progress note on 10/27/17. DICTATING PHYSICIAN: DANIEL GOODE M.D. [id number] PHY#: [id number] ID: [id number] JOB#: [id number] ACCT: [id number] cc: >
[2017-10-30] MEDS: SULFAMETHOXAZOLE/TRIMETHOPRIM 800-160 MG TABLET PO SCH ×2 (06:37→18:02)
[2017-10-30] MEDS: HYDRALAZINE HCL 25 MG TABLET PO SCH ×5 (06:37→23:43)
[2017-10-30] MEDS: LANSOPRAZOLE 30 MG TAB.RAP.DR PO SCH (06:37)
[2017-10-30 06:47] LABS: HEMATOCRIT 32.9 % (36.0-47.0); HEMOGLOBIN 11.3 g/dL (12.0-15.5); MEAN CORPUSCULAR HEMOGLOBIN 33.7 pg (27.0-33.4); MEAN CORPUSCULAR HGB CONC 34.3 g/dL (32.0-36.0); MEAN CORPUSCULAR VOLUME 98 fl (80-97); RED BLOOD COUNT 3.35 10^6/uL (3.72-5.28); RED CELL DISTRIBUTION WIDTH 24.5 % (11.5-14.0)
[2017-10-30 06:51] LABS: ALANINE AMINOTRANSFERASE 36 U/L (9-52); ALBUMIN 2.7 g/dL (3.5-5.0); ALKALINE PHOSPHATASE 131 U/L (38-126); ANION GAP 7 (5-19); ASPARTATE AMINO TRANSFERASE 32 U/L (14-36); BILIRUBIN,DIRECT 0.2 mg/dL (0.0-0.4); BILIRUBIN,TOTAL 1.8 mg/dL (0.2-1.3); BLOOD UREA NITROGEN 12 mg/dL (7-20); CALCIUM 8.8 mg/dL (8.4-10.2); CARBON DIOXIDE 21 mmol/L (22-30); CHLORIDE 109 mmol/L (98-107); GLUCOSE 84 mg/dL (75-110); POTASSIUM 3.8 mmol/L (3.6-5.0); SODIUM 136.8 mmol/L (137-145); TOTAL PROTEIN 5.6 g/dL (6.3-8.2)
[2017-10-30 07:33] LABS: PLATELET COUNT 53 10^3/uL (150-450)
[2017-10-30 07:36] LABS: ABSOLUTE LYMPHOCYTES# (MANUAL) 1.3 10^3/uL (0.5-4.7); ABSOLUTE MONOCYTES # (MANUAL) 0.9 10^3/uL (0.1-1.4); ABSOLUTE NEUTROPHILS# (MANUAL) 1.8 10^3/uL (1.7-8.2); BASOPHILS % (MANUAL) 0 % (0-2); EOSINOPHILS % (MANUAL) 0 % (0-6); HYPOCHROMASIA 1+; LYMPHOCYTES % (MANUAL) 32 % (13-45); MONOCYTES % (MANUAL) 23 % (3-13); OVALOCYTES 1+; PLATELET COMMENT DECREASED; POIKILOCYTOSIS 1+; POLYCHROMASIA SLIGHT; SCHISTOCYTES SLIGHT; SEGMENTED NEUTROPHILS % (MAN) 44 % (42-78); TOTAL CELLS COUNTED 100; TOXIC GRANULATION SLIGHT
--- NOTE | 2017-10-30 08:20 | PDOC PROGRESS REPORT ---
Subjective Progress Note for:: 10/30/17 Subjective:: Ms. Hurtado states that she is ready to go home. She had constipation last night , but was told that she may be able to go home today. ROS: She is eating well, ambulating. No fever. Some abdominal pain due to constipation. Frequency. No dyspnea. Reason For Visit: UPPER AIRWAY OBSTRUCTION DUE TO ANGIOEDEMA FROM Physical Exam Vital Signs: Temp Pulse Resp BP Pulse Ox 98.7 F 69 20 120/67 99 10/30/17 04:38 10/30/17 04:38 10/30/17 04:38 10/30/17 04:38 10/30/17 04:38 Intake & Output 10/29/17 10/30/17 10/31/17 06:59 06:59 06:59 Intake Total 2559 1812 Output Total 900 0 Balance 1659 1812 Weight 64.2 kg 63.4 kg General appearance: PRESENT: no acute distress, well-developed, well-nourished Exam: 62 year old female. Mouth exam: PRESENT: moist Respiratory exam: PRESENT: crackles - Bibasilar, unlabored Cardiovascular exam: PRESENT: RRR GI/Abdominal exam: PRESENT: soft, tenderness Extremities exam: ABSENT: pedal edema Neurological exam: PRESENT: alert, awake Psychiatric exam: PRESENT: appropriate affect Skin exam: PRESENT: normal color Results Laboratory Results: 10/30/17 06:14 10/30/17 06:14 10/30/17 10/30/17 06:14 06:14 WBC 4.0 RBC 3.35 L Hgb 11.3 L Hct 32.9 L MCV 98 H MCH 33.7 H MCHC 34.3 RDW 24.5 H Plt Count 53 L Seg Neutrophils % Not Reportable Lymphocytes % Not Reportable Monocytes % Not Reportable Eosinophils % Not Reportable Basophils % Not Reportable Absolute Neutrophils Not Reportable Absolute Lymphocytes Not Reportable Absolute Monocytes Not Reportable Absolute Eosinophils Not Reportable Absolute Basophils Not Reportable Sodium 136.8 L Potassium 3.8 Chloride 109 H Carbon Dioxide 21 L Anion Gap 7 BUN 12 Creatinine 0.77 Est GFR ( Amer) > 60 Est GFR (Non-Af Amer) > 60 Glucose 84 Calcium 8.8 Total Bilirubin 1.8 H AST 32 ALT 36 Alkaline Phosphatase 131 H Total Protein 5.6 L Albumin 2.7 L 10/27/17 16:45 Catheterized Urine Urine Culture - Final Klebsiella Pneumoniae 10/26/17 10/26/17 08:54 08:54 Creatine Kinase 50 CK-MB (CK-2) 0.49 Troponin I 0.036 Impressions: Chest X-Ray 10/28/17 06:00 IMPRESSION: Stable chest without acute or suspicious findings. Assessment & Plan - Diagnosis (1) Adenocarcinoma of sigmoid colon Is this a current diagnosis for this admission?: Yes Plan: Will plan to resume chemotherapy after discharge. (2) Anemia Qualifiers: Other causes of anemia: antineoplastic chemotherapy Is this a current diagnosis for this admission?: Yes Plan: Mild and stable. (3) Thrombocytopenia due to drugs Is this a current diagnosis for this admission?: Yes Plan: Will continue to monitor as an outpatient. This should improve over the next few days. - Plan Summary Plan Summary: I agree with plans for discharge. Would continue the oral ABX for UTI. She will follow-up with me later this week.
[2017-10-30] MEDS: DOCUSATE SODIUM 100 MG CAPSULE PO SCH ×2 (10:00→18:19)
[2017-10-30] MEDS: POTASSIUM CHLORIDE 20 MEQ/15 ML UDCUP PO SCH (10:01)
[2017-10-30] MEDS: ENOXAPARIN SODIUM INJ 40 MG/0.4 ML DISP.SYRIN SUBCUT SCH (10:01)
--- NOTE | 2017-10-30 12:54 | PDOC PROGRESS REPORT ---
Subjective Progress Note for:: 10/30/17 Subjective:: Stable at this time without complaints Reason For Visit: UPPER AIRWAY OBSTRUCTION DUE TO ANGIOEDEMA FROM Physical Exam Vital Signs: Temp Pulse Resp BP Pulse Ox 98.5 F 64 16 120/66 99 10/30/17 07:59 10/30/17 07:59 10/30/17 07:59 10/30/17 07:59 10/30/17 07:59 Intake & Output 10/29/17 10/30/17 10/31/17 06:59 06:59 06:59 Intake Total 2559 1812 Output Total 900 0 Balance 1659 1812 Weight 64.2 kg 63.4 kg General appearance: PRESENT: no acute distress, cooperative, well-developed, well-nourished Head exam: PRESENT: atraumatic, normocephalic Eye exam: PRESENT: conjunctiva pale, EOMI. ABSENT: nystagmus, periorbital swelling, scleral icterus Mouth exam: PRESENT: dry mucosa, neck supple, tongue midline Neck exam: ABSENT: carotid bruit, JVD, lymphadenopathy, thyromegaly, tracheal deviation, tracheostomy Respiratory exam: PRESENT: decreased breath sounds, prolonged expiratory phas, rhonchi, unlabored. ABSENT: rales, retraction, stridor Cardiovascular exam: PRESENT: RRR, +S1, +S2 Pulses: PRESENT: normal radial pulses GI/Abdominal exam: PRESENT: normal bowel sounds, soft Extremities exam: ABSENT: calf tenderness, clubbing, joint swelling Musculoskeletal exam: ABSENT: deformity, dislocation Neurological exam: PRESENT: alert, awake Psychiatric exam: PRESENT: flat affect Skin exam: PRESENT: dry, warm Results Laboratory Results: 10/30/17 06:14 10/30/17 06:14 10/30/17 10/30/17 06:14 06:14 WBC 4.0 RBC 3.35 L Hgb 11.3 L Hct 32.9 L MCV 98 H MCH 33.7 H MCHC 34.3 RDW 24.5 H Plt Count 53 L Seg Neutrophils % Not Reportable Lymphocytes % Not Reportable Monocytes % Not Reportable Eosinophils % Not Reportable Basophils % Not Reportable Absolute Neutrophils Not Reportable Absolute Lymphocytes Not Reportable Absolute Monocytes Not Reportable Absolute Eosinophils Not Reportable Absolute Basophils Not Reportable Sodium 136.8 L Potassium 3.8 Chloride 109 H Carbon Dioxide 21 L Anion Gap 7 BUN 12 Creatinine 0.77 Est GFR ( Amer) > 60 Est GFR (Non-Af Amer) > 60 Glucose 84 Calcium 8.8 Total Bilirubin 1.8 H AST 32 ALT 36 Alkaline Phosphatase 131 H Total Protein 5.6 L Albumin 2.7 L 10/27/17 16:45 Catheterized Urine Urine Culture - Final Klebsiella Pneumoniae 10/26/17 10/26/17 08:54 08:54 Creatine Kinase 50 CK-MB (CK-2) 0.49 Troponin I 0.036 Impressions: Chest X-Ray 10/28/17 06:00 IMPRESSION: Stable chest without acute or suspicious findings. Assessment & Plan - Diagnosis (1) SERAFIN inhibitor-aggravated angioedema Qualifiers: Encounter type: initial encounter Qualified Code(s): T78.3XXA - Angioneurotic edema, initial encounter; T46.4X5A - Adverse effect of angiotensin -converting-enzyme inhibitors, initial encounter; T46.4X5A - Adverse effect of nudencyigpo-xwbsangkxl-wumucp inhibitors, initial encounter Is this a current diagnosis for this admission?: Yes Plan: Extubated has been doing well for the last 72 hours (2) Adenocarcinoma of sigmoid colon Is this a current diagnosis for this admission?: Yes Plan: Recently received chemotherapy (3) HTN (hypertension) Is this a current diagnosis for this admission?: Yes Plan: Stable at this time (4) Thrombocytopenia Is this a current diagnosis for this admission?: Yes Plan: Labs- All tests 24 hr 10/22/17 10/23/17 10/24/17 04:39 04:22 03:49 Plt Count 169 186 167 10/25/17 10/26/17 10/27/17 04:02 03:44 04:10 Plt Count 132 L 110 L 99 L 10/28/17 10/29/17 10/30/17 04:45 05:00 06:14 Plt Count 74 L 56 L 53 L (5) Metabolic acidosis Is this a current diagnosis for this admission?: Yes
--- NOTE | 2017-10-30 14:08 | PDOC PROGRESS REPORT ---
Subjective Progress Note for:: 10/30/17 Subjective:: Patient denied any chest pain or difficulty with breathing. She had satisfactory bowel movement since last evaluation visit. No nausea or vomiting. No fever or chills. Reason For Visit: UPPER AIRWAY OBSTRUCTION DUE TO ANGIOEDEMA FROM Physical Exam Vital Signs: Temp Pulse Resp BP Pulse Ox 98.8 F 125 H 16 126/71 H 100 10/30/17 12:01 10/30/17 12:01 10/30/17 12:01 10/30/17 12:01 10/30/17 12:01 Intake & Output 10/29/17 10/30/17 10/31/17 06:59 06:59 06:59 Intake Total 2559 1812 Output Total 900 0 Balance 1659 1812 Weight 64.2 kg 63.4 kg Physical Exam: General appearance: PRESENT: no acute distress Head exam: PRESENT: atraumatic, normocephalic Eye exam: PRESENT: conjunctiva pink, EOMI, PERRLA. ABSENT: scleral icterus Mouth exam: PRESENT: moist, tongue midline - with resolution of her angioedema Respiratory exam: PRESENT: clear to auscultation pauline, decreased breath sounds - at lung bases Cardiovascular exam: PRESENT: RRR, Bradycardia ABSENT: diastolic murmur, rubs, systolic murmur GI/Abdominal exam: PRESENT: normal bowel sounds, soft. ABSENT: distended, guarding, mass, organomegaly, rebound, tenderness Gentrourinary exam: PRESENT: indwelling catheter - satisfactory urine output Extremities exam: ABSENT: pedal edema Musculoskeletal exam: PRESENT: normal inspection Neurological exam: PRESENT: awake. ABSENT: oriented to place Psychiatric exam: PRESENT: other - soft wrist restraints in use due to intermittent agitation. ABSENT: homicidal ideation, suicidal ideation Skin exam: PRESENT: dry, intact, warm. ABSENT: cyanosis, rash Results Laboratory Results: 10/30/17 06:14 10/30/17 06:14 10/30/17 10/30/17 06:14 06:14 WBC 4.0 RBC 3.35 L Hgb 11.3 L Hct 32.9 L MCV 98 H MCH 33.7 H MCHC 34.3 RDW 24.5 H Plt Count 53 L Seg Neutrophils % Not Reportable Lymphocytes % Not Reportable Monocytes % Not Reportable Eosinophils % Not Reportable Basophils % Not Reportable Absolute Neutrophils Not Reportable Absolute Lymphocytes Not Reportable Absolute Monocytes Not Reportable Absolute Eosinophils Not Reportable Absolute Basophils Not Reportable Sodium 136.8 L Potassium 3.8 Chloride 109 H Carbon Dioxide 21 L Anion Gap 7 BUN 12 Creatinine 0.77 Est GFR ( Amer) > 60 Est GFR (Non-Af Amer) > 60 Glucose 84 Calcium 8.8 Total Bilirubin 1.8 H AST 32 ALT 36 Alkaline Phosphatase 131 H Total Protein 5.6 L Albumin 2.7 L 10/27/17 16:45 Catheterized Urine Urine Culture - Final Klebsiella Pneumoniae 10/26/17 10/26/17 08:54 08:54 Creatine Kinase 50 CK-MB (CK-2) 0.49 Troponin I 0.036 Impressions: Chest X-Ray 10/28/17 06:00 IMPRESSION: Stable chest without acute or suspicious findings. Assessment & Plan - Diagnosis (1) SERAFIN inhibitor-aggravated angioedema Qualifiers: Encounter type: initial encounter Qualified Code(s): T78.3XXA - Angioneurotic edema, initial encounter; T46.4X5A - Adverse effect of angiotensin -converting-enzyme inhibitors, initial encounter; T46.4X5A - Adverse effect of pcauhnqrtld-lkekiukhfw-jfecct inhibitors, initial encounter Is this a current diagnosis for this admission?: Yes (2) Disorder of upper airway Is this a current diagnosis for this admission?: Yes (3) HTN (hypertension) Is this a current diagnosis for this admission?: Yes (4) Adenocarcinoma of sigmoid colon Is this a current diagnosis for this admission?: Yes (5) Bradycardia Is this a current diagnosis for this admission?: Yes (6) Thrombocytopenia due to drugs Is this a current diagnosis for this admission?: Yes Plan: Worsening thrombocytopenia despite medication adjustment. She has been getting Lovenox administration which may contribute to this problem. We will hold of Lovenox, obtain coagulation studies and request further hematology/oncology input before discharge. (7) Gram-negative infection Is this a current diagnosis for this admission?: Yes (8) Klebsiella cystitis Is this a current diagnosis for this admission?: Yes Plan: Maintain on oral Bactrim DS therapy. - Time Time Spent with patient: 25-34 minutes Medications reviewed and adjusted accordingly: Yes Anticipated discharge: Home Within: Other - Inpatient Certification Based on my medical assessment, after consideration of the patient's comorbidities, presenting symptoms, or acuity I expect that the services needed warrant INPATIENT care.: Yes I certify that my determination is in accordance with my understanding of Medicare's requirements for reasonable and necessary INPATIENT services [42 CFR 412.3e].: Yes Medical Necessity: Need Close Monitoring Due to Risk of Patient Decompensation, Need For Continuous Telemetry Monitoring, Risk of Complication if Not Cared For in Hospital Post Hospital Care: D/C Lab Animal Technologist Documentation - Plan Summary Plan Summary: See attending physician orders.
[2017-10-30 15:09] LABS: FIBRINOGEN 385 mg/dL (209-497); PROTHROMBIN TIME 15.8 SEC (11.4-15.4)
[2017-10-30 15:10] LABS: PARTIAL THROMBOPLASTIN TIME 43.4 SEC (23.5-35.8)
[2017-10-30 15:12] LABS: D-DIMER 2.36 ug/mL (0.00-0.50)
[2017-10-30] MEDS: POLYETHYLENE GLYCOL 3350 POWDER 17 GM/1 PACKET PO PRN (18:02)
--- NOTE | 2017-10-30 20:21 | PDOC PROGRESS REPORT ---
Subjective Progress Note for:: 10/30/17 Subjective:: I was called this evening to see patient again. Please see note from earlier today. She does have thrombocytopenia. However, this is most likely secondary to medication. I will continue to follow this as outpatient. Ok to continue Lovenox as long as PLT>50, if patient is not discharged. I do not believe any further work-up or treatment is necessary prior to discharge. I would stop Lovenox on discharge. Again, I would continue oral antibiotics for the UTI. Please call me directly if there are any further questions. I will sign off. Reason For Visit: UPPER AIRWAY OBSTRUCTION DUE TO ANGIOEDEMA FROM Physical Exam Vital Signs: Temp Pulse Resp BP Pulse Ox 98.9 F 65 18 126/71 H 100 10/30/17 19:30 10/30/17 19:30 10/30/17 19:30 10/30/17 19:30 10/30/17 19:30 Intake & Output 10/29/17 10/30/17 10/31/17 06:59 06:59 06:59 Intake Total 2559 1812 1625 Output Total 900 0 Balance 1659 1812 1625 Weight 64.2 kg 63.4 kg Results Laboratory Results: 10/30/17 06:14 10/30/17 06:14 10/30/17 10/30/17 06:14 06:14 WBC 4.0 RBC 3.35 L Hgb 11.3 L Hct 32.9 L MCV 98 H MCH 33.7 H MCHC 34.3 RDW 24.5 H Plt Count 53 L Seg Neutrophils % Not Reportable Lymphocytes % Not Reportable Monocytes % Not Reportable Eosinophils % Not Reportable Basophils % Not Reportable Absolute Neutrophils Not Reportable Absolute Lymphocytes Not Reportable Absolute Monocytes Not Reportable Absolute Eosinophils Not Reportable Absolute Basophils Not Reportable Sodium 136.8 L Potassium 3.8 Chloride 109 H Carbon Dioxide 21 L Anion Gap 7 BUN 12 Creatinine 0.77 Est GFR ( Amer) > 60 Est GFR (Non-Af Amer) > 60 Glucose 84 Calcium 8.8 Total Bilirubin 1.8 H AST 32 ALT 36 Alkaline Phosphatase 131 H Total Protein 5.6 L Albumin 2.7 L 10/27/17 16:45 Catheterized Urine Urine Culture - Final Klebsiella Pneumoniae 10/26/17 10/26/17 08:54 08:54 Creatine Kinase 50 CK-MB (CK-2) 0.49 Troponin I 0.036 Impressions: Chest X-Ray 10/28/17 06:00 IMPRESSION: Stable chest without acute or suspicious findings. Assessment & Plan - Diagnosis (1) Adenocarcinoma of sigmoid colon Is this a current diagnosis for this admission?: Yes (2) Anemia Qualifiers: Other causes of anemia: antineoplastic chemotherapy Is this a current diagnosis for this admission?: Yes (3) Thrombocytopenia due to drugs Is this a current diagnosis for this admission?: Yes
[2017-10-31] MEDS: HYDRALAZINE HCL 25 MG TABLET PO SCH ×3 (05:08→16:57)
[2017-10-31] MEDS: SULFAMETHOXAZOLE/TRIMETHOPRIM 800-160 MG TABLET PO SCH ×2 (05:10→17:22)
[2017-10-31] MEDS: LANSOPRAZOLE 30 MG TAB.RAP.DR PO SCH (05:10)
[2017-10-31] MEDS: POTASSIUM CHLORIDE 20 MEQ/15 ML UDCUP PO SCH (09:24)
[2017-10-31] MEDS: DOCUSATE SODIUM 100 MG CAPSULE PO SCH ×2 (09:24→17:22)
[2017-10-31] MEDS: POLYETHYLENE GLYCOL 3350 POWDER 17 GM/1 PACKET PO PRN (09:24)
[2017-10-31 10:08] LABS: HEMATOCRIT 34.5 % (36.0-47.0); HEMOGLOBIN 11.7 g/dL (12.0-15.5); MEAN CORPUSCULAR HEMOGLOBIN 33.8 pg (27.0-33.4); MEAN CORPUSCULAR HGB CONC 33.8 g/dL (32.0-36.0); MEAN CORPUSCULAR VOLUME 100 fl (80-97); RED BLOOD COUNT 3.45 10^6/uL (3.72-5.28); RED CELL DISTRIBUTION WIDTH 24.7 % (11.5-14.0); WHITE BLOOD COUNT 3.2 10^3/uL (4.0-10.5)
[2017-10-31 11:04] LABS: PLATELET COUNT 62 10^3/uL (150-450)
[2017-10-31 11:07] LABS: ABSOLUTE LYMPHOCYTES# (MANUAL) 1.4 10^3/uL (0.5-4.7); ABSOLUTE MONOCYTES # (MANUAL) 0.7 10^3/uL (0.1-1.4); BAND NEUTROPHILS % (MANUAL) 1 % (3-5); BASOPHILS % (MANUAL) 0 % (0-2); EOSINOPHILS % (MANUAL) 2 % (0-6); LYMPHOCYTES % (MANUAL) 45 % (13-45); MONOCYTES % (MANUAL) 21 % (3-13); SEGMENTED NEUTROPHILS % (MAN) 31 % (42-78); TOTAL CELLS COUNTED 100
[2017-10-31 11:08] LABS: ANISOCYTOSIS 3+; OVALOCYTES 1+; PLATELET COMMENT DECREASED; POIKILOCYTOSIS 2+; POLYCHROMASIA SLIGHT; SCHISTOCYTES SLIGHT
--- NOTE | 2017-10-31 18:36 | PDOC PROGRESS REPORT ---
Subjective Progress Note for:: 10/31/17 Subjective:: Patient denied any chest pain or difficulty with breathing. No abdominal pain, nausea or vomiting. No fever or chills. There is concern of possible subclinical DIC or other consumption coagulaopathy in view of her coagulation studies findings. Awaiting response of travel consultant on this case. Reason For Visit: UPPER AIRWAY OBSTRUCTION DUE TO ANGIOEDEMA FROM Physical Exam Vital Signs: Temp Pulse Resp BP Pulse Ox 98.8 F 63 16 125/59 L 100 10/31/17 15:00 10/31/17 15:00 10/31/17 15:00 10/31/17 15:00 10/31/17 15:00 Intake & Output 10/30/17 10/31/17 11/01/17 06:59 06:59 06:59 Intake Total 1811 Output Total 0 Balance 1811 Weight 63.4 kg 62.5 kg Physical Exam: General appearance: PRESENT: no acute distress Head exam: PRESENT: atraumatic, normocephalic Eye exam: PRESENT: conjunctiva pink, EOMI, PERRLA. ABSENT: scleral icterus Mouth exam: PRESENT: moist, tongue midline - with resolution of her angioedema Respiratory exam: PRESENT: clear to auscultation pauline, decreased breath sounds - at lung bases Cardiovascular exam: PRESENT: RRR, Bradycardia ABSENT: diastolic murmur, rubs, systolic murmur GI/Abdominal exam: PRESENT: normal bowel sounds, soft. ABSENT: distended, guarding, mass, organomegaly, rebound, tenderness Gentrourinary exam: PRESENT: indwelling catheter - satisfactory urine output Extremities exam: ABSENT: pedal edema Musculoskeletal exam: PRESENT: normal inspection Neurological exam: PRESENT: awake. ABSENT: oriented to place Psychiatric exam: PRESENT: other - soft wrist restraints in use due to intermittent agitation. ABSENT: homicidal ideation, suicidal ideation Skin exam: PRESENT: dry, intact, warm. ABSENT: cyanosis, rash Results Laboratory Results: 10/31/17 09:15 10/30/17 06:14 10/31/17 09:15 WBC 3.2 L RBC 3.45 L Hgb 11.7 L Hct 34.5 L MCV 100 H MCH 33.8 H MCHC 33.8 RDW 24.7 H Plt Count 62 L Seg Neutrophils % Not Reportable Lymphocytes % Not Reportable Monocytes % Not Reportable Eosinophils % Not Reportable Basophils % Not Reportable Absolute Neutrophils Not Reportable Absolute Lymphocytes Not Reportable Absolute Monocytes Not Reportable Absolute Eosinophils Not Reportable Absolute Basophils Not Reportable 10/26/17 10/26/17 08:54 08:54 Creatine Kinase 50 CK-MB (CK-2) 0.49 Troponin I 0.036 Impressions: Chest X-Ray 10/28/17 06:00 IMPRESSION: Stable chest without acute or suspicious findings. Assessment & Plan - Diagnosis (1) SERAFIN inhibitor-aggravated angioedema Qualifiers: Encounter type: initial encounter Qualified Code(s): T78.3XXA - Angioneurotic edema, initial encounter; T46.4X5A - Adverse effect of angiotensin -converting-enzyme inhibitors, initial encounter; T46.4X5A - Adverse effect of pvgnbqrlduc-kardzaidez-tvfcdf inhibitors, initial encounter Is this a current diagnosis for this admission?: Yes (2) Disorder of upper airway Is this a current diagnosis for this admission?: Yes (3) HTN (hypertension) Is this a current diagnosis for this admission?: Yes (4) Adenocarcinoma of sigmoid colon Is this a current diagnosis for this admission?: Yes (5) Bradycardia Is this a current diagnosis for this admission?: Yes (6) Thrombocytopenia due to drugs Is this a current diagnosis for this admission?: Yes (7) Gram-negative infection Is this a current diagnosis for this admission?: Yes (8) Klebsiella cystitis Is this a current diagnosis for this admission?: Yes - Time Time Spent with patient: 25-34 minutes Medications reviewed and adjusted accordingly: Yes Anticipated discharge: Home Within: Other - Inpatient Certification Based on my medical assessment, after consideration of the patient's comorbidities, presenting symptoms, or acuity I expect that the services needed warrant INPATIENT care.: Yes I certify that my determination is in accordance with my understanding of Medicare's requirements for reasonable and necessary INPATIENT services [42 CFR 412.3e].: Yes Medical Necessity: Need Close Monitoring Due to Risk of Patient Decompensation, Need For Continuous Telemetry Monitoring, Risk of Complication if Not Cared For in Hospital Post Hospital Care: D/C Maintenance Shop Clerk Documentation - Plan Summary Plan Summary: I will followup with Dr. Sanders. Obtain CTA chest and lower extremities venous doppler evaluation. Obtain FDP level. Continue all other current medication management.
[2017-11-01] MEDS: HYDRALAZINE HCL 25 MG TABLET PO SCH ×2 (00:47→06:10)
[2017-11-01] MEDS: LANSOPRAZOLE 30 MG TAB.RAP.DR PO SCH (06:12)
[2017-11-01] MEDS: SULFAMETHOXAZOLE/TRIMETHOPRIM 800-160 MG TABLET PO SCH (06:12)
--- NOTE | 2017-11-01 08:26 | PDOC DISCHARGE SUMMARY ---
General - Admit/Disc Date/PCP Admission Date/Primary Care Provider: 10/22/17 05:27 GRACE SWARTZ Discharge Date: 11/01/17 - Discharge Diagnosis (1) SERAFIN inhibitor-aggravated angioedema Is this a current diagnosis for this admission?: Yes Summary: Resolved (2) Disorder of upper airway Is this a current diagnosis for this admission?: Yes Summary: Resolved. (3) HTN (hypertension) Is this a current diagnosis for this admission?: Yes Summary: Controlled on current medication management. (4) Adenocarcinoma of sigmoid colon Is this a current diagnosis for this admission?: Yes Summary: Controlled on current medication management under directive of Dr. Sanders, medical oncologist (5) Bradycardia Is this a current diagnosis for this admission?: Yes Summary: Improved on current mediation management (6) Thrombocytopenia due to drugs Is this a current diagnosis for this admission?: Yes Summary: Improving with need for close monitoring by her oncology team. (7) Gram-negative infection Is this a current diagnosis for this admission?: Yes Summary: Resolved. (8) Klebsiella cystitis Is this a current diagnosis for this admission?: Yes Summary: Resolved - Additional Information Resuscitation Status: Full Code Prescriptions: Calcium Carbonate [Tums Chewable 500 mg Tab.chew] 500 mg PO Q4HP PRN #60 tab.chew PRN Reason: Heartburn Docusate Sodium [Colace 100 mg Capsule] 200 mg PO BIDP PRN #60 capsule PRN Reason: Hydralazine HCl [Apresoline 25 mg Tablet] 25 mg PO Q6 #120 tablet Potassium Chloride 20 meq PO DAILY #30 tablet.er Sulfamethoxazole/Trimethoprim [Septra-Ds 800-160 mg Tablet] 1 tab PO Q12A #7 tablet Home Medications: Capecitabine [Xeloda 500 mg Tablet] 1,500 mg PO Q12 10/22/17 Calcium Carbonate [Tums Chewable 500 mg Tab.chew] 500 mg PO Q4HP PRN #60 tab.chew 11/01/17 Docusate Sodium [Colace 100 mg Capsule] 200 mg PO BIDP PRN #60 capsule 11/01/17 Hydralazine HCl [Apresoline 25 mg Tablet] 25 mg PO Q6 #120 tablet 11/01/17 Potassium Chloride 20 meq PO DAILY #30 tablet.er 11/01/17 Sulfamethoxazole/Trimethoprim [Septra-Ds 800-160 mg Tablet] 1 tab PO Q12A #7 tablet 11/01/17 History of Present Illness Patient complains of: Swelling of the tongue History of Present Illness: BELINDA MCCULLOUGH is a 62 year old female, she came to the emergency room for evaluation of swelling of the tongue, she has a history of colon cancer on active chemotherapy. It was felt that patient has angioedema due to SERAFIN inhibitors, while she was in emergency room after treatment with epinephrine, Solu-Medrol, it was observed that patient had difficulty with secretion and difficulty swallowing, the ED physician decided to intubate patient for airway protection and have mechanical ventilation. I could not obtain any history from this patient she is already intubated, it should be a quick mechanical ventilation, she does not have any acute lung disease, Hospital Course Hospital Course: She was admitted to ICU intubated for airway protection due to significant angioedema involving the tongue and compromising the upper airway. he was seen in consultation by Dr. Arango, filler shaker. She did respond to medical management and eventually extubated with satisfactory post extubation condition. She was seen in consultation by Dr. Cardenas and Sulema, cardiology team, due to profound bradycardia. She was eventually transferred to [facility]. She developed UTI with [id number] Saravia catheter. Her urine culture grew Klesiella Pneumoniae sensitive to covering antibiotic Rocephin. Due to development of significant thrombocytopenia she was taken off IV Pepcid and eventually Rocephin as possible drug related causes. She was seen in consultation by Dr. Sanders, her medical oncologist during this hospitalization. She did agreed with her discharge home today with close monitoring of her thrombocytopenia and any further evaluation and management. She will follow up with Dr Sanders and myself as instructed upon discharge. Physical Exam Vital Signs: Temp Pulse Resp BP Pulse Ox 98.6 F 55 L 16 106/61 100 11/01/17 03:45 11/01/17 03:45 11/01/17 03:45 11/01/17 03:45 11/01/17 03:45 Intake & Output 10/31/17 11/01/17 11/02/17 06:59 06:59 06:59 Intake Total 1951 972 Balance 1951 972 Weight 62.5 kg 63.3 kg Physical Exam: General appearance: PRESENT: no acute distress Head exam: PRESENT: atraumatic, normocephalic Eye exam: PRESENT: conjunctiva pink, EOMI, PERRLA. ABSENT: scleral icterus Mouth exam: PRESENT: moist, tongue midline - with resolved angioedema Respiratory exam: PRESENT: clear to auscultation pauline, decreased breath sounds - at lung bases Cardiovascular exam: PRESENT: RRR, Bradycardia ABSENT: diastolic murmur, rubs, systolic murmur GI/Abdominal exam: PRESENT: normal bowel sounds, soft. ABSENT: distended, guarding, mass, organomegaly, rebound, tenderness Extremities exam: ABSENT: pedal edema Musculoskeletal exam: PRESENT: normal inspection Neurological exam: PRESENT: awake. ABSENT: oriented to place Psychiatric exam: PRESENT: other - soft wrist restraints in use due to intermittent agitation. ABSENT: homicidal ideation, suicidal ideation Skin exam: PRESENT: dry, intact, warm. ABSENT: cyanosis, rash Results Laboratory Results: 10/31/17 09:15 10/30/17 06:14 10/31/17 09:15 WBC 3.2 L RBC 3.45 L Hgb 11.7 L Hct 34.5 L MCV 100 H MCH 33.8 H MCHC 33.8 RDW 24.7 H Plt Count 62 L Seg Neutrophils % Not Reportable Lymphocytes % Not Reportable Monocytes % Not Reportable Eosinophils % Not Reportable Basophils % Not Reportable Absolute Neutrophils Not Reportable Absolute Lymphocytes Not Reportable Absolute Monocytes Not Reportable Absolute Eosinophils Not Reportable Absolute Basophils Not Reportable 10/26/17 10/26/17 08:54 08:54 Creatine Kinase 50 CK-MB (CK-2) 0.49 Troponin I 0.036 Impressions: Chest X-Ray 10/28/17 06:00 IMPRESSION: Stable chest without acute or suspicious findings. Qualifiers - * PATIENT BEING DISCHARGED WITH ANY OF THE FOLLOWING DIAGNOSIS: No Plan Discharge Plan: Discharge home today with follow up appointments as instructed upon discharge. She will follow up Dr Sanders and myself as instructed upon discharge.
[2017-11-01 09:22] VITALS: BP 155/78
[2017-11-01] MEDS: POTASSIUM CHLORIDE 20 MEQ/15 ML UDCUP PO SCH (09:46)
[2017-11-01] MEDS: DOCUSATE SODIUM 100 MG CAPSULE PO SCH (09:46)
--- NOTE | 2017-11-05 18:13 | PDOC PROGRESS REPORT ---
Subjective Progress Note for:: 10/24/17 Subjective:: Intubated and sedated Reason For Visit: UPPER AIRWAY OBSTRUCTION DUE TO ANGIOEDEMA FROM Physical Exam Vital Signs: Temp Pulse Resp BP Pulse Ox 97.0 F 79 16 173/94 H 100 10/24/17 05:24 10/23/17 20:00 10/24/17 06:00 10/24/17 05:32 10/24/17 08:35 Intake & Output 10/23/17 10/24/17 10/25/17 06:59 06:59 06:59 Intake Total 2579 2192 Output Total 1120 1055 Balance 1459 1137 Weight 64.1 kg 64.1 kg General appearance: PRESENT: no acute distress, disheveled Eye exam: PRESENT: conjunctiva pale, PERRLA. ABSENT: nystagmus, periorbital swelling, scleral icterus Mouth exam: PRESENT: moist, neck supple, tongue midline Neck exam: ABSENT: carotid bruit, JVD, lymphadenopathy, thyromegaly, tracheal deviation, tracheostomy Respiratory exam: PRESENT: decreased breath sounds, prolonged expiratory phas, rhonchi, unlabored. ABSENT: retraction, stridor Cardiovascular exam: PRESENT: RRR, +S1, +S2 GI/Abdominal exam: PRESENT: normal bowel sounds, soft Extremities exam: ABSENT: calf tenderness, clubbing, joint swelling Musculoskeletal exam: ABSENT: deformity, dislocation Neurological exam: PRESENT: awake Psychiatric exam: PRESENT: flat affect Skin exam: PRESENT: dry, warm Results Laboratory Results: 10/24/17 03:49 10/24/17 03:49 10/24/17 10/24/17 10/24/17 03:49 03:49 05:45 WBC 10.3 RBC 3.57 L Hgb 11.7 L Hct 34.7 L MCV 97 MCH 32.9 MCHC 33.9 RDW 25.3 H Plt Count 167 Seg Neutrophils % Not Reportable Lymphocytes % Not Reportable Monocytes % Not Reportable Eosinophils % Not Reportable Basophils % Not Reportable Absolute Neutrophils Not Reportable Absolute Lymphocytes Not Reportable Absolute Monocytes Not Reportable Absolute Eosinophils Not Reportable Absolute Basophils Not Reportable Carbonic Acid 0.79 L HCO3/H2CO3 Ratio 20:1 ABG pH 7.42 ABG pCO2 26.4 L ABG pO2 101.1 H ABG HCO3 16.5 L ABG O2 Saturation 97.8 ABG Base Excess -6.5 FiO2 25% Sodium 144.0 Potassium 3.7 Chloride 115 H Carbon Dioxide 20 L Anion Gap 9 BUN 18 Creatinine 0.68 Est GFR ( Amer) > 60 Est GFR (Non-Af Amer) > 60 Glucose 135 H Calcium 9.6 Magnesium 1.9 Total Bilirubin 1.4 H AST 39 H ALT 32 Alkaline Phosphatase 109 Total Protein 6.9 Albumin 3.4 L Impressions: Chest X-Ray 10/24/17 06:00 IMPRESSION: No significant change. Assessment & Plan - Diagnosis (1) SERAFIN inhibitor-aggravated angioedema Qualifiers: Encounter type: initial encounter Qualified Code(s): T78.3XXA - Angioneurotic edema, initial encounter; T46.4X5A - Adverse effect of angiotensin -converting-enzyme inhibitors, initial encounter; T46.4X5A - Adverse effect of jdvfhdkrwhd-oathfywrgt-pazfuw inhibitors, initial encounter Is this a current diagnosis for this admission?: Yes Plan: Extubated has been doing well for the last 72 hours (2) Adenocarcinoma of sigmoid colon Is this a current diagnosis for this admission?: Yes Plan: Depressed and anxious (3) HTN (hypertension) Is this a current diagnosis for this admission?: Yes Plan: Stable at this time - Time Total Critical Time (Minutes): 55
--- NOTE | 2017-11-05 18:15 | PDOC PROGRESS REPORT ---
Subjective Progress Note for:: 10/31/17 Subjective:: Stable at this time without complaints Reason For Visit: UPPER AIRWAY OBSTRUCTION DUE TO ANGIOEDEMA FROM Physical Exam Vital Signs: Temp Pulse Resp BP Pulse Ox 98.8 F 63 16 125/59 L 100 10/31/17 15:00 10/31/17 15:00 10/31/17 15:00 10/31/17 15:00 10/31/17 15:00 Intake & Output 10/30/17 10/31/17 11/01/17 06:59 06:59 06:59 Intake Total 1811 Output Total 0 Balance 1811 Weight 63.4 kg 62.5 kg General appearance: PRESENT: no acute distress, cooperative, disheveled Head exam: PRESENT: atraumatic, normocephalic Eye exam: PRESENT: conjunctiva pale, EOMI. ABSENT: nystagmus, periorbital swelling, scleral icterus Mouth exam: PRESENT: moist, neck supple, tongue midline Neck exam: ABSENT: carotid bruit, JVD, lymphadenopathy, thyromegaly, tracheal deviation, tracheostomy Respiratory exam: PRESENT: decreased breath sounds, prolonged expiratory phas, rales, rhonchi, unlabored. ABSENT: retraction, stridor Cardiovascular exam: PRESENT: RRR, +S1, +S2 Pulses: PRESENT: normal radial pulses GI/Abdominal exam: PRESENT: soft Gentrourinary exam: ABSENT: testicular tenderness Extremities exam: ABSENT: calf tenderness, clubbing Musculoskeletal exam: ABSENT: deformity, dislocation Neurological exam: PRESENT: awake Psychiatric exam: PRESENT: depressed Skin exam: PRESENT: dry, warm Results Laboratory Results: 10/31/17 09:15 10/30/17 06:14 10/31/17 09:15 WBC 3.2 L RBC 3.45 L Hgb 11.7 L Hct 34.5 L MCV 100 H MCH 33.8 H MCHC 33.8 RDW 24.7 H Plt Count 62 L Seg Neutrophils % Not Reportable Lymphocytes % Not Reportable Monocytes % Not Reportable Eosinophils % Not Reportable Basophils % Not Reportable Absolute Neutrophils Not Reportable Absolute Lymphocytes Not Reportable Absolute Monocytes Not Reportable Absolute Eosinophils Not Reportable Absolute Basophils Not Reportable 10/26/17 10/26/17 08:54 08:54 Creatine Kinase 50 CK-MB (CK-2) 0.49 Troponin I 0.036 Impressions: Chest X-Ray 10/28/17 06:00 IMPRESSION: Stable chest without acute or suspicious findings. Assessment & Plan - Diagnosis (1) SERAFIN inhibitor-aggravated angioedema Qualifiers: Encounter type: initial encounter Qualified Code(s): T78.3XXA - Angioneurotic edema, initial encounter; T46.4X5A - Adverse effect of angiotensin -converting-enzyme inhibitors, initial encounter; T46.4X5A - Adverse effect of ihhokpvitis-rjcsoujpiq-uvmzhu inhibitors, initial encounter Is this a current diagnosis for this admission?: Yes Plan: At or near baseline (2) Adenocarcinoma of sigmoid colon Is this a current diagnosis for this admission?: Yes Plan: Depressed and anxious (3) HTN (hypertension) Is this a current diagnosis for this admission?: Yes Plan: Stable at this time (4) Thrombocytopenia Is this a current diagnosis for this admission?: Yes Plan: Labs- All tests 24 hr 10/22/17 10/23/17 10/24/17 04:39 04:22 03:49 Plt Count 169 186 167 10/25/17 10/26/17 10/27/17 04:02 03:44 04:10 Plt Count 132 L 110 L 99 L 10/28/17 10/29/17 10/30/17 04:45 05:00 06:14 Plt Count 74 L 56 L 53 L (5) Metabolic acidosis Is this a current diagnosis for this admission?: Yes
--- NOTE | 2017-11-05 18:17 | PDOC PROGRESS REPORT ---
Subjective Progress Note for:: 10/27/17 Subjective:: Stable at this time without complaints Reason For Visit: UPPER AIRWAY OBSTRUCTION DUE TO ANGIOEDEMA FROM Physical Exam Vital Signs: Temp Pulse Resp BP Pulse Ox 97.9 F 39 L 14 146/72 H 100 10/27/17 05:38 10/27/17 08:00 10/27/17 06:00 10/27/17 05:35 10/27/17 06:00 Intake & Output 10/26/17 10/27/17 10/28/17 06:59 06:59 06:59 Intake Total 1897 3314 Output Total 1525 1175 Balance 372 2139 Weight 64.3 kg 61.8 kg General appearance: PRESENT: no acute distress, cooperative, disheveled Head exam: PRESENT: atraumatic, normocephalic Eye exam: PRESENT: conjunctiva pale, EOMI. ABSENT: nystagmus, periorbital swelling, scleral icterus Mouth exam: PRESENT: moist, neck supple, tongue midline Neck exam: ABSENT: carotid bruit, JVD, lymphadenopathy, thyromegaly, tracheal deviation, tracheostomy Respiratory exam: PRESENT: decreased breath sounds, prolonged expiratory phas, rhonchi, unlabored. ABSENT: rales, retraction, stridor Cardiovascular exam: PRESENT: RRR, +S1 Pulses: PRESENT: normal radial pulses GI/Abdominal exam: PRESENT: hypoactive bowel sounds, soft Extremities exam: ABSENT: calf tenderness, clubbing, joint swelling Musculoskeletal exam: ABSENT: deformity, dislocation Neurological exam: PRESENT: awake Psychiatric exam: PRESENT: depressed Skin exam: PRESENT: dry, warm Results Laboratory Results: 10/27/17 04:10 10/27/17 04:10 10/26/17 10/26/17 10/26/17 08:54 08:54 09:30 WBC RBC Hgb Hct MCV MCH MCHC RDW Plt Count Seg Neutrophils % Lymphocytes % Monocytes % Eosinophils % Basophils % Absolute Neutrophils Absolute Lymphocytes Absolute Monocytes Absolute Eosinophils Absolute Basophils Carbonic Acid 0.73 L HCO3/H2CO3 Ratio 22:1 ABG pH 7.44 ABG pCO2 24.4 L ABG pO2 52.0 L ABG HCO3 16.1 L ABG O2 Saturation 88.8 L ABG Base Excess -6.5 FiO2 21% Sodium Potassium Chloride Carbon Dioxide Anion Gap BUN Creatinine Est GFR ( Amer) Est GFR (Non-Af Amer) Glucose Calcium Magnesium TSH 0.38 L Free T4 1.28 10/27/17 10/27/17 04:10 04:10 WBC 5.5 RBC 3.34 L Hgb 11.1 L Hct 32.5 L MCV 97 MCH 33.1 MCHC 34.0 RDW 24.2 H Plt Count 99 L Seg Neutrophils % 81.4 H Lymphocytes % 6.6 L Monocytes % 11.9 Eosinophils % 0.0 Basophils % 0.1 Absolute Neutrophils 4.5 Absolute Lymphocytes 0.4 L Absolute Monocytes 0.7 Absolute Eosinophils 0.0 Absolute Basophils 0.0 Carbonic Acid HCO3/H2CO3 Ratio ABG pH ABG pCO2 ABG pO2 ABG HCO3 ABG O2 Saturation ABG Base Excess FiO2 Sodium 141.7 Potassium 4.3 Chloride 116 H Carbon Dioxide 19 L Anion Gap 7 BUN 21 H Creatinine 0.63 Est GFR ( Amer) > 60 Est GFR (Non-Af Amer) > 60 Glucose 114 H Calcium 8.9 Magnesium 2.2 TSH Free T4 10/26/17 10/26/17 08:54 08:54 Creatine Kinase 50 CK-MB (CK-2) 0.49 Troponin I 0.036 Impressions: Chest X-Ray 10/25/17 06:00 IMPRESSION: No significant change. Assessment & Plan - Diagnosis (1) SERAFIN inhibitor-aggravated angioedema Qualifiers: Encounter type: initial encounter Qualified Code(s): T78.3XXA - Angioneurotic edema, initial encounter; T46.4X5A - Adverse effect of angiotensin -converting-enzyme inhibitors, initial encounter; T46.4X5A - Adverse effect of hcuqanjcmjl-duumakbubi-kvcrcf inhibitors, initial encounter Is this a current diagnosis for this admission?: Yes Plan: Extubated has been doing well for the last 72 hours (2) Adenocarcinoma of sigmoid colon Is this a current diagnosis for this admission?: Yes Plan: Recently received chemotherapy (3) HTN (hypertension) Is this a current diagnosis for this admission?: Yes Plan: Stable at this time
--- NOTE | 2017-11-05 18:19 | PDOC PROGRESS REPORT ---
Subjective Progress Note for:: 10/26/17 Subjective:: Stable at this time without complaints Reason For Visit: UPPER AIRWAY OBSTRUCTION DUE TO ANGIOEDEMA FROM Physical Exam Vital Signs: Temp Pulse Resp BP Pulse Ox 97.7 F 47 L 16 136/77 H 100 10/26/17 07:51 10/26/17 08:00 10/26/17 07:51 10/26/17 07:51 10/26/17 07:51 Intake & Output 10/25/17 10/26/17 10/27/17 06:59 06:59 06:59 Intake Total 1239 1897 Output Total 1735 1525 100 Balance -496 372 -100 Weight 63.8 kg 64.3 kg General appearance: PRESENT: no acute distress, cooperative, disheveled Head exam: PRESENT: atraumatic, normocephalic Eye exam: PRESENT: conjunctiva pale, EOMI. ABSENT: nystagmus, periorbital swelling, scleral icterus Mouth exam: PRESENT: moist, neck supple, tongue midline Neck exam: ABSENT: carotid bruit, JVD, lymphadenopathy, thyromegaly, tracheal deviation, tracheostomy Respiratory exam: PRESENT: decreased breath sounds, prolonged expiratory phas, rhonchi, unlabored. ABSENT: retraction, stridor, tachypnea Cardiovascular exam: PRESENT: RRR, +S1, +S2 Pulses: PRESENT: normal radial pulses GI/Abdominal exam: PRESENT: hypoactive bowel sounds, soft Extremities exam: ABSENT: calf tenderness, clubbing, joint swelling Musculoskeletal exam: ABSENT: deformity, dislocation Neurological exam: PRESENT: awake Psychiatric exam: PRESENT: depressed Skin exam: PRESENT: dry, warm Results Laboratory Results: 10/26/17 03:44 10/26/17 03:44 10/25/17 10/26/17 10/26/17 13:26 03:44 03:44 WBC 5.0 RBC 3.31 L Hgb 10.8 L Hct 32.2 L MCV 97 MCH 32.6 MCHC 33.6 RDW 24.4 H Plt Count 110 L Seg Neutrophils % 85.2 H Lymphocytes % 8.7 L Monocytes % 6.0 Eosinophils % 0.0 Basophils % 0.1 Absolute Neutrophils 4.3 Absolute Lymphocytes 0.4 L Absolute Monocytes 0.3 Absolute Eosinophils 0.0 Absolute Basophils 0.0 Sodium 144.3 Potassium 4.1 4.6 Chloride 118 H Carbon Dioxide 19 L Anion Gap 7 BUN 23 H Creatinine 0.67 Est GFR ( Amer) > 60 Est GFR (Non-Af Amer) > 60 Glucose 95 Calcium 9.2 Phosphorus 3.5 Magnesium 2.1 Impressions: Chest X-Ray 10/25/17 06:00 IMPRESSION: No significant change. Assessment & Plan - Diagnosis (1) SERAFIN inhibitor-aggravated angioedema Qualifiers: Encounter type: initial encounter Qualified Code(s): T78.3XXA - Angioneurotic edema, initial encounter; T46.4X5A - Adverse effect of angiotensin -converting-enzyme inhibitors, initial encounter; T46.4X5A - Adverse effect of sedprdxruoz-cgbwnkrtsr-xxphos inhibitors, initial encounter Is this a current diagnosis for this admission?: Yes Plan: Extubated has been doing well (2) Adenocarcinoma of sigmoid colon Is this a current diagnosis for this admission?: Yes Plan: Recently received chemotherapy (3) HTN (hypertension) Is this a current diagnosis for this admission?: Yes Plan: Stable at this time - Time Total Critical Time (Minutes): 40
--- NOTE | 2017-11-05 18:21 | PDOC PROGRESS REPORT ---
Subjective Progress Note for:: 10/25/17 Subjective:: Stable at this time without complaints Reason For Visit: UPPER AIRWAY OBSTRUCTION DUE TO ANGIOEDEMA FROM Physical Exam Vital Signs: Temp Pulse Resp BP Pulse Ox 98.2 F 71 16 153/83 H 100 10/24/17 21:48 10/24/17 20:00 10/25/17 06:00 10/25/17 05:33 10/25/17 06:00 Intake & Output 10/24/17 10/25/17 10/26/17 06:59 06:59 06:59 Intake Total 2192 1239 Output Total 1055 1735 Balance 1137 -496 Weight 64.1 kg 63.8 kg General appearance: PRESENT: no acute distress, cooperative, disheveled Head exam: PRESENT: atraumatic, normocephalic Eye exam: PRESENT: conjunctiva pale, EOMI, PERRLA. ABSENT: nystagmus, periorbital swelling, scleral icterus Mouth exam: PRESENT: moist, neck supple, tongue midline Neck exam: ABSENT: carotid bruit, JVD, lymphadenopathy, thyromegaly, tracheal deviation, tracheostomy Respiratory exam: PRESENT: decreased breath sounds, prolonged expiratory phas, rhonchi, unlabored. ABSENT: rales, retraction, stridor Cardiovascular exam: PRESENT: RRR, +S1, +S2 Pulses: PRESENT: normal radial pulses GI/Abdominal exam: PRESENT: soft Extremities exam: ABSENT: calf tenderness, clubbing, joint swelling Musculoskeletal exam: ABSENT: deformity, dislocation Neurological exam: PRESENT: awake Psychiatric exam: PRESENT: depressed Skin exam: PRESENT: dry, warm Results Laboratory Results: 10/25/17 04:02 10/25/17 04:02 10/25/17 10/25/17 10/25/17 04:02 04:02 04:02 WBC 8.4 RBC 3.51 L Hgb 11.5 L Hct 34.1 L MCV 97 MCH 32.7 MCHC 33.7 RDW 24.6 H Plt Count 132 L Seg Neutrophils % Not Reportable Lymphocytes % Not Reportable Monocytes % Not Reportable Eosinophils % Not Reportable Basophils % Not Reportable Absolute Neutrophils Not Reportable Absolute Lymphocytes Not Reportable Absolute Monocytes Not Reportable Absolute Eosinophils Not Reportable Absolute Basophils Not Reportable Carbonic Acid HCO3/H2CO3 Ratio ABG pH ABG pCO2 ABG pO2 ABG HCO3 ABG O2 Saturation ABG Base Excess FiO2 Sodium 145.5 H Potassium 3.5 L Chloride 115 H Carbon Dioxide 19 L Anion Gap 12 BUN 19 Creatinine 0.67 Est GFR ( Amer) > 60 Est GFR (Non-Af Amer) > 60 Glucose 109 Calcium 9.6 Magnesium 2.0 1.9 Total Bilirubin 1.6 H AST 38 H ALT 29 Alkaline Phosphatase 107 Total Protein 7.0 Albumin 3.5 10/25/17 05:00 WBC RBC Hgb Hct MCV MCH MCHC RDW Plt Count Seg Neutrophils % Lymphocytes % Monocytes % Eosinophils % Basophils % Absolute Neutrophils Absolute Lymphocytes Absolute Monocytes Absolute Eosinophils Absolute Basophils Carbonic Acid 0.84 L HCO3/H2CO3 Ratio 23:1 ABG pH 7.47 H ABG pCO2 28.0 L ABG pO2 102.4 H ABG HCO3 19.7 L ABG O2 Saturation 98.1 H ABG Base Excess -2.8 FiO2 2L Sodium Potassium Chloride Carbon Dioxide Anion Gap BUN Creatinine Est GFR ( Amer) Est GFR (Non-Af Amer) Glucose Calcium Magnesium Total Bilirubin AST ALT Alkaline Phosphatase Total Protein Albumin Impressions: Chest X-Ray 10/25/17 06:00 IMPRESSION: No significant change. Assessment & Plan - Diagnosis (1) SERAFIN inhibitor-aggravated angioedema Qualifiers: Encounter type: initial encounter Qualified Code(s): T78.3XXA - Angioneurotic edema, initial encounter; T46.4X5A - Adverse effect of angiotensin -converting-enzyme inhibitors, initial encounter; T46.4X5A - Adverse effect of glejmygesqi-tfegrgzxed-gnxkdu inhibitors, initial encounter Is this a current diagnosis for this admission?: Yes Plan: Extubated has been doing well (2) Adenocarcinoma of sigmoid colon Is this a current diagnosis for this admission?: Yes Plan: Recently received chemotherapy (3) HTN (hypertension) Is this a current diagnosis for this admission?: Yes Plan: Stable at this time - Time Total Critical Time (Minutes): 40
--- NOTE | 2017-11-05 18:23 | PDOC PROGRESS REPORT ---
Subjective Progress Note for:: 11/01/17 Subjective:: Stable at this time without complaints Reason For Visit: UPPER AIRWAY OBSTRUCTION DUE TO ANGIOEDEMA FROM Physical Exam Vital Signs: Temp Pulse Resp BP Pulse Ox 98.6 F 55 L 16 155/78 H 100 11/01/17 09:18 11/01/17 09:18 11/01/17 09:18 11/01/17 09:18 11/01/17 09:18 Intake & Output 11/01/17 11/02/17 11/03/17 06:59 06:59 06:59 Intake Total 972 Balance 972 Weight 63.3 kg General appearance: PRESENT: no acute distress, cooperative, disheveled Head exam: PRESENT: atraumatic, normocephalic Eye exam: PRESENT: conjunctiva pale, EOMI. ABSENT: nystagmus, periorbital swelling, scleral icterus Mouth exam: PRESENT: moist, neck supple, tongue midline Neck exam: ABSENT: carotid bruit, JVD, lymphadenopathy, thyromegaly, tracheal deviation, tracheostomy Respiratory exam: PRESENT: decreased breath sounds, prolonged expiratory phas, rhonchi, unlabored. ABSENT: rales, retraction, stridor Cardiovascular exam: PRESENT: RRR, +S1, +S2. ABSENT: irregular rhythm Pulses: PRESENT: normal radial pulses GI/Abdominal exam: PRESENT: soft Extremities exam: PRESENT: full ROM. ABSENT: joint swelling Musculoskeletal exam: PRESENT: full ROM. ABSENT: deformity, dislocation Neurological exam: PRESENT: awake Psychiatric exam: PRESENT: depressed Skin exam: PRESENT: dry, warm Results Laboratory Results: 10/31/17 09:15 10/30/17 06:14 10/26/17 10/26/17 08:54 08:54 Creatine Kinase 50 CK-MB (CK-2) 0.49 Troponin I 0.036 Impressions: Chest X-Ray 10/28/17 06:00 IMPRESSION: Stable chest without acute or suspicious findings. Assessment & Plan - Diagnosis (1) SERAFIN inhibitor-aggravated angioedema Qualifiers: Encounter type: initial encounter Qualified Code(s): T78.3XXA - Angioneurotic edema, initial encounter; T46.4X5A - Adverse effect of angiotensin -converting-enzyme inhibitors, initial encounter; T46.4X5A - Adverse effect of cxjwbskxcbk-yyjgocscmh-eoomrf inhibitors, initial encounter Is this a current diagnosis for this admission?: Yes Plan: Extubated has been doing well (2) Adenocarcinoma of sigmoid colon Is this a current diagnosis for this admission?: Yes Plan: Recently received chemotherapy (3) HTN (hypertension) Is this a current diagnosis for this admission?: Yes Plan: Stable at this time (4) Thrombocytopenia Is this a current diagnosis for this admission?: Yes (5) Metabolic acidosis Is this a current diagnosis for this admission?: Yes
== END 2017-11-01 10:38 | disposition home or self-care (01) | DRG 916 ==
LOC: ER 03:42 → EH 05:27 → ICU 07:06 → 3S 10-27 18:09
PROVIDERS: ADMIT Internal Medicine Geriatric Medicine; ATTEND Internal Medicine Geriatric Medicine
PROC: 5A1945Z Respiratory Ventilation, 24-96 Consecutive Hours (ICD-10-PCS; principal; 2017-10-22)
PROC: 0BH17EZ Insertion of Endotracheal Airway into Trachea, Via Natural or Artificial Opening (ICD-10-PCS; 2017-10-22)
DX: T78.3XXA Angioneurotic edema, initial encounter (principal); N30.00 Acute cystitis without hematuria; T83.511A Infection and inflammatory reaction due to indwelling urethral catheter, initial encounter; C19 Malignant neoplasm of rectosigmoid junction; E87.2 Acidosis; T46.4X5A Adverse effect of angiotensin-converting-enzyme inhibitors, initial encounter; D69.59 Other secondary thrombocytopenia; E87.6 Hypokalemia; I10 Essential (primary) hypertension; K21.9 Gastro-esophageal reflux disease without esophagitis; Z88.6 Allergy status to analgesic agent; Z79.899 Other long term (current) drug therapy; Z90.710 Acquired absence of both cervix and uterus; Z83.3 Family history of diabetes mellitus; R00.1 Bradycardia, unspecified; T47.0X5A Adverse effect of histamine H2-receptor blockers, initial encounter; D64.81 Anemia due to antineoplastic chemotherapy; T45.1X5A Adverse effect of antineoplastic and immunosuppressive drugs, initial encounter; K59.00 Constipation, unspecified; B96.1 Klebsiella pneumoniae [K. pneumoniae] as the cause of diseases classified elsewhere; Z78.1 Physical restraint status
CPT/HCPCS: 36415; 36600; 71045; 80048; 80053; 80076; 81001; 82550; 82553; 82803; 83735; 84100; 84132; 84439; 84443; 84478; 84484; 85025; 85362; 85379; 85384; 85610; 85730; 87086; 87088; 87186; 93005; 93010; 93306; 94002; 94003; 94799; 96372; 96374; 96375; 99291; J0171; J0360; J0696; J1100; J1200; J1650; J2250; J2405; J2704; J2930; J3010; J3480; J3490; J7030; S0028

== ENCOUNTER 2018-04-26 07:24 | Day surgery (SDC) | payer BC, MEDICAID ==
[~2018-04-26 07:24] MED LIST changes: -ACETAMINOPHEN 325 MG TABLET PO PRN; -CEFAZOLIN 1 GM/D5W RTU 1 GM/50 ML RTUPB IV PRN; +DIPHENHYDRAMINE HCL 50 MG/ML VIAL ONE; +EPINEPHRINE INJ 1 MG/10 ML DISP.SYRIN ONE; +FLUMAZENIL INJ 0.5 MG/5 ML VIAL ONE; +GLUCAGON,HUMAN RECOMB 1 MG INJ ONE; -LIDOCAINE 1%/EPINEPHRINE INJ 20 ML VIAL ONE; +NALOXONE HCL INJ/PF 0.4 MG/1 ML SDV ONE; +ONDANSETRON HCL INJ/PF 4 MG/2 ML SDV ONE
[2018-04-26] MEDS: MIDAZOLAM 2 MG/2 ML INJ ONE ×3 (08:00→08:10)
[2018-04-26] MEDS: FENTANYL CITRATE INJ/PF 100 MCG/2 ML AMPUL ONE ×2 (08:03→08:08)
--- NOTE | 2018-04-26 08:34 | Discharge Summary ---
Discharge Summary (SDC) - Discharge Final Diagnosis: 1. History of adenocarcinoma of the sigmoid colon, stage III 2. Polyp of the left colon Date of Surgery: 04/26/18 Discharge Date: 04/26/18 Condition: Good Treatment or Instructions: [address] [address] POST ENDOSCOPY DISCHARGE INSTRUCTIONS 1. Diet: Start clear liquids that a regular diet as tolerated. 2. Resume all preoperative medications. All oral anticoagulants and aspirins can be resumed 24 hours after procedure. 3. If a polypectomy was performed some bleeding per rectum may occur. This should stop within 3 days. If not, please contact the office. 4. If you had a colonoscopy you may experience some bloating and delayed return of normal bowel function for several days, your regular bowel movement pattern should resume within a week. 5. Please contact [facility] at to make an appointment with Dr. Mcgrath for 1 to 3 weeks following procedure. 6. If you have any questions or concerns regarding your care,treatment plan or follow up, please contact our office. 7. Per clinical guidelines we recommend you undergo a repeat colonoscopy in 1 years. Referrals: GRACE SWARTZ MD [Primary Care Provider] - Discharge Diet: As Tolerated Discharge Activity: Activity As Tolerated Home Care Assistance: None Needed Report the Following to Your Physician Immediately: Shortness of Breath, Increase in Pain, Fever over 101 Degrees
--- NOTE | 2018-04-26 08:39 | Operative Report ---
Operative Report DATE OF SURGERY: 04/26/18 PREOPERATIVE DIAGNOSIS: 1. History of sigmoid colon cancer, stage III status p ost sigmoid colectomy and adjuvant chemo therapy. 2. History of extensive intra-abdominal adhesions POSTOPERATIVE DIAGNOSIS: Same with left colon polyp, and small internal h emorrhoids OPERATION: 1. Total colonoscopy to cecum with photodocumentation. 2. Left colon polypectomy SURGEON: VARSHA BROOKS ANESTHESIA: Moderate Sedation TISSUE REMOVED OR ALTERED: 1 polyp in a piecemeal fashion COMPLICATIONS: None ESTIMATED BLOOD LOSS: Scant INTRAOPERATIVE FINDINGS: See below PROCEDURE: Obtaining informed consent the patient was taken from the preoperative holding area to the main endoscopy suite where monitoring devices were attached to the patient. Plan and surgical timeout were conducted The patient was placed in the left lateral decubitus position with knees to chest. A perianal examination was performed. There was no visible or palpable anorectal pathology. Sphincter tone was felt to be normal. The flexible adult colonoscope was advanced through the anal rectal canal, all the way to the cecum. Utilization of the cecum was achieved and the ileocecal valve, the appendiceal orifice and transillumination of the anterior abdominal wall. Photos were taken. This was an excellent study on the well-prepped bowel. The colonoscope was withdrawn slowly and methodically checked and the mucosa carefully. There was no evidence of tumor, stricture, bleeding or diverticuloses. The anastomosis from the previous colon resection was approximately 18 cm from the anal verge. It is widely patent. There is no evidence of tumor recurrence. There was a small sessile 2-3 mm polyp photographed and removed with a cold forceps device and labeled as left colon polyp. This is approximately 20 cm from the anal verge, technically the left colon. The scope was slowly withdrawn through the anal rectal canal. Small internal hemorrhoids visualized. Complete visualization of the rectum was achieved with photodocumentation. The scope was withdrawn to the patient's anus. The patient tolerated the procedure well and was taken to the recovery area in stable condition. Because of the patient's history of adenocarcinoma of the colon, and current findings of intercurrent polyp, I recommended follow-up colonoscopy in 1 year.
[2018-04-26 09:17] VITALS: BP 121/61
== END 2018-04-26 09:20 | disposition home or self-care (01) ==
LOC: END 07:24
PROVIDERS: ATTEND Surgery
DX: Z12.11 Encounter for screening for malignant neoplasm of colon (principal); I10 Essential (primary) hypertension; G62.9 Polyneuropathy, unspecified; Z90.49 Acquired absence of other specified parts of digestive tract; Z92.21 Personal history of antineoplastic chemotherapy; Z85.038 Personal history of other malignant neoplasm of large intestine
CPT/HCPCS: 45380; 88305 ×2; J2250; J3010; J0171; J1200; J1610; J2310; J2405; J3490

== ENCOUNTER → 2019-11-21 | Outpatient (CLI) | payer BC, MEDICAID ==
--- NOTE | 2019-11-21 15:49 | RADIOLOGY REPORT (SQ) ---
EXAM DESCRIPTION: CT CHEST WITH; CT ABD/PELVIS WITH IV ORAL IMAGES COMPLETED DATE/TIME: 11/21/2019 2:14 pm REASON FOR STUDY: C18.7 MALIGNANT NEOPLASM OF SIGMOID COLON C18.7 MALIGNANT NEOPLASM OF SIGMOID COL ON CONTRAST TYPE AND DOSE: contrast/concentration: Isovue 350.00 mmol/ml; Total Contrast Delivered: 73. 0 ml; Total Saline Delivered: 66.0 ml RENAL FUNCTION: Creatinine 0.7 COMPARISON: None TECHNIQUE: CT scan of the chest performed using helical scanning technique with dynamic intravenous contrast injection. Images reviewed with lung, soft tissue and bone windows. Reconstructed coronal a nd sagittal MPR images reviewed. All images stored on PACS. All CT scanners at this facility use dose modulation, iterative reconstruction, and/or weight based d osing when appropriate to reduce radiation dose to as low as reasonably achievable (ALARA). [facility]: Dose Right [facility]: CareDose [facility]: Dose Right [facility]: Teradose 4D [facility]: [employer] RADIATION DOSE: CT Rad equipment meets quality standard of care and radiation dose reduction techniq ues were employed. CTDIvol: 4.4 - 5.2 mGy. DLP: 688 mGy-cm. . LIMITATIONS: None. FINDINGS: AXILLAE: No adenopathy. CHEST WALL: No masses. No subcutaneous air. LUNGS: No nodules or masses. No pneumothorax. No infiltrates. PLEURA: No effusions. No calcifications. THYROID: No masses or significant asymmetry. HILAR AND MEDIASTINAL STRUCTURES: No identified masses or abnormal nodes. AORTA AND GREAT VESSELS: No aneurysm. No dissection. PULMONARY ARTERIES: No identified pulmonary emboli. Study not optimized for the pulmonary arteries. HEART: No pericardial effusion. HARDWARE AND LIFELINES: None. BONES: No significant finding. OTHER: No other significant finding. IMPRESSION: There is no evidence of metastatic disease in the thorax. No acute findings. COMPARISON: 09/13/2017 RADIATION DOSE: CT Rad equipment meets quality standard of care and radiation dose reduction techniq ues were employed. CTDIvol: 4.4 - 5.2 mGy. DLP: 688 mGy-cm. mGy. TECHNIQUE: CT scan of the abdomen and pelvis performed with intravenous and oral contrast using galdino samuel scanning technique with dynamic intravenous contrast injection. Images reviewed with lung, soft tissue and bone windows. Reconstructed coronal and sagittal MPR images reviewed. Delayed images for evaluation of the urinary system also acquired and evaluated. All images stored on PACS. All CT scanners at this facility use dose modulation, iterative reconstruction, and/or weight based d osing when appropriate to reduce radiation dose to as low as reasonably achievable (ALARA). [facility]: Dose Right [facility]: [employer] [facility]: Dose Right [facility]: Teradose 4D [facility]: [employer] FINDINGS: LIVER: There is a heterogeneous somewhat low attenuation mass in the right lobe of the ramesh er that measures 12 cm x 9.4 cm. SPLEEN: Normal size. No focal lesions. PANCREAS: No masses. No significant calcifications. No adjacent inflammation or peripancreatic flui d collections. Pancreatic duct not dilated. GALLBLADDER: Not identified. ADRENAL GLANDS: Stable 13.6 mm left adrenal nodule. RIGHT KIDNEY AND URETER: No solid masses. No significant calcifications. No hydronephrosis or hyd roureter. LEFT KIDNEY AND URETER: No solid masses. No significant calcifications. No hydronephrosis or hydr oureter. AORTA AND VESSELS: No aneurysm. No dissection. Renal arteries, SMA, celiac without stenosis. RETROPERITONEUM: No retroperitoneal adenopathy, hemorrhage or masses. LARGE AND SMALL BOWEL: Considerable retained stool. No obvious bowel mass. APPENDIX: Normal. ABDOMINAL WALL: No hernia or masses. PERITONEAL CAVITY: No free air. No free fluid. No peritoneal implants or masses. PELVIS: No mass or free fluid. Normal bladder. BONES: No significant or acute findings. OTHER: No other significant finding. IMPRESSION: Large mass in the right lobe of the liver. This could represent a metastatic lesion. I t could represent a hepatocellular neoplasm. Possible constipation. Stable left adrenal nodule. TECHNICAL DOCUMENTATION: JOB ID: [id number] Quality ID # 436: Final reports with documentation of one or more dose reduction techniques (e.g., Au tomated exposure control, adjustment of the mA and/or kV according to patient size, use of iterative reconstruction technique) 2010 [employer]- All Rights Reserved Reading location - IP/workstation name: [email or web address]
--- NOTE | 2019-11-21 15:49 | RADIOLOGY REPORT (SQ) ---
EXAM DESCRIPTION: CT CHEST WITH; CT ABD/PELVIS WITH IV ORAL IMAGES COMPLETED DATE/TIME: 11/21/2019 2:14 pm REASON FOR STUDY: C18.7 MALIGNANT NEOPLASM OF SIGMOID COLON C18.7 MALIGNANT NEOPLASM OF SIGMOID COL ON CONTRAST TYPE AND DOSE: contrast/concentration: Isovue 350.00 mmol/ml; Total Contrast Delivered: 73. 0 ml; Total Saline Delivered: 66.0 ml RENAL FUNCTION: Creatinine 0.7 COMPARISON: None TECHNIQUE: CT scan of the chest performed using helical scanning technique with dynamic intravenous contrast injection. Images reviewed with lung, soft tissue and bone windows. Reconstructed coronal a nd sagittal MPR images reviewed. All images stored on PACS. All CT scanners at this facility use dose modulation, iterative reconstruction, and/or weight based d osing when appropriate to reduce radiation dose to as low as reasonably achievable (ALARA). [facility]: Dose Right [facility]: CareDose [facility]: Dose Right [facility]: Teradose 4D [facility]: [employer] RADIATION DOSE: CT Rad equipment meets quality standard of care and radiation dose reduction techniq ues were employed. CTDIvol: 4.4 - 5.2 mGy. DLP: 688 mGy-cm. . LIMITATIONS: None. FINDINGS: AXILLAE: No adenopathy. CHEST WALL: No masses. No subcutaneous air. LUNGS: No nodules or masses. No pneumothorax. No infiltrates. PLEURA: No effusions. No calcifications. THYROID: No masses or significant asymmetry. HILAR AND MEDIASTINAL STRUCTURES: No identified masses or abnormal nodes. AORTA AND GREAT VESSELS: No aneurysm. No dissection. PULMONARY ARTERIES: No identified pulmonary emboli. Study not optimized for the pulmonary arteries. HEART: No pericardial effusion. HARDWARE AND LIFELINES: None. BONES: No significant finding. OTHER: No other significant finding. IMPRESSION: There is no evidence of metastatic disease in the thorax. No acute findings. COMPARISON: 09/13/2017 RADIATION DOSE: CT Rad equipment meets quality standard of care and radiation dose reduction techniq ues were employed. CTDIvol: 4.4 - 5.2 mGy. DLP: 688 mGy-cm. mGy. TECHNIQUE: CT scan of the abdomen and pelvis performed with intravenous and oral contrast using galdino samuel scanning technique with dynamic intravenous contrast injection. Images reviewed with lung, soft tissue and bone windows. Reconstructed coronal and sagittal MPR images reviewed. Delayed images for evaluation of the urinary system also acquired and evaluated. All images stored on PACS. All CT scanners at this facility use dose modulation, iterative reconstruction, and/or weight based d osing when appropriate to reduce radiation dose to as low as reasonably achievable (ALARA). [facility]: Dose Right [facility]: [employer]Care [facility]: Dose Right [facility]: Teradose 4D [facility]: nanoMR FINDINGS: LIVER: There is a heterogeneous somewhat low attenuation mass in the right lobe of the ramesh er that measures 12 cm x 9.4 cm. SPLEEN: Normal size. No focal lesions. PANCREAS: No masses. No significant calcifications. No adjacent inflammation or peripancreatic flui d collections. Pancreatic duct not dilated. GALLBLADDER: Not identified. ADRENAL GLANDS: Stable 13.6 mm left adrenal nodule. RIGHT KIDNEY AND URETER: No solid masses. No significant calcifications. No hydronephrosis or hyd roureter. LEFT KIDNEY AND URETER: No solid masses. No significant calcifications. No hydronephrosis or hydr oureter. AORTA AND VESSELS: No aneurysm. No dissection. Renal arteries, SMA, celiac without stenosis. RETROPERITONEUM: No retroperitoneal adenopathy, hemorrhage or masses. LARGE AND SMALL BOWEL: Considerable retained stool. No obvious bowel mass. APPENDIX: Normal. ABDOMINAL WALL: No hernia or masses. PERITONEAL CAVITY: No free air. No free fluid. No peritoneal implants or masses. PELVIS: No mass or free fluid. Normal bladder. BONES: No significant or acute findings. OTHER: No other significant finding. IMPRESSION: Large mass in the right lobe of the liver. This could represent a metastatic lesion. I t could represent a hepatocellular neoplasm. Possible constipation. Stable left adrenal nodule. TECHNICAL DOCUMENTATION: JOB ID: [id number] Quality ID # [id number]: Final reports with documentation of one or more dose reduction techniques (e.g., Au tomated exposure control, adjustment of the mA and/or kV according to patient size, use of iterative reconstruction technique) 2010 [employer]- All Rights Reserved Reading location - IP/workstation name: [email or web address]
== END ==
LOC: RAD 13:39
PROVIDERS: ATTEND Internal Medicine Hematology & Oncology
DX: C18.7 Malignant neoplasm of sigmoid colon (principal); R16.0 Hepatomegaly, not elsewhere classified; E27.8 Other specified disorders of adrenal gland
CPT/HCPCS: 71260; 74177; 82565

== ENCOUNTER → 2019-11-25 | Outpatient (CLI) | payer BC, MEDICAID ==
--- NOTE | 2019-11-25 13:38 | RADIOLOGY REPORT (SQ) ---
EXAM DESCRIPTION: NM WHOLE BODY BONE SCAN IMAGES COMPLETED DATE/TIME: 11/25/2019 1:04 pm REASON FOR STUDY: MALIGNANT NEOPLASM OF SIGMOID COLON C18.7 MALIGNANT NEOPLASM OF SIGMOID COLON COMPARISON: CT chest abdomen and pelvis dated 11/21/2019 RADIONUCLIDE AND DOSE: 21.1 millicuries Tc99m MDP. The route of agent administration: Intravenous. ADDITIONAL DRUGS AND DOSES: None. TECHNIQUE: Routine delayed images at 3 hour post radionuclide injection acquired of the bony skeleto n including anterior and posterior whole-body projections and additional focused images as needed. LIMITATIONS: None. FINDINGS: BONES: Asymmetric uptake in the right knee. Mild uptake in both shoulders consistent with degenerative disease. No findings to suggest metastasis. Mild uptake in both hips is consistent wi th degenerative disease. KIDNEYS: Symmetric excretion without obstruction. OTHER: No other significant finding. IMPRESSION: No evidence of metastatic disease. COMMENT: Quality measure 147: Current bone scan is compared with any available plain radiographs, p rior bone scans, and CT/MRI. TECHNICAL DOCUMENTATION: JOB ID: [id number] 2010 [employer]- All Rights Reserved Reading location - IP/workstation name: [email or web address]
== END ==
LOC: RAD 09:58
PROVIDERS: ATTEND Internal Medicine Hematology & Oncology
DX: C18.7 Malignant neoplasm of sigmoid colon (principal)
CPT/HCPCS: 78306; A9503; Q9969

== ENCOUNTER 2020-04-24 07:28 | Day surgery (SDC) | payer MEDICARE, BC ==
[2020-04-17 12:18] LABS: HEMOGLOBIN 11.3 g/dL (12.0-15.5); MEAN CORPUSCULAR HEMOGLOBIN 26.9 pg (27.0-33.4); MEAN CORPUSCULAR HGB CONC 32.4 g/dL (32.0-36.0); MEAN CORPUSCULAR VOLUME 83 fl (80-97); PLATELET COUNT 247 10^3/uL (150-450); RED BLOOD COUNT 4.22 10^6/uL (3.72-5.28); RED CELL DISTRIBUTION WIDTH 15.5 % (11.5-14.0); WHITE BLOOD COUNT 4.3 10^3/uL (4.0-10.5)
[~2020-04-24 07:28] MED LIST changes: +ACETAMINOPHEN 325 MG TABLET PO PRN; +CEFAZOLIN 1 GM/D5W RTU 1 GM/50 ML RTUPB IV ONE; +CEFAZOLIN 1 GM/D5W RTU 1 GM/50 ML RTUPB IV PRN; +DEXAMETHASONE SOD PHOSPHATE INJ 4 MG/1 ML VIAL ONE; -DIPHENHYDRAMINE HCL 50 MG/ML VIAL ONE; -EPINEPHRINE INJ 1 MG/10 ML DISP.SYRIN ONE; +FENTANYL CITRATE INJ/PF 100 MCG/2 ML AMPUL ONE; -FLUMAZENIL INJ 0.5 MG/5 ML VIAL ONE; -GLUCAGON,HUMAN RECOMB 1 MG INJ ONE; +LACTATED RINGERS 1000 ML IV PRN; +MIDAZOLAM 2 MG/2 ML INJ ONE; -NALOXONE HCL INJ/PF 0.4 MG/1 ML SDV ONE; +PROPOFOL INJ 200 MG/20 ML VIAL IV ONE
[2020-04-24] MEDS ORDERED: EPHEDRINE SULFATE INJ 50 MG/1 ML AMPULE ONE (09:46)
[2020-04-24] MEDS ORDERED: LIDOCAINE 1%/EPINEPHRINE INJ 20 ML VIAL ONE (09:52)
[2020-04-24] MEDS ORDERED: FENTANYL CITRATE INJ/PF 100 MCG/2 ML AMPUL IV PRN ×3 (10:24)
[2020-04-24] MEDS ORDERED: MEPERIDINE HCL/PF INJ 25 MG/1 ML DISP.SYRIN IV PRN (10:24)
[2020-04-24] MEDS ORDERED: DIPHENHYDRAMINE HCL 50 MG/ML VIAL IV PRN (10:24)
[2020-04-24] MEDS ORDERED: PROMETHAZINE HCL INJ 25 MG/1 ML VIAL IV PRN ×2 (10:24)
--- NOTE | 2020-04-24 10:40 | Discharge Summary ---
Discharge Summary (SDC) - Discharge Final Diagnosis: Metastatic colorectal cancer Date of Surgery: 04/24/20 Discharge Date: 04/24/20 Condition: Good Forms: ASU Anesthesia D/C Instruction, Discharge POC-Surgical Service Treatment or Instructions: Patient may use port in 48 hours; allow Steri-Strips to fall off; may take Tylenol or Motrin as needed pain. Referrals: VARSHA BROOKS MD [ACTIVE STAFF] - 05/04/20 8:15 am Discharge Diet: As Tolerated Discharge Activity: Activity As Tolerated Home Care Assistance: None Needed Report the Following to Your Physician Immediately: Shortness of Breath, Increase in Pain, Fever over 101 Degrees
--- NOTE | 2020-04-24 10:44 | Operative Report ---
Operative Report DATE OF SURGERY: 04/24/20 PREOPERATIVE DIAGNOSIS: Metastatic colorectal carcinoma POSTOPERATIVE DIAGNOSIS: Same OPERATION: 1. Focused ultrasound the right neck. 2. Ultrasound directed insertion of single-lumen Vwxjgc-u-Nlmb catheter right internal jugular vein with port in the right subclavian position. 3. Interpretation of intraoperative fluoroscopy SURGEON: VARSHA BROOKS ANESTHESIA: LMAC TISSUE REMOVED OR ALTERED: None COMPLICATIONS: None ESTIMATED BLOOD LOSS: Scant INTRAOPERATIVE FINDINGS: See below PROCEDURE: Patient was taken to the main operating room where LMAC anesthesia was induced. Arms were tucked at her sides, and both sides of the neck and chest wall were prepped and draped sterile fashion. Surgical plan and surgical timeout were conducted. Focused ultrasound of the right neck revealed a compressible, caliber right internal jugular vein felt suitable for cannulation. Overlying skin was anesthetized 1% plain lidocaine, elda made the skin with 11 blade, micro needle and wire threaded into the right internal jugular vein. The previously placed Awntvd-c-Ngjp in the right subclavian position left a scar so the scar was used for access to the right subclavian area. The skin overlying the scar was anesthetized 1% plain lidocaine. A #15 blade was used to open the scar. An underlying pocket was developed large enough to accommodate a single-chamber port. The catheter was then trimmed to the appropriate length, tunnel between the 2 incisions, attached to the port with the plastic ring. The port was tucked into the right subclavian pocket. Under fluoroscopic guidance, the right internal jugular vein microwire was switched over to a conventional 0.030 inch guidewire under direct visualization. We then threaded over the 8-1/2 Burmese dilator and introducer sheath. The dilator and wire removed, and catheter fragment threaded into the right internal jugular vein. Fluoroscopically there was no evidence of kinking of the catheter at the neck. We aspirated and flushed the chamber uneventfully with heparinized saline. Wounds closed with 3-0 Vicryl benzoin and Steri-Strips. Patient tolerated procedure well, taken to recovery room in stable condition.
[2020-04-24 12:31] VITALS: BP 152/90
--- NOTE | 2020-04-24 12:38 | RADIOLOGY REPORT (SQ) ---
EXAM DESCRIPTION: FLUORO/CV PLACEMENT IMAGES COMPLETED DATE/TIME: 04/24/2020 11:05 am REASON FOR STUDY: PORTACATH PLCMT RIGHT SIDE ASSISTED WITH FLUORO IN OR C19 MALIGNANT NEOPLASM OF R ECTOSIGMOID JUNCTION COMPARISON: None. FLUOROSCOPY TIME: 0.1 minutes 4 images saved to PACS. TECHNIQUE: Intra-operative images acquired during surgical procedure to evaluate progress. NUMBER OF IMAGES: 4 LIMITATIONS: None. FINDINGS: Intraoperative fluoroscopic images demonstrate evidence of right internal jugular based ch est port placement. Please see operative report for detailed description. IMPRESSION: IMAGE(S) OBTAINED DURING PROCEDURE. COMMENT: Quality ID 145: Final reports for procedures using fluoroscopy that document radiation exp osure indices, or exposure time and number of fluorographic images (if radiation exposure indices are not available) Please consult full operative report of the attending physician for description of the procedure. TECHNICAL DOCUMENTATION: JOB ID: [id number] 2010 [employer]- All Rights Reserved Reading location - IP/workstation name: [email or web address]
== END 2020-04-24 12:15 | disposition home or self-care (01) ==
LOC: OROUT 07:28
PROVIDERS: ATTEND Surgery
DX: C19 Malignant neoplasm of rectosigmoid junction (principal); C78.7 Secondary malignant neoplasm of liver and intrahepatic bile duct; Z20.828 Contact with and (suspected) exposure to other viral communicable diseases; Z90.49 Acquired absence of other specified parts of digestive tract; I10 Essential (primary) hypertension; G62.9 Polyneuropathy, unspecified; Z79.899 Other long term (current) drug therapy; Z92.21 Personal history of antineoplastic chemotherapy
CPT/HCPCS: 36415; 85027; 77001; 36561; U0003; J2250; J0690; J1100; J3010; J3490; J2405; J2704; J1642; C9803; 532; 87635; C1752; C1788